=== PATIENT | female | born 1950 | race Caucasian/White ===

== ENCOUNTER → 2016-12-26 | Outpatient (CLI) | payer MEDICARE, OTHER ==
[~2016-12-26] MED LIST: CLD600T PO; CLIN-62 PO; CTLP20T PO; ESTR1TAB24 PO; GLUC-153 PO; HYDR-3583 PO; HYDR-707 PO; KETO-22 PO; LORA10CA PO; LOSA50TA6 PO; LOVA40TA2 PO; MECL-133 PO; MPR22TI TP; MTP50T PO; PRAV40TA PO; PRAV80TA2 PO; SULF-222 PO; SULF1TAB35 PO; TRAM50TA2 PO; TRIA15CR TP; vitamin b6 PO
== END ==
LOC: RAD 09:15
PROVIDERS: ATTEND Nurse Practitioner Community Health
DX: Z12.31 Encounter for screening mammogram for malignant neoplasm of breast (principal)
CPT/HCPCS: 77067

== ENCOUNTER → 2017-04-09 | Outpatient (CLI) | payer MEDICARE, OTHER ==
--- NOTE | 2017-04-09 11:37 | Diagnostic Imaging Report ---
INDICATION: History of smoking 1-2 packs a day for 40 years. Screening. COMPARISON: None. TECHNIQUE: Routine noncontrast low dose CT of the chest was performed. FINDINGS: Evaluation of the lung lee demonstrates a single subpleural 3-4 mm micronodule within the lateral left apex (image 40, series 4). There is some scarring within the posterior right apex as well. Otherwise, no additional pulmonary nodules or masses are seen. There is no focal consolidation, pleural effusion, nor pneumothorax. Cardiomediastinal structures are suboptimally evaluated given the noncontrast technique and lung window algorithm. Heart size is within normal limits. There is no large pericardial effusion. There is mild calcified aortic and coronary atherosclerosis. No pathologically enlarged or morphologically abnormal adenopathy is seen within the mediastinum, scout, nor axilla. Main pulmonary arterial trunk is prominent as it measures 3.5 cm in diameter. Ascending thoracic aorta is also prominent measuring 4.1 cm in diameter. Bony structures show no acute abnormalities. No lytic or blastic bony lesions are identified. Included portions of the upper abdomen show no additional acute abnormalities. IMPRESSION: 1. Single 4 mm micronodule within the left upper lobe as described above. 2. No acute cardiopulmonary process. 3. Mild calcified aortic and coronary atherosclerosis. 4. Prominence of main pulmonary arterial trunk. This can be seen with underlying pulmonary arterial hypertension. 5. Aneurysmal dilatation of the ascending thoracic aorta. LungRads category: 2. RECOMMENDATIONS: Continue annual screening with low-dose CT. Dictated by: Dictated on workstation # [id number]
== END ==
LOC: RAD 09:39
PROVIDERS: ATTEND Nurse Practitioner Community Health
DX: Z12.2 Encounter for screening for malignant neoplasm of respiratory organs (principal); I25.10 Atherosclerotic heart disease of native coronary artery without angina pectoris; I70.0 Atherosclerosis of aorta; I71.2 Thoracic aortic aneurysm, without rupture; R91.1 Solitary pulmonary nodule; Z87.891 Personal history of nicotine dependence

== ENCOUNTER 2017-12-09 18:18 | Emergency (ER) | payer MEDICARE, OTHER ==
[~2017-12-09] VITALS: Ht 175.3 cm; Wt 108.9 kg
--- OUTSIDE RECORDS SUMMARY | 2017-12-09 18:23 | XMS REPORT ---
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 Organization [facility] Address [address] [place] [address] Care Team Providers Care Behavioral Health Assistant Name Role Phone NOREEN FARMERIN Unavailable PROBLEMS Type Condition ICD9-CM Code BVZ03-AQ Code Onset Dates Condition Status SNOMED Code Problem Dysthymia F34.1 Active 82433799 Problem Essential hypertension I10 Active 43605108 Problem Chronic pain G89.29 Active 02962496 Problem Methicillin resistant Staphylococcus aureus 041.12 Active 877971278 Problem Cataracts, bilateral H26.9 Active 21617206 Problem Ganglion cyst M67.40 Active 081433613 Problem Heel spur M77.30 Active 69285752 Problem Irritable bowel syndrome with diarrhea K58.0 Active 295476429 Problem Neuropathy G62.9 Active 406340847 Problem Acquired hallux valgus of left foot M20.12 Active 55970620 Problem Hyperlipidemia, unspecified E78.5 Active 00298995 Problem Hallux valgus (acquired), right foot M20.11 Active 063085333 Problem Hammer toe of right foot M20.41 Active 539897223 ALLERGIES No Information ENCOUNTERS Encounter Location Date Diagnosis [place] [id number], [place] [address] Nov, [facility] [id number] [place] [address]191 Nov, [facility] [id number] [place] [address] 84625- 7493 Oct, Right medial knee pain M25.561 ; Abrasion of left knee, initial encounter S80.212A and Dysthymia F34.1 [facility] [id number], [place] [address] Aug, Other chronic pain G89.29 and Pain in right knee M25.561 [place] [address] [address] Aug, Chronic pain G89.29 [place] [address] 8[address]- [address]252 Aug, Right medial knee pain M25.561 [facility] [address] [address] Aug, Allergic conjunctivitis of both eyes H10.13 [place] [address] [address]- [address] 15 Aug, 2017 Onychomycosis B35.1 [place] [address] 00557- 2535 08 Aug, 2017 Allergic state, initial encounter T78.40XA [facility] [address] [address] 05 Aug, 2017 Acute bacterial conjunctivitis of left eye H10.32 [place] [address] [address] July, Essential hypertension I10 and Skin tag L91.8 [facility] [address] [address] Jun, [place] [address] [address] May, Dermatofibroma of left calf D23.72 [facility] [address] [address] May, Bilateral hearing loss due to cerumen impaction H61.23 [place] [address] [address]- [address] 23 May, 2017 Onychomycosis B35.1 ; Hammer toe of right foot M20.41 ; Acquired hallux valgus of left foot M20.12 and [place] or callus L84 [place] [address] [place] [address] Apr, Seborrheic keratosis L82.1 and Irritable bowel syndrome with diarrhea K58.0 [place] [address] 8[address] Mar, [place] [address] 0[address] Mar, Dental examination Z01.20 [place] [address] 75[address]- 6201 15 Mar, 2017 Medicare welcome exam Z00.00 ; Encounter for screening for lung cancer Z12.2 ; Colon cancer screening Z12.11 ; Encounter for immunization Z23 ; Weakness R53.1 and Irritable bowel syndrome with diarrhea K58.0 [place] [address] 67[address] 28[address] Feb, Onychomycosis B35.1 ; Hammer toe of right foot M20.41 ; Hallux valgus (acquired), right foot M20.11 and Acquired hallux valgus of left foot M20.12 [place] [address] 86767- 4864 Jan, Essential hypertension I10 and Encounter for immunization Z23 [place] [address] [address]- [address] Dec, Encounter for screening mammogram for breast cancer Z12.31 and Hyperlipidemia, unspecified E78.5 [place] [address] [address]16- 4[address] Nov, Hammer toe of right foot M20.41 ; Onychomycosis B35.1 and Neuropathy G62.9 [place] [address] 98498- 3347 Sep, Essential hypertension I10 and 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 [place] [address] 0[address]12- 20[address] Aug, [place] [address] [place] [id number] [place] [address]57- 2483 Aug, [place] [address] [address]70- 62[address] Aug, Onychomycosis B35.1 ; Hammer toe of right foot M20.41 and Neuropathy G62.9 [place] [address] 13022- 7632 May, Callus of foot L84 ; Hammer toe of right foot M20.41 and Onychomycosis B35.1 [place] [address] 45606- 3654 Apr, Chronic pain G89.29 [place] [address] 45690- 2777 Feb, Onychomycosis B35.1 ; Hammer toe of right foot M20.41 ; Acquired hallux valgus of left foot M20.12 and Hallux valgus (acquired), right foot M20.11 [place] [address] 94929- 8377 28 Jan, 2016 Cellulitis of left lower extremity L03.116 [place] [address] 39696- 9177 21 Jan, 2016 Seborrheic keratosis L82.1 and Encounter for immunization Z23 [place] [address] 82352- 7887 18 Jan, 2016 Seborrheic keratoses L82.1 and Visit for suture removal Z48.02 [place] [address] 15193- 6787 08 Jan, 2016 Dermatofibroma D23.9 [place] [address] 21046- 3071 18 Dec, 2015 Lesion of lower extremity L98.9 [place] [address] 38258- 7653 Dec, [place] [id number] [place] [address] 29990- 9668 Dec, Chronic pain G89.29 [place] [id number] [place] [address] 71062- 4084 Dec, Well woman exam Z01.419 ; Essential hypertension I10 ; Breast cancer screening Z12.39 ; Cervical cancer screening Z12.4 ; Vision changes H53.9 ; Heberden's node M15.1 ; Cutaneous horn L85.8 and Seborrheic keratosis L82.1 [place] [id number] [place] [address] 36282- 5372 Dec, Well woman exam Z01.419 ; Heberden's node M15.1 ; Breast cancer screening Z12.39 ; Cervical cancer screening Z12.4 ; Essential hypertension I10 ; Vision changes H53.9 ; Cutaneous horn L85.8 and Seborrheic keratosis L82.1 [place] [id number] [place] [address] 54097- 8007 Nov, Well woman exam Z01.419 ; Breast cancer screening Z12.39 ; Cervical cancer screening Z12.4 ; Essential hypertension I10 ; Vision changes H53.9 ; Heberden's node M15.1 ; Cutaneous horn L85.8 and Seborrheic keratosis L82.1 [place] [id number] [place] [address] 46198- 4640 Nov, Hammer toe of right foot M20.41 and Callus of foot L84 [place] [id number] [place] [address] 61069- 8005 Aug, Onychomycosis B35.1 and Callus of foot L84 [place] [id number] [place] [address] 07397- 7930 July, Dysthymia F34.1 and Chronic pain G89.29 [place] [id number] [place] [address] 45991- 0410 Jun, Dysthymia F34.1 ; Heel spur M77.30 and Ganglion cyst M67.40 [facility] [address] 46966- 4409 May, Onychomycosis B35.[address] [facility] [address] 91803- 2391 May, [facility] [address] 78042- 9849 Apr, [facility] [address] [address]- 6308 Apr, [facility] [address] [address]- 2463 Apr, [facility] [address] [address]- 1692 Mar, [facility] [address] 10126- 3915 Mar, [facility] [address] 075[address]- 0718 Feb, [facility] [id number] [place] [address] 98217- 5005 Feb, [facility] [address] [place] [id number] [place] [address] 28717- 4090 Feb, [facility] [address] 39013- 2585 Feb, Onychomycosis B35.1 and [place] or callus L84 [facility] [address] 76185- 6222 Feb, Cough R05 [facility] [id number] [place] [address] 15822 -8504 Jan, Sinusitis J32.9 [facility] [address] [id number] [place] [address] 80642- 6135 Jan, Hyperlipidemia 272.4 [place] [address] [place] [id number] [place] [address] 55190- 2006 09 Jan, 2015 Acute upper respiratory infection, unspecified J06.9 ; Encounter for immunization Z23 ; Other viral agents as the cause of diseases classified elsewhere B97.89 and Acute frontal sinusitis, recurrence not specified J01.10 [place] [address] 16510- 6420 Nov, Wart 078.10 ; Breast cancer screening V76.10 and Hyperlipidemia 272.[address] 8[address]- 3360 Nov, Onychomycosis 110.1 ; [place] or callus 700 and Skin fissures 709.[address] 94856- 1688 Aug, Hammertoe 735.4 ; Hyperkeratosis 701.1 ; Onychomycosis 110.1 ; Fissure in skin of foot 709.8 and Foot pain 729.5 [place] [address] [place] [id number] [place] [address] 74844- 8478 Aug, [place] [address] [place] [id number] [place] [address] 29110- 2877 Aug, [place] [address] [place] [id number] [place] [address] 93653- 6798 Aug, [place] [address] [place] [id number] [place] [address] 86954- 8690 July, [place] [address] 95687- 8942 July, [place] [address] [place] [id number] [place] [address] 45987- 1065 Jun, [place] [address] [place] [id number] [place] [address] 12311- 9837 Jun, [facility] [place] [facility] [address] [id number] [place] [address]- 0583 May, [facility] [place] [facility] [address] [id number] [place] [address]- 8501 May, [facility] [place] [facility] [address] [id number] [place] [address]- 4418 May, [facility] [place] [facility] [address] [id number] [place] [address]- 4926 May, [facility] [place] [facility] [address] [id number] [place] [address]- 8876 Apr, [facility] [place] [facility] [address] [id number] [place] [address]- 1509 Apr, [facility] [place] [facility] [address] [id number] [place] [address]- 3864 Feb, [facility] [place] [facility] [address] [id number] [place] [address]- 4996 Feb, [facility] [place] [facility] [address] [id number] [place] [address]- 4952 Feb, [facility] [place] [facility] [address] [id number] [place] [address]- 6422 Feb, [facility] [place] [facility] [address] [id number] [place] [address]- 8896 Feb, [facility] [place] [facility] [address] [id number] [place] [address]- 3346 Feb, [facility] [place] [facility] [address] [id number] [place] [address]- 3494 Jan, [facility] [place] [facility] [address] [id number] [place] [address]- 5596 Jan, [facility] [place] [facility] [address] [id number] [place] [address]- 3354 Jan, [facility] [place] [facility] [address] [id number] [place] [address]- 5194 06 Jan, 2014 [facility] [place] [facility] [address] [id number] [place] [address]- 6863 Jan, [facility] [place] [facility] [address] [id number] [place] [address]- 6206 Dec, [facility] [place] [facility] [address] [id number] [place] [address]- 8666 Dec, [facility] [place] [facility] [address] [id number] [place] [address]- 1444 29 Nov, 2013 [facility] [place] [facility] [address] [id number] [place] [address]- 0160 29 Nov, 2013 [facility] [place] [facility] [address] [id number] [place] [address]- 9858 Nov, 2013 [facility] [place] [facility] [address] [id number] [place] [address]- 3381 Nov, 2013 [facility] [place] [facility] [address] [id number] [place] [address]- 9871 Nov, 2013 [facility] [place] [facility] [address] [id number] [place] [address]- 1123 11 Nov, 2013 [facility] [place] [facility] [address] [id number] [place] [address]- 0539 Nov, [facility] [place] [facility] [address] [id number] [place] [address]- 6420 Nov, 2013 [facility] [place] [facility] [address] [id number] [place] [address]- 2549 Nov, 2013 [facility] [place] [facility] [address] [id number] [place] [address]- 7951 Nov, [facility] [place] [facility] [address] [id number] [place] [address]- 3574 Oct, [facility] [place] [facility] [address] [id number] [place] [address]- 9666 Oct, [facility] [place] [facility] [address] [id number] [place] [address]- 4411 Oct, [facility] [place] [facility] [address] [id number] [place] [address]- 5187 Oct, [facility] [place] [facility] [address] [id number] [place] [address]- 6374 Sep, [facility] [place] [facility] [address] [id number] [place] [address]- 1828 Sep, [facility] [place] [facility] [address] [id number] [place] [address]- 9376 Sep, [facility] [place] [facility] [address] [id number] [place] [address]- 0154 Sep, [facility] [place] [facility] [address] [id number] [place] [address]- 9824 Aug, [facility] [place] [facility] [address] [id number] [place] [address]- 0570 Aug, [facility] [place] [facility] [address] [id number] [place] [address]- 8871 Aug, [facility] [place] [facility] [address] [id number] [place] [address]- 1428 Aug, [facility] [place] [facility] [address] [id number] [place] [address]- 7144 Aug, [facility] [place] [facility] [address] [id number] [place] [address]- 4663 Aug, [facility] [place] [facility] [address] [id number] [place] [address]- 6963 Aug, [facility] [place] [facility] [address] [id number] [place] [address]- 0323 Aug, [facility] [place] [facility] [address] [id number] [place] [address]- 3540 Aug, [facility] [place] [facility] [address] [id number] [place] [address]- 0098 Aug, [facility] [place] [facility] [address] [id number] [place] [address]- 7535 Aug, [facility] [place] [facility] [address] [id number] [place] [address]- 6540 Aug, [facility] [place] [facility] [address] [id number] [place] [address]- 7083 July, [facility] [place] [facility] [address] [id number] [place] [address]- 3804 July, [facility] [place] [facility] [address] [id number] [place] [address]- 4400 July, [facility] [place] [facility] [address] [id number] [place] [address]- 5510 July, [facility] [place] [facility] [address] [id number] [place] [address]- 6589 July, [facility] [place] [facility] [address] [id number] [place] [address]- 9211 July, [facility] [place] [facility] [address] [id number] [place] [address]- 8060 Jun, [facility] [place] [facility] [address] [id number] [place] [address]- 0217 Jun, [facility] [place] [facility] [address] [id number] [place] [address]- 5804 Jun, [facility] [place] [facility] [address] [id number] [place] [address]- 9786 Jun, [facility] [place] [facility] [address] [id number] [place] [address]- 0427 May, [facility] [place] [facility] [address] [id number] [place] [address]- 8834 May, [facility] [place] [facility] [address] [id number] [place] [address]- 3001 May, [facility] [place] [facility] [address] [id number] [place] [address]- 7401 14 May, 2013 [facility] [address] [id number] [place] [address]- 3623 Feb, [facility] [address] [id number] [place] [address]- 3193 Feb, [facility] [address] [id number] [place] [address]- 8228 Feb, [facility] [address] [id number] [place] [address]- 7027 Feb, [facility] [address] [id number] [place] [address]- 9608 Jan, [facility] [address] [id number] [place] [address]- 4964 Jan, [facility] [address] [id number] [place] [address]- 4921 Dec, [facility] [address] [id number] [place] [address]- 3411 06 Nov, 2012 [facility] [address] [id number] [place] [address]- 6557 04 Nov, 2012 [facility] [address] [id number] [place] [address]- 5689 Nov, [facility] [address] [id number] [place] [address]- 9150 2012 [facility] [address] [id number] [place] [address]- 0086 Oct, [facility] [place] [facility] [address] [id number] [place] [address]- 6954 Oct, [facility] [place] [facility] [address] [id number] [place] [address]- 9544 Oct, [facility] [place] [facility] [address] [id number] [place] [address]- 0877 Oct, [facility] [address] [id number] [place] [address]- 3886 Oct, [facility] [place] [facility] [address] [id number] [place] [address]- 5716 Aug, [facility] [place] [facility] [address] [id number] [place] [address]- 7606 July, [facility] [place] [facility] [address] [id number] [place] [address]- 9666 July, [facility] [address] [id number] [place] [address]- 8429 May, [facility] [place] [facility] [address] [id number] [place] [address]- 9416 May, [facility] [place] [facility] [address] [id number] [place] [address]- 8526 May, [facility] [address] [id number] [place] [address]- 0370 Apr, [facility] [place] [facility] [address] [id number] [place] [address]- 6646 Apr, [facility] [place] [facility] [address] [id number] [place] [address]- 7166 Mar, [facility] [place] [facility] [address] [id number] [place] [address]- 8646 Mar, [facility] [place] [facility] [address] [id number] [place] [address]- 0476 Jan, [facility] [place] [facility] [address] [id number] [place] [address]- 3836 Jan, [facility] [place] [facility] [address] [id number] [place] [address]- 6236 Nov, [facility] [place] [facility] [address] [id number] [place] [address]- 2546 Nov, [facility] [place] [facility] [address] [id number] [place] [address]- 4071 Sep, [facility] [address] [id number] [place] [address]- 4684 Aug, [facility] [place] [facility] [address] [id number] [place] [address]- 6948 July, [facility] [address] [id number] [place] [address]- 0016 July, [facility] [place] [facility] [address] [id number] [place] [address]- 5851 July, [facility] [address] [id number] [place] [address]- 3072 Apr, [facility] [place] [facility] [address] [id number] [place] [address]- 7205 Apr, [facility] [address] [id number] [place] [address]- 2283 Mar, [facility] [place] [facility] [address] [id number] [place] [address]- 5557 Mar, [facility] [address] [id number] [place] [address]- 9114 Mar, [facility] [address] [id number] [place] [address]- 6973 Mar, [facility] [address] [id number] [place] [address]- 7285 Mar, [facility] [place] [facility] [address] [id number] [place] [address] Feb, [facility] [place] [facility] [address] [id number] [place] [address] Feb, [facility] [place] [facility] [address] [id number] [place] [address] Feb, [facility] [place] [facility] [address] [id number] [place] [address] Jan, [facility] [id number] [address] Jan, [facility] [id number] [address] Dec, [facility] [address] [address] Jan, [facility] [id number] [place] [address] Aug, [facility] [address] [address] July, [facility] [id number] [place] [address] Feb, [facility] [id number] [place] [address] Jan, [facility] [id number] [place] [address] Jan, [facility] [address], [place] [address] Dec, [facility] [address], [place] [address] July, IMMUNIZATIONS No Known Immunizations SOCIAL HISTORY Never Assessed REASON FOR VISIT 3 month f/u,pt. comes in with concern pain under left foot-KRYS mead PLAN OF CARE Activity Details Follow Up 3 Months Reason: VITAL SIGNS Height 70 in 2017-08-31 Blood pressure systolic 118 mmHg 2017-08-31 Blood pressure diastolic 72 mmHg 2017-08-31 MEDICATIONS Medication Instructions Dosage Frequency Start Date End Date Duration Status Tramadol HCl 50 MG Orally every 4 - 6 hrs 1 tablet as needed Apr, 28 days Active Metoprolol Tartrate 100 MG Orally Twice a day 1 tablet 12h 90 Active Loratadine 10 MG TAKE ONE TABLET BY MOUTH DAILY 90 Active Bentyl 20 MG TAKE ONE (1) TABLET BY MOUTH TWICE DAILY BEFORE LUNCH AND SUPPER 30 Active Losartan Potassium 50 mg Orally 2 times a day 1 tablet 12h 90 days Active Estradiol 0.5 MG Orally Once a day 1 tablet 24h 90 Active Prozac 40 MG Orally Once a day 1 capsule in the morning 24h 90 days Active Amlodipine Besylate 10 MG TAKE ONE TABLET BY MOUTH ONCE DAILY 90 Active Pravastatin Sodium 80 MG TAKE ONE TABLET BY MOUTH AT BEDTIME 24h 90 Active Maxitrol 3.5-90744-8.1 Ophthalmic Four times a day 1 drop into affected eye 6h Aug, 7 days Active RESULTS No Results PROCEDURES Procedure Date Ordered Result Body Site DEBRIDE NAIL, 6 OR MORE August 31, 2017 [facility] VISIT ESTABLISHED PATIENT August 31, 2017 INSTRUCTIONS MEDICATIONS ADMINISTERED No Known Medications MEDICAL (GENERAL) HISTORY Type Description Date Medical History HTN Medical History hyperlipidemia Medical History chronic back pain and shoulder pain Medical History MRSA Surgical History x 3 Surgical History hysterectomy Surgical History right foot surgery Hospitalization History surgeries Hospitalization History MRSA on arm Hospitalization History infected cyst 2011
--- OUTSIDE RECORDS SUMMARY | 2017-12-09 18:24 | XMS REPORT ---
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 Name Role Phone SHAYNA DASILVA Unavailable PROBLEMS Type Condition ICD9-CM Code YZG72-CO Code Onset Dates Condition Status SNOMED Code Problem Dysthymia F34.1 Active 25194446 Problem Essential hypertension I10 Active 83985005 Problem Chronic pain G89.29 Active 59459464 Problem Methicillin resistant Staphylococcus aureus 041.12 Active 441275463 Problem Cataracts, bilateral H26.9 Active 32282521 Problem Ganglion cyst M67.40 Active 456413967 Problem Heel spur M77.30 Active 53469796 Problem Irritable bowel syndrome with diarrhea K58.0 Active 453343059 Problem Neuropathy G62.9 Active 125110101 Problem Acquired hallux valgus of left foot M20.12 Active 51524622 Problem Hyperlipidemia, unspecified E78.5 Active 94563661 Problem Hallux valgus (acquired), right foot M20.11 Active 707810098 Problem Hammer toe of right foot M20.41 Active [id number] ALLERGIES No Known Allergies ENCOUNTERS Encounter Location Date Diagnosis [place] [id number] [address] Nov, [facility] [id number] [place] [address]27- 1119 Nov, [facility] [id number] [place] [address]12- 4502 Oct, Right medial knee pain M25.561 ; Abrasion of left knee, initial encounter S80.212A and Dysthymia F34.1 [facility] [address] [place] [id number] [address] Aug, Other chronic pain G89.29 and Pain in right knee M25.561 [place] [address] [address] Aug, Chronic pain G89.29 [place] [address] [address]86- [address]84 Aug, Right medial knee pain M25.561 [facility] [address] [address] Aug, Allergic conjunctivitis of both eyes H10.13 [place] [address] [address]77- [address]471 Aug, Onychomycosis B35.[address] [address]- [address] 08 Aug, 2017 Allergic state, initial encounter T78.40XA [facility] [address] [address] 05 Aug, 2017 Acute bacterial conjunctivitis of left eye H10.[address] [address]- [address] July, Essential hypertension I10 and Skin tag L91.8 [facility] [address] [address] Jun, [address] [address] May, Dermatofibroma of left calf D23.72 [facility] [address] [address] May, Bilateral hearing loss due to cerumen impaction H61.[address] [address]- [address] May, Onychomycosis B35.1 ; Hammer toe of right foot M20.41 ; Acquired hallux valgus of left foot M20.12 and [place] or callus L84 [place] [address] [address]- 50[address] Apr, Seborrheic keratosis L82.1 and Irritable bowel syndrome with diarrhea K58.0 [place] [address] [place] [id number] [place] [address] 97672- 2050 Mar, [place] [address] [place] [id number] [place] [address] 13333- 9608 Mar, Dental examination Z01.20 [place] [address] [address]- [address] 15 Mar, 2017 Medicare welcome exam Z00.00 ; Encounter for screening for lung cancer Z12.2 ; Colon cancer screening Z12.11 ; Encounter for immunization Z23 ; Weakness R53.1 and Irritable bowel syndrome with diarrhea K58.0 [place] [address] [address]- [address] Feb, Onychomycosis B35.1 ; Hammer toe of right foot M20.41 ; Hallux valgus (acquired), right foot M20.11 and Acquired hallux valgus of left foot M20.12 [place] [address] [address]- 2688 Jan, Essential hypertension I10 and Encounter for immunization Z23 [address] 365[address]- [address] Dec, Encounter for screening mammogram for breast cancer Z12.31 and Hyperlipidemia, unspecified E78.5 [place] [address] [address]- 7639 Nov, Hammer toe of right foot M20.41 ; Onychomycosis B35.1 and Neuropathy G62.[address] [address]- [address] Sep, Essential hypertension I10 and 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 [place] [address] [place] [id number] [place] [address] 83388- 2886 Aug, [place] [address] [place] [id number] [place] [address] 27929- 5033 Aug, [place] [address] [address]- [address] Aug, Onychomycosis B35.1 ; Hammer toe of right foot M20.41 and Neuropathy G62.9 [place] [address] 64951- 1094 May, Callus of foot L84 ; Hammer toe of right foot M20.41 and Onychomycosis B35.1 [place] [address] 55458- 7175 Apr, Chronic pain G89.29 [place] [address] 16633- 1269 Feb, Onychomycosis B35.1 ; Hammer toe of right foot M20.41 ; Acquired hallux valgus of left foot M20.12 and Hallux valgus (acquired), right foot M20.11 [place] [address] 62701- 4963 Jan, Cellulitis of left lower extremity L03.116 [place] [address] 49652- 6425 Jan, Seborrheic keratosis L82.1 and Encounter for immunization Z23 [place] [address] 90727- 4[address] 18 Jan, 2016 Seborrheic keratoses L82.1 and Visit for suture removal Z48.02 [place] [address] 48030- 5961 08 Jan, 2016 Dermatofibroma D23.9 [place] [address] 10013- 5288 18 Dec, 2015 Lesion of lower extremity L98.9 [place] [address] 58612- 7346 Dec, [place] [address] [place] [id number] [place] [address] 88036- 6461 Dec, Chronic pain G89.29 [place] [id number] [place] [address] Dec, Well woman exam Z01.419 ; Essential hypertension I10 ; Breast cancer screening Z12.39 ; Cervical cancer screening Z12.4 ; Vision changes H53.9 ; Heberden's node M15.1 ; Cutaneous horn L85.8 and Seborrheic keratosis L82.[address] 26111- 5816 Dec, Well woman exam Z01.419 ; Heberden's node M15.1 ; Breast cancer screening Z12.39 ; Cervical cancer screening Z12.4 ; Essential hypertension I10 ; Vision changes H53.9 ; Cutaneous horn L85.8 and Seborrheic keratosis L82.1 [place] [id number] [place] [address] 21681- 0938 Nov, Well woman exam Z01.419 ; Breast cancer screening Z12.39 ; Cervical cancer screening Z12.4 ; Essential hypertension I10 ; Vision changes H53.9 ; Heberden's node M15.1 ; Cutaneous horn L85.8 and Seborrheic keratosis L82.1 [place] [id number] [place] [address] 22225- 6735 Nov, Hammer toe of right foot M20.41 and Callus of foot L84 [place] [id number] [place] [address] 55499- 9353 Aug, Onychomycosis B35.1 and Callus of foot L84 [place] [id number] [place] [address] 02322- 1890 July, Dysthymia F34.1 and Chronic pain G89.[address] 6[address]94- 3106 Jun, Dysthymia F34.1 ; Heel spur M77.30 and Ganglion cyst M67.40 [facility] [address] 09651- 2881 May, Onychomycosis B35.1 and Neuropathy G62.9 [facility] [address] 17150- 3179 May, [facility] [address] 55136- 2376 Apr, [facility] [address] 13341- 5847 Apr, [facility] [address] 83897- 2335 Apr, [facility] [address] 04254- 5062 Mar, [facility] [address] 52980- 8340 Mar, [facility] [address] 23918- 3329 Feb, [facility] [address] 02199- 7927 Feb, [facility] [address] 99735- 3715 Feb, [facility] [address] 89031- 7604 Feb, Onychomycosis B35.1 and [place] or callus L84 [facility] [address] 11643- 2494 Feb, Cough R05 [facility] [address] [place] [id number] [place] [address]45 -7849 Jan, Sinusitis J32.9 [facility] [address] [place] [address] 6526 Jan, Hyperlipidemia 272.4 [place] [address] [place] [id number] [place] [address] 99624- 9819 09 Jan, 2015 Acute upper respiratory infection, unspecified J06.9 ; Encounter for immunization Z23 ; Other viral agents as the cause of diseases classified elsewhere B97.89 and Acute frontal sinusitis, recurrence not specified J01.10 [place] [address] 82681- 5348 Nov, Wart 078.10 ; Breast cancer screening V76.10 and Hyperlipidemia 272.4 [place] [address] 23931- 0621 Nov, Onychomycosis 110.1 ; [place] or callus 700 and Skin fissures 709.8 [place] [address] 02461- 2112 Aug, Hammertoe 735.4 ; Hyperkeratosis 701.1 ; Onychomycosis 110.1 ; Fissure in skin of foot 709.8 and Foot pain 729.5 [place] [address] [place] [id number] [place] [address] 86546- 3032 Aug, [place] [address] [place] [id number] [place] [address] 89019- 7661 Aug, [place] [address] [place] [id number] [place] [address] 37461- 3588 Aug, [place] [address] [place] [id number] [place] [address] 09659- 7697 July, [place] [address] 14712- 1679 July, [facility] [address] [place] [id number] [place] [address] 40303- 6612 Jun, [place] [address] [place] [id number] [place] [address] 48710- 8634 Jun, [facility] [place] [facility] [address] [id number] [place] [address]- 0857 May, [facility] [place] [facility] [address] [id number] [place] [address]- 0495 May, [facility] [place] [facility] [address] [id number] [place] [address]- 3603 May, [facility] [place] [facility] [address] [id number] [place] [address]- 7427 May, [facility] [place] [facility] [address] [id number] [place] [address]- 1442 Apr, [facility] [place] [facility] [address] [id number] [place] [address]- 0917 Apr, [facility] [place] [facility] [address] [id number] [place] [address]- 1793 Feb, [facility] [place] [facility] [address] [id number] [place] [address]- 3039 Feb, [facility] [place] [facility] [address] [id number] [place] [address]- 8242 Feb, [facility] [place] [facility] [address] [id number] [place] [address]- 6613 Feb, [facility] [place] [facility] [address] [id number] [place] [address]- 6912 Feb, [facility] [place] [facility] [address] [id number] [address]- 8916 Feb, [facility] [place] [facility] [address] [id number] [place] [address]- 7465 Jan, [facility] [place] [facility] [address] [id number] [place] [address]- 9489 Jan, [facility] [place] [facility] [address] [id number] [place] [address]- 6144 Jan, [facility] [place] [facility] [address] [id number] [address]- 2828 Jan, [facility] [place] [facility] [address] [id number] [place] [address]- 2547 Jan, [facility] [place] [facility] [address] [id number] [place] [address]- 1956 Dec, [facility] [place] [facility] [address] [id number] [place] [address]- 5306 Dec, [facility] [place] [facility] [address] [id number] [place] [address]- 4623 29 Nov, 2013 [facility] [place] [facility] [address] [id number] [place] [address]- 6651 29 Nov, 2013 [facility] [place] [facility] [address] [id number] [place] [address]- 0130 Nov, [facility] [place] [facility] [address] [id number] [place] [address]- 1011 Nov, [facility] [place] [facility] [address] [id number] [place] [address]- 6866 Nov, [facility] [place] [facility] [address] [id number] [place] [address]- 4229 Nov, [facility] [place] [facility] [address] [id number] [place] [address]- 4003 Nov, [facility] [place] [facility] [address] [id number] [place] [address]- 9480 Nov, 2013 [facility] [place] [facility] [address] [id number] [address]- 3575 Nov, [facility] [place] [facility] [address] [id number] [place] [address]- 5670 Nov, [facility] [place] [facility] [address] [id number] [place] [address]- 0436 Oct, [facility] [place] [facility] [address] [id number] [place] [address]- 6115 Oct, [facility] [place] [facility] [address] [id number] [place] [address]- 3280 Oct, [facility] [place] [facility] [address] [id number] [place] [address]- 1647 Oct, [facility] [place] [facility] [address] [id number] [place] [address]- 4476 Sep, [facility] [place] [facility] [address] [id number] [place] [address]- 6114 Sep, [facility] [place] [facility] [address] [id number] [place] [address]- 4330 Sep, [facility] [place] [facility] [address] [id number] [place] [address]- 9948 Sep, [facility] [place] [facility] [address] [id number] [place] [address]- 1372 Aug, [facility] [place] [facility] [address] [id number] [place] [address]- 3115 Aug, [facility] [place] [facility] [address] [id number] [place] [address]- 4523 Aug, [facility] [place] [facility] [address] [id number] [place] [address]- 4678 Aug, [facility] [place] [facility] [address] [id number] [place] [address]- 3223 Aug, [facility] [place] [facility] [address] [id number] [place] [address]- 2766 Aug, [facility] [place] [facility] [address] [id number] [place] [address]- 7309 Aug, [facility] [place] [facility] [address] [id number] [place] [address]- 9126 Aug, [facility] [place] [facility] [address] [id number] [place] [address]- 4990 Aug, [facility] [place] [facility] [address] [id number] [place] [address]- 3267 Aug, [facility] [place] [facility] [address] [id number] [place] [address]- 1351 Aug, [facility] [place] [facility] [address] [id number] [place] [address]- 0068 Aug, [facility] [place] [facility] [address] [id number] [place] [address]- 1296 July, [facility] [place] [facility] [address] [id number] [place] [address]- 4395 July, [facility] [place] [facility] [address] [id number] [place] [address]- 6722 July, [facility] [place] [facility] [address] [id number] [place] [address]- 9816 July, [facility] [place] [facility] [address] [id number] [place] [address]- 0721 July, [facility] [place] [facility] [address] [id number] [place] [address]- 2965 July, [facility] [place] [facility] [address] [id number] [place] [address]- 2473 Jun, [facility] [place] [facility] [address] [id number] [place] [address]- 2713 Jun, [facility] [place] [facility] [address] [id number] [place] [address]- 6989 Jun, [facility] [place] [facility] [address] [id number] [place] [address]- 9867 Jun, [facility] [place] [facility] [address] [id number] [place] [address]- 0664 May, [facility] [place] [facility] [address] [id number] [place] [address]- 9528 May, [facility] [place] [facility] [address] [id number] [place] [address]- 8539 May, [facility] [place] [facility] [address] [id number] [place] [address]- 1748 14 May, 2013 [facility] [address] [id number] [place] [address]- 9123 Feb, [facility] [place] [facility] [address] [id number] [place] 2912 Feb, [facility] [place] [facility] [address] [id number] [place] [address]- 0404 Feb, [facility] [place] [facility] [address] [id number] [place] [address]- 7955 17 Feb, 2013 [facility] [place] [facility] [address] [id number] [place] 4331 Jan, [facility] [place] [facility] [address] [id number] [place] [address]- 3350 Jan, [facility] [place] [facility] [address] [id number] [place] [address]- 0173 07 Dec, 2012 [facility] [place] [facility] [address] [id number] [place] [address]- 4220 06 Nov, 2012 [facility] [place] [facility] [address] [id number] [place] [address]- 4510 04 Nov, 2012 [facility] [place] [facility] [address] [id number] [place] [address]- 9452 03 Nov, 2012 [facility] [place] [facility] [address] [id number] [place] [address]- 9431 2012 [facility] [place] [facility] [address] [id number] [place] [address]- 2047 Oct, [facility] [place] [facility] [address] [id number] [place] [address]- 3307 Oct, [facility] [place] [facility] [address] [id number] [place] [address]- 0822 Oct, [facility] [place] [facility] [address] [id number] [place] 1512 Oct, [facility] [place] [facility] [address] [id number] [place] [address]- 5274 Oct, [facility] [address] [id number] [place] [address]- 8811 Aug, [facility] [address] [id number] [place] [address]- 2802 July, [facility] [address] [id number] [place] [address]- 8448 July, [facility] [address] [id number] [place] [address]- 8238 May, [facility] [address] [id number] [place] [address]- 6554 May, [facility] [address] [id number] [place] [address]- 5219 May, [facility] [address] [id number] [place] [address]- 7301 Apr, [facility] [address] [id number] [place] [address]- 4989 Apr, [facility] [address] [id number] [place] [address]- 9735 Mar, [facility] [address] [id number] [place] [address]- 1619 Mar, [facility] [address] [id number] [place] [address]- 0298 Jan, [facility] [place] [facility] [address] [id number] [place] [address]- 0345 Jan, [facility] [place] [facility] [address] [id number] [place] [address]- 2546 Nov, [facility] [place] [facility] [address] [id number] [place] [address]- 2546 Nov, [facility] [place] [facility] [address] [id number] [place] [address]- 9570 Sep, [facility] [address] [id number] [place] [address]- 2295 Aug, [facility] [place] [facility] [address] [id number] [place] [address]- 6276 July, [facility] [place] [facility] [address] [id number] [place] [address]- 0404 July, [facility] [place] [facility] [address] [id number] [place] [address]- 5092 July, [facility] [place] [facility] [address] [id number] [place] [address]- 8149 Apr, [facility] [place] [facility] [address] [id number] [place] [address]- 4028 Apr, [facility] [address] [facility] [id number] [place] [address]- 5866 Mar, [facility] [place] [facility] [address] [id number] [place] [address]- 0361 Mar, [facility] [place] [facility] [address] [facility] [id number] [place] [address]- 0429 Mar, [facility] [place] [facility] [address] [facility] [id number] [place] [address]- 5354 Mar, [facility] [address] [id number] [place] [address]- 1704 Mar, [facility] [place] [facility] [address] [id number] [place] [address]- 1267 Feb, [facility] [place] [facility] [address] [id number] [place] [address]- 4434 Feb, [facility] [place] [facility] [address] [facility] [id number] [place] [address]- 1456 Feb, [facility] [place] [facility] [address] [facility] [id number] [place] [address]- 6271 Jan, [facility] [place] [facility] [id number] [address]- 2996 Jan, [facility] [id number] 5251 Dec, [facility] [address] [address]- 9730 Jan, [facility] [address] 2780 Aug, [facility] [address] [address]- 6317 July, [facility] [address] [address]- 3102 Feb, [facility] [id number] [address] Jan, [facility] [id number] [address] Jan, [facility] [id number] [address] Dec, [facility] [id number] [address] July, IMMUNIZATIONS No Known Immunizations SOCIAL HISTORY Never Assessed REASON FOR VISIT knee injection, Right knee -Isauro MARCANO PLAN OF CARE Activity Details Future/Pending Procedure JOINT INJECTION-LARGE JOINT VITAL SIGNS Height 70 in 2017-09-11 Weight 243 lbs 2017-09-11 Temperature 98.3 degrees Fahrenheit 2017-09-11 Heart Rate 67 bpm 2017-09-11 Respiratory Rate 20 2017-09-11 Oximetry on room air:96 % 2017-09-11 BMI 34.86 kg/m2 2017-09-11 Blood pressure systolic 130 mmHg 2017-09-11 Blood pressure diastolic 72 mmHg 2017-09-11 MEDICATIONS Medication Instructions Dosage Frequency Start Date End Date Duration Status Maxitrol 3.5-24073-2.1 Ophthalmic Four times a day 1 drop into affected eye 6h Aug, 7 days Active Alaway 0.025 % Ophthalmic Twice a day 1 drop into each eye 12h 15 Aug, 2017 14 days Active Tramadol HCl 50 mg Orally 2 times a day 2 tablet 12h 23 Apr, 2016 Sep, 28 days Active Metoprolol Tartrate 100 MG Orally Twice a day 1 tablet 12h 90 Active Bentyl 20 MG TAKE ONE (1) TABLET BY MOUTH TWICE DAILY BEFORE LUNCH AND SUPPER 30 Active Losartan Potassium 50 mg Orally 2 times a day 1 tablet 12h 90 days Active Prozac 40 MG Orally Once a day 1 capsule in the morning 24h 90 days Active Estradiol 0.5 MG Orally Once a day 1 tablet 24h 90 Active Loratadine 10 MG TAKE ONE TABLET BY MOUTH DAILY 90 Active Amlodipine Besylate 10 MG TAKE ONE TABLET BY MOUTH ONCE DAILY 90 Active Pravastatin Sodium 80 MG TAKE ONE TABLET BY MOUTH AT BEDTIME 24h 90 Active RESULTS No Results PROCEDURES Procedure Date Ordered Result Body Site DRAIN/INJECT, JOINT/BURSA September 11, 2017 [facility] VISIT ESTABLISHED PATIENT September 11, 2017 INSTRUCTIONS MEDICATIONS ADMINISTERED No Known Medications MEDICAL (GENERAL) HISTORY Type Description Date Medical History HTN Medical History hyperlipidemia Medical History chronic back pain and shoulder pain Medical History MRSA Surgical History x 3 Surgical History hysterectomy Surgical History right foot surgery Hospitalization History surgeries Hospitalization History MRSA on arm Hospitalization History infected cyst 2010
--- OUTSIDE RECORDS SUMMARY | 2017-12-09 18:24 | XMS REPORT ---
Author Author UGO PRETTY Organization [facility] Address [address] [place] [address] Care Team Providers Care Boiler Room Helper Name Role Phone UGO PRETTY Unavailable PROBLEMS Type Condition ICD9-CM Code MFC58-GS Code Onset Dates Condition Status SNOMED Code Problem Dysthymia F34.1 Active 78405759 Problem Essential hypertension I10 Active 53264385 Problem Chronic pain G89.29 Active 30392308 Problem Methicillin resistant Staphylococcus aureus 041.12 Active 602940829 Problem Cataracts, bilateral H26.9 Active 08585035 Problem Ganglion cyst M67.40 Active 583561221 Problem Heel spur M77.30 Active 93096845 Problem Irritable bowel syndrome with diarrhea K58.0 Active 935461750 Problem Neuropathy G62.9 Active 262346125 Problem Acquired hallux valgus of left foot M20.12 Active 82775059 Problem Hyperlipidemia, unspecified E78.5 Active 14323030 Problem Hallux valgus (acquired), right foot M20.11 Active 195481015 Problem Hammer toe of right foot M20.41 Active [id number] ALLERGIES No Known Allergies ENCOUNTERS Encounter Location Date Diagnosis [place] [address] [address] Nov, [facility] [id number] [place] [address] 88266- 2279 Nov, [place] [address] [place] [id number] [place] [address] 78043- 3324 Oct, Right medial knee pain M25.561 ; Abrasion of left knee, initial encounter S80.212A and Dysthymia F34.1 [facility] [address] [id number] [address] Aug, Other chronic pain G89.29 and Pain in right knee M25.561 [place] [address] [place] [id number] [place] [address] 66035- 4691 Aug, Chronic pain G89.29 [place] [address] [address]36- 8775 Aug, Right medial knee pain M25.561 [facility] [address] [address] Aug, Allergic conjunctivitis of both eyes H10.13 [place] [address] 47247- 7868 15 Aug, 2017 Onychomycosis B35.1 [place] [address] 80019- 1370 08 Aug, 2017 Allergic state, initial encounter T78.40XA [facility] W[facility] IN [address] [address] 05 Aug, 2017 Acute bacterial conjunctivitis of left eye H10.32 [place] [address] [address]- 4786 July, Essential hypertension I10 and Skin tag L91.8 [facility] W[facility] IN [place] [id number] [place] [address] 05964 -6227 Jun, [place] [address] [place] [id number] [place] [address] 78351- 0652 May, Dermatofibroma of left calf D23.72 [facility] [place] [id number] [place] [address] 49528 -9512 May, Bilateral hearing loss due to cerumen impaction H61.23 [place] [address] [place] [id number] [place] [address] 88970- 0261 May, Onychomycosis B35.1 ; Hammer toe of right foot M20.41 ; Acquired hallux valgus of left foot M20.12 and [place] or callus L84 [place] [address] [place] [id number] [place] [address] 39130- 2346 Apr, Seborrheic keratosis L82.1 and Irritable bowel syndrome with diarrhea K58.0 [place] [id number] [place] [address] 22644- 1107 30 Mar, 2017 [place] [id number] [place] [address] 90133- 1642 Mar, Dental examination Z01.[address] [address]- 6068 15 Mar, 2017 Medicare welcome exam Z00.00 ; Encounter for screening for lung cancer Z12.2 ; Colon cancer screening Z12.11 ; Encounter for immunization Z23 ; Weakness R53.1 and Irritable bowel syndrome with diarrhea K58.[address] 01648- 9330 Feb, Onychomycosis B35.1 ; Hammer toe of right foot M20.41 ; Hallux valgus (acquired), right foot M20.11 and Acquired hallux valgus of left foot M20.[address] 74162- 0932 Jan, Essential hypertension I10 and Encounter for immunization Z23 [place] [id number] [place] [address] 84290- 0598 Dec, Encounter for screening mammogram for breast cancer Z12.31 and Hyperlipidemia, unspecified E78.5 [place] [id number] [place] [address] 64998- 1187 Nov, Hammer toe of right foot M20.41 ; Onychomycosis B35.1 and Neuropathy G62.9 [place] [id number] [place] [address] 12577- 4710 Sep, Essential hypertension I10 and 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 07345- 3180 Aug, [place] [address] 03881- 5733 Aug, [place] [address] 85060- 4217 Aug, Onychomycosis B35.1 ; Hammer toe of right foot M20.41 and Neuropathy G62.9 [place] [address] 01379- 5664 May, Callus of foot L84 ; Hammer toe of right foot M20.41 and Onychomycosis B35.1 [place] [address] 30230- 4652 Apr, Chronic pain G89.29 [place] [address] 95431- 8097 Feb, Onychomycosis B35.1 ; Hammer toe of right foot M20.41 ; Acquired hallux valgus of left foot M20.12 and Hallux valgus (acquired), right foot M20.11 [place] [address] 28533- 8133 28 Jan, 2016 Cellulitis of left lower extremity L03.116 [place] [address] 08039- 2729 21 Jan, 2016 Seborrheic keratosis L82.1 and Encounter for immunization Z23 [place] [address] 88382- 7626 18 Jan, 2016 Seborrheic keratoses L82.1 and Visit for suture removal Z48.02 [place] [address] 72090- 0211 08 Jan, 2016 Dermatofibroma D23.9 [place] [address] 65759- 0746 18 Dec, 2015 Lesion of lower extremity L98.9 [place] [address] [place] [address]- 3[address] Dec, [place] [address] 42935- 8875 Dec, Chronic pain G89.29 [place] [address] 68573- 3465 Dec, Well woman exam Z01.419 ; Essential hypertension I10 ; Breast cancer screening Z12.39 ; Cervical cancer screening Z12.4 ; Vision changes H53.9 ; [place]'s node M15.1 ; Cutaneous horn L85.8 and Seborrheic keratosis L82.1 [place] [address] 56025- 1442 Dec, Well woman exam Z01.419 ; Heber[place]'s node M15.1 ; Breast cancer screening Z12.39 ; Cervical cancer screening Z12.4 ; Essential hypertension I10 ; Vision changes H53.9 ; Cutaneous horn L85.8 and Seborrheic keratosis L82.1 [place] [address] 31921- 5135 Nov, Well woman exam Z01.419 ; Breast cancer screening Z12.39 ; Cervical cancer screening Z12.4 ; Essential hypertension I10 ; Vision changes H53.9 ; [place]'s node M15.1 ; Cutaneous horn L85.8 and Seborrheic keratosis L82.1 [place] [address] 68925- 7788 Nov, Hammer toe of right foot M20.41 and Callus of foot L84 [place] [address] [place] [id number] [place] [address] 05252- 1237 Aug, Onychomycosis B35.1 and Callus of foot L84 [place] [address] 95021- 4462 July, Dysthymia F34.1 and Chronic pain G89.29 [place] [address] [place] [address]- 7581 Jun, Dysthymia F34.1 ; Heel spur M77.30 and Ganglion cyst M67.40 [facility] [address] 07852- 2485 May, Onychomycosis B35.1 and Neuropathy G62.9 [facility] [address] 20552- 7235 May, [facility] [address] 11733- 1846 Apr, [facility] [address] 32572- 4525 Apr, [facility] [address] 02200- 2202 Apr, [facility] [address] 61535- 4588 Mar, [facility] [address] 73572- 4996 Mar, [facility] [address] 74076- 2999 Feb, [facility] [address] 70166- 9910 Feb, [facility] [address] 39244- 3317 Feb, [facility] [address] [place] [id number] [place] [address] 19929- 1672 Feb, Onychomycosis B35.1 and [place] or callus L84 [facility] [address] [place] [id number] [place] [address] 95137- 5333 Feb, Cough R05 [facility] [address] [place] [id number] [place] [address] 59890 -9119 Jan, Sinusitis J32.9 [place] [address] [place] [id number] [place] [address] 94808- 1012 Jan, Hyperlipidemia 272.4 [place] [address] [place] [id number] [place] [address] 55944- 6634 Jan, Acute upper respiratory infection, unspecified J06.9 ; Encounter for immunization Z23 ; Other viral agents as the cause of diseases classified elsewhere B97.89 and Acute frontal sinusitis, recurrence not specified J01.10 [place] [address] [place] [id number] [place] [address] 15485- 8298 Nov, Wart 078.10 ; Breast cancer screening V76.10 and Hyperlipidemia 272.4 [place] [address] 28218- 9581 Nov, Onychomycosis 110.1 ; [place] or callus 700 and Skin fissures 709.[address] 90752- 0321 Aug, Hammertoe 735.4 ; Hyperkeratosis 701.1 ; Onychomycosis 110.1 ; Fissure in skin of foot 709.8 and Foot pain 729.5 [place] [address] [place] [id number] [place] [address] 27101- 1050 Aug, [place] [address] [place] [id number] [place] [address] 71020- 0345 Aug, [place] [address] [place] [id number] [place] [address] 01242- 4447 Aug, [place] [address] [place] [id number] [place] [address] 43306- 0676 July, [place] [address] 03485- 0896 July, [place] [address] [place] [id number] [place] [address] 52392- 3945 Jun, [place] [address] 74001- 1237 Jun, [facility] [place] [facility] [address] [id number] [place] [address]- 9214 May, [facility] [place] [facility] [address] [id number] [place] [address]- 7995 May, [facility] [place] [facility] [address] [id number] [place] [address]- 8525 May, [facility] [place] [facility] [address] [id number] [place] [address]- 5578 May, [facility] [place] [facility] [address] [id number] [place] [address]- 9834 Apr, [facility] [place] [facility] [address] [id number] [place] [address]- 3862 Apr, [facility] [place] [facility] [address] [id number] [place] 4[address] Feb, [facility] [place] [facility] [address] [id number] [place] [address]- 1918 Feb, [facility] [place] [facility] [address] [id number] [place] 4[address] Feb, [facility] [place] [facility] [address] [id number] [place] [address]- 7795 Feb, [facility] [place] [facility] [address] [id number] [place] [address]- 7807 Feb, [facility] [place] [facility] [address] [id number] [place] [address]- 1271 Feb, [facility] [place] [facility] [address] [id number] [place] [address]- 8213 Jan, [facility] [place] [facility] [address] [id number] [place] [address]- 6533 Jan, [facility] [place] [facility] [address] [id number] [place] [address]- 6055 Jan, [facility] [place] [facility] [address] [id number] [place] [address]- 7453 Jan, [facility] [place] [facility] [address] [id number] [place] [address]- 6890 Jan, [facility] [place] [facility] [address] [id number] [place] [address]- 3416 Dec, [facility] [place] [facility] [address] [id number] [place] [address]- 8691 Dec, [facility] [place] [facility] [address] [id number] [place] [address]- 8394 29 Nov, 2013 [facility] [place] [facility] [address] [id number] [place] [address]- 5393 29 Nov, 2013 [facility] [place] [facility] [address] [id number] [place] [address]- 1973 Nov, [facility] [place] [facility] [address] [id number] [place] [address]- 0222 Nov, 2013 [facility] [place] [facility] [address] [id number] [place] [address]- 8640 11 Nov, 2013 [facility] [place] [facility] [address] [id number] [place] [address]- 5065 Nov, 2013 [facility] [place] [facility] [address] [id number] [place] [address]- 6093 Nov, [facility] [place] [facility] [address] [id number] [place] [address]- 2544 Nov, 2013 [facility] [place] [facility] [address] [id number] [place] [address]- 1669 Nov, 2013 [facility] [place] [facility] [address] [id number] [place] [address]- 2448 Nov, [facility] [place] [facility] [address] [id number] [place] [address]- 5258 Oct, [facility] [place] [facility] [address] [id number] [place] [address]- 4808 Oct, [facility] [place] [facility] [address] [id number] [place] [address]- 1145 Oct, [facility] [place] [facility] [address] [id number] [place] [address]- 5673 Oct, [facility] [place] [facility] [address] [id number] [place] [address]- 6610 Sep, [facility] [place] [facility] [address] [id number] [place] [address]- 7468 Sep, [facility] [place] [facility] [address] [id number] [place] [address]- 2896 Sep, [facility] [place] [facility] [address] [id number] [place] [address]- 1069 Sep, [facility] [place] [facility] [address] [id number] [place] [address]- 1083 Aug, [facility] [place] [facility] [address] [id number] [place] [address]- 4376 Aug, [facility] [place] [facility] [address] [id number] [place] [address]- 0798 Aug, [facility] [place] [facility] [address] [id number] [place] [address]- 0745 Aug, [facility] [place] [facility] [address] [id number] [place] [address]- 9427 Aug, [facility] [place] [facility] [address] [id number] [place] [address]- 6403 Aug, [facility] [place] [facility] [address] [id number] [place] [address]- 8311 Aug, [facility] [place] [facility] [address] [id number] [place] [address]- 1088 Aug, [facility] [place] [facility] [address] [id number] [place] [address]- 9926 Aug, [facility] [place] [facility] [address] [id number] [address]- 1528 Aug, [facility] [place] [facility] [address] [id number] [place] [address]- 8978 Aug, [facility] [place] [facility] [address] [id number] [place] [address]- 0547 Aug, [facility] [place] [facility] [address] [id number] [place] [address]- 6941 July, [facility] [place] [facility] [address] [id number] [place] [address]- 0858 July, [facility] [place] [facility] [address] [id number] [place] [address]- 0034 July, [facility] [place] [facility] [address] [id number] [place] [address]- 4077 July, [facility] [place] [facility] [address] [id number] [place] [address]- 8469 July, [facility] [place] [facility] [address] [id number] [place] [address]- 6081 July, [facility] [place] [facility] [address] [id number] [place] [address]- 1493 Jun, [facility] [place] [facility] [address] [id number] [place] [address]- 0690 Jun, [facility] [place] [facility] [address] [id number] [place] [address]- 9070 Jun, [facility] [place] [facility] [address] [id number] [place] [address]- 7948 Jun, [facility] [place] [facility] [address] [id number] [place] [address]- 8676 May, [facility] [place] [facility] [address] [id number] [place] [address]- 8167 May, [facility] [place] [facility] [address] [id number] [place] [address]- 2988 May, [facility] [place] [facility] [address] [id number] [place] [address]- 9989 14 May, 2013 [facility] [place] [facility] [address] [id number] [place] [address]- 7124 Feb, [facility] [place] [facility] [address] [id number] [place] [address]- 6008 Feb, [facility] [place] [facility] [address] [id number] [place] [address]- 3249 Feb, [facility] [place] [facility] [address] [id number] [place] [address]- 4299 Feb, [facility] [place] [facility] [address] [id number] [place] [address]- 9424 Jan, [facility] [place] [facility] [address] [id number] [place] [address]- 1383 Jan, [facility] [place] [facility] [address] [id number] [place] [address]- 9249 07 Dec, 2012 [facility] [place] [facility] [address] [id number] [place] [address]- 2071 06 Nov, 2012 [facility] [place] [facility] [address] [id number] [place] [address]- 1736 04 Nov, 2012 [facility] [place] [facility] [address] [id number] [place] [address]- 3935 Nov, [facility] [place] [facility] [address] [id number] [place] [address]- 3470 2012 [facility] [place] [facility] [address] [id number] [place] [address]- 3505 Oct, [facility] [place] [facility] [address] [id number] [place] [address]- 5479 Oct, [facility] [place] [facility] [address] [id number] [place] [address]- 8812 Oct, [facility] [place] [facility] [address] [id number] [place] [address]- 5114 Oct, [facility] [address] [id number] [place] [address]- 1848 Oct, [facility] [place] [facility] [address] [id number] [place] [address]- 1398 Aug, [facility] [place] [facility] [address] [id number] [place] [address]- 4602 July, [facility] [place] [facility] [address] [id number] [place] [address]- 8007 July, [facility] [place] [facility] [address] [id number] [place] [address]- 0764 May, [facility] [place] [facility] [address] [id number] [place] [address]- 8736 May, [facility] [place] [facility] [address] [id number] [place] [address]- 7836 May, [facility] [place] [facility] [address] [id number] [place] [address]- 9957 Apr, [facility] [place] [facility] [address] [id number] [place] [address]- 3768 Apr, [facility] [place] [facility] [address] [id number] [place] [address]- 2534 Mar, [facility] [place] [facility] [address] [id number] [place] [address]- 9947 Mar, [facility] [place] [facility] [address] [id number] [address] 2543 Jan, [facility] [place] [facility] [address] [id number] [place] [address]- 2546 Jan, [facility] [place] [facility] [address] [id number] [place] [address]- 2546 Nov, [facility] [place] [facility] [address] [id number] [place] [address]- 2546 Nov, [facility] [place] [facility] [address] [id number] [place] [address]- 5316 Sep, [facility] [address] [id number] [place] [address]- 1452 Aug, [facility] [address] [id number] [place] [address]- 8266 July, [facility] [address] [id number] [place] [address]- 7936 July, [facility] [address] [id number] [place] [address]- 8327 July, [facility] [address] [id number] [place] [address]- 6854 Apr, [facility] [address] [id number] [place] [address]- 5066 Apr, [facility] [address] [id number] [place] [address]- 5867 Mar, [facility] [address] [id number] [place] [address]- 1525 Mar, [facility] [address] [id number] [place] [address]- 9321 Mar, [facility] [address] [id number] [place] [address]- 8795 Mar, [facility] [address] [id number] [place] [address]- 1044 Mar, [facility] [address] [id number] [place] [address]- 1827 Feb, [facility] [address] [id number] [place] [address] Feb, [facility] [address] [id number] [place] [address] Feb, [facility] [address] [id number] [place] [address] Jan, [facility] [id number] [address] Jan, [facility] [id number] [address] Dec, [facility] [id number] [address] Jan, [facility] [id number] [address] Aug, [facility] [id number] [address] July, [facility] [id number] [address] Feb, [facility] [id number] [address] Jan, [facility] [id number] [address] Jan, [facility] [id number] [address] Dec, [facility] [id number] [address] July, IMMUNIZATIONS No Known Immunizations SOCIAL HISTORY Never Assessed REASON FOR VISIT right knee pain WB-MA, Pain has been elevated the past 4 days PLAN OF CARE Activity Details Follow Up 6 Weeks Reason:knee pain VITAL SIGNS Height 70 in 2017-09-10 Temperature 97.4 degrees Fahrenheit 2017-09-10 Heart Rate 58 bpm 2017-09-10 Respiratory Rate 20 2017-09-10 BMI 34.43 kg/m2 2017-09-10 Blood pressure systolic 122 mmHg 2017-09-10 Blood pressure diastolic 76 mmHg 2017-09-10 MEDICATIONS Medication Instructions Dosage Frequency Start Date End Date Duration Status Prozac 40 MG Orally Once a day 1 capsule in the morning 24h 90 days Active Pravastatin Sodium 80 MG TAKE ONE TABLET BY MOUTH AT BEDTIME 24h 90 Active Amlodipine Besylate 10 MG TAKE ONE TABLET BY MOUTH ONCE DAILY 90 Active Alaway 0.025 % Ophthalmic Twice a day 1 drop into each eye 12h 15 Aug, 2017 14 days Active Tramadol HCl 50 mg Orally 2 times a day 2 tablet 12h 23 Apr, 2016 Sep, 28 days Active Metoprolol Tartrate 100 MG Orally Twice a day 1 tablet 12h 90 Active Losartan Potassium 50 mg Orally 2 times a day 1 tablet 12h 90 days Active Estradiol 0.5 MG Orally Once a day 1 tablet 24h 90 Active Loratadine 10 MG TAKE ONE TABLET BY MOUTH DAILY 90 Active Bentyl 20 MG TAKE ONE (1) TABLET BY MOUTH TWICE DAILY BEFORE LUNCH AND SUPPER 30 Active Maxitrol 3.5-59291-8.1 Ophthalmic Four times a day 1 drop into affected eye 6h 05 Aug, 2017 7 days Active RESULTS Name Result Date Reference Range Xray : Knee, Right 3 views (IN HOUSE) 2017-09-10 PROCEDURES Procedure Date Ordered Result Body Site X-RAY EXAM OF KNEE, 3 September 10, 2017 [facility] VISIT ESTABLISHED PATIENT September 10, 2017 INSTRUCTIONS MEDICATIONS ADMINISTERED No Known Medications MEDICAL (GENERAL) HISTORY Type Description Date Medical History HTN Medical History hyperlipidemia Medical History chronic back pain and shoulder pain Medical History MRSA Surgical History x 3 Surgical History hysterectomy Surgical History right foot surgery Hospitalization History surgeries Hospitalization History MRSA on arm Hospitalization History infected cyst 2010
--- OUTSIDE RECORDS SUMMARY | 2017-12-09 18:25 | XMS REPORT ---
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 Name Role Phone IDRIS CHAPMAN Unavailable PROBLEMS Type Condition ICD9-CM Code MQY26-NP Code Onset Dates Condition Status SNOMED Code Problem Dysthymia F34.1 Active 29883654 Problem Essential hypertension I10 Active 24013775 Problem Chronic pain G89.29 Active 82515439 Problem Methicillin resistant Staphylococcus aureus 041.12 Active 047385620 Problem Cataracts, bilateral H26.9 Active 38200260 Problem Ganglion cyst M67.40 Active 406766260 Problem Heel spur M77.30 Active 81454250 Problem Irritable bowel syndrome with diarrhea K58.0 Active 109432757 Problem Neuropathy G62.9 Active 772620316 Problem Acquired hallux valgus of left foot M20.12 Active 70242654 Problem Hyperlipidemia, unspecified E78.5 Active 99789725 Problem Hallux valgus (acquired), right foot M20.11 Active 978738673 Problem Hammer toe of right foot M20.41 Active 410228129 ALLERGIES No Known Allergies ENCOUNTERS Encounter Location Date Diagnosis [place] [address] [address] Nov, [place] [address] [place] [id number] [place] [address] 30782- 6324 Oct, Right medial knee pain M25.561 ; Abrasion of left knee, initial encounter S80.212A and Dysthymia F34.1 [place] [address] [place] [address] 92360- 0183 Aug, Other chronic pain G89.29 and Pain in right knee M25.561 [place] [address] [place] [id number] [place] [address] 67379- 8767 Aug, Chronic pain G89.29 [place] [address] [place] [id number] [place] [address] 05626- 1827 Aug, Right medial knee pain M25.561 [facility] [place] [address] [place] [id number] [place] [address] 97916 -6939 15 Aug, 2017 Allergic conjunctivitis of both eyes H10.13 [place] [address] 39467- 2050 15 Aug, 2017 Onychomycosis B35.1 [place] [address] 50336- 5776 08 Aug, 2017 Allergic state, initial encounter T78.40XA [facility] [address] [address] 05 Aug, 2017 Acute bacterial conjunctivitis of left eye H10.[address] [address]- 4570 July, Essential hypertension I10 and Skin tag L91.8 [facility] [address] [address] -15[address] Jun, [place] [address] [place] [id number] [place] [address] 39757- 2297 May, Dermatofibroma of left calf D23.72 [facility] [place] [id number] [place] [address] 88568 -7990 May, Bilateral hearing loss due to cerumen impaction H61.23 [place] [address] [place] [id number] [place] [address] 35790- 2105 May, Onychomycosis B35.1 ; Hammer toe of right foot M20.41 ; Acquired hallux valgus of left foot M20.12 and Duxbury or callus L84 [place] [address] [place] [id number] [place] [address] 52817- 6592 Apr, Seborrheic keratosis L82.1 and Irritable bowel syndrome with diarrhea K58.0 [place] [address] [place] [id number] [place] [address] 67680- 2278 Mar, [place] [address] [place] [id number] [place] [address] 80949- 8736 Mar, Dental examination Z01.20 [place] [id number] [place] [address] 03467- 6033 Mar, Medicare welcome exam Z00.00 ; Encounter for screening for lung cancer Z12.2 ; Colon cancer screening Z12.11 ; Encounter for immunization Z23 ; Weakness R53.1 and Irritable bowel syndrome with diarrhea K58.[address] 00605- 2822 Feb, Onychomycosis B35.1 ; Hammer toe of right foot M20.41 ; Hallux valgus (acquired), right foot M20.11 and Acquired hallux valgus of left foot M20.12 [place] [address] [place] [id number] [place] [address] 75720- 8909 Jan, Essential hypertension I10 and Encounter for immunization Z23 [place] [id number] [place] [address] 37109- 6841 Dec, Encounter for screening mammogram for breast cancer Z12.31 and Hyperlipidemia, unspecified E78.5 [place] [id number] [place] [address] 24888- 4555 Nov, Hammer toe of right foot M20.41 ; Onychomycosis B35.1 and Neuropathy G62.9 [place] [address] [place] [id number] [place] [address] 39750- 5001 Sep, Essential hypertension I10 and 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 [place] [address] [place] [id number] [place] [address] 42593- 5754 Aug, [place] [address] 45306- 9735 Aug, [place] [address] [place] [id number] [place] [address] 85319- 0240 Aug, Onychomycosis B35.1 ; Hammer toe of right foot M20.41 and Neuropathy G62.9 [place] [address] 45019- 9007 May, Callus of foot L84 ; Hammer toe of right foot M20.41 and Onychomycosis B35.1 [place] [address] 22926- 7588 Apr, Chronic pain G89.[address] 20484- 2119 Feb, Onychomycosis B35.1 ; Hammer toe of right foot M20.41 ; Acquired hallux valgus of left foot M20.12 and Hallux valgus (acquired), right foot M20.11 [place] [address] 45697- 3597 Jan, Cellulitis of left lower extremity L03.116 [place] [address] 27265- 4378 Jan, Seborrheic keratosis L82.1 and Encounter for immunization Z23 [place] [address] 29431- 8215 18 Jan, 2016 Seborrheic keratoses L82.1 and Visit for suture removal Z48.02 [place] [address] [place] [id number] [place] [address] 76291- 9678 08 Jan, 2016 Dermatofibroma D23.9 [place] [address] 93807- 5726 18 Dec, 2015 Lesion of lower extremity L98.9 [place] [address] [place] [id number] [place] [address] 56651- 1508 Dec, [place] [address] [place] [address]- 0478 Dec, Chronic pain G89.29 [place] [address]- 2568 Dec, Well woman exam Z01.419 ; Essential hypertension I10 ; Breast cancer screening Z12.39 ; Cervical cancer screening Z12.4 ; Vision changes H53.9 ; Heberden's node M15.1 ; Cutaneous horn L85.8 and Seborrheic keratosis L82.1 [place] [address] 33629- 8544 Dec, Well woman exam Z01.419 ; Heberden's node M15.1 ; Breast cancer screening Z12.39 ; Cervical cancer screening Z12.4 ; Essential hypertension I10 ; Vision changes H53.9 ; Cutaneous horn L85.8 and Seborrheic keratosis L82.[address] 03379- 6563 Nov, Well woman exam Z01.419 ; Breast cancer screening Z12.39 ; Cervical cancer screening Z12.4 ; Essential hypertension I10 ; Vision changes H53.9 ; Heberden's node M15.1 ; Cutaneous horn L85.8 and Seborrheic keratosis L82.[address] 92006- 5617 Nov, Hammer toe of right foot M20.41 and Callus of foot L84 [address] 80558- 1241 Aug, Onychomycosis B35.1 and Callus of foot L84 [address] 78463- 5346 July, Dysthymia F34.1 and Chronic pain G89.[address] 73609- 1447 Jun, Dysthymia F34.1 ; Heel spur M77.30 and Ganglion cyst M67.40 [facility] [address] [place] [id number] [place] [address] 77456- 8907 May, Onychomycosis B35.1 and Neuropathy G62.9 [facility] [address] [place] [id number] [place] [address] 53766- 8187 May, [facility] [address] [place] [id number] [place] [address] 60892- 8607 Apr, [facility] [address] [place] [id number] [place] [address] 91486- 8577 Apr, [facility] [address] [place] [id number] [place] [address] 41545- 4972 Apr, [facility] [address] [place] [id number] [place] [address] 72907- 3668 Mar, [facility] [address] 37187- 3882 Mar, [facility] [address] [place] [id number] [place] [address] 83829- 4069 Feb, [facility] [address] [place] [id number] [place] [address] 57012- 6856 Feb, [facility] [address] [place] [id number] [place] [address] 39674- 5709 Feb, [facility] [address] [place] [id number] [place] [address] 80571- 0407 Feb, Onychomycosis B35.1 and Duxbury or callus L84 [facility] [address] [place] [address] 23484- 4153 Feb, Cough R05 [facility] [address] [place] [id number] [place] [address] 47527 -8346 Jan, Sinusitis J32.9 [facility] [address] [place] [id number] [place] [address] 01613- 4299 Jan, Hyperlipidemia 272.4 [place] [address] [address]- 0897 09 Jan, 2015 Acute upper respiratory infection, unspecified J06.9 ; Encounter for immunization Z23 ; Other viral agents as the cause of diseases classified elsewhere B97.89 and Acute frontal sinusitis, recurrence not specified J01.10 [place] [address] [address]- 3829 Nov, Wart 078.10 ; Breast cancer screening V76.10 and Hyperlipidemia 272.4 [place] [address] [place] [id number] [place] [address] 70889- 6555 11 Nov, 2014 Onychomycosis 110.1 ; Duxbury or callus 700 and Skin fissures 709.8 [place] [address] [address]- 5925 Aug, Hammertoe 735.4 ; Hyperkeratosis 701.1 ; Onychomycosis 110.1 ; Fissure in skin of foot 709.8 and Foot pain 729.5 [place] [address] [place] [address] 78813- 9066 Aug, [place] [address] [place] [id number] [place] [address] 92643- 2908 Aug, [place] [address] [address]- 7964 Aug, [place] [address] [address]- 6812 July, [place] [address] [place] [address] 61022- 1812 July, [place] [address] [place] [id number] [place] [address] 38718- 5124 Jun, [place] [address] [address]- 4543 Jun, [place] [address] [place] [id number] [place] [address] 21280- 1434 May, [facility] [place] [facility] [address] [id number] [place] [address]- 5539 May, [facility] [place] [facility] [address] [id number] [place] [address]- 5889 May, [facility] [place] [facility] [address] [id number] [place] [address]- 4661 May, [facility] [place] [facility] [address] [id number] [place] [address]- 4952 Apr, 2014 [facility] [place] [facility] [address] [id number] [place] [address]- 7363 Apr, [facility] [place] [facility] [address] [id number] [place] [address]- 7023 Feb, [facility] [place] [facility] [address] [id number] [place] [address]- 4126 Feb, [facility] [place] [facility] [address] [id number] [place] [address]- 4379 Feb, [facility] [place] [facility] [address] [id number] [place] [address]- 1816 Feb, [facility] [place] [facility] [address] [id number] [place] [address]- 4638 Feb, [facility] [place] [facility] [address] [id number] [place] [address]- 8010 Feb, [facility] [place] [facility] [address] [id number] [place] [address]- 9512 Jan, [facility] [place] [facility] [address] [id number] [place] [address]- 1758 Jan, [facility] [place] [facility] [address] [id number] [place] [address]- 4347 Jan, [facility] [place] [facility] [address] [id number] [place] [address]- 9250 Jan, [facility] [place] [facility] [address] [id number] [place] [address]- 1060 Jan, [facility] [place] [facility] [address] [id number] [place] [address]- 9125 Dec, [facility] [place] [facility] [address] [id number] [place] [address]- 6226 Dec, [facility] [place] [facility] [address] [id number] [place] [address]- 6112 29 Nov, 2013 [facility] [place] [facility] [address] [id number] [place] [address]- 4530 29 Nov, 2013 [facility] [place] [facility] [address] [id number] [place] [address]- 9292 Nov, [facility] [place] [facility] [address] [id number] [place] [address]- 0497 Nov, 2013 [facility] [place] [facility] [address] [id number] [place] [address]- 1054 Nov, 2013 [facility] [place] [facility] [address] [id number] [place] [address]- 2583 11 Nov, 2013 [facility] [place] [facility] [address] [id number] [place] [address]- 2456 04 Nov, 2013 [facility] [place] [facility] [address] [id number] [place] [address]- 2083 04 Nov, 2013 [facility] [place] [facility] [address] [id number] [place] [address]- 2542 Nov, 2013 [facility] [place] [facility] [address] [id number] [place] [address]- 0172 Nov, [facility] [place] [facility] [address] [id number] [place] [address]- 4454 Oct, [facility] [place] [facility] [address] [id number] [place] [address]- 5500 Oct, [facility] [place] [facility] [address] [id number] [place] [address]- 1127 Oct, [facility] [place] [facility] [address] [id number] [place] [address]- 1938 Oct, [facility] [place] [facility] [address] [id number] [place] [address]- 1212 Sep, [facility] [place] [facility] [address] [id number] [place] [address]- 2740 Sep, [facility] [place] [facility] [address] [id number] [place] [address]- 9852 Sep, [facility] [place] [facility] [address] [id number] [place] [address]- 8522 Sep, [facility] [place] [facility] [address] [id number] [place] [address]- 0903 Aug, [facility] [place] [facility] [address] [id number] [place] [address]- 2902 Aug, [facility] [place] [facility] [address] [id number] [place] [address]- 6731 Aug, [facility] [place] [facility] [address] [id number] [place] [address]- 9414 Aug, [facility] [place] [facility] [address] [id number] [place] [address]- 8387 Aug, [facility] [place] [facility] [address] [id number] [place] [address]- 8060 Aug, [facility] [place] [facility] [address] [id number] [place] [address]- 3758 Aug, [facility] [place] [facility] [address] [id number] [place] [address]- 7854 Aug, [facility] [place] [facility] [address] [id number] [place] [address]- 1199 Aug, [facility] [place] [facility] [address] [id number] [place] [address]- 3610 Aug, [facility] [place] [facility] [address] [id number] [place] [address]- 1060 Aug, [facility] [place] [facility] [address] [id number] [place] [address]- 1350 Aug, [facility] [place] [facility] [address] [id number] [place] [address]- 8619 July, [facility] [place] [facility] [address] [id number] [place] [address]- 5304 July, [facility] [place] [facility] [address] [id number] [place] [address]- 1367 July, [facility] [place] [facility] [address] [id number] [place] [address]- 6070 July, [facility] [place] [facility] [address] [id number] [place] [address]- 1938 July, [facility] [place] [facility] [address] [id number] [place] [address]- 1725 July, [facility] [place] [facility] [address] [id number] [place] [address]- 1151 Jun, [facility] [place] [facility] [address] [id number] [place] [address]- 6010 Jun, [facility] [place] [facility] [address] [id number] [place] [address]- 2005 Jun, [facility] [place] [facility] [address] [id number] [place] [address]- 0158 Jun, [facility] [place] [facility] [address] [id number] [place] [address]- 4016 May, [facility] [place] [facility] [address] [id number] [place] [address]- 1716 May, [facility] [place] [facility] [address] [id number] [place] [address]- 2532 May, [facility] [place] [facility] [address] [id number] [place] [address]- 3504 May, [facility] [place] [facility] [address] [id number] [place] [address]- 9440 Feb, [facility] [address] [id number] [place] [address]- 3802 Feb, [facility] [place] [facility] [address] [id number] [place] [address] 2546 Feb, [facility] [place] [facility] [address] [id number] [place] [address]- 7618 Feb, [facility] [place] [facility] [address] [id number] [place] [address]- 9736 Jan, [facility] [place] [facility] [address] [id number] [place] [address]- 8022 Jan, [facility] [place] [facility] [address] [id number] [place] [address]- 5336 Dec, [facility] [place] [facility] [address] [id number] [place] [address]- 7498 Nov, [facility] [place] [facility] [address] [id number] [place] [address]- 9978 Nov, [facility] [place] [facility] [address] [id number] [place] [address]- 7392 Nov, [facility] [place] [facility] [address] [id number] [place] [address]- 6268 Oct, [facility] [place] [facility] [address] [id number] [place] [address]- 2354 Oct, [facility] [place] [facility] [address] [id number] [place] [address]- 0892 Oct, [facility] [place] [facility] [address] [id number] [place] [address]- 9728 Oct, [facility] [place] [facility] [address] [id number] [place] [address]- 2546 Oct, [facility] [place] [facility] [address] [id number] [place] [address]- 5303 Oct, [facility] [address] [id number] [place] [address]- 7885 Aug, [facility] [place] [facility] [address] [id number] [place] [address]- 6281 July, [facility] [place] [facility] [address] [id number] [place] [address]- 3572 July, [facility] [place] [facility] [address] [id number] [place] [address]- 1569 May, [facility] [place] [facility] [address] [id number] [place] [address]- 7395 May, [facility] [place] [facility] [address] [id number] [place] [address]- 6526 May, [facility] [place] [facility] [address] [id number] [place] [address]- 9181 Apr, [facility] [place] [facility] [address] [id number] [place] [address]- 2389 Apr, [facility] [place] [facility] [address] [id number] [place] [address]- 2163 Mar, [facility] [place] [facility] [address] [id number] [place] [address]- 4278 Mar, [facility] [place] [facility] [address] [id number] [place] [address]- 3018 Jan, [facility] [place] [facility] [address] [id number] [address]- 8583 Jan, [facility] [place] [facility] [address] [id number] [place] [address]- 5568 Nov, [facility] [place] [facility] [address] [id number] [place] [address]- 8066 Nov, [facility] [place] [facility] [address] [id number] [place] [address]- 2424 Sep, [facility] [place] [facility] [address] [id number] [place] [address]- 8069 Aug, [facility] [address] [id number] [place] [address]- 7210 July, [facility] [address] [id number] [place] [address]- 9186 July, [facility] [address] [id number] [place] [address]- 4251 July, [facility] [address] [id number] [place] [address]- 8540 Apr, [facility] [address] [id number] [place] [address]- 2276 Apr, [facility] [address] [id number] [place] [address] Mar, [facility] [address] [id number] [place] [address] Mar, [facility] [address] [id number] [place] [address] Mar, [facility] [address] [id number] [place] [address] Mar, [facility] [address] [id number] [place] [address] Mar, [facility] [address] [id number] [place] [address] Feb, [facility] [address] [id number] [place] [address] Feb, [facility] [place] [facility] [address] [id number] [place] [address] Feb, [facility] [place] [facility] [address] [id number] [place] [address] Jan, [facility] [address] [id number] [place] [address] Jan, [facility] [id number] [address] Dec, [facility] [id number] [address] Jan, [facility] [id number] [address] Aug, [facility] [id number] [address] July, [facility] [id number] [address] Feb, [facility] [id number] [address] Jan, [facility] [id number] [address] Jan, [facility] [id number] [address] Dec, [facility] [id number] [address] July, IMMUNIZATIONS No Known Immunizations SOCIAL HISTORY Never Assessed REASON FOR VISIT eye irritation, Bilat eye drainage. Very itchy. Has been treated for this with drops as well as an oral medication -ELISEO Goldman PLAN OF CARE Activity Details Follow Up 1 Week, prn Reason:if symptoms do not improve VITAL SIGNS Height 70 in 2017-08-31 Weight 243 lbs 2017-08-31 Temperature 97.8 degrees Fahrenheit 2017-08-31 Heart Rate 60 bpm 2017-08-31 Respiratory Rate 20 2017-08-31 BMI 34.86 kg/m2 2017-08-31 Blood pressure systolic 140 mmHg 2017-08-31 Blood pressure diastolic 84 mmHg 2017-08-31 MEDICATIONS Medication Instructions Dosage Frequency Start Date End Date Duration Status Losartan Potassium 50 mg Orally 2 times a day 1 tablet 12h 90 days Active Amlodipine Besylate 10 MG TAKE ONE TABLET BY MOUTH ONCE DAILY 90 Active Loratadine 10 MG TAKE ONE TABLET BY MOUTH DAILY 90 Active Pravastatin Sodium 80 MG TAKE ONE TABLET BY MOUTH AT BEDTIME 24h 90 Active Alaway 0.025 % Ophthalmic Twice a day 1 drop into each eye 12h 15 Aug, 2017 14 days Active Metoprolol Tartrate 100 MG Orally Twice a day 1 tablet 12h 90 Active Prozac 40 MG Orally Once a day 1 capsule in the morning 24h 90 days Active Estradiol 0.5 MG Orally Once a day 1 tablet 24h 90 Active Tramadol HCl 50 MG Orally every 4 - 6 hrs 1 tablet as needed Apr, 28 days Active Bentyl 20 MG TAKE ONE (1) TABLET BY MOUTH TWICE DAILY BEFORE LUNCH AND SUPPER 30 Active Maxitrol 3.5-91864-5.1 Ophthalmic Four times a day 1 drop into affected eye 6h 05 Aug, 2017 7 days Active RESULTS No Results PROCEDURES Procedure Date Ordered Result Body Site [facility] VISIT ESTABLISHED PATIENT August 31, [...]
--- OUTSIDE RECORDS SUMMARY | 2017-12-09 18:25 | XMS REPORT ---
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 Name Role Phone UGO PRETTY Unavailable PROBLEMS Type Condition ICD9-CM Code PKM25-MZ Code Onset Dates Condition Status SNOMED Code Problem Dysthymia F34.1 Active 34823399 Problem Essential hypertension I10 Active 79562023 Problem Chronic pain G89.29 Active 07907692 Problem Methicillin resistant Staphylococcus aureus 041.12 Active 163528953 Problem Cataracts, bilateral H26.9 Active 43067105 Problem Ganglion cyst M67.40 Active 476536151 Problem Heel spur M77.30 Active 30409118 Problem Irritable bowel syndrome with diarrhea K58.0 Active 629487312 Problem Neuropathy G62.9 Active 827856257 Problem Acquired hallux valgus of left foot M20.12 Active 33923893 Problem Hyperlipidemia, unspecified E78.5 Active 26018702 Problem Hallux valgus (acquired), right foot M20.11 Active 340489565 Problem Hammer toe of right foot M20.41 Active 908719344 ALLERGIES No Information ENCOUNTERS Encounter Location Date Diagnosis [place] [id number] [address] Nov, [facility] [id number] [place] [address] 72885- 5046 Nov, [place] [address] [address] [id number] [place] [address] 26119- 3350 Oct, Right medial knee pain M25.561 ; Abrasion of left knee, initial encounter S80.212A and Dysthymia F34.1 [facility] [address] [place] [address] [id number] [address] Aug, Other chronic pain G89.29 and Pain in right knee M25.561 [place] [address] [id number] [place] [address] 13237- 7645 Aug, Chronic pain G89.29 [place] [address] 29438- 0922 Aug, Right medial knee pain M25.561 [facility] [address] [address] 15 Aug, 2017 Allergic conjunctivitis of both eyes H10.13 [place] [address] [address]58- 4287 15 Aug, 2017 Onychomycosis B35.1 [place] [address] 96897- 6187 08 Aug, 2017 Allergic state, initial encounter T78.40XA [facility] [address] [address] 05 Aug, 2017 Acute bacterial conjunctivitis of left eye H10.32 [place] [address] 36406- 8233 July, Essential hypertension I10 and Skin tag L91.8 [facility] [place] [id number] [place] [address]65 -9857 Jun, [place] [address] [id number] [place] [address] 18560- 6126 May, Dermatofibroma of left calf D23.72 [facility] [address] [address] -[address] May, Bilateral hearing loss due to cerumen impaction H61.23 [place] [address] 8[address]36- 5427 May, Onychomycosis B35.1 ; Hammer toe of right foot M20.41 ; Acquired hallux valgus of left foot M20.12 and [place] or callus L84 [place] [address] [place] [id number] [place] [address] 87806- 6351 Apr, Seborrheic keratosis L82.1 and Irritable bowel syndrome with diarrhea K58.0 [place] [id number] [place] [address] 25106- 6921 30 Mar, 2017 [place] [address] [address] [id number] [place] [address] 91041- 9171 15 Mar, 2017 Dental examination Z01.20 [place] [address] 84896- 6418 15 Mar, 2017 Medicare welcome exam Z00.00 ; Encounter for screening for lung cancer Z12.2 ; Colon cancer screening Z12.11 ; Encounter for immunization Z23 ; Weakness R53.1 and Irritable bowel syndrome with diarrhea K58.0 [place] [id number] [place] [address] 50711- 8699 Feb, Onychomycosis B35.1 ; Hammer toe of right foot M20.41 ; Hallux valgus (acquired), right foot M20.11 and Acquired hallux valgus of left foot M20.12 [place] [id number] [place] [address] 94383- 4162 Jan, Essential hypertension I10 and Encounter for immunization Z23 [place] [id number] [place] [address] 42416- 3131 Dec, Encounter for screening mammogram for breast cancer Z12.31 and Hyperlipidemia, unspecified E78.5 [place] [id number] [place] [address] 05112- 3941 Nov, Hammer toe of right foot M20.41 ; Onychomycosis B35.1 and Neuropathy G62.9 [place] [id number] [place] [address] 22887- 8687 Sep, Essential hypertension I10 and 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 19615- 2834 Aug, [place] [address] [place] [id number] [place] [address] 82818- 6879 Aug, [place] [address] 56249- 0497 Aug, Onychomycosis B35.1 ; Hammer toe of right foot M20.41 and Neuropathy G62.9 [place] [address] 43035- 8635 May, Callus of foot L84 ; Hammer toe of right foot M20.41 and Onychomycosis B35.1 [place] [address] 49894- 2835 Apr, Chronic pain G89.29 [place] [address] 56760- 5404 Feb, Onychomycosis B35.1 ; Hammer toe of right foot M20.41 ; Acquired hallux valgus of left foot M20.12 and Hallux valgus (acquired), right foot M20.11 [place] [address] 50560- 1605 28 Jan, 2016 Cellulitis of left lower extremity L03.116 [place] [address] 19273- 6643 21 Jan, 2016 Seborrheic keratosis L82.1 and Encounter for immunization Z23 [place] [address] 48551- 5376 18 Jan, 2016 Seborrheic keratoses L82.1 and Visit for suture removal Z48.02 [place] [address] 08085- 8169 08 Jan, 2016 Dermatofibroma D23.9 [place] [address] 81682- 3991 18 Dec, 2015 Lesion of lower extremity L98.9 [place] [address] 50279- 2232 Dec, [place] [address] 76966- 0986 Dec, Chronic pain G89.29 [place] [address] 26753- 8841 Dec, Well woman exam Z01.419 ; Essential hypertension I10 ; Breast cancer screening Z12.39 ; Cervical cancer screening Z12.4 ; Vision changes H53.9 ; Heberden's node M15.1 ; Cutaneous horn L85.8 and Seborrheic keratosis L82.[address] 03389- 8480 Dec, Well woman exam Z01.419 ; Heberden's node M15.1 ; Breast cancer screening Z12.39 ; Cervical cancer screening Z12.4 ; Essential hypertension I10 ; Vision changes H53.9 ; Cutaneous horn L85.8 and Seborrheic keratosis L82.1 [place] [address] 39502- 7443 Nov, Well woman exam Z01.419 ; Breast cancer screening Z12.39 ; Cervical cancer screening Z12.4 ; Essential hypertension I10 ; Vision changes H53.9 ; Heberden's node M15.1 ; Cutaneous horn L85.8 and Seborrheic keratosis L82.1 [place] [address] 78852- 7465 Nov, Hammer toe of right foot M20.41 and Callus of foot L84 [address] 22715- 1635 Aug, Onychomycosis B35.1 and Callus of foot L84 [place] [address] 86208- 6323 July, Dysthymia F34.1 and Chronic pain G89.29 [place] [address] 79448- 5679 Jun, Dysthymia F34.1 ; Heel spur M77.30 and Ganglion cyst M67.40 [facility] [id number] [place] [address] 00499- 2723 May, Onychomycosis B35.1 and Neuropathy G62.9 [facility] [address] 05704- 0619 May, [facility] [address] 14655- 9467 Apr, [facility] [address] 01888- 7196 Apr, [facility] [address] 27650- 4394 Apr, [facility] [address] 84962- 9427 Mar, [facility] [address] 84801- 8861 Mar, [facility] [address] 47161- 8642 Feb, [facility] [id number] [place] [address] 56709- 0924 Feb, [facility] [address] 96016- 8105 Feb, [facility] [id number] [place] [address] 82023- 1086 Feb, Onychomycosis B35.1 and [place] or callus L84 [facility] [id number] [place] [address] 88550- 6499 Feb, Cough R05 [facility] [id number] [place] [address] 15212 -8630 Jan, Sinusitis J32.9 [facility] [id number] [place] [address] 71593- 5261 11 Jan, 2015 Hyperlipidemia 272.4 [place] [address] [place] [id number] [place] [address] 52109- 4124 09 Jan, 2015 Acute upper respiratory infection, unspecified J06.9 ; Encounter for immunization Z23 ; Other viral agents as the cause of diseases classified elsewhere B97.89 and Acute frontal sinusitis, recurrence not specified J01.10 [place] [address] [place] [id number] [place] [address] 63772- 0258 Nov, Wart 078.10 ; Breast cancer screening V76.10 and Hyperlipidemia 272.[address] 00138- 4615 Nov, Onychomycosis 110.1 ; [place] or callus 700 and Skin fissures 709.[address] 83541- 6374 Aug, Hammertoe 735.4 ; Hyperkeratosis 701.1 ; Onychomycosis 110.1 ; Fissure in skin of foot 709.8 and Foot pain 729.5 [place] [address] [place] [id number] [place] [address] 98447- 1846 Aug, [place] [address] [place] [id number] [place] [address] 27352- 5961 Aug, [place] [address] [place] [address] [id number] [place] [address] 10703- 1233 Aug, [place] [address] [place] [id number] [place] [address] 21449- 5557 July, [place] [address] [place] [address] [id number] [place] [address] 53537- 0276 July, [place] [address] [place] [id number] [place] [address] 26545- 4265 14 Jun, 2014 [place] [address] [place] [id number] [place] [address] 88224- 8808 Jun, [facility] [place] [facility] [address] [id number] [place] [address]- 5187 May, [facility] [place] [facility] [address] [id number] [place] [address]- 2193 May, [facility] [place] [facility] [address] [facility] [id number] [place] [address]- 8545 May, [facility] [place] [facility] [address] [id number] [place] [address]- 3964 May, [facility] [place] [facility] [address] [id number] [place] [address]- 0771 Apr, [facility] [place] [facility] [address] [id number] [place] [address]- 6310 Apr, [facility] [place] [facility] [address] [id number] [place] [address]- 4858 Feb, [facility] [place] [facility] [address] [id number] [place] [address]- 8093 Feb, [facility] [place] [facility] [address] [id number] [place] [address]- 5877 Feb, [facility] [place] [facility] [address] [id number] [place] [address]- 5179 Feb, [facility] [place] [facility] [address] [facility] [id number] [place] [address]- 3831 Feb, [facility] [place] [facility] [address] [id number] [place] [address]- 3761 Feb, [facility] [place] [facility] [address] [id number] [place] [address]- 1235 Jan, [facility] [place] [facility] [address] [id number] [place] [address]- 2193 Jan, [facility] [place] [facility] [address] [facility] [id number] [place] [address]- 9511 Jan, [facility] [place] [facility] [address] [id number] [place] [address]- 4349 Jan, [facility] [place] [facility] [address] [id number] [place] [address]- 3819 Jan, [facility] [place] [facility] [address] [id number] [place] [address]- 3736 Dec, [facility] [place] [facility] [address] [id number] [place] [address]- 7380 Dec, [facility] [place] [facility] [address] [id number] [place] [address]- 9514 29 Nov, 2013 [facility] [place] [facility] [address] [id number] [place] [address]- 9335 29 Nov, 2013 [facility] [place] [facility] [address] [id number] [place] [address]- 7647 Nov, [facility] [place] [facility] [address] [id number] [place] [address]- 2517 Nov, 2013 [facility] [place] [facility] [address] [id number] [place] [address]- 7496 Nov, [facility] [place] [facility] [address] [id number] [place] [address]- 0985 Nov, [facility] [place] [facility] [address] [id number] [place] [address]- 1673 Nov, [facility] [place] [facility] [address] [id number] [place] [address]- 2549 Nov, 2013 [facility] [place] [facility] [address] [id number] [place] [address]- 3246 Nov, [facility] [place] [facility] [address] [id number] [place] [address]- 6284 Nov, [facility] [place] [facility] [address] [id number] [place] [address]- 6921 Oct, [facility] [place] [facility] [address] [id number] [place] [address]- 1226 Oct, [facility] [place] [facility] [address] [id number] [place] [address]- 6877 Oct, [facility] [place] [facility] [address] [id number] [place] [address]- 0669 Oct, [facility] [place] [facility] [address] [id number] [place] [address]- 7362 Sep, [facility] [place] [facility] [address] [id number] [place] [address]- 7602 Sep, [facility] [place] [facility] [address] [id number] [place] [address]- 2393 Sep, [facility] [place] [facility] [address] [id number] [place] [address]- 1040 Sep, [facility] [place] [facility] [address] [id number] [place] [address]- 8279 Aug, [facility] [place] [facility] [address] [id number] [place] [address]- 4945 Aug, [facility] [place] [facility] [address] [id number] [place] [address]- 0791 Aug, [facility] [place] [facility] [address] [id number] [place] [address]- 7843 Aug, [facility] [place] [facility] [address] [id number] [place] [address]- 4385 Aug, [facility] [place] [facility] [address] [id number] [place] [address]- 5305 Aug, [facility] [place] [facility] [address] [id number] [place] [address]- 4310 Aug, [facility] [place] [facility] [address] [id number] [place] [address]- 1252 Aug, [facility] [place] [facility] [address] [id number] [place] [address]- 4663 Aug, [facility] [place] [facility] [address] [id number] [place] [address]- 3574 Aug, [facility] [place] [facility] [address] [id number] [place] [address]- 7647 Aug, [facility] [place] [facility] [address] [id number] [place] [address]- 6870 Aug, [facility] [place] [facility] [address] [id number] [place] [address]- 0766 July, [facility] [place] [facility] [address] [id number] [place] [address]- 8253 July, [facility] [place] [facility] [address] [id number] [place] [address]- 0842 July, [facility] [place] [facility] [address] [id number] [place] [address]- 3950 July, [facility] [place] [facility] [address] [id number] [place] [address]- 6022 July, [facility] [place] [facility] [address] [id number] [place] [address]- 7700 July, [facility] [place] [facility] [address] [id number] [place] [address]- 5020 Jun, [facility] [place] [facility] [address] [id number] [place] [address]- 9146 Jun, [facility] [place] [facility] [address] [id number] [place] [address]- 8940 Jun, [facility] [place] [facility] [address] [id number] [place] [address]- 5408 Jun, [facility] [place] [facility] [address] [id number] [place] [address]- 6830 May, [facility] [place] [facility] [address] [id number] [place] [address]- 9086 May, [facility] [place] [facility] [address] [id number] [place] [address]- 6036 May, [facility] [place] [facility] [address] [id number] [place] [address]- 7179 14 May, 2013 [facility] [place] [facility] [address] [id number] [place] [address]- 3148 Feb, [facility] [place] [facility] [address] [id number] [place] [address]- 7836 Feb, [facility] [place] [facility] [address] [id number] [place] [address]- 3881 Feb, [facility] [place] [facility] [address] [id number] [place] [address]- 8763 Feb, [facility] [place] [facility] [address] [id number] [place] [address]- 7190 Jan, [facility] [place] [facility] [address] [id number] [place] [address]- 7139 Jan, [facility] [place] [facility] [address] [id number] [place] [address]- 6540 Dec, [facility] [place] [facility] [address] [id number] [place] [address]- 0985 06 Nov, 2012 [facility] [place] [facility] [address] [id number] [place] [address]- 8781 04 Nov, 2012 [facility] [place] [facility] [address] [id number] [place] [address]- 9565 Nov, [facility] [place] [facility] [address] [id number] [place] [address]- 1865 2012 [facility] [place] [facility] [address] [id number] [place] [address]- 8606 Oct, [facility] [place] [facility] [address] [id number] [place] [address]- 5772 Oct, [facility] [place] [facility] [address] [id number] [place] [address]- 4946 Oct, [facility] [place] [facility] [address] [id number] [place] [address]- 9677 Oct, [facility] [place] [address] [id number] [place] [address]- 3405 Oct, [facility] [place] [facility] [address] [id number] [place] [address]- 1685 Aug, [facility] [place] [facility] [address] [id number] [place] [address]- 5712 July, [facility] [place] [facility] [address] [id number] [place] [address]- 9289 July, [facility] [place] [facility] [address] [id number] [place] [address]- 7420 May, [facility] [place] [facility] [address] [id number] [place] [address]- 0717 May, [facility] [place] [facility] [address] [id number] [place] [address]- 1260 May, [facility] [place] [facility] [address] [id number] [place] [address]- 6368 Apr, [facility] [place] [facility] [address] [id number] [place] [address]- 0951 Apr, [facility] [place] [facility] [address] [id number] [place] [address]- 5102 Mar, [facility] [place] [facility] [address] [id number] [place] [address]- 9735 Mar, [facility] [place] [facility] [address] [id number], [place] [address] 2542 Jan, [facility] [place] [facility] [address] [id number] [place] [address] 2546 Jan, [facility] [place] [facility] [address] [id number] [place] [address]- 2546 Nov, [facility] [place] [facility] [address] [id number] [place] [address]- 2546 Nov, [facility] [place] [facility] [address] [id number] [place] [address]- 5750 Sep, [facility] [address] [id number] [place] [address]- 7391 Aug, [facility] [place] [facility] [address] [id number] [place] [address]- 5396 July, [facility] [address] [id number] [place] [address]- 1754 July, [facility] [address] [id number] [place] [address]- 5867 July, [facility] [address] [id number] [place] [address]- 4927 Apr, [facility] [address] [id number] [place] [address]- 8207 Apr, [facility] [address] [id number] [place] [address]- 7020 Mar, [facility] [address] [id number] [place] [address]- 7376 Mar, [facility] [place] [address] [id number] [place] [address]- 7622 Mar, [facility] [address] [id number] [place] [address]- 8585 Mar, [facility] [address] [id number] [place] [address]- 4757 Mar, [facility] [address] [id number] [place] [address]- 4674 Feb, [facility] [place] [facility] [address] [id number] [place] [address]- 5966 Feb, [facility] [place] [facility] [address] [id number] [place] [address]- 2546 Feb, [facility] [address] [id number] [place] [address] Jan, [facility] [address] [id number], [place] [address] Jan, [facility] [address] [facility] [id number], [place] [address] Dec, [facility] [address] [facility] [id number], [place] [address] Jan, [facility] [address] [facility] [id number], [place] [address] Aug, [facility] [address] [facility] [id number], [place] [address] July, [facility] [address] [facility] [id number], [place] [address] Feb, [facility] [address] [facility] [id number], [place] [address] Jan, [facility] [address] [facility] [id number], [place] [address] Jan, [facility] [address] [facility] [id number], [place] [address] Dec, [facility] [address] [facility] [id number], [place] [address] July, IMMUNIZATIONS No Known Immunizations SOCIAL HISTORY Never Assessed REASON FOR VISIT Controlled Med Refill / PRN PLAN OF CARE VITAL SIGNS MEDICATIONS Unknown Medications RESULTS No Results PROCEDURES No Known procedures INSTRUCTIONS MEDICATIONS ADMINISTERED No Known Medications MEDICAL (GENERAL) HISTORY Type Description Date Medical History HTN Medical History hyperlipidemia Medical History chronic back pain and shoulder pain Medical History MRSA Surgical History x 3 Surgical History hysterectomy Surgical History right foot surgery Hospitalization History surgeries Hospitalization History MRSA on arm Hospitalization History infected cyst 2010
--- OUTSIDE RECORDS SUMMARY | 2017-12-09 18:26 | XMS REPORT ---
Author Author JOSEPH BRITTON [facility] Address [address] [place] [address] Care Team Providers Care Correspondence Analyst Name Role Phone JOSEPH BRITTON Unavailable PROBLEMS Type Condition ICD9-CM Code DOI62-YB Code Onset Dates Condition Status SNOMED Code Problem Dysthymia F34.1 Active 82597813 Problem Essential hypertension I10 Active 61869144 Problem Chronic pain G89.29 Active 81499572 Problem Methicillin resistant Staphylococcus aureus 041.12 Active 978787814 Problem Cataracts, bilateral H26.9 Active 28255710 Problem Ganglion cyst M67.40 Active 328904720 Problem Heel spur M77.30 Active 69878367 Problem Irritable bowel syndrome with diarrhea K58.0 Active 936884018 Problem Neuropathy G62.9 Active 943128468 Problem Acquired hallux valgus of left foot M20.12 Active 13298070 Problem Hyperlipidemia, unspecified E78.5 Active 85657151 Problem Hallux valgus (acquired), right foot M20.11 Active 640757259 Problem Hammer toe of right foot M20.41 Active 736770498 ALLERGIES No Known Allergies ENCOUNTERS Encounter Location Date Diagnosis [place] [address], [place] [address] Nov, [place] [address] [place] [id number] [place] [address]177[address] 3368 Oct, Right medial knee pain M25.561 ; Abrasion of left knee, initial encounter S80.212A and Dysthymia F34.1 [place] [address], [place] [address] Aug, Other chronic pain G89.29 and Pain in right knee M25.561 [place] [address] [place] [address] 00289- 0997 Aug, Chronic pain G89.29 [place] [address] [place] [id number] [place] [address] 34525- 7508 Aug, Right medial knee pain M25.561 [facility] [place] [address] [place] [id number] [place] [address] 86467 -6356 15 Aug, 2017 Allergic conjunctivitis of both eyes H10.13 [place] [address] [address] 6[address] 15 Aug, 2017 Onychomycosis B35.1 [place] [address] 8[address]- 74[address] 08 Aug, 2017 Allergic state, initial encounter T78.40XA [facility] [address] [address] 05 Aug, 2017 Acute bacterial conjunctivitis of left eye H10.[address] [address]- [address] July, Essential hypertension I10 and Skin tag L91.8 [facility] [address] [address] Jun, [place] [address] [place] [id number] [place] [address] 60944- 2759 May, Dermatofibroma of left calf D23.72 [facility] [place] [id number] [place] [address] 96734 -7216 May, Bilateral hearing loss due to cerumen impaction H61.23 [place] [address] [place] [id number] [place] [address] 50874- 1338 May, Onychomycosis B35.1 ; Hammer toe of right foot M20.41 ; Acquired hallux valgus of left foot M20.12 and [place] or callus L84 [place] [address] [place] [id number] [place] [address] 38123- 1738 Apr, Seborrheic keratosis L82.1 and Irritable bowel syndrome with diarrhea K58.0 [place] [address] [place] [id number] [place] [address] 40188- 6055 Mar, [place] [address] [place] [id number] [place] [address] 46272- 2229 Mar, Dental examination Z01.20 [place] [id number] [place] [address] 02833- 9544 Mar, Medicare welcome exam Z00.00 ; Encounter for screening for lung cancer Z12.2 ; Colon cancer screening Z12.11 ; Encounter for immunization Z23 ; Weakness R53.1 and Irritable bowel syndrome with diarrhea K58.[address] [address]- 4647 Feb, Onychomycosis B35.1 ; Hammer toe of right foot M20.41 ; Hallux valgus (acquired), right foot M20.11 and Acquired hallux valgus of left foot M20.12 [place] [address] [place] [id number] [place] [address] 87245- 8507 Jan, Essential hypertension I10 and Encounter for immunization Z23 [place] [id number] [place] [address] 44637- 8654 Dec, Encounter for screening mammogram for breast cancer Z12.31 and Hyperlipidemia, unspecified E78.5 [place] [id number] [place] [address] 97985- 0852 Nov, Hammer toe of right foot M20.41 ; Onychomycosis B35.1 and Neuropathy G62.9 [place] [address] [place] [id number] [place] [address] 91093- 0001 Sep, Essential hypertension I10 and 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 [place] [address] [place] [id number] [place] [address] 12973- 3106 Aug, [place] [address] 88009- 9876 Aug, [place] [address] [place] [id number] [place] [address] 77252- 5912 Aug, Onychomycosis B35.1 ; Hammer toe of right foot M20.41 and Neuropathy G62.9 [place] [address] 17124- 9042 May, Callus of foot L84 ; Hammer toe of right foot M20.41 and Onychomycosis B35.1 [place] [address] 51543- 9430 Apr, Chronic pain G89.[address] 21063- 8410 Feb, Onychomycosis B35.1 ; Hammer toe of right foot M20.41 ; Acquired hallux valgus of left foot M20.12 and Hallux valgus (acquired), right foot M20.11 [place] [address] 36819- 3974 Jan, Cellulitis of left lower extremity L03.116 [place] [address] 09319- 4309 Jan, Seborrheic keratosis L82.1 and Encounter for immunization Z23 [place] [address] 09696- 2030 18 Jan, 2016 Seborrheic keratoses L82.1 and Visit for suture removal Z48.02 [place] [address] [place] [id number] [place] [address] 82014- 7796 08 Jan, 2016 Dermatofibroma D23.9 [place] [address] 58148- 2122 18 Dec, 2015 Lesion of lower extremity L98.9 [place] [address] [place] [id number] [place] [address] 56784- 0718 Dec, [place] [address] [place] [address]- 74[address] Dec, Chronic pain G89.29 [place] [address] [address] Dec, Well woman exam Z01.419 ; Essential hypertension I10 ; Breast cancer screening Z12.39 ; Cervical cancer screening Z12.4 ; Vision changes H53.9 ; Heberden's node M15.1 ; Cutaneous horn L85.8 and Seborrheic keratosis L82.1 [place] [address] 57891- 7227 Dec, Well woman exam Z01.419 ; Heberden's node M15.1 ; Breast cancer screening Z12.39 ; Cervical cancer screening Z12.4 ; Essential hypertension I10 ; Vision changes H53.9 ; Cutaneous horn L85.8 and Seborrheic keratosis L82.[address] 29582- 1227 Nov, Well woman exam Z01.419 ; Breast cancer screening Z12.39 ; Cervical cancer screening Z12.4 ; Essential hypertension I10 ; Vision changes H53.9 ; Heberden's node M15.1 ; Cutaneous horn L85.8 and Seborrheic keratosis L82.[address] 68221- 0713 Nov, Hammer toe of right foot M20.41 and Callus of foot L84 [address] 65373- 7365 Aug, Onychomycosis B35.1 and Callus of foot L84 [address] 67832- 0400 July, Dysthymia F34.1 and Chronic pain G89.[address] 05553- 7622 Jun, Dysthymia F34.1 ; Heel spur M77.30 and Ganglion cyst M67.40 [facility] [address] [place] [id number] [place] [address] 84793- 4793 May, Onychomycosis B35.1 and Neuropathy G62.9 [facility] [address] [place] [id number] [place] [address] 75854- 0175 May, [facility] [address] [place] [id number] [place] [address] 18985- 2528 Apr, [facility] [address] [place] [id number] [place] [address] 85598- 5174 Apr, [facility] [address] [place] [id number] [place] [address] 16018- 6951 Apr, [facility] [address] [place] [id number] [place] [address] 38832- 0611 Mar, [facility] [address] 48341- 8835 Mar, [facility] [address] [place] [id number] [place] [address] 50832- 4619 Feb, [facility] [address] [place] [id number] [place] [address] 44956- 9735 Feb, [facility] [address] [place] [id number] [place] [address] 47695- 3331 Feb, [facility] [address] [place] [id number] [place] [address] 88159- 3447 Feb, Onychomycosis B35.1 and [place] or callus L84 [facility] [address] [place] [address] 04548- 5285 Feb, Cough R05 [facility] [address] [place] [id number] [place] [address] 92244 -6002 Jan, Sinusitis J32.9 [facility] [address] [place] [id number] [place] [address] 52609- 3291 Jan, Hyperlipidemia 272.4 [place] [address], [place] [address]- 9436 09 Jan, 2015 Acute upper respiratory infection, unspecified J06.9 ; Encounter for immunization Z23 ; Other viral agents as the cause of diseases classified elsewhere B97.89 and Acute frontal sinusitis, recurrence not specified J01.10 [place] [address], [place] [address]- 5583 Nov, Wart 078.10 ; Breast cancer screening V76.10 and Hyperlipidemia 272.4 [place] [address] [place] [id number] [place] [address] 96657- 5513 11 Nov, 2014 Onychomycosis 110.1 ; [place] or callus 700 and Skin fissures 709.8 [place] [address], [place] [address]- 7551 Aug, Hammertoe 735.4 ; Hyperkeratosis 701.1 ; Onychomycosis 110.1 ; Fissure in skin of foot 709.8 and Foot pain 729.5 [place] [address] [place] [address] 80736- 3627 Aug, [place] [address] [place] [id number] [place] [address] 91668- 5752 Aug, [place] [address], [place] [address]- 2937 Aug, [place] [address], [place] [address]- 0042 July, [place] [address] [place] [address] 01656- 0060 July, [place] [address] [place] [id number] [place] [address] 81974- 9706 Jun, [place] [address], [place] [address]- 7687 Jun, [place] [address] [place] [id number] [place] [address] 27855- 7218 May, [facility] [place] [facility] [address] [id number] [place] [address]- 8586 May, [facility] [place] [facility] [address] [id number] [place] [address]- 9503 May, [facility] [place] [facility] [address] [id number] [place] [address]- 6155 May, [facility] [place] [facility] [address] [id number] [place] [address]- 0627 Apr, 2014 [facility] [place] [facility] [address] [id number] [place] [address]- 0229 Apr, [facility] [place] [facility] [address] [id number] [place] [address]- 1701 Feb, [facility] [place] [facility] [address] [id number] [place] [address]- 7766 Feb, [facility] [place] [facility] [address] [id number] [place] [address]- 6106 Feb, [facility] [place] [facility] [address] [id number] [place] [address]- 7799 Feb, [facility] [place] [facility] [address] [id number] [place] [address]- 8228 Feb, [facility] [place] [facility] [address] [id number] [place] [address]- 2889 Feb, [facility] [place] [facility] [address] [id number] [place] [address]- 5891 Jan, [facility] [place] [facility] [address] [id number] [place] [address]- 1889 Jan, [facility] [place] [facility] [address] [id number] [place] [address]- 0219 Jan, [facility] [place] [facility] [address] [id number] [place] [address]- 6618 Jan, [facility] [place] [facility] [address] [id number] [place] [address]- 5492 Jan, [facility] [place] [facility] [address] [id number] [place] [address]- 0522 Dec, [facility] [place] [facility] [address] [id number] [place] [address]- 1426 Dec, [facility] [place] [facility] [address] [id number] [place] [address]- 1261 29 Nov, 2013 [facility] [place] [facility] [address] [id number] [place] [address]- 7261 29 Nov, 2013 [facility] [place] [facility] [address] [id number] [place] [address]- 8934 Nov, [facility] [place] [facility] [address] [id number] [place] [address]- 1530 Nov, 2013 [facility] [place] [facility] [address] [id number] [place] [address]- 7153 Nov, 2013 [facility] [place] [facility] [address] [id number] [place] [address]- 2650 11 Nov, 2013 [facility] [place] [facility] [address] [id number] [place] [address]- 8005 04 Nov, 2013 [facility] [place] [facility] [address] [id number] [place] [address]- 8986 04 Nov, 2013 [facility] [place] [facility] [address] [id number] [place] [address]- 2544 Nov, 2013 [facility] [place] [facility] [address] [id number] [place] [address]- 2433 Nov, [facility] [place] [facility] [address] [id number] [place] [address]- 4376 Oct, [facility] [place] [facility] [address] [id number] [place] [address]- 6826 Oct, [facility] [place] [facility] [address] [id number] [place] [address]- 4785 Oct, [facility] [place] [facility] [address] [id number] [place] [address]- 0602 Oct, [facility] [place] [facility] [address] [id number] [place] [address]- 1251 Sep, [facility] [place] [facility] [address] [id number] [place] [address]- 1085 Sep, [facility] [place] [facility] [address] [id number] [place] [address]- 7463 Sep, [facility] [place] [facility] [address] [id number] [place] [address]- 3601 Sep, [facility] [place] [facility] [address] [id number] [place] [address]- 3811 Aug, [facility] [place] [facility] [address] [id number] [place] [address]- 7868 Aug, [facility] [place] [facility] [address] [id number] [place] [address]- 6628 Aug, [facility] [place] [facility] [address] [id number] [place] [address]- 4820 Aug, [facility] [place] [facility] [address] [id number] [place] [address]- 0620 Aug, [facility] [place] [facility] [address] [id number] [place] [address]- 5840 Aug, [facility] [place] [facility] [address] [id number] [place] [address]- 4870 Aug, [facility] [place] [facility] [address] [id number] [place] [address]- 2564 Aug, [facility] [place] [facility] [address] [id number] [place] [address]- 0004 Aug, [facility] [place] [facility] [address] [id number] [place] [address]- 2628 Aug, [facility] [place] [facility] [address] [id number] [place] [address]- 1988 Aug, [facility] [place] [facility] [address] [id number] [place] [address]- 9055 Aug, [facility] [place] [facility] [address] [id number] [place] [address]- 7266 July, [facility] [place] [facility] [address] [id number] [place] [address]- 0160 July, [facility] [place] [facility] [address] [id number] [place] [address]- 6909 July, [facility] [place] [facility] [address] [id number] [place] [address]- 5491 July, [facility] [place] [facility] [address] [id number] [place] [address]- 3119 July, [facility] [place] [facility] [address] [id number] [place] [address]- 8787 July, [facility] [place] [facility] [address] [id number] [place] [address]- 4563 Jun, [facility] [place] [facility] [address] [id number] [place] [address]- 4172 Jun, [facility] [place] [facility] [address] [id number] [place] [address]- 7298 Jun, [facility] [place] [facility] [address] [id number] [place] [address]- 3701 Jun, [facility] [place] [facility] [address] [id number] [place] [address]- 3379 May, [facility] [place] [facility] [address] [id number] [place] [address]- 1065 May, [facility] [place] [facility] [address] [id number] [place] [address]- 6763 May, [facility] [place] [facility] [address] [id number] [place] [address]- 8780 May, [facility] [place] [facility] [address] [id number] [place] [address]- 5172 Feb, [facility] [address] [id number] [place] [address]- 0494 Feb, [facility] [place] [facility] [address] [id number] [place] [address] 2546 Feb, [facility] [place] [facility] [address] [id number] [place] [address]- 9063 Feb, [facility] [place] [facility] [address] [id number] [place] [address]- 6335 Jan, [facility] [place] [facility] [address] [id number] [place] [address]- 5440 Jan, [facility] [place] [facility] [address] [id number] [place] [address]- 3319 Dec, [facility] [place] [facility] [address] [id number] [place] [address]- 1973 Nov, [facility] [place] [facility] [address] [id number] [place] [address]- 3830 Nov, [facility] [place] [facility] [address] [id number] [place] [address]- 9084 Nov, [facility] [place] [facility] [address] [id number] [place] [address]- 8082 Oct, [facility] [place] [facility] [address] [id number] [place] [address]- 9641 Oct, [facility] [place] [facility] [address] [id number] [place] [address]- 7972 Oct, [facility] [place] [facility] [address] [id number] [place] [address]- 1715 Oct, [facility] [place] [facility] [address] [id number] [place] [address]- 2546 Oct, [facility] [place] [facility] [address] [id number] [place] [address]- 7811 Oct, [facility] [address] [id number] [place] [address]- 6016 Aug, [facility] [place] [facility] [address] [id number] [place] [address]- 5885 July, [facility] [place] [facility] [address] [id number] [place] [address]- 3875 July, [facility] [place] [facility] [address] [id number] [place] [address]- 4692 May, [facility] [place] [facility] [address] [id number] [place] [address]- 1661 May, [facility] [place] [facility] [address] [id number] [place] [address]- 2539 May, [facility] [place] [facility] [address] [id number] [place] [address]- 0576 Apr, [facility] [place] [facility] [address] [id number] [place] [address]- 7575 Apr, [facility] [place] [facility] [address] [id number] [place] [address]- 1363 Mar, [facility] [place] [facility] [address] [id number] [place] [address]- 0925 Mar, [facility] [place] [facility] [address] [id number] [place] [address]- 9624 Jan, [facility] [place] [facility] [address] [id number] [address]- 5308 Jan, [facility] [place] [facility] [address] [id number] [place] [address]- 0736 Nov, [facility] [place] [facility] [address] [id number] [place] [address]- 5506 Nov, [facility] [place] [facility] [address] [id number] [place] [address]- 3429 Sep, [facility] [place] [facility] [address] [id number] [place] [address]- 1157 Aug, [facility] [address] [id number] [place] [address]- 2087 July, [facility] [address] [id number] [place] [address]- 4066 July, [facility] [address] [id number] [place] [address]- 4686 July, [facility] [address] [id number] [place] [address]- 5848 Apr, [facility] [address] [id number] [place] [address]- 2497 Apr, [facility] [address] [id number] [place] [address]- 5288 Mar, [facility] [address] [id number] [place] [address]- 0947 Mar, [facility] [address] [id number] [place] [address]- 3373 Mar, [facility] [address] [id number] [place] [address]- 3384 Mar, [facility] [address] [id number] [place] [address]- 7886 Mar, [facility] [address] [id number] [place] [address]- 0245 Feb, [facility] [address] [id number] [place] [address] Feb, [facility] [place] [facility] [address] [id number] [place] [id number] Feb, [facility] [place] [facility] [address] [id number] [place] [id number] Jan, [facility] [address] [id number] [place] [address] Jan, [facility] [id number] [address] Dec, [facility] [id number] [place] [address] Jan, [facility] [id number] [place] [address] Aug, [facility] [id number] [place] [address] July, [facility] [id number] [place] [address] Feb, [facility] [id number] [place] [address] Jan, [facility] [id number] [place] [address] Jan, [facility] [id number], [place] [address] Dec, [facility] [address] [id number] [address] July, IMMUNIZATIONS No Known Immunizations SOCIAL HISTORY Never Assessed REASON FOR VISIT eye pain Pt c/o L eye itchiness, States she has scrathed it so much that it is now sore KRYS Aceves PLAN OF CARE Activity Details Follow Up prn Reason: VITAL SIGNS Height 70 in 2017-08-21 Weight 241.6 lbs 2017-08-21 Temperature 96.9 degrees Fahrenheit 2017-08-21 Heart Rate 64 bpm 2017-08-21 Respiratory Rate 20 2017-08-21 BMI 34.66 kg/m2 2017-08-21 Blood pressure systolic 108 mmHg 2017-08-21 Blood pressure diastolic 68 mmHg 2017-08-21 MEDICATIONS Medication Instructions Dosage Frequency Start Date End Date Duration Status Loratadine 10 MG TAKE ONE TABLET BY MOUTH DAILY 90 Active Tramadol HCl 50 MG Orally every 4 - 6 hrs 1 tablet as needed Apr, 28 days Active Metoprolol Tartrate 100 MG Orally Twice a day 1 tablet 12h 90 Active Maxitrol 3.5-39658-1.1 Ophthalmic Four times a day 1 drop into affected eye 6h Aug, 7 days Active Amlodipine Besylate 10 MG TAKE ONE TABLET BY MOUTH ONCE DAILY 90 Active Bentyl 20 MG TAKE ONE (1) TABLET BY MOUTH TWICE DAILY BEFORE LUNCH AND SUPPER 30 Active Estradiol 0.5 MG Orally Once a day 1 tablet 24h 90 Active Losartan Potassium 50 mg Orally 2 times a day 1 tablet 12h 90 days Active Prozac 40 MG Orally Once a day 1 capsule in the morning 24h 90 days Active Pravastatin Sodium 80 MG TAKE ONE TABLET BY MOUTH AT BEDTIME 24h 90 Active RESULTS No Results PROCEDURES Procedure Date Ordered Result Body Site [facility] VISIT ESTABLISHED PATIENT August 21, 2017 INSTRUCTIONS MEDICATIONS ADMINISTERED No Known Medications MEDICAL (GENERAL) HISTORY Type Description Date Medical History HTN Medical History hyperlipidemia Medical History chronic back pain and shoulder pain Medical History MRSA Surgical History x 3 Surgical History hysterectomy Surgical History right foot surgery Hospitalization History surgeries Hospitalization History MRSA on arm Hospitalization History infected cyst 2010
--- OUTSIDE RECORDS SUMMARY | 2017-12-09 18:26 | XMS REPORT ---
Author Author JUDIE BAILEY Organization [facility] Address [address] [place] [address] Care Team Providers Care Hemodialysis Charge Nurse Name Role Phone JUDIE BAILEY Unavailable PROBLEMS Type Condition ICD9-CM Code PLU58-NL Code Onset Dates Condition Status SNOMED Code Problem Dysthymia F34.1 Active 92995951 Problem Essential hypertension I10 Active 41205040 Problem Chronic pain G89.29 Active 97519531 Problem Methicillin resistant Staphylococcus aureus 041.12 Active 526384156 Problem Cataracts, bilateral H26.9 Active 02337375 Problem Ganglion cyst M67.40 Active 221277514 Problem Heel spur M77.30 Active 33972894 Problem Irritable bowel syndrome with diarrhea K58.0 Active 502451178 Problem Neuropathy G62.9 Active 924042948 Problem Acquired hallux valgus of left foot M20.12 Active 95367248 Problem Hyperlipidemia, unspecified E78.5 Active 97630333 Problem Hallux valgus (acquired), right foot M20.11 Active 150519978 Problem Hammer toe of right foot M20.41 Active 596960149 ALLERGIES No Known Allergies ENCOUNTERS Encounter Location Date Diagnosis [place] [address], [place] [address] Nov, [place] [address] [place] [id number] [place] [address]7547- 3208 Oct, Right medial knee pain M25.561 ; Abrasion of left knee, initial encounter S80.212A and Dysthymia F34.1 [place] [id number] [place] [address] 31249- 8215 Aug, Other chronic pain G89.29 and Pain in right knee M25.561 [place] [id number] [place] [address] 98478- 7089 Aug, Chronic pain G89.29 [place] [address] [place] [id number] [place] [address] 49722- 1423 Aug, Right medial knee pain M25.561 [facility] [address] [address] 15 Aug, 2017 Allergic conjunctivitis of both eyes H10.13 [place] [address] 08207- 7055 15 Aug, 2017 Onychomycosis B35.1 [place] [address] 14354- 9608 08 Aug, 2017 Allergic state, initial encounter T78.40XA [facility] [address] [address] 05 Aug, 2017 Acute bacterial conjunctivitis of left eye H10.[address] [address]- [address] July, Essential hypertension I10 and Skin tag L91.8 [facility] [address] [address] Jun, [place] [address] [address] May, Dermatofibroma of left calf D23.72 [facility] [address] [address] May, Bilateral hearing loss due to cerumen impaction H61.23 [place] [address] [address]32- 4620 May, Onychomycosis B35.1 ; Hammer toe of right foot M20.41 ; Acquired hallux valgus of left foot M20.12 and Magnolia or callus L84 [address] [address]- [address]14 Apr, Seborrheic keratosis L82.1 and Irritable bowel syndrome with diarrhea K58.0 [place] [address] [place] [id number] [place] [address] 49556- 0142 Mar, [place] [address] [place] [id number] [place] [address] 33423- 0600 Mar, Dental examination Z01.20 [place] [address] [place] [id number] [place] [address] 21537- 3787 15 Mar, 2017 Medicare welcome exam Z00.00 ; Encounter for screening for lung cancer Z12.2 ; Colon cancer screening Z12.11 ; Encounter for immunization Z23 ; Weakness R53.1 and Irritable bowel syndrome with diarrhea K58.[address] [address]- [address] Feb, Onychomycosis B35.1 ; Hammer toe of right foot M20.41 ; Hallux valgus (acquired), right foot M20.11 and Acquired hallux valgus of left foot M20.12 [place] [address] [place] [id number] [place] [address] 07922- 2026 Jan, Essential hypertension I10 and Encounter for immunization Z23 [place] [id number] [place] [address] 81203- 5956 Dec, Encounter for screening mammogram for breast cancer Z12.31 and Hyperlipidemia, unspecified E78.5 [place] [id number] [place] [address] 08599- 5830 Nov, Hammer toe of right foot M20.41 ; Onychomycosis B35.1 and Neuropathy G62.9 [place] [address] [place] [id number] [place] [address] 09025- 2843 Sep, Essential hypertension I10 and 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 [place] [address] [place] [id number] [place] [address] 78358- 6057 Aug, [place] [address] [place] [id number] [place] [address] 43731- 8277 Aug, [place] [address] [place] [id number] [place] [address] 24559- 7927 Aug, Onychomycosis B35.1 ; Hammer toe of right foot M20.41 and Neuropathy G62.9 [place] [address] 40552- 0427 May, Callus of foot L84 ; Hammer toe of right foot M20.41 and Onychomycosis B35.1 [place] [address] 90965- 8458 Apr, Chronic pain G89.29 [place] [address] 99752- 2780 Feb, Onychomycosis B35.1 ; Hammer toe of right foot M20.41 ; Acquired hallux valgus of left foot M20.12 and Hallux valgus (acquired), right foot M20.11 [place] [address] 34545- 3404 Jan, Cellulitis of left lower extremity L03.116 [place] [address] 81073- 0941 21 Jan, 2016 Seborrheic keratosis L82.1 and Encounter for immunization Z23 [place] [address] 42305- 1189 18 Jan, 2016 Seborrheic keratoses L82.1 and Visit for suture removal Z48.02 [place] [address] 61841- 0230 08 Jan, 2016 Dermatofibroma D23.9 [place] [address] 41846- 2572 18 Dec, 2015 Lesion of lower extremity L98.9 [place] [address] [place] [id number] [place] [address] 38361- 2464 Dec, [place] [address] 70120- 8125 Dec, Chronic pain G89.29 [place] [id number] [place] [address] [address] Dec, Well woman exam Z01.419 ; Essential hypertension I10 ; Breast cancer screening Z12.39 ; Cervical cancer screening Z12.4 ; Vision changes H53.9 ; Heberden's node M15.1 ; Cutaneous horn L85.8 and Seborrheic keratosis L82.1 [place] [address] [place] [id number] [place] [address] 15717- 4401 Dec, Well woman exam Z01.419 ; Heberden's node M15.1 ; Breast cancer screening Z12.39 ; Cervical cancer screening Z12.4 ; Essential hypertension I10 ; Vision changes H53.9 ; Cutaneous horn L85.8 and Seborrheic keratosis L82.1 [place] [id number] [place] [address] 87242- 2972 Nov, Well woman exam Z01.419 ; Breast cancer screening Z12.39 ; Cervical cancer screening Z12.4 ; Essential hypertension I10 ; Vision changes H53.9 ; Heberden's node M15.1 ; Cutaneous horn L85.8 and Seborrheic keratosis L82.1 [place] [id number] [place] [address] 27659- 6051 Nov, Hammer toe of right foot M20.41 and Callus of foot L84 [place] [address] [place] [id number] [place] [address] 76844- 7694 Aug, Onychomycosis B35.1 and Callus of foot L84 [address] 77472- 4168 July, Dysthymia F34.1 and Chronic pain G89.29 [place] [address] [place] [id number] [place] [address] 23877- 7809 Jun, Dysthymia F34.1 ; Heel spur M77.30 and Ganglion cyst M67.40 [facility] [address] [place] [id number] [place] [address] 15560- 8805 May, Onychomycosis B35.1 and Neuropathy G62.9 [facility] [address] [place] [id number] [place] [address] 82988- 2833 May, [facility] [address] [place] [id number] [place] [address] 13945- 2427 Apr, [facility] [address] [place] [address] [id number] [place] [address] 88594- 2535 Apr, [facility] [address] [place] [address] [id number] [place] [address] 44649- 0015 Apr, [facility] [address] [place] [address] [id number] [place] [address] 65548- 1104 Mar, [facility] [address] [place] [address] [id number] [place] [address] 50206- 3561 Mar, [facility] [address] [place] [address] [id number] [place] [address] 10755- 4756 Feb, [facility] [address] [place] [address] [id number] [place] [address] 91299- 0468 Feb, [facility] [address] [place] [id number] [place] [address] 72603- 1134 Feb, [facility] [address] [place] [id number] [place] [address] 19034- 1418 Feb, Onychomycosis B35.1 and Magnolia or callus L84 [facility] [address] [place] [address] 09878- 6842 Feb, Cough R05 [facility] [address] [place] [id number] [place] [address] 52059 -6387 Jan, Sinusitis J32.9 [facility] [address] [place] [id number] [place] [address] 96715- 3510 Jan, Hyperlipidemia 272.4 [place] [address], [place] [address]- 8327 09 Jan, 2015 Acute upper respiratory infection, unspecified J06.9 ; Encounter for immunization Z23 ; Other viral agents as the cause of diseases classified elsewhere B97.89 and Acute frontal sinusitis, recurrence not specified J01.10 [place] [address] [place] [id number] [place] [address] 13459- 8216 Nov, Wart 078.10 ; Breast cancer screening V76.10 and Hyperlipidemia 272.4 [place] [address] [place] [id number] [place] [address] 00876- 7936 Nov, Onychomycosis 110.1 ; Magnolia or callus 700 and Skin fissures 709.8 [place] [address] [place] [id number] [address]- 6823 Aug, Hammertoe 735.4 ; Hyperkeratosis 701.1 ; Onychomycosis 110.1 ; Fissure in skin of foot 709.8 and Foot pain 729.5 [place] [address] [place] [address] 64298- 8221 Aug, [place] [address] [place] [id number] [place] [address] 07793- 3908 Aug, [place] [address], [place] [address]- 5915 Aug, [place] [address], [place] [address]- 6442 July, [place] [address] [place] [address] 27913- 3487 July, [place] [address] [place] [id number] [place] [address] 059137- 6174 Jun, [place] [address], [place] [address]- 3831 Jun, [place] [address] [place] [id number] [place] [address] 600574- 2722 May, [facility] [place] [facility] [address] [id number] [place] [address]- 7868 May, [facility] [place] [facility] [address] [id number] [place] [address]- 9847 May, [facility] [place] [facility] [address] [id number] [place] [address]- 4103 May, [facility] [place] [facility] [address] [id number] [place] [address]- 8739 Apr, [facility] [place] [facility] [address] [id number] [place] [address]- 7591 Apr, [facility] [place] [facility] [address] [id number] [place] [address]- 6140 Feb, [facility] [place] [facility] [address] [id number] [place] [address]- 0589 Feb, [facility] [place] [facility] [address] [id number] [place] [address]- 0151 Feb, [facility] [place] [facility] [address] [id number] [place] [address]- 1637 Feb, [facility] [place] [facility] [address] [id number] [place] [address]- 2586 Feb, [facility] [place] [facility] [address] [id number] [place] [address]- 4116 Feb, [facility] [place] [facility] [address] [id number] [place] [address]- 4646 Jan, [facility] [place] [facility] [address] [id number] [place] [address]- 4353 Jan, [facility] [place] [facility] [address] [id number] [place] [address]- 9351 Jan, [facility] [place] [facility] [address] [id number] [place] [address]- 8464 Jan, [facility] [place] [facility] [address] [id number] [place] [address]- 6076 06 Jan, 2014 [facility] [place] [facility] [address] [id number] [place] [address]- 2734 Dec, [facility] [place] [facility] [address] [id number] [place] [address]- 1876 Dec, [facility] [place] [facility] [address] [id number] [place] [address]- 6426 29 Nov, 2013 [facility] [place] [facility] [address] [id number] [place] [address] 2546 29 Nov, 2013 [facility] [place] [facility] [address] [id number] [place] [address]- 5846 Nov, 2013 [facility] [place] [facility] [address] [id number] [place] [address]- 9808 Nov, 2013 [facility] [place] [facility] [address] [id number] [place] [address]- 1821 11 Nov, 2013 [facility] [place] [facility] [address] [id number] [place] [address]- 9273 11 Nov, 2013 [facility] [place] [facility] [address] [id number] [place] [address]- 5864 04 Nov, 2013 [facility] [place] [facility] [address] [id number] [place] [address]- 7739 04 Nov, 2013 [facility] [place] [facility] [address] [id number] [place] [address]- 1688 Nov, 2013 [facility] [place] [facility] [address] [id number] [place] [address]- 2540 Nov, 2013 [facility] [place] [facility] [address] [id number] [place] [address]- 4587 Oct, [facility] [place] [facility] [address] [id number] [place] [address]- 1884 Oct, [facility] [place] [facility] [address] [id number] [place] [address]- 2596 Oct, [facility] [place] [facility] [address] [id number] [place] [address]- 5807 Oct, [facility] [place] [facility] [address] [id number] [place] [address]- 4874 Sep, [facility] [place] [facility] [address] [id number] [place] [address]- 3078 Sep, [facility] [place] [facility] [address] [id number] [place] [address]- 4694 Sep, [facility] [place] [facility] [address] [id number] [place] [address]- 8068 Sep, [facility] [place] [facility] [address] [id number] [place] [address]- 6509 Aug, [facility] [place] [facility] [address] [id number] [place] [address]- 0724 Aug, [facility] [place] [facility] [address] [id number] [place] [address]- 2881 Aug, [facility] [place] [facility] [address] [id number] [place] [address]- 4935 Aug, [facility] [place] [facility] [address] [id number] [place] [address]- 5465 Aug, [facility] [place] [facility] [address] [id number] [place] [address]- 2367 Aug, [facility] [place] [facility] [address] [id number] [place] [address]- 0275 Aug, [facility] [place] [facility] [address] [id number] [place] [address]- 9992 Aug, [facility] [place] [facility] [address] [id number] [place] [address]- 9509 Aug, [facility] [place] [facility] [address] [id number] [place] [address]- 0139 Aug, [facility] [place] [facility] [address] [id number] [place] [address]- 2546 Aug, [facility] [place] [facility] [address] [id number] [place] [address]- 2325 Aug, [facility] [place] [facility] [address] [id number] [place] [address]- 1125 July, [facility] [place] [facility] [address] [id number] [place] [address]- 6857 July, [facility] [place] [facility] [address] [id number] [place] [address]- 4608 July, [facility] [place] [facility] [address] [id number] [place] [address]- 7161 July, [facility] [place] [facility] [address] [id number] [place] [address]- 1657 July, [facility] [place] [facility] [address] [id number] [place] [address]- 1252 July, [facility] [place] [facility] [address] [id number] [place] [address]- 7246 Jun, [facility] [place] [facility] [address] [id number] [place] [address]- 2526 Jun, [facility] [place] [facility] [address] [id number] [place] [address]- 1013 Jun, [facility] [place] [facility] [address] [id number] [place] [address]- 7364 Jun, [facility] [place] [facility] [address] [id number] [place] [address]- 7777 May, [facility] [place] [facility] [address] [id number] [place] [address]- 9912 May, [facility] [place] [facility] [address] [id number] [place] [address]- 8996 May, [facility] [place] [facility] [address] [id number] [place] [address]- 7588 May, [facility] [place] [facility] [address] [id number] [place] [address]- 3709 Feb, [facility] [address] [id number] [place] [address]- 4939 Feb, [facility] [address] [id number] [place] [address]- 2584 Feb, [facility] [address] [id number] [place] [address]- 1634 Feb, [facility] [address] [id number] [place] [address]- 6040 Jan, [facility] [address] [id number] [place] [address]- 1522 Jan, [facility] [address] [id number] [place] [address]- 2206 Dec, [facility] [address] [id number] [place] [address]- 3441 06 Nov, 2012 [facility] [address] [id number] [place] [address]- 7415 Nov, [facility] [address] [id number] [place] [address]- 9984 Nov, [facility] [address] [id number] [place] [address]- 4073 Oct, [facility] [place] [facility] [address] [id number] [place] [address]- 7907 Oct, [facility] [address] [id number] [place] [address]- 9136 Oct, [facility] [place] [facility] [address] [id number] [place] [address]- 0587 Oct, [facility] [place] [facility] [address] [id number] [place] [address]- 9376 Oct, [facility] [place] [facility] [address] [id number] [place] [address]- 8066 Oct, [facility] [address] [id number] [place] [address]- 6473 Aug, [facility] [place] [facility] [address] [id number] [place] [address]- 8814 July, [facility] [address] [id number] [place] [address]- 4872 July, [facility] [place] [facility] [address] [id number] [place] [address]- 8346 May, [facility] [address] [id number] [place] [address]- 8851 May, [facility] [place] [facility] [address] [id number] [place] [address]- 7316 May, [facility] [address] [id number] [place] [address]- 2939 Apr, [facility] [address] [id number] [place] [address]- 8339 Apr, [facility] [address] [id number] [place] [address]- 2058 Mar, [facility] [address] [id number] [place] [address]- 7950 Mar, [facility] [place] [facility] [address] [id number] [place] [address]- 8397 Jan, [facility] [place] [facility] [address] [id number], [place] [address]- 4475 Jan, [facility] [place] [facility] [address] [id number] [place] [address]- 7425 Nov, [facility] [place] [facility] [address] [id number] [place] [address]- 5956 Nov, [facility] [place] [facility] [address] [id number] [place] [address]- 9953 Sep, [facility] [place] [facility] [address] [id number] [place] [address]- 8649 Aug, [facility] [place] [facility] [address] [id number] [place] [address]- 4186 July, [facility] [place] [facility] [address] [id number] [place] [address]- 5064 July, [facility] [place] [facility] [address] [id number] [place] [address]- 2468 July, [facility] [place] [facility] [address] [id number] [place] [address]- 0310 Apr, [facility] [place] [facility] [address] [id number] [place] [address] Apr, [facility] [place] [facility] [address] [id number] [place] [address] Mar, [facility] [place] [facility] [address] [id number] [place] [address] Mar, [facility] [place] [facility] [address] [id number] [place] [address] Mar, [facility] [place] [facility] [address] [id number] [place] [address] Mar, [facility] [place] [facility] [address] [id number] [place] [address] Mar, [facility] [place] [facility] [address] [id number] [place] [address] Feb, [facility] [place] [facility] [address] [id number] [place] [address] Feb, [facility] [place] [facility] [address] [id number] [place] [address] Feb, [facility] [place] [facility] [address] [id number] [place] [address] Jan, [facility] [place] [facility] [address] [id number] [place] [address] Jan, [facility] [address] [facility] [id number] [address] Dec, [facility] [address] [id number], [place] [address] Jan, [facility] [address] [id number], [place] [address] Aug, [facility] [id number], [place] [address] July, [facility] [id number], [place] [address] Feb, [facility] [id number], [place] [address] Jan, [facility] [id number], [place] [address] Jan, [facility] [id number], [place] [address] Dec, [facility] [address] [id number], [place] [address] July, IMMUNIZATIONS No Known Immunizations SOCIAL HISTORY Never Assessed REASON FOR VISIT Eye c/o, PT reports she went to walk in on 08/21/17 for her left eye. PT notes they gave her Maxitrol one eye drops but symptoms are still the same. PT states the eyelash line on her upper eye lid itches anna -Isauro MARCANO , PT reports she was prescribed medication for her loose stools in the past and is out. PT is unsure of the sean Dick MA PLAN OF CARE Activity Details Follow Up Routine appt Reason: VITAL SIGNS Height 70 in 2017-08-24 Weight 243.3 lbs 2017-08-24 Temperature 97.9 degrees Fahrenheit 2017-08-24 Heart Rate 65 bpm 2017-08-24 Respiratory Rate 20 2017-08-24 BMI 34.91 kg/m2 2017-08-24 Blood pressure systolic 132 mmHg 2017-08-24 Blood pressure diastolic 72 mmHg 2017-08-24 MEDICATIONS Medication Instructions Dosage Frequency Start Date End Date Duration Status PredniSONE 20 mg Orally Once a day 2 tablets 24h Aug, Aug, 05 days Active Metoprolol Tartrate 100 MG Orally Twice a day 1 tablet 12h 90 Active Amlodipine Besylate 10 MG TAKE ONE TABLET BY MOUTH ONCE DAILY 90 Active Estradiol 0.5 MG Orally Once a day 1 tablet 24h 90 Active Loratadine 10 MG TAKE ONE TABLET BY MOUTH DAILY 90 Active Tramadol HCl 50 MG Orally every 4 - 6 hrs 1 tablet as needed Apr, 28 days Active Prozac 40 MG Orally Once a day 1 capsule in the morning 24h 90 days Active Pravastatin Sodium 80 MG TAKE ONE TABLET BY MOUTH AT BEDTIME 24h 90 Active Losartan Potassium 50 mg Orally 2 times a day 1 tablet 12h 90 days Active Maxitrol 3.5-83477-2.1 Ophthalmic Four times a day 1 drop into affected eye 6h Aug, 7 days Active Bentyl 20 MG TAKE ONE (1) TABLET BY MOUTH TWICE DAILY BEFORE LUNCH AND SUPPER 30 Active RESULTS No Results PROCEDURES Procedure Date Ordered Result Body Site [facility] VISIT ESTABLISHED PATIENT August 24, 2017 INSTRUCTIONS MEDICATIONS ADMINISTERED No Known Medications MEDICAL (GENERAL) HISTORY Type Description Date Medical History HTN Medical History hyperlipidemia Medical History chronic back pain and shoulder pain Medical History MRSA Surgical History x 3 Surgical History hysterectomy Surgical History right foot surgery Hospitalization History surgeries Hospitalization History MRSA on arm Hospitalization History infected cyst 2010
--- OUTSIDE RECORDS SUMMARY | 2017-12-09 18:27 | XMS REPORT ---
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 Organization [facility] Address [address] [place] [address] Care Team Providers Care Television Operator Name Role Phone NOREEN FARMERIN Unavailable PROBLEMS Type Condition ICD9-CM Code ZQZ28-TO Code Onset Dates Condition Status SNOMED Code Problem Dysthymia F34.1 Active 15153037 Problem Essential hypertension I10 Active 93819622 Problem Chronic pain G89.29 Active 78897721 Problem Methicillin resistant Staphylococcus aureus 041.12 Active 486551669 Problem Cataracts, bilateral H26.9 Active 02718710 Problem Ganglion cyst M67.40 Active 657144034 Problem Heel spur M77.30 Active 83417309 Problem Irritable bowel syndrome with diarrhea K58.0 Active 488439209 Problem Neuropathy G62.9 Active 474475928 Problem Acquired hallux valgus of left foot M20.12 Active 97137953 Problem Hyperlipidemia, unspecified E78.5 Active 09257346 Problem Hallux valgus (acquired), right foot M20.11 Active 328132317 Problem Hammer toe of right foot M20.41 Active 409177915 ALLERGIES No Information ENCOUNTERS Encounter Location Date Diagnosis [place] [id number] [place] [address] 97497- 8677 Nov, [place] [address] [place] [id number] [place] [address] 49428- 4270 Oct, Right medial knee pain M25.561 ; Abrasion of left knee, initial encounter S80.212A and Dysthymia F34.1 [place] [address] [place] [id number] [place] [address] 13132- 8242 Aug, Other chronic pain G89.29 and Pain in right knee M25.561 [place] [address] [place] [id number] [place] [address] 14390- 7401 Aug, Chronic pain G89.29 [place] [address] 54899- 1522 Aug, Right medial knee pain M25.561 [facility] [address] [address] 15 Aug, 2017 Allergic conjunctivitis of both eyes H10.13 [place] [address] 68755- 0594 15 Aug, 2017 Onychomycosis B35.1 [place] [address] 95542- 4241 08 Aug, 2017 Allergic state, initial encounter T78.40XA [facility] [address] [address] 05 Aug, 2017 Acute bacterial conjunctivitis of left eye H10.[address] [address]- [address]26 July, Essential hypertension I10 and Skin tag L91.8 [facility] [address] [address] Jun, [place] [address] 17709- 8337 May, Dermatofibroma of left calf D23.72 [facility] [address] [address] May, Bilateral hearing loss due to cerumen impaction H61.23 [place] [address] 38687- 5715 May, Onychomycosis B35.1 ; Hammer toe of right foot M20.41 ; Acquired hallux valgus of left foot M20.12 and Flynn or callus L84 [place] [address] 54134- 0772 Apr, Seborrheic keratosis L82.1 and Irritable bowel syndrome with diarrhea K58.0 [place] [id number] [place] [address] 78854- 5194 30 Mar, 2017 [place] [address] [place] [id number] [place] [address] 98136- 7297 Mar, Dental examination Z01.20 [place] [address] [place] [id number] [place] [address] 52938- 1378 15 Mar, 2017 Medicare welcome exam Z00.00 ; Encounter for screening for lung cancer Z12.2 ; Colon cancer screening Z12.11 ; Encounter for immunization Z23 ; Weakness R53.1 and Irritable bowel syndrome with diarrhea K58.0 [place] [address] [address]23- 1211 Feb, Onychomycosis B35.1 ; Hammer toe of right foot M20.41 ; Hallux valgus (acquired), right foot M20.11 and Acquired hallux valgus of left foot M20.12 [place] [address] [place] [id number] [place] [address] 24604- 4267 Jan, Essential hypertension I10 and Encounter for immunization Z23 [place] [id number] [place] [address] 46825- 7962 02 Dec, 2016 Encounter for screening mammogram for breast cancer Z12.31 and Hyperlipidemia, unspecified E78.5 [place] [id number] [place] [address] 29453- 0166 Nov, Hammer toe of right foot M20.41 ; Onychomycosis B35.1 and Neuropathy G62.9 [place] [address] [place] [id number] [place] [address] 15265- 2169 Sep, Essential hypertension I10 and 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 [place] [address] [place] [id number] [place] [address] 80255- 1942 Aug, [place] [address] [place] [id number] [place] [address] 76416- 5045 Aug, [place] [address] [place] [id number] [place] [address] 39665- 4052 Aug, Onychomycosis B35.1 ; Hammer toe of right foot M20.41 and Neuropathy G62.9 [place] [address] 11473- 3880 May, Callus of foot L84 ; Hammer toe of right foot M20.41 and Onychomycosis B35.1 [place] [address] 18109- 2945 Apr, Chronic pain G89.29 [place] [address] 08811- 2739 Feb, Onychomycosis B35.1 ; Hammer toe of right foot M20.41 ; Acquired hallux valgus of left foot M20.12 and Hallux valgus (acquired), right foot M20.11 [place] [address] 66568- 5594 Jan, Cellulitis of left lower extremity L03.116 [place] [address] 70982- 7948 21 Jan, 2016 Seborrheic keratosis L82.1 and Encounter for immunization Z23 [place] [address] 31219- 3909 18 Jan, 2016 Seborrheic keratoses L82.1 and Visit for suture removal Z48.02 [place] [address] 02596- 5705 08 Jan, 2016 Dermatofibroma D23.9 [place] [address] 00397- 1464 18 Dec, 2015 Lesion of lower extremity L98.9 [place] [address] 86668- 9515 Dec, [place] [address] 86582- 5548 Dec, Chronic pain G89.29 [place] [id number] [place] [address] 49[address] Dec, Well woman exam Z01.419 ; Essential hypertension I10 ; Breast cancer screening Z12.39 ; Cervical cancer screening Z12.4 ; Vision changes H53.9 ; Heberden's node M15.1 ; Cutaneous horn L85.8 and Seborrheic keratosis L82.1 [place] [address] [place] [id number] [place] [address] 20297- 6791 Dec, Well woman exam Z01.419 ; Heberden's node M15.1 ; Breast cancer screening Z12.39 ; Cervical cancer screening Z12.4 ; Essential hypertension I10 ; Vision changes H53.9 ; Cutaneous horn L85.8 and Seborrheic keratosis L82.1 [place] [id number] [place] [address] 12866- 2681 Nov, Well woman exam Z01.419 ; Breast cancer screening Z12.39 ; Cervical cancer screening Z12.4 ; Essential hypertension I10 ; Vision changes H53.9 ; Heberden's node M15.1 ; Cutaneous horn L85.8 and Seborrheic keratosis L82.1 [place] [id number] [place] [address] 28398- 3820 Nov, Hammer toe of right foot M20.41 and Callus of foot L84 [place] [address] [place] [id number] [place] [address] 15457- 3270 Aug, Onychomycosis B35.1 and Callus of foot L84 [address] 83497- 0699 July, Dysthymia F34.1 and Chronic pain G89.29 [place] [address] [place] [id number] [place] [address] 25816- 3453 Jun, Dysthymia F34.1 ; Heel spur M77.30 and Ganglion cyst M67.40 [facility] [address] [place] [address] 77759- 2551 May, Onychomycosis B35.1 and Neuropathy G62.9 [facility] [address] [place] [id number] [place] [address] 39189- 8945 May, [facility] [address] [place] [id number] [place] [address] 33911- 4306 Apr, [facility] [address] [place] [id number] [place] [address] 17020- 7977 Apr, [facility] [address] [place] [id number] [place] [address] 36286- 2303 Apr, [facility] [address] [place] [id number] [place] [address] 20331- 3609 Mar, [facility] [address] [place] [id number] [place] [address] 10742- 5181 Mar, [facility] [address] [place] [id number] [place] [address] 79554- 9484 Feb, [facility] [address] [place] [id number] [place] [address] 20810- 3580 Feb, [facility] [address] [place] [id number] [place] [address] 99022- 3977 Feb, [facility] [address] [place] [id number] [place] [address] 83106- 1963 Feb, Onychomycosis B35.1 and Flynn or callus L84 [facility] [address] [place] [address] 01767- 4239 Feb, Cough R[address] [facility] [address] [place] [id number] [place] [address] 66627 -0023 Jan, Sinusitis J32.9 [facility] [address] [place] [id number] [place] [address] 56707- 9180 Jan, Hyperlipidemia 272.4 [facility] [address] [address] 2674 09 Jan, 2015 Acute upper respiratory infection, unspecified J06.9 ; Encounter for immunization Z23 ; Other viral agents as the cause of diseases classified elsewhere B97.89 and Acute frontal sinusitis, recurrence not specified J01.10 [place] [address] [place] [id number] [place] [address] 66666- 0296 22 Nov, 2014 Wart 078.10 ; Breast cancer screening V76.10 and Hyperlipidemia 272.4 [place] [address] [place] [id number] [place] [address] 70730- 3294 Nov, Onychomycosis 110.1 ; Flynn or callus 700 and Skin fissures 709.8 [place] [address] [place] [id number] [place] [address] 96785- 1628 Aug, Hammertoe 735.4 ; Hyperkeratosis 701.1 ; Onychomycosis 110.1 ; Fissure in skin of foot 709.8 and Foot pain 729.5 [place] [address] [place] [id number] [place] [address] 01142- 2413 Aug, [place] [address] [place] [id number] [place] [address] 03163- 8389 Aug, [place] [address] [place] [id number] [place] [address] 91122- 4637 Aug, [place] [address] [place] [id number] [place] [address] 47600- 9491 July, [place] [address] [place] [id number] [place] [address] 36905- 5090 July, [place] [address] [place] [id number] [place] [address] 390140- 1538 14 Jun, 2014 [place] [address] [place] [id number] [place] [address] 99587- 9705 Jun, [place] [address] [place] [id number] [place] [address] 26195- 0776 May, [facility] [place] [facility] [address] [id number] [place] [address]- 2183 May, [facility] [place] [facility] [address] [id number] [place] [address]- 2655 May, [facility] [place] [facility] [address] [id number] [place] [address]- 8092 May, [facility] [place] [facility] [address] [id number] [place] [address]- 6397 Apr, 2014 [facility] [place] [facility] [address] [id number] [place] [address]- 1804 Apr, [facility] [place] [facility] [address] [id number] [place] [address]- 1676 Feb, [facility] [place] [facility] [address] [id number] [place] [address]- 9801 Feb, [facility] [place] [facility] [address] [id number] [place] [address]- 2360 Feb, [facility] [place] [facility] [address] [id number] [place] [address]- 1601 Feb, [facility] [place] [facility] [address] [id number] [place] [address]- 3465 Feb, [facility] [place] [facility] [address] [id number] [place] [address]- 3444 Feb, [facility] [place] [facility] [address] [id number] [place] [address]- 0610 Jan, [facility] [place] [facility] [address] [id number] [place] [address]- 9531 Jan, [facility] [place] [facility] [address] [id number] [place] [address]- 7388 Jan, [facility] [place] [facility] [address] [id number] [place] [address]- 3219 Jan, [facility] [place] [facility] [address] [id number] [place] [address]- 3947 Jan, [facility] [place] [facility] [address] [id number] [place] [address]- 9030 Dec, [facility] [place] [facility] [address] [id number] [place] [address]- 3566 Dec, [facility] [place] [facility] [address] [id number] [place] [address]- 0976 29 Nov, 2013 [facility] [place] [facility] [address] [id number] [place] [address]- 3405 29 Nov, 2013 [facility] [place] [facility] [address] [id number] [place] [address]- 6164 Nov, 2013 [facility] [place] [facility] [address] [id number] [place] [address]- 2324 Nov, 2013 [facility] [place] [facility] [address] [id number] [place] [address]- 2629 11 Nov, 2013 [facility] [place] [facility] [address] [id number] [place] [address]- 4776 11 Nov, 2013 [facility] [place] [facility] [address] [id number] [place] [address]- 6405 04 Nov, 2013 [facility] [place] [facility] [address] [id number] [place] [address]- 3108 04 Nov, 2013 [facility] [place] [facility] [address] [id number] [place] [address]- 8353 Nov, 2013 [facility] [place] [facility] [address] [id number] [place] [address]- 2544 Nov, 2013 [facility] [place] [facility] [address] [id number] [place] [address]- 5627 Oct, [facility] [place] [facility] [address] [id number] [place] [address]- 6023 Oct, [facility] [place] [facility] [address] [id number] [place] [address]- 3609 Oct, [facility] [place] [facility] [address] [id number] [place] [address]- 6880 Oct, [facility] [place] [facility] [address] [id number] [place] [address]- 3631 Sep, [facility] [place] [facility] [address] [id number] [place] [address]- 8561 Sep, [facility] [place] [facility] [address] [id number] [place] [address]- 4157 Sep, [facility] [place] [facility] [address] [id number] [place] [address]- 7986 Sep, [facility] [place] [facility] [address] [id number] [place] [address]- 8033 Aug, [facility] [place] [facility] [address] [id number] [place] [address]- 2408 Aug, [facility] [place] [facility] [address] [id number] [place] [address]- 9978 Aug, [facility] [place] [facility] [address] [id number] [place] [address]- 1023 Aug, [facility] [place] [facility] [address] [id number] [place] [address]- 8343 Aug, [facility] [place] [facility] [address] [id number] [place] [address]- 4285 Aug, [facility] [place] [facility] [address] [id number] [place] [address]- 8213 Aug, [facility] [place] [facility] [address] [id number] [place] [address]- 1801 Aug, [facility] [place] [facility] [address] [id number] [place] [address]- 8098 Aug, [facility] [place] [facility] [address] [id number] [place] [address]- 1807 Aug, [facility] [place] [facility] [address] [id number] [place] [address]- 8546 Aug, [facility] [place] [facility] [address] [id number] [place] [address]- 6172 Aug, [facility] [place] [facility] [address] [id number] [place] [address]- 6812 July, [facility] [place] [facility] [address] [id number] [place] [address]- 8886 July, [facility] [place] [facility] [address] [id number] [place] [address]- 1535 July, [facility] [place] [facility] [address] [id number] [place] [address]- 4380 July, [facility] [place] [facility] [address] [id number] [place] [address]- 7329 July, [facility] [place] [facility] [address] [id number] [place] [address]- 5720 July, [facility] [place] [facility] [address] [id number] [place] [address]- 8092 Jun, [facility] [place] [facility] [address] [id number] [place] [address]- 4796 Jun, [facility] [place] [facility] [address] [id number] [place] [address]- 3608 Jun, [facility] [place] [facility] [address] [id number] [place] [address]- 7989 Jun, [facility] [place] [facility] [address] [id number] [place] [address]- 9176 May, [facility] [place] [facility] [address] [id number] [place] [address]- 9560 May, [facility] [place] [facility] [address] [id number] [place] [address]- 0569 May, [facility] [place] [facility] [address] [id number] [place] [address]- 9000 May, [facility] [place] [facility] [address] [id number] [place] [address]- 8184 Feb, [facility] [address] [id number] [place] [address]- 5409 Feb, [facility] [address] [id number] [place] [address]- 7229 Feb, [facility] [address] [id number] [place] [address]- 5459 Feb, [facility] [address] [id number] [place] [address]- 4307 Jan, [facility] [address] [id number] [place] [address]- 8641 Jan, [facility] [address] [id number] [place] [address]- 0607 Dec, [facility] [address] [id number] [place] [address]- 7141 Nov, [facility] [address] [id number] [place] [address]- 3584 Nov, [facility] [address] [id number] [place] [address]- 7888 Nov, [facility] [address] [id number] [place] [address]- 9079 Oct, [facility] [place] [facility] [address] [id number] [place] [address]- 1610 Oct, [facility] [address] [id number] [place] [address]- 4793 Oct, [facility] [place] [facility] [address] [id number] [place] [address]- 8872 Oct, [facility] [place] [facility] [address] [id number] [place] [address]- 4045 Oct, [facility] [place] [facility] [address] [id number] [place] [address]- 6159 Oct, [facility] [address] [id number] [place] [address]- 5907 Aug, [facility] [place] [facility] [address] [id number] [place] [address]- 9126 July, [facility] [place] [facility] [address] [id number] [place] [address]- 9026 July, [facility] [place] [facility] [address] [id number] [place] [address]- 7006 May, [facility] [address] [id number] [place] [address]- 7142 May, [facility] [place] [facility] [address] [id number] [place] [address]- 1536 May, [facility] [address] [id number] [place] [address]- 7666 Apr, [facility] [place] [facility] [address] [id number] [place] [address]- 5616 Apr, [facility] [address] [id number] [place] [address]- 0573 Mar, [facility] [address] [id number] [place] [address]- 9806 Mar, [facility] [place] [facility] [address] [id number] [place] [address]- 9226 Jan, [facility] [place] [facility] [address] [id number] [place] [address]- 8266 Jan, [facility] [place] [facility] [address] [id number] [place] [address]- 4016 Nov, [facility] [place] [facility] [address] [id number] [place] [address]- 4766 Nov, [facility] [place] [facility] [address] [id number] [place] [address]- 4126 Sep, [facility] [place] [facility] [address] [id number] [place] [address]- 0547 Aug, [facility] [address] [id number] [place] [address]- 8748 July, [facility] [place] [facility] [address] [id number] [place] [address]- 4324 July, [facility] [place] [facility] [address] [id number] [place] [address]- 8324 July, [facility] [place] [facility] [address] [id number] [place] [address]- 7501 Apr, [facility] [place] [facility] [address] [id number] [place] [address]- 9196 Apr, [facility] [place] [facility] [address] [id number] [place] [address]- 6568 Mar, [facility] [address] [id number] [place] [address]- 9398 Mar, [facility] [place] [facility] [address] [id number] [place] [address]- 0750 Mar, [facility] [address] [id number] [place] [address]- 5128 Mar, [facility] [address] [id number] [place] [address]- 1452 Mar, [facility] [address] [id number] [place] [address]- 0984 Feb, [facility] [place] [facility] [address] [id number] [place] [address] Feb, [facility] [place] [facility] [address] [id number] [place] [address] Feb, [facility] [place] [facility] [address] [id number] [place] [address] Jan, [facility] [place] [facility] [address] [id number] [place] [address] Jan, [facility] [address] [facility] [id number], [place] [address] Dec, [facility] [address] [facility] [id number], [place] [address] Jan, [facility] [address] [facility] [id number], [place] [address] Aug, [facility] [address] [facility] [id number], [place] [address] July, [facility] [address] [facility] [id number], [place] [address] Feb, [facility] [address] [facility] [id number], [place] [address] Jan, [facility] [address] [facility] [id number], [place] [address] Jan, [facility] [address] [facility] [id number], [place] [address] Dec, [facility] [address] [facility] [id number], [place] [address] July, IMMUNIZATIONS No Known Immunizations SOCIAL HISTORY Never Assessed REASON FOR VISIT 3 month f/u. Consult Dr. Farmer;Rhys RT(R) PLAN OF CARE Activity Details Follow Up 3 Months Reason: VITAL SIGNS MEDICATIONS Unknown Medications RESULTS No Results PROCEDURES Procedure Date Ordered Result Body Site DEBRIDE NAIL, 1-5 June 08, 2017 [facility] ESTABLISHED PATIENT June 08, 2017 INSTRUCTIONS MEDICATIONS ADMINISTERED No Known Medications MEDICAL (GENERAL) HISTORY Type Description Date Medical History HTN Medical History hyperlipidemia Medical History chronic back pain and shoulder pain Medical History MRSA Surgical History x 3 Surgical History hysterectomy Surgical History right foot surgery Hospitalization History surgeries Hospitalization History MRSA on arm Hospitalization History infected cyst 2010
--- OUTSIDE RECORDS SUMMARY | 2017-12-09 18:27 | XMS REPORT ---
Author Author UGO PRETTY Organization [facility] Address [address] [place] [address] Care Team Providers Care Finisher Plate Name Role Phone UGO PRETTY Unavailable PROBLEMS Type Condition ICD9-CM Code GNI80-TZ Code Onset Dates Condition Status SNOMED Code Problem Dysthymia F34.1 Active 73873034 Problem Essential hypertension I10 Active 18496983 Problem Chronic pain G89.29 Active 69178986 Problem Methicillin resistant Staphylococcus aureus 041.12 Active 361370727 Problem Cataracts, bilateral H26.9 Active 73037520 Problem Ganglion cyst M67.40 Active 270392493 Problem Heel spur M77.30 Active 83475474 Problem Irritable bowel syndrome with diarrhea K58.0 Active 252828139 Problem Neuropathy G62.9 Active 996246438 Problem Acquired hallux valgus of left foot M20.12 Active 18036689 Problem Hyperlipidemia, unspecified E78.5 Active 05684667 Problem Hallux valgus (acquired), right foot M20.11 Active 814159430 Problem Hammer toe of right foot M20.41 Active [id number] ALLERGIES No Known Allergies ENCOUNTERS Encounter Location Date Diagnosis [place] [address], [place] [address] Nov, [place] [id number] [place] [address] 36149- 9784 Oct, Right medial knee pain M25.561 ; Abrasion of left knee, initial encounter S80.212A and Dysthymia F34.1 [facility] [address], [place] [address] Aug, Other chronic pain G89.29 and Pain in right knee M25.561 [place] [id number] [place] [address] 96935- 3861 Aug, Chronic pain G89.29 [place] [address] [place] [id number] [place] [address] 97422- 3332 Aug, Right medial knee pain M25.561 [facility] [place] [address] [place] [id number] [place] [address] -4462 15 Aug, 2017 Allergic conjunctivitis of both eyes H10.13 [place] [address] [address]- [address] 15 Aug, 2017 Onychomycosis B35.1 [place] [address] [place] [id number] [place] [address] 33034- 7328 08 Aug, 2017 Allergic state, initial encounter T78.40XA [facility] [address] [address] 05 Aug, 2017 Acute bacterial conjunctivitis of left eye H10.32 [place] [address] [address]- 3810 July, Essential hypertension I10 and Skin tag L91.8 [facility] [address] [address] Jun, [place] [address] [place] [id number] [place] [address] 89437- 4682 May, Dermatofibroma of left calf D23.72 [facility] [place] [id number] [place] [address] 60406 -2812 May, Bilateral hearing loss due to cerumen impaction H61.23 [place] [address] [place] [id number] [place] [address] 60440- 2996 May, Onychomycosis B35.1 ; Hammer toe of right foot M20.41 ; Acquired hallux valgus of left foot M20.12 and [place] or callus L84 [place] [address] [place] [id number] [place] [address] 78909- 7849 Apr, Seborrheic keratosis L82.1 and Irritable bowel syndrome with diarrhea K58.0 [place] [address] [place] [id number] [place] [address] 90144- 3244 Mar, [place] [address] [address]- [address] Mar, Dental examination Z01.20 [place] [address] 7[address]41- 2472 15 Mar, 2017 Medicare welcome exam Z00.00 ; Encounter for screening for lung cancer Z12.2 ; Colon cancer screening Z12.11 ; Encounter for immunization Z23 ; Weakness R53.1 and Irritable bowel syndrome with diarrhea K58.[address] [address]- 6[address] Feb, Onychomycosis B35.1 ; Hammer toe of right foot M20.41 ; Hallux valgus (acquired), right foot M20.11 and Acquired hallux valgus of left foot M20.12 [place] [address] 34953- 6846 Jan, Essential hypertension I10 and Encounter for immunization Z23 [address] [address]- [address] 02 Dec, 2016 Encounter for screening mammogram for breast cancer Z12.31 and Hyperlipidemia, unspecified E78.[address] 05384- 8889 Nov, Hammer toe of right foot M20.41 ; Onychomycosis B35.1 and Neuropathy G62.9 [place] [address] [place] [id number] [place] [address] 01607- 4356 Sep, Essential hypertension I10 and 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 [place] [address] [place] [id number] [place] [address] 93740- 1497 Aug, [place] [address] 47924- 4041 Aug, [place] [address] [place] [id number] [place] [address] 76102- 5123 Aug, Onychomycosis B35.1 ; Hammer toe of right foot M20.41 and Neuropathy G62.9 [place] [address] [place] [id number] [place] [address] 36818- 3857 May, Callus of foot L84 ; Hammer toe of right foot M20.41 and Onychomycosis B35.1 [place] [address] 52561- 3388 Apr, Chronic pain G89.[address] 72573- 4927 Feb, Onychomycosis B35.1 ; Hammer toe of right foot M20.41 ; Acquired hallux valgus of left foot M20.12 and Hallux valgus (acquired), right foot M20.11 [place] [address] 67698- 4794 Jan, Cellulitis of left lower extremity L03.116 [place] [address] 86044- 5657 Jan, Seborrheic keratosis L82.1 and Encounter for immunization Z23 [place] [address] 64160- 6478 18 Jan, 2016 Seborrheic keratoses L82.1 and Visit for suture removal Z48.02 [place] [address] 03524- 1343 08 Jan, 2016 Dermatofibroma D23.9 [place] [address] 10898- 6602 18 Dec, 2015 Lesion of lower extremity L98.9 [place] [address] 72084- 4798 Dec, [place] [address] [place] [address] 72[address] Dec, Chronic pain G89.[address] 34631- 5829 Dec, Well woman exam Z01.419 ; Essential hypertension I10 ; Breast cancer screening Z12.39 ; Cervical cancer screening Z12.4 ; Vision changes H53.9 ; Heberden's node M15.1 ; Cutaneous horn L85.8 and Seborrheic keratosis L82.1 [place] [address] 71680- 0263 Dec, Well woman exam Z01.419 ; Heberden's node M15.1 ; Breast cancer screening Z12.39 ; Cervical cancer screening Z12.4 ; Essential hypertension I10 ; Vision changes H53.9 ; Cutaneous horn L85.8 and Seborrheic keratosis L82.1 [place] [address] 84047- 0958 Nov, Well woman exam Z01.419 ; Breast cancer screening Z12.39 ; Cervical cancer screening Z12.4 ; Essential hypertension I10 ; Vision changes H53.9 ; Heberden's node M15.1 ; Cutaneous horn L85.8 and Seborrheic keratosis L82.1 [place] [address] 42950- 3091 Nov, Hammer toe of right foot M20.41 and Callus of foot L84 [place] [address] 86137- 5002 Aug, Onychomycosis B35.1 and Callus of foot L84 [address] 37550- 3984 July, Dysthymia F34.1 and Chronic pain G89.[address] 97289- 8964 Jun, Dysthymia F34.1 ; Heel spur M77.30 and Ganglion cyst M67.40 [facility] [address] [place] [id number] [place] [address] 51052- 0775 May, Onychomycosis B35.1 and Neuropathy G62.9 [facility] [address] [place] [id number] [place] [address] 46329- 2203 May, [facility] [address] [place] [id number] [place] [address] 10670- 6777 Apr, [facility] [address] [place] [id number] [place] [address] 59652- 2959 Apr, [facility] [address] 36186- 4803 Apr, [facility] [address] [place] [id number] [place] [address] 30221- 7424 Mar, [facility] [address] 85823- 0126 Mar, [facility] [address] [place] [id number] [place] [address] 06976- 1638 Feb, [facility] [address] 11729- 9198 Feb, [facility] [address] [place] [id number] [place] [address] 16640- 5071 Feb, [facility] [address] [place] [id number] [place] [address] 22599- 5025 Feb, Onychomycosis B35.1 and [place] or callus L84 [facility] [address] [place] [id number] [place] [address] 20154- 7575 Feb, Cough R05 [facility] [address] [place] [id number] [place] [address] 85923 -1215 Jan, Sinusitis J32.9 [facility] [address] [place] [id number] [place] [address] 58319- 3178 Jan, Hyperlipidemia 272.4 [facility] [address], [place] [address]- 5015 09 Jan, 2015 Acute upper respiratory infection, unspecified J06.9 ; Encounter for immunization Z23 ; Other viral agents as the cause of diseases classified elsewhere B97.89 and Acute frontal sinusitis, recurrence not specified J01.10 [facility] [address] [place] [id number] [place] [address] 64498- 1633 Nov, Wart 078.10 ; Breast cancer screening V76.10 and Hyperlipidemia 272.4 [place] [address] [place] [id number] [place] [address] 00815- 7308 11 Nov, 2014 Onychomycosis 110.1 ; [place] or callus 700 and Skin fissures 709.8 [place] [id number] [place] [address] 71018- 6392 Aug, Hammertoe 735.4 ; Hyperkeratosis 701.1 ; Onychomycosis 110.1 ; Fissure in skin of foot 709.8 and Foot pain 729.5 [place] [address] [place] [id number] [place] [address] 72394- 0314 Aug, [place] [address] [place] [id number] [place] [address] 26806- 0020 Aug, [place] [id number] [place] [address] 68737- 1747 Aug, [place] [id number] [place] [address] 48027- 9373 July, [place] [address] [place] [id number] [place] [address] 95661- 1907 July, [facility] [address] [place] [id number] [place] [address] 38562- 0876 Jun, [facility] [id number] [place] [address] 35234- 7481 13 Jun, 2014 [place] [address] [place] [id number] [place] [address] 51004- 2051 May, [facility] [place] [facility] [address] [id number] [place] [address]- 4324 May, [facility] [place] [facility] [address] [id number] [place] [address]- 4067 May, [facility] [place] [facility] [address] [id number] [place] [address]- 0662 May, [facility] [place] [facility] [address] [id number] [place] [address]- 4470 Apr, [facility] [place] [facility] [address] [id number] [place] [address]- 6064 Apr, [facility] [place] [facility] [address] [id number] [place] [address]- 1721 Feb, [facility] [place] [facility] [address] [id number] [place] [address]- 6983 Feb, [facility] [place] [facility] [address] [id number] [place] [address]- 1110 Feb, [facility] [place] [facility] [address] [id number] [place] [address]- 9874 Feb, [facility] [place] [facility] [address] [id number] [place] [address]- 9101 Feb, [facility] [place] [facility] [address] [id number] [place] [address]- 2213 Feb, [facility] [place] [facility] [address] [id number] [place] [address]- 8850 Jan, [facility] [place] [facility] [address] [id number] [place] [address]- 3848 Jan, [facility] [place] [facility] [address] [id number] [place] [address]- 7954 Jan, [facility] [place] [facility] [address] [id number] [place] [address]- 0054 Jan, [facility] [place] [facility] [address] [id number] [place] [address]- 8277 Jan, [facility] [place] [facility] [address] [id number] [place] [address]- 2613 Dec, [facility] [place] [facility] [address] [id number] [place] [address]- 3906 Dec, [facility] [place] [facility] [address] [id number] [place] [address]- 1058 29 Nov, 2013 [facility] [place] [facility] [address] [id number] [place] [address]- 2704 29 Nov, 2013 [facility] [place] [facility] [address] [id number] [place] [address]- 7006 Nov, 2013 [facility] [place] [facility] [address] [id number] [place] [address]- 0606 Nov, 2013 [facility] [place] [facility] [address] [id number] [place] [address]- 8511 Nov, 2013 [facility] [place] [facility] [address] [id number] [place] [address]- 3774 Nov, [facility] [place] [facility] [address] [id number] [place] [address]- 6410 Nov, 2013 [facility] [place] [facility] [address] [id number] [place] [address]- 5851 Nov, [facility] [place] [facility] [address] [id number] [place] [address]- 2542 Nov, 2013 [facility] [place] [facility] [address] [id number] [place] [address]- 5501 Nov, [facility] [place] [facility] [address] [id number] [place] [address]- 2928 Oct, [facility] [place] [facility] [address] [id number] [place] [address]- 7250 Oct, [facility] [place] [facility] [address] [id number] [place] [address]- 2595 Oct, [facility] [place] [facility] [address] [id number] [place] [address]- 1356 Oct, [facility] [place] [facility] [address] [id number] [place] [address]- 2568 Sep, [facility] [place] [facility] [address] [id number] [place] [address]- 7228 Sep, [facility] [place] [facility] [address] [id number] [place] [address]- 2190 Sep, [facility] [place] [facility] [address] [id number] [place] [address]- 0482 Sep, [facility] [place] [facility] [address] [id number] [place] [address]- 7032 Aug, [facility] [place] [facility] [address] [id number] [place] [address]- 5660 Aug, [facility] [place] [facility] [address] [id number] [place] [address]- 3800 Aug, [facility] [place] [facility] [address] [id number] [place] [address]- 7585 Aug, [facility] [place] [facility] [address] [id number] [place] [address]- 0198 Aug, [facility] [place] [facility] [address] [id number] [place] [address]- 8432 Aug, [facility] [place] [facility] [address] [id number], [place] [address]- 2348 Aug, [facility] [place] [facility] [address] [id number] [place] [address]- 0376 Aug, [facility] [place] [facility] [address] [id number] [place] [address]- 4953 Aug, [facility] [place] [facility] [address] [id number] [place] [address]- 9767 Aug, [facility] [place] [facility] [address] [id number], [place] [address]- 8572 Aug, [facility] [place] [facility] [address] [id number] [place] [address]- 2157 Aug, [facility] [place] [facility] [address] [id number] [place] [address]- 2630 July, [facility] [place] [facility] [address] [id number] [place] [address]- 8962 July, [facility] [place] [facility] [address] [id number] [place] [address]- 7260 July, [facility] [place] [facility] [address] [id number] [place] [address]- 3277 July, [facility] [place] [facility] [address] [id number] [place] [address]- 3252 July, [facility] [place] [facility] [address] [id number] [place] [address]- 0751 July, [facility] [place] [facility] [address] [id number] [place] [address]- 0019 Jun, [facility] [place] [facility] [address] [id number] [place] [address]- 0465 Jun, [facility] [place] [facility] [address] [id number] [place] [address]- 3901 Jun, [facility] [place] [facility] [address] [id number] [place] [address]- 1417 Jun, [facility] [place] [facility] [address] [id number] [place] [address]- 6123 May, [facility] [place] [facility] [address] [id number] [place] [address]- 8365 May, [facility] [place] [facility] [address] [id number] [place] [address]- 4863 May, [facility] [place] [facility] [address] [id number] [place] [address]- 7234 May, [facility] [place] [facility] [address] [id number] [place] [address]- 2004 Feb, [facility] [place] [facility] [address] [id number] [place] [address]- 1114 Feb, [facility] [place] [facility] [address] [id number] [place] [address]- 0554 Feb, [facility] [place] [facility] [address] [id number] [place] [address]- 2346 Feb, [facility] [place] [facility] [address] [id number] [place] [address]- 5595 Jan, [facility] [place] [facility] [address] [id number] [place] [address]- 6211 Jan, [facility] [place] [facility] [address] [id number] [place] [address]- 1026 Dec, [facility] [place] [facility] [address] [id number] [place] [address]- 2139 06 Nov, 2012 [facility] [place] [facility] [address] [id number] [place] [address]- 7339 Nov, [facility] [place] [facility] [address] [id number] [place] [address]- 2556 Nov, [facility] [place] [facility] [address] [id number] [place] [address]- 6698 Oct, [facility] [place] [facility] [address] [id number] [place] [address]- 2639 Oct, [facility] [place] [facility] [address] [id number] [place] [address]- 6657 Oct, [facility] [place] [facility] [address] [id number] [place] [address]- 6102 Oct, [facility] [place] [facility] [address] [id number] [place] [address]- 0013 Oct, [facility] [place] [facility] [address] [id number] [place] [address]- 8266 Oct, [facility] [address] [id number] [place] [address]- 2943 Aug, [facility] [place] [facility] [address] [id number] [place] [address]- 4556 July, [facility] [place] [facility] [address] [id number] [place] [address]- 2536 July, [facility] [place] [facility] [address] [id number] [place] [address]- 8339 May, [facility] [place] [facility] [address] [id number] [place] [address]- 5834 May, [facility] [place] [facility] [address] [id number] [place] [address]- 4016 May, [facility] [place] [facility] [address] [id number] [place] [address]- 1744 Apr, [facility] [place] [facility] [address] [id number] [place] [address]- 7800 Apr, [facility] [place] [facility] [address] [id number] [place] [address]- 0879 Mar, [facility] [place] [facility] [address] [id number] [place] [address]- 9151 Mar, [facility] [place] [facility] [address] [id number] [place] [address]- 2094 Jan, [facility] [place] [facility] [address] [id number], [place] [address]- 2549 Jan, [facility] [place] [facility] [address] [id number] [place] [address]- 2546 Nov, [facility] [place] [facility] [address] [id number] [place] [address]- 2546 Nov, [facility] [place] [facility] [address] [id number] [place] [address]- 2546 Sep, [facility] [place] [facility] [address] [id number] [place] [address]- 0061 Aug, [facility] [address] [id number] [place] [address]- 7464 July, [facility] [address] [id number] [place] [address]- 2836 July, [facility] [address] [id number] [place] [address] July, [facility] [address] [id number] [place] [address] Apr, [facility] [address] [id number] [place] [address] Apr, [facility] [address] [id number] [place] [address] Mar, [facility] [address] [id number] [place] [address] Mar, [facility] [address] [id number] [place] [address] Mar, [facility] [address] [id number] [place] [address] Mar, [facility] [address] [id number] [place] [address] Mar, [facility] [address] [id number] [place] [address] Feb, [facility] [address] [id number] [place] [address] Feb, [facility] [place] [facility] [address] [id number] [place] [address] Feb, [facility] [address] [id number] [place] [address] Jan, [facility] [address] [id number] [place] [address] Jan, [facility] [id number] [address] Dec, [facility] [id number] [address] Jan, [facility] [id number], [place] [address] Aug, [facility] [id number], [place] [address] July, [facility] [id number], [place] [address] Feb, [facility] [id number] [place] [address] Jan, [facility] [id number], [place] [address] Jan, [facility] [id number], [place] [address] Dec, [facility] [address] [id number], [place] [address] July, IMMUNIZATIONS No Known Immunizations SOCIAL HISTORY Never Assessed REASON FOR VISIT Blood Pressure WB-MA, Patient wants skin tags removed from her inner left leg PLAN OF CARE Activity Details Follow Up prn Reason: Future/Pending Procedure SKIN TAG REM 1-15 VITAL SIGNS Height 70 in 2017-07-30 Weight 238 lbs 2017-07-30 Temperature 97.2 degrees Fahrenheit 2017-07-30 Heart Rate 58 bpm 2017-07-30 Respiratory Rate 20 2017-07-30 BMI 34.15 kg/m2 2017-07-30 Blood pressure systolic 138 mmHg 2017-07-30 Blood pressure diastolic 84 mmHg 2017-07-30 MEDICATIONS Medication Instructions Dosage Frequency Start Date End Date Duration Status Bentyl 20 MG TAKE ONE (1) TABLET BY MOUTH TWICE DAILY BEFORE LUNCH AND SUPPER 30 Active Tramadol HCl 50 MG Orally every 4 - 6 hrs 1 tablet as needed Apr, 28 days Active Metoprolol Tartrate 100 MG Orally Twice a day 1 tablet 12h 90 Active Prozac 40 MG Orally Once a day 1 capsule in the morning 24h 90 days Active Loratadine 10 MG TAKE ONE TABLET BY MOUTH DAILY 90 Active Estradiol 0.5 MG Orally Once a day 1 tablet 24h 90 Active Amlodipine Besylate 10 MG TAKE ONE TABLET BY MOUTH ONCE DAILY 90 Active Losartan Potassium 50 mg Orally 2 times a day 1 tablet 12h 90 days Active Pravastatin Sodium 80 MG TAKE ONE TABLET BY MOUTH AT BEDTIME 24h 90 Active RESULTS No Results PROCEDURES Procedure Date Ordered Result Body Site REMOVAL OF SKIN TAGS July 30, 2017 [facility] VISIT ESTABLISHED PATIENT July 30, 2017 INSTRUCTIONS MEDICATIONS ADMINISTERED No Known Medications MEDICAL (GENERAL) HISTORY Type Description Date Medical History HTN Medical History hyperlipidemia Medical History chronic back pain and shoulder pain Medical History MRSA Surgical History x 3 Surgical History hysterectomy Surgical History right foot surgery Hospitalization History surgeries Hospitalization History MRSA on arm Hospitalization History infected cyst 2011
--- OUTSIDE RECORDS SUMMARY | 2017-12-09 18:28 | XMS REPORT ---
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 Name Role Phone VIDYA SHAYNA Unavailable PROBLEMS Type Condition ICD9-CM Code KOT45-DP Code Onset Dates Condition Status SNOMED Code Problem Dysthymia F34.1 Active 41638160 Problem Essential hypertension I10 Active 59729476 Problem Chronic pain G89.29 Active 21588988 Problem Methicillin resistant Staphylococcus aureus 041.12 Active 327678106 Problem Cataracts, bilateral H26.9 Active 51383004 Problem Ganglion cyst M67.40 Active 749207751 Problem Heel spur M77.30 Active 67944875 Problem Irritable bowel syndrome with diarrhea K58.0 Active 107892686 Problem Neuropathy G62.9 Active 659677464 Problem Acquired hallux valgus of left foot M20.12 Active 07709802 Problem Hyperlipidemia, unspecified E78.5 Active 26631619 Problem Hallux valgus (acquired), right foot M20.11 Active 988777128 Problem Hammer toe of right foot M20.41 Active 093568249 ALLERGIES No Information ENCOUNTERS Encounter Location Date Diagnosis [place] [address], [place] [address] Nov, [place] [id number] [place] [address] 22846- 0442 Oct, [place] [id number] [place] [address] 52648- 2644 Aug, Other chronic pain G89.29 and Pain in right knee M25.561 [place] [id number] [place] [address] 74968- 2854 Aug, Chronic pain G89.29 [place] [id number] [place] [address] 56122- 5438 Aug, Right medial knee pain M25.561 [facility] [address] [address] 15 Aug, 2017 Allergic conjunctivitis of both eyes H10.13 [place] [address] [address]- 120[address] 15 Aug, 2017 Onychomycosis B35.[address] [address]- [address] 08 Aug, 2017 Allergic state, initial encounter T78.40XA [facility] [address] [address] 05 Aug, 2017 Acute bacterial conjunctivitis of left eye H10.[address] 19705- 7317 14 Jul, 2017 Essential hypertension I10 and Skin tag L91.8 [facility] [address] [address] Jun, [address] [address]- [address] May, Dermatofibroma of left calf D23.72 [facility] [address] [address] May, Bilateral hearing loss due to cerumen impaction H61.[address] [address]83- 6333 May, Onychomycosis B35.1 ; Hammer toe of right foot M20.41 ; Acquired hallux valgus of left foot M20.12 and [place] or callus L84 [address] [address]- 5[address] Apr, Seborrheic keratosis L82.1 and Irritable bowel syndrome with diarrhea K58.[address] [address]06- 9635 Mar, [place] [address] [place] [id number] [place] [address] 46814- 0166 Mar, Dental examination Z01.20 [place] [address] [place] [id number] [place] [address] 70872- 4277 Mar, Medicare welcome exam Z00.00 ; Encounter for screening for lung cancer Z12.2 ; Colon cancer screening Z12.11 ; Encounter for immunization Z23 ; Weakness R53.1 and Irritable bowel syndrome with diarrhea K58.0 [place] [id number] [place] [address] 83342- 2948 Feb, Onychomycosis B35.1 ; Hammer toe of right foot M20.41 ; Hallux valgus (acquired), right foot M20.11 and Acquired hallux valgus of left foot M20.12 [place] [id number] [place] [address] 04850- 5175 Jan, Essential hypertension I10 and Encounter for immunization Z23 [place] [id number] [place] [address] 60672- 4743 Dec, Encounter for screening mammogram for breast cancer Z12.31 and Hyperlipidemia, unspecified E78.5 [place] [id number] [place] [address] 66090- 6036 Nov, Hammer toe of right foot M20.41 ; Onychomycosis B35.1 and Neuropathy G62.9 [place] [address] [place] [id number] [place] [address] 83217- 2465 Sep, Essential hypertension I10 and 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 [place] [address] [place] [id number] [place] [address] 49818- 4949 Aug, [place] [address] [place] [id number] [place] [address] 74084- 1983 Aug, [place] [id number] [place] [address] 46505- 3418 Aug, Onychomycosis B35.1 ; Hammer toe of right foot M20.41 and Neuropathy G62.9 [place] [address] 69387- 0348 May, Callus of foot L84 ; Hammer toe of right foot M20.41 and Onychomycosis B35.1 [place] [address] 04418- 2158 Apr, Chronic pain G89.29 [place] [address] 90819- 4528 Feb, Onychomycosis B35.1 ; Hammer toe of right foot M20.41 ; Acquired hallux valgus of left foot M20.12 and Hallux valgus (acquired), right foot M20.11 [place] [address] 47490- 7910 Jan, Cellulitis of left lower extremity L03.116 [place] [address] 87206- 3136 Jan, Seborrheic keratosis L82.1 and Encounter for immunization Z23 [place] [address] 12700- 9239 Jan, Seborrheic keratoses L82.1 and Visit for suture removal Z48.02 [place] [address] 18676- 9437 Jan, Dermatofibroma D23.9 [place] [address] 68736- 5962 Dec, Lesion of lower extremity L98.9 [place] [address] 22556- 0331 Dec, [place] [address] 16548- 7577 Dec, Chronic pain G89.29 [place] [address] 46207- 9918 Dec, Well woman exam Z01.419 ; Essential hypertension I10 ; Breast cancer screening Z12.39 ; Cervical cancer screening Z12.4 ; Vision changes H53.9 ; Heberden's node M15.1 ; Cutaneous horn L85.8 and Seborrheic keratosis L82.[address] 76873- 1084 Dec, Well woman exam Z01.419 ; Heberden's node M15.1 ; Breast cancer screening Z12.39 ; Cervical cancer screening Z12.4 ; Essential hypertension I10 ; Vision changes H53.9 ; Cutaneous horn L85.8 and Seborrheic keratosis L82.1 [place] [address] 85560- 0116 Nov, Well woman exam Z01.419 ; Breast cancer screening Z12.39 ; Cervical cancer screening Z12.4 ; Essential hypertension I10 ; Vision changes H53.9 ; Heberden's node M15.1 ; Cutaneous horn L85.8 and Seborrheic keratosis L82.1 [place] [address] 59294- 8392 Nov, Hammer toe of right foot M20.41 and Callus of foot L84 [address] 78736- 7670 Aug, Onychomycosis B35.1 and Callus of foot L84 [place] [address] 56416- 6134 July, Dysthymia F34.1 and Chronic pain G89.[address] 56034- 9761 Jun, Dysthymia F34.1 ; Heel spur M77.30 and Ganglion cyst M67.[address] 09359- 4211 May, Onychomycosis B35.1 and Neuropathy G62.9 [facility] [address], [place] [address]- [address] May, [facility] [id number] [place] [address] 17466- 9922 Apr, [facility] [address] [place] [id number] [place] [address] 80235- 7708 Apr, [facility] [address] [place] [id number] [place] [address] 36878- 5426 Apr, [facility] [address] [place] [id number] [place] [address] 83007- 3466 Mar, [facility] [address] [place] [id number] [place] [address] 70708- 1164 Mar, [facility] [address] [place] [id number] [place] [address] 52277- 3415 Feb, [facility] [address] [place] [id number] [place] [address] 49530- 4812 Feb, [facility] [address] [place] [id number] [place] [address] 41497- 0633 Feb, [facility] [address] [place] [id number] [place] [address] 06037- 9539 Feb, Onychomycosis B35.1 and [place] or callus L84 [facility] [id number] [place] [address] 15054- 5842 Feb, Cough R05 [facility] [id number] [place] [address] 86085 -6114 Jan, Sinusitis J32.9 [facility] [address] [place] [id number] [place] [address] 61943- 7427 Jan, Hyperlipidemia 272.4 [facility] [id number] [place] [address] 03812- 6207 09 Jan, 2015 Acute upper respiratory infection, unspecified J06.9 ; Encounter for immunization Z23 ; Other viral agents as the cause of diseases classified elsewhere B97.89 and Acute frontal sinusitis, recurrence not specified J01.10 [place] [address] [place] [id number] [place] [address] 58083- 6046 Nov, Wart 078.10 ; Breast cancer screening V76.10 and Hyperlipidemia 272.4 [place] [address] 75897- 9296 Nov, Onychomycosis 110.1 ; [place] or callus 700 and Skin fissures 709.8 [place] [address] [place] [id number] [place] [address] 29661- 1533 Aug, Hammertoe 735.4 ; Hyperkeratosis 701.1 ; Onychomycosis 110.1 ; Fissure in skin of foot 709.8 and Foot pain 729.5 [place] [address] [place] [id number] [place] [address] 25795- 1875 Aug, [place] [address] [place] [id number] [place] [address] 04159- 3929 Aug, [place] [address] [place] [id number] [place] [address] 89818- 0907 Aug, [place] [address] [place] [id number] [place] [address] 91590- 3436 July, [place] [address] [place] [id number] [place] [address] 09661- 6790 July, [place] [address] [place] [id number] [place] [address] 50292- 8760 Jun, [place] [address] [place] [id number] [place] [address] 79867- 8497 Jun, [place] [address] [place] [id number] [place] [address] 20730- 2556 May, [place] [address] [place] [id number] [place] [address] 10293- 7328 May, [facility] [place] [facility] [address] [id number] [place] [address]- 0921 May, [facility] [place] [facility] [address] [id number] [place] [address]- 7188 May, [facility] [place] [facility] [address] [id number] [place] [address]- 6502 Apr, [facility] [place] [facility] [address] [id number] [place] [address]- 1569 Apr, [facility] [place] [facility] [address] [id number] [place] 7171 Feb, [facility] [place] [facility] [address] [id number] [place] [address]- 7705 Feb, [facility] [place] [facility] [address] [id number] [place] [address]- 4846 Feb, [facility] [place] [facility] [address] [id number] [place] [address]- 5601 Feb, [facility] [place] [facility] [address] [id number] [place] [address]- 0620 Feb, [facility] [place] [facility] [address] [id number] [place] [address]- 4283 Feb, [facility] [place] [facility] [address] [id number] [place] [address]- 6798 Jan, [facility] [place] [facility] [address] [id number] [place] [address]- 5173 Jan, [facility] [place] [facility] [address] [id number] [place] [address]- 9576 Jan, [facility] [place] [facility] [address] [id number] [place] [address]- 4086 Jan, [facility] [place] [facility] [address] [id number] [place] [address]- 0361 Jan, [facility] [place] [facility] [address] [id number] [place] [address]- 4887 13 Dec, 2013 [facility] [place] [facility] [address] [id number] [place] [address]- 7710 13 Dec, 2013 [facility] [place] [facility] [address] [id number] [place] [address]- 9823 29 Nov, 2013 [facility] [place] [facility] [address] [id number] [place] [address]- 5662 29 Nov, 2013 [facility] [place] [facility] [address] [id number] [place] [address]- 5544 Nov, 2013 [facility] [place] [facility] [address] [id number] [place] [address]- 5038 Nov, 2013 [facility] [place] [facility] [address] [id number] [place] [address]- 2145 Nov, 2013 [facility] [place] [facility] [address] [id number] [place] [address]- 9587 Nov, 2013 [facility] [place] [facility] [address] [id number] [place] [address]- 9771 Nov, 2013 [facility] [place] [facility] [address] [id number] [place] [address]- 5237 Nov, 2013 [facility] [place] [facility] [address] [id number] [place] [address]- 0790 Nov, [facility] [place] [facility] [address] [id number] [place] [address]- 2752 Nov, 2013 [facility] [place] [facility] [address] [id number], [place] [address]- 1664 Oct, [facility] [place] [facility] [address] [id number] [place] [address]- 8424 Oct, [facility] [place] [facility] [address] [id number] [place] [address]- 4416 Oct, [facility] [place] [facility] [address] [id number] [place] [address]- 8976 Oct, [facility] [place] [facility] [address] [id number] [place] [address]- 0170 Sep, [facility] [place] [facility] [address] [id number] [place] [address]- 3271 Sep, [facility] [place] [facility] [address] [id number] [place] [address]- 2546 Sep, [facility] [place] [facility] [address] [id number] [place] [address]- 6182 Sep, [facility] [place] [facility] [address] [id number] [place] [address]- 7433 Aug, [facility] [place] [facility] [address] [id number] [place] [address]- 9566 Aug, [facility] [place] [facility] [address] [id number] [place] [address]- 7506 Aug, [facility] [place] [facility] [address] [id number] [place] [address]- 2610 Aug, [facility] [place] [facility] [address] [id number] [place] [address]- 7615 Aug, [facility] [place] [facility] [address] [id number] [place] [address]- 9902 Aug, [facility] [place] [facility] [address] [id number] [place] [address]- 7047 Aug, [facility] [place] [facility] [address] [id number] [place] [address]- 0712 Aug, [facility] [place] [facility] [address] [id number] [place] [address]- 7933 Aug, [facility] [place] [facility] [address] [id number] [place] [address]- 2264 Aug, [facility] [place] [facility] [address] [id number] [place] [address]- 9284 Aug, [facility] [place] [facility] [address] [id number] [place] [address]- 9793 Aug, [facility] [address] [id number] [place] [address]- 3503 July, [facility] [place] [facility] [address] [id number] [place] [address]- 9553 July, [facility] [place] [facility] [address] [id number] [place] [address]- 9620 July, [facility] [place] [facility] [address] [id number] [place] [address]- 7246 July, [facility] [place] [facility] [address] [id number] [place] [address]- 6019 July, [facility] [place] [facility] [address] [id number] [place] [address]- 1424 July, [facility] [place] [facility] [address] [id number] [place] [address]- 8871 Jun, [facility] [place] [facility] [address] [id number] [place] [address]- 5312 Jun, [facility] [place] [facility] [address] [id number] [place] [address]- 9195 Jun, [facility] [place] [facility] [address] [id number] [place] [address]- 7376 Jun, [facility] [place] [facility] [address] [id number] [place] [address]- 0485 May, [facility] [place] [facility] [address] [id number], [place] [address]- 3853 May, [facility] [place] [facility] [address] [id number] [place] [address]- 2649 May, [facility] [place] [facility] [address] [id number] [place] [address]- 9100 May, [facility] [place] [facility] [address] [id number] [place] [address]- 9538 Feb, [facility] [place] [facility] [address] [id number] [place] [address]- 5651 Feb, [facility] [place] [facility] [address] [id number] [place] 2741 Feb, [facility] [place] [facility] [address] [id number] [place] 2837 Feb, [facility] [place] [facility] [address] [id number] [place] [address]- 0786 14 Jan, 2013 [facility] [place] [facility] [address] [id number] [place] [address]- 1256 14 Jan, 2013 [facility] [place] [facility] [address] [id number] [place] [address]- 2791 07 Dec, 2012 [facility] [place] [facility] [address] [id number] [place] [address]- 8526 06 Nov, 2012 [facility] [place] [facility] [address] [id number] [place] [address]- 2871 04 Nov, 2012 [facility] [place] [facility] [address] [id number] [place] [address]- 4211 Nov, [facility] [place] [facility] [address] [id number] [place] [address]- 9362 2012 [facility] [place] [facility] [address] [id number] [place] [address]- 4300 Oct, [facility] [place] [facility] [address] [id number] [place] [address]- 8890 Oct, [facility] [place] [facility] [address] [id number] [place] [address]- 0725 Oct, [facility] [place] [facility] [address] [id number] [place] [address]- 0644 Oct, [facility] [place] [facility] [address] [id number] [place] [address]- 9113 Oct, [facility] [place] [facility] [address] [id number] [place] [address]- 9641 Aug, [facility] [place] [facility] [address] [id number] [place] [address]- 7572 July, [facility] [address] [id number] [place] [address]- 8409 July, [facility] [address] [id number] [place] [address]- 6830 May, [facility] [place] [facility] [address] [id number] [place] [address]- 8825 May, [facility] [address] [id number] [place] [address]- 7148 May, [facility] [place] [facility] [address] [id number] [place] [address]- 8752 Apr, [facility] [address] [id number] [place] [address]- 8820 Apr, [facility] [address] [id number] [place] [address]- 6706 Mar, [facility] [address] [id number] [place] [address]- 6671 Mar, [facility] [address] [id number] [place] [address]- 5255 Jan, [facility] [address] [id number] [place] [address]- 0926 Jan, [facility] [place] [facility] [address] [id number], [place] [address]- 2482 Nov, [facility] [place] [facility] [address] [id number] [place] [address]- 7724 Nov, [facility] [place] [facility] [address] [id number] [place] [address]- 8567 Sep, [facility] [place] [facility] [address] [id number] [place] [address]- 6330 Aug, [facility] [place] [facility] [address] [id number] [place] [address]- 3613 July, [facility] [address] [id number] [place] [address]- 2659 July, [facility] [place] [facility] [address] [id number] [place] [address]- 7399 July, [facility] [address] [id number] [place] [address]- 9066 Apr, [facility] [place] [facility] [address] [id number] [place] [address]- 7439 Apr, [facility] [address] [id number] [place] [address]- 2547 Mar, [facility] [place] [facility] [address] [id number] [place] [address]- 1219 Mar, [facility] [address] [id number] [place] [address]- 3807 Mar, [facility] [address] [id number] [place] [address]- 1387 Mar, [facility] [address] [id number] [place] [address]- 9805 Mar, [facility] [address] [facility] [id number] [place] [address]- 9924 Feb, [facility] [address] [id number] [place] [address]- 6527 Feb, [facility] [place] [facility] [address] [id number] [place] [address]- 1378 Feb, [facility] [place] [facility] [address] [id number] [place] [address]- 3440 Jan, [facility] [place] [facility] [address] [id number] [place] [address] Jan, [facility] [place] [facility] [address] [facility] [id number] [place] [address] Dec, [facility] [place] [facility] [address] [facility] [id number], [place] [address] Jan, [facility] [address] [facility] [id number], [place] [address] Aug, [facility] [address] [facility] [id number], [place] [address] July, [facility] [address] [facility] [id number], [place] [address] Feb, [facility] [address] [facility] [id number], [place] [address] Jan, [facility] [address] [facility] [id number][place] [address] Jan, [facility] [address] [id number], [place] [address] Dec, [facility] [address] [id number], [place] [address] July, IMMUNIZATIONS No Known Immunizations SOCIAL HISTORY Never Assessed REASON FOR VISIT stitch removal JStrasserRN PLAN OF CARE VITAL SIGNS MEDICATIONS Unknown [...]
--- OUTSIDE RECORDS SUMMARY | 2017-12-09 18:28 | XMS REPORT ---
Author Author SHAYNA DASILVA Organization [facility] Address [address] [place] [address] Care Team Providers Care Newsroom Intern Name Role Phone VIDYA SHAYNA Unavailable PROBLEMS Type Condition ICD9-CM Code [id number] Code Onset Dates Condition Status SNOMED Code Problem Dysthymia F34.1 Active 60268520 Problem Essential hypertension I10 Active 62654992 Problem Chronic pain G89.29 Active 42210361 Problem Methicillin resistant Staphylococcus aureus 041.12 Active 383982727 Problem Cataracts, bilateral H26.9 Active 59969062 Problem Ganglion cyst M67.40 Active 143869606 Problem Heel spur M77.30 Active 19262500 Problem Irritable bowel syndrome with diarrhea K58.0 Active 640957512 Problem Neuropathy G62.9 Active 314836690 Problem Acquired hallux valgus of left foot M20.12 Active 46408291 Problem Hyperlipidemia, unspecified E78.5 Active 34069335 Problem Hallux valgus (acquired), right foot M20.11 Active 618265992 Problem Hammer toe of right foot M20.41 Active [id number] ALLERGIES No Known Allergies ENCOUNTERS Encounter Location Date Diagnosis [place] [address] [address] Nov, [place] [id number] [place] [address] 14513- 6654 Oct, [place] [address], [place] [address] Aug, Other chronic pain G89.29 and Pain in right knee M25.561 [place] [id number] [place] [address] 09403- 8094 Aug, Chronic pain G89.29 [place] [id number] [place] [address] 03459- 3287 Aug, Right medial knee pain M25.561 [facility] [address] [address] 15 Aug, 2017 Allergic conjunctivitis of both eyes H10.13 [place] [address] [address] 15 Aug, 2017 Onychomycosis B35.[address] [address] 08 Aug, 2017 Allergic state, initial encounter T78.40XA [facility] [address] [address] 05 Aug, 2017 Acute bacterial conjunctivitis of left eye H10.[address] [address]- 65[address] 14 Jul, 2017 Essential hypertension I10 and Skin tag L91.8 [facility] [address] [address] Jun, [address] [address] May, Dermatofibroma of left calf D23.72 [facility] [address] [address] May, Bilateral hearing loss due to cerumen impaction H61.[address] [address]- 97[address] May, Onychomycosis B35.1 ; Hammer toe of right foot M20.41 ; Acquired hallux valgus of left foot M20.12 and Alexis or callus L[address] [address]- 67[address] Apr, Seborrheic keratosis L82.1 and Irritable bowel syndrome with diarrhea K58.[address] [address]- [address] Mar, [place] [id number] [place] [address] 28858- 3782 Mar, Dental examination Z01.20 [place] [address] [place] [id number] [place] [address] 54819- 0864 Mar, Medicare welcome exam Z00.00 ; Encounter for screening for lung cancer Z12.2 ; Colon cancer screening Z12.11 ; Encounter for immunization Z23 ; Weakness R53.1 and Irritable bowel syndrome with diarrhea K58.0 [place] [id number] [place] [address] 10958- 8356 Feb, Onychomycosis B35.1 ; Hammer toe of right foot M20.41 ; Hallux valgus (acquired), right foot M20.11 and Acquired hallux valgus of left foot M20.12 [place] [id number] [place] [address] 05185- 7677 Jan, Essential hypertension I10 and Encounter for immunization Z23 [place] [id number] [place] [address] 88049- 0682 Dec, Encounter for screening mammogram for breast cancer Z12.31 and Hyperlipidemia, unspecified E78.5 [place] [id number] [place] [address] 27854- 7007 Nov, Hammer toe of right foot M20.41 ; Onychomycosis B35.1 and Neuropathy G62.9 [place] [id number] [place] [address] 05693- 2477 Sep, Essential hypertension I10 and 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 [place] [id number] [place] [address] 85701- 8398 Aug, [place] [address] [place] [id number] [place] [address] 68924- 1714 Aug, [place] [id number] [place] [address] 51383- 1289 23 Kalpesh, 2017 Onychomycosis B35.1 ; Hammer toe of right foot M20.41 and Neuropathy G62.9 [place] [address] [place] [id number] [place] [address] 36867- 1144 May, Callus of foot L84 ; Hammer toe of right foot M20.41 and Onychomycosis B35.1 [place] [address] 06[address]- 6726 Apr, Chronic pain G89.29 [place] [address] 53590- 3426 Feb, Onychomycosis B35.1 ; Hammer toe of right foot M20.41 ; Acquired hallux valgus of left foot M20.12 and Hallux valgus (acquired), right foot M20.11 [place] [address] 10231- 8468 Jan, Cellulitis of left lower extremity L03.116 [place] [address] 72760- 5307 Jan, Seborrheic keratosis L82.1 and Encounter for immunization Z23 [place] [address] 59168- 0077 Jan, Seborrheic keratoses L82.1 and Visit for suture removal Z48.02 [place] [address] 30617- 1605 Jan, Dermatofibroma D23.9 [place] [address] 23798- 2688 Dec, Lesion of lower extremity L98.9 [place] [address] 98653- 3131 Dec, [place] [address] 09493- 0961 Dec, Chronic pain G89.29 [place] [address] [place] [address] Dec, Well woman exam Z01.419 ; Essential hypertension I10 ; Breast cancer screening Z12.39 ; Cervical cancer screening Z12.4 ; Vision changes H53.9 ; Heberden's node M15.1 ; Cutaneous horn L85.8 and Seborrheic keratosis L82.1 [place] [address] 89073- 3383 Dec, Well woman exam Z01.419 ; Heberden's node M15.1 ; Breast cancer screening Z12.39 ; Cervical cancer screening Z12.4 ; Essential hypertension I10 ; Vision changes H53.9 ; Cutaneous horn L85.8 and Seborrheic keratosis L82.1 [place] [address] 90639- 9199 Nov, Well woman exam Z01.419 ; Breast cancer screening Z12.39 ; Cervical cancer screening Z12.4 ; Essential hypertension I10 ; Vision changes H53.9 ; Heberden's node M15.1 ; Cutaneous horn L85.8 and Seborrheic keratosis L82.1 [place] [address] 30445- 6290 Nov, Hammer toe of right foot M20.41 and Callus of foot L84 [place] [address] 18495- 5204 Aug, Onychomycosis B35.1 and Callus of foot L84 [place] [address] 84547- 5504 July, Dysthymia F34.1 and Chronic pain G89.29 [place] [address] 46286- 6284 Jun, Dysthymia F34.1 ; Heel spur M77.30 and Ganglion cyst M67.40 [place] [address] 48541- 0234 May, Onychomycosis B35.1 and Neuropathy G62.9 [facility] [address], [place] [address]- 8[address] May, [facility] [id number] [place] [address] 41552- 6073 Apr, [facility] [address] [place] [id number] [place] [address] 60799- 9671 Apr, [facility] [address] [place] [id number] [place] [address] 13597- 1179 Apr, [facility] [address] [place] [id number] [place] [address] 85528- 9636 Mar, [facility] [address] [place] [id number] [place] [address] 34160- 5260 Mar, [facility] [address] [place] [id number] [place] [address] 91718- 6244 Feb, [facility] [id number] [place] [address] 13083- 3936 Feb, [facility] [address] [place] [id number] [place] [address] 94805- 4165 Feb, [facility] [id number] [place] [address] 11464- 5935 Feb, Onychomycosis B35.1 and Alexis or callus L84 [facility] [id number] [place] [address] 38861- 2427 Feb, Cough R05 [facility] [id number] [place] [address] 51362 -5519 Jan, Sinusitis J32.9 [facility] [address] [place] [id number] [place] [address] 50933- 3892 Jan, Hyperlipidemia 272.4 [facility] [id number] [place] [address] 90193- 4920 Jan, Acute upper respiratory infection, unspecified J06.9 ; Encounter for immunization Z23 ; Other viral agents as the cause of diseases classified elsewhere B97.89 and Acute frontal sinusitis, recurrence not specified J01.10 [place] [address] [place] [id number] [place] [address] 60761- 4997 Nov, Wart 078.10 ; Breast cancer screening V76.10 and Hyperlipidemia 272.4 [place] [address] [place] [id number] [place] [address] 79291- 8278 Nov, Onychomycosis 110.1 ; Alexis or callus 700 and Skin fissures 709.8 [place] [address] [place] [id number] [place] [address] 92642- 9091 Aug, Hammertoe 735.4 ; Hyperkeratosis 701.1 ; Onychomycosis 110.1 ; Fissure in skin of foot 709.8 and Foot pain 729.5 [place] [address] [place] [id number] [place] [address] 23091- 3617 Aug, [place] [address] [place] [id number] [place] [address] 84849- 7772 Aug, [place] [address] [place] [id number] [place] [address] 78490- 7626 Aug, [place] [address] [place] [id number] [place] [address] 52370- 3162 July, [place] [address] [place] [id number] [place] [address] 36193- 1326 July, [facility] [address] [place] [id number] [place] [address] 31744- 3848 Jun, [place] [address] [place] [id number] [place] [address] 33354- 8722 Jun, [facility] [address] [place] [id number] [place] [address] 64092- 3842 May, [facility] [address] [place] [id number] [place] [address] 41833- 3607 May, [facility] [place] [facility] [address] [id number] [place] [address]- 2292 May, [facility] [place] [facility] [address] [id number] [place] [address]- 4496 May, [facility] [place] [facility] [address] [id number] [place] [address]- 6942 Apr, [facility] [place] [facility] [address] [id number] [place] [address]- 2819 Apr, [facility] [place] [facility] [address] [id number] [place] [address]- 5099 Feb, [facility] [place] [facility] [address] [id number] [place] [address]- 7429 Feb, [facility] [place] [facility] [address] [id number] [place] [address]- 7234 Feb, [facility] [place] [facility] [address] [id number] [place] [address]- 8432 Feb, [facility] [place] [facility] [address] [id number] [place] [address]- 5686 Feb, [facility] [place] [facility] [address] [id number] [place] [address]- 3233 Feb, [facility] [place] [facility] [address] [id number] [place] [address]- 7973 Jan, [facility] [place] [facility] [address] [id number], [place] [address]- 0849 Jan, [facility] [place] [facility] [address] [id number] [place] [address]- 9107 Jan, [facility] [place] [facility] [address] [id number] [place] [address]- 5893 Jan, [facility] [place] [facility] [address] [id number] [place] [address]- 7971 Jan, [facility] [place] [facility] [address] [id number] [place] [address]- 9151 13 Dec, 2013 [facility] [place] [facility] [address] [id number] [place] [address]- 6166 13 Dec, 2013 [facility] [place] [facility] [address] [id number] [place] [address]- 7282 29 Nov, 2013 [facility] [place] [facility] [address] [id number] [place] [address]- 7526 29 Nov, 2013 [facility] [place] [facility] [address] [id number] [place] [address]- 9494 19 Nov, 2013 [facility] [place] [facility] [address] [id number] [place] [address]- 9517 19 Nov, 2013 [facility] [place] [facility] [address] [id number] [place] [address]- 7534 Nov, 2013 [facility] [place] [facility] [address] [id number] [place] [address]- 8129 Nov, 2013 [facility] [place] [facility] [address] [id number] [place] [address]- 6688 Nov, 2013 [facility] [place] [facility] [address] [id number] [place] [address]- 9962 Nov, 2013 [facility] [place] [facility] [address] [id number] [place] [address]- 0364 Nov, [facility] [place] [facility] [address] [id number] [place] [address]- 1201 Nov, 2013 [facility] [place] [facility] [address] [id number] [place] [address]- 6542 Oct, [facility] [place] [facility] [address] [id number] [place] [address]- 1130 Oct, [facility] [place] [facility] [address] [id number] [place] [address]- 9477 Oct, [facility] [place] [facility] [address] [id number] [place] [address]- 9328 Oct, [facility] [place] [facility] [address] [id number] [place] [address]- 3559 Sep, [facility] [place] [facility] [address] [id number] [place] [address]- 4217 Sep, [facility] [place] [facility] [address] [id number] [place] [address]- 7792 Sep, [facility] [place] [facility] [address] [id number] [place] [address]- 7633 Sep, [facility] [place] [facility] [address] [id number] [place] [address]- 1061 Aug, [facility] [place] [facility] [address] [id number] [place] [address]- 2648 Aug, [facility] [place] [facility] [address] [id number] [place] [address]- 5008 Aug, [facility] [place] [facility] [address] [id number] [place] [address]- 4236 Aug, [facility] [place] [facility] [address] [id number] [place] [address]- 3372 Aug, [facility] [place] [facility] [address] [id number] [place] [address]- 2862 Aug, [facility] [place] [facility] [address] [id number] [place] [address]- 8428 Aug, [facility] [place] [facility] [address] [id number] [place] [address]- 4129 Aug, [facility] [place] [facility] [address] [id number] [place] [address]- 7936 Aug, [facility] [place] [facility] [address] [id number] [place] [address]- 2373 Aug, [facility] [place] [facility] [address] [id number] [place] [address]- 9912 Aug, [facility] [place] [facility] [address] [id number] [place] [address]- 2771 Aug, [facility] [place] [facility] [address] [id number] [place] [address]- 5899 July, [facility] [place] [facility] [address] [id number] [place] [address]- 6125 July, [facility] [place] [facility] [address] [id number] [place] [address]- 8508 July, [facility] [place] [facility] [address] [id number] [place] [address]- 3125 July, [facility] [place] [facility] [address] [id number] [place] [address]- 2915 July, [facility] [place] [facility] [address] [id number] [place] [address]- 7477 July, [facility] [place] [facility] [address] [id number] [place] [address]- 4510 Jun, [facility] [place] [facility] [address] [id number] [place] [address]- 9992 Jun, [facility] [place] [facility] [address] [id number] [place] [address]- 0431 Jun, [facility] [place] [facility] [address] [id number] [place] [address]- 2168 Jun, [facility] [place] [facility] [address] [id number] [place] [address]- 5272 May, [facility] [place] [facility] [address] [id number] [place] [address]- 2051 May, [facility] [place] [facility] [address] [id number] [place] [address]- 0957 May, [facility] [place] [facility] [address] [id number] [place] [address]- 5286 May, [facility] [place] [facility] [address] [id number] [place] [address]- 1554 Feb, [facility] [place] [facility] [address] [id number] [place] [address]- 2355 Feb, [facility] [address] [id number] [place] [address]- 4200 Feb, [facility] [address] [id number] [place] [address]- 7494 Feb, [facility] [address] [id number] [place] [address]- 4650 14 Jan, 2013 [facility] [address] [id number] [place] [address]- 2668 14 Jan, 2013 [facility] [address] [id number] [place] [address]- 6488 Dec, [facility] [address] [id number] [place] [address]- 1188 06 Nov, 2012 [facility] [address] [id number] [place] [address]- 4945 04 Nov, 2012 [facility] [address] [id number] [place] [address]- 5226 Nov, [facility] [address] [id number] [place] [address]- 5782 2012 [facility] [address] [id number] [place] [address]- 3021 Oct, [facility] [place] [facility] [address] [id number] [place] [address]- 5385 Oct, [facility] [place] [facility] [address] [id number] [place] [address]- 7405 Oct, [facility] [place] [facility] [address] [id number] [place] [address]- 3153 Oct, [facility] [place] [facility] [address] [id number] [place] [address]- 3336 Oct, [facility] [place] [facility] [address] [id number] [place] [address]- 5282 Aug, [facility] [place] [facility] [address] [id number] [place] [address]- 4847 July, [facility] [place] [facility] [address] [id number] [place] [address]- 3178 July, [facility] [place] [facility] [address] [id number] [place] [address]- 2039 May, [facility] [place] [facility] [address] [id number] [place] [address]- 0082 May, [facility] [place] [facility] [address] [id number] [place] [address]- 9108 May, [facility] [place] [facility] [address] [id number] [place] [address]- 1300 Apr, [facility] [place] [facility] [address] [id number] [place] [address]- 3098 Apr, [facility] [place] [facility] [address] [id number] [place] [address]- 1267 Mar, [facility] [place] [facility] [address] [id number] [place] [address]- 8844 Mar, [facility] [place] [facility] [address] [id number], [place] [address]- 2435 Jan, [facility] [place] [facility] [address] [id number], [place] [address]- 7728 Jan, [facility] [place] [facility] [address] [id number], [place] [address] 2549 Nov, [facility] [place] [facility] [address] [id number] [place] [address]- 5096 Nov, [facility] [place] [facility] [address] [id number] [place] [address]- 1196 Sep, [facility] [place] [facility] [address] [id number], [place] [address]- 3196 Aug, [facility] [place] [facility] [address] [id number], [place] [address]- 3193 July, [facility] [address] [id number] [place] [address]- 5219 July, [facility] [place] [facility] [address] [id number] [place] [address]- 2635 July, [facility] [address] [id number] [place] [address]- 9558 Apr, [facility] [place] [facility] [address] [id number] [place] [address]- 9339 Apr, [facility] [place] [facility] [address] [id number] [place] [address]- 9776 Mar, [facility] [place] [facility] [address] [id number] [place] [address]- 3447 Mar, [facility] [address] [id number] [place] [address]- 9859 Mar, [facility] [place] [facility] [address] [id number] [place] [address]- 6060 Mar, [facility] [address] [id number] [place] [address]- 0908 Mar, [facility] [address] [id number] [place] [address]- 2603 Feb, [facility] [place] [facility] [address] [id number] [place] [address] Feb, [facility] [place] [facility] [address] [id number] [place] [address] Feb, [facility] [place] [facility] [address] [id number] [place] [address] Jan, [facility] [place] [facility] [address] [facility] [id number] [place] [address] Jan, [facility] [place] [facility] [address] [facility] [id number] [place] [address] Dec, [facility] [place] [facility] [address] [id number] [address] Jan, [facility] [id number], [place] [address] Aug, [facility] [id number], [place] [address] July, [facility] [id number], [place] [address] Feb, [facility] [id number], [place] [address] Jan, [facility] [id number] [place] [address] Jan, [facility] [id number], [place] [address] Dec, [facility] [id number], [place] [address] July, IMMUNIZATIONS No Known Immunizations SOCIAL HISTORY Never Assessed REASON FOR VISIT cyst removal from lower left calfGeni MARCANO PLAN OF CARE VITAL SIGNS Height 70 in 2017-06-12 Weight 238.8 lbs 2017-06-12 Temperature 98.4 degrees Fahrenheit 2017-06-12 Heart Rate 72 bpm 2017-06-12 Respiratory Rate 20 2017-06-12 BMI 34.26 kg/m2 2017-06-12 Blood pressure systolic 130 mmHg 2017-06-12 Blood pressure diastolic 86 mmHg 2017-06-12 MEDICATIONS Medication Instructions Dosage Frequency Start Date End Date Duration Status Pravastatin Sodium 80 MG TAKE ONE TABLET BY MOUTH AT BEDTIME 24h 90 Active Tramadol HCl 50 MG Orally every 4 - 6 hrs 1 tablet as needed Apr, 28 days Active Loratadine 10 MG TAKE ONE TABLET BY MOUTH DAILY 90 Active Bentyl 20 MG TAKE ONE (1) TABLET BY MOUTH TWICE DAILY BEFORE LUNCH AND SUPPER 30 Active Prozac 40 MG Orally Once a day 1 capsule in the morning 24h 90 days Active Estradiol 0.5 MG Orally Once a day 1 tablet 24h 90 Active Metoprolol Tartrate 100 MG Orally Twice a day 1 tablet 12h 90 Active Losartan Potassium 50 mg Orally 2 times a day 1 tablet 12h 90 days Active Amlodipine Besylate 10 MG TAKE ONE TABLET BY MOUTH ONCE DAILY 90 Active RESULTS No Results PROCEDURES Procedure Date Ordered Result Body Site EXC BENIGN LEISON 1.1-2 cm (specify location) 2017-06-12 completed EXC TR-EXT B9 FAITH 1.1-2 CM June 12, 2017 [facility] VISIT ESTABLISHED PATIENT June 12, 2017 INSTRUCTIONS MEDICATIONS ADMINISTERED No Known Medications MEDICAL (GENERAL) HISTORY Type Description Date Medical History HTN Medical History hyperlipidemia Medical History chronic back pain and shoulder pain Medical History MRSA Surgical History x 3 Surgical History hysterectomy Surgical History right foot surgery Hospitalization History surgeries Hospitalization History MRSA on arm Hospitalization History infected cyst 2010
--- OUTSIDE RECORDS SUMMARY | 2017-12-09 18:29 | XMS REPORT ---
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 Organization [employer] Address Unknown Phone Unavailable Care Team Providers Care Supervisor Floor Assembly Name Role Phone AUBREY FARMER CP Unavailable Allergies No Known Allergies Problems Problem Type Condition Code Onset Dates Condition Status Assessment Kathleen or callus L84 Active Problem Methicillin resistant Staphylococcus aureus 041.12 Active Assessment Onychomycosis B35.1 Active Problem Depressive disorder, not elsewhere classified 311 Active Problem Unspecified hereditary and idiopathic peripheral neuropathy 356.9 Active Problem Hyperlipidemia 272.4 Active Problem Hallux valgus (acquired) 735.0 Active Problem Plantar fascial fibromatosis 728.71 Active Problem Dermatophytosis of nail 110.1 Active Problem Other hammer toe (acquired) 735.4 Active Medications No Known Medications Procedures Procedure Coding System Code Date Office Visit, Est Pt., Level 3 CPT-4 32527 Mar 05, 2015 DEBRIDE NAIL, 1-5 CPT-4 67033 Mar 05, 2015 Vital Signs Date/Time: Mar 05, 2015 Blood Pressure Diastolic 80 mmHg Blood Pressure Systolic 128 mmHg Height 70 in Results Name Result Date Reference Range Unit Abnormality Flag DEBRIDE NAIL 1-5 Summary Purpose [employer] Submission
--- OUTSIDE RECORDS SUMMARY | 2017-12-09 18:29 | XMS REPORT ---
Author Author UGO PRETTY Organization [facility] Address [address] [place] [address] Care Team Providers Care Account Services Representative Name Role Phone UGO PRETTY Unavailable PROBLEMS Type Condition ICD9-CM Code [id number] Code Onset Dates Condition Status SNOMED Code Problem Dysthymia F34.1 Active 32269430 Problem Essential hypertension I10 Active 57306800 Problem Chronic pain G89.29 Active 43207376 Problem Methicillin resistant Staphylococcus aureus 041.12 Active 741452969 Problem Cataracts, bilateral H26.9 Active 08641021 Problem Ganglion cyst M67.40 Active 808033358 Problem Heel spur M77.30 Active 53540223 Problem Irritable bowel syndrome with diarrhea K58.0 Active 693933847 Problem Neuropathy G62.9 Active 941861628 Problem Acquired hallux valgus of left foot M20.12 Active 22229285 Problem Hyperlipidemia, unspecified E78.5 Active 63358564 Problem Hallux valgus (acquired), right foot M20.11 Active 434363642 Problem Hammer toe of right foot M20.41 Active 534581555 ALLERGIES No Known Allergies ENCOUNTERS Encounter Location Date Diagnosis [place] [address] [address] [address] Nov, [place] [id number] [place] [id number] [place] [address] 00132- 1841 Oct, [place] [address] [place] [id number] [place] [address] 88105- 1307 Aug, Other chronic pain G89.29 and Pain in right knee M25.561 [place] [address], [place] [address] Aug, Chronic pain G89.29 [place] [address] [place] [address] [address] Aug, Right medial knee pain M25.561 [facility] [address] [address] Aug, Allergic conjunctivitis of both eyes H10.13 [place] [address] 27194- 2283 15 Aug, 2017 Onychomycosis B35.1 [place] [address] 20980- 3170 08 Aug, 2017 Allergic state, initial encounter T78.40XA [facility] [place] [address] [address] 05 Aug, 2017 Acute bacterial conjunctivitis of left eye H10.32 [place] [address] 07498- 6982 July, Essential hypertension I10 and Skin tag L91.8 [facility] [place] [address] [address] Jun, [place] [address] 18079- 97[address] May, Dermatofibroma of left calf D23.72 [facility] [place] [address] [address] May, Bilateral hearing loss due to cerumen impaction H61.23 [place] [address] 86101- 8[address] May, Onychomycosis B35.1 ; Hammer toe of right foot M20.41 ; Acquired hallux valgus of left foot M20.12 and [place] or callus L84 [place] [address] 29[address]- 3707 Apr, Seborrheic keratosis L82.1 and Irritable bowel syndrome with diarrhea K58.0 [place] [address] 23692- 7064 30 Mar, 2017 [place] [address] [place] [id number] [place] [address] 90525- 7922 15 Mar, 2017 Dental examination Z01.20 [place] [address] [place] [id number] [place] [address] 51236- 2543 15 Mar, 2017 Medicare welcome exam Z00.00 ; Encounter for screening for lung cancer Z12.2 ; Colon cancer screening Z12.11 ; Encounter for immunization Z23 ; Weakness R53.1 and Irritable bowel syndrome with diarrhea K58.0 [place] [id number] [place] [address] 49976- 7055 Feb, Onychomycosis B35.1 ; Hammer toe of right foot M20.41 ; Hallux valgus (acquired), right foot M20.11 and Acquired hallux valgus of left foot M20.12 [place] [id number] [place] [address] 14154- 6652 Jan, Essential hypertension I10 and Encounter for immunization Z23 [place] [id number] [place] [address] 73409- 7313 02 Dec, 2016 Encounter for screening mammogram for breast cancer Z12.31 and Hyperlipidemia, unspecified E78.5 [place] [id number] [place] [address] 05799- 0594 Nov, Hammer toe of right foot M20.41 ; Onychomycosis B35.1 and Neuropathy G62.9 [place] [id number] [place] [address] 95501- 8036 Sep, Essential hypertension I10 and 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 [place] [id number] [place] [address] 50339- 2874 Aug, [place] [id number] [place] [address] 92135- 9169 Aug, [place] [id number] [place] [address] 30107- 9110 Aug, Onychomycosis B35.1 ; Hammer toe of right foot M20.41 and Neuropathy G62.9 [place] [address] 86189- 7047 May, Callus of foot L84 ; Hammer toe of right foot M20.41 and Onychomycosis B35.1 [place] [address] 50154- 9589 Apr, Chronic pain G89.29 [place] [address] 48268- 7684 Feb, Onychomycosis B35.1 ; Hammer toe of right foot M20.41 ; Acquired hallux valgus of left foot M20.12 and Hallux valgus (acquired), right foot M20.11 [place] [address] 59507- 7529 Jan, Cellulitis of left lower extremity L03.116 [place] [address] 34324- 1046 Jan, Seborrheic keratosis L82.1 and Encounter for immunization Z23 [place] [address] 33358- 3669 Jan, Seborrheic keratoses L82.1 and Visit for suture removal Z48.02 [place] [address] 08748- 9205 Jan, Dermatofibroma D23.9 [place] [address] 73229- 3344 Dec, Lesion of lower extremity L98.9 [place] [address] 19197- 5990 Dec, [place] [address] 11834- 2552 Dec, Chronic pain G89.29 [place] [address] [place] [id number] [place] [address] 85445- 8824 Dec, Well woman exam Z01.419 ; Essential hypertension I10 ; Breast cancer screening Z12.39 ; Cervical cancer screening Z12.4 ; Vision changes H53.9 ; Heberden's node M15.1 ; Cutaneous horn L85.8 and Seborrheic keratosis L82.[address] [address]- 7561 Dec, Well woman exam Z01.419 ; Heberden's node M15.1 ; Breast cancer screening Z12.39 ; Cervical cancer screening Z12.4 ; Essential hypertension I10 ; Vision changes H53.9 ; Cutaneous horn L85.8 and Seborrheic keratosis L82.[address] 35865- 2317 Nov, Well woman exam Z01.419 ; Breast cancer screening Z12.39 ; Cervical cancer screening Z12.4 ; Essential hypertension I10 ; Vision changes H53.9 ; Heberden's node M15.1 ; Cutaneous horn L85.8 and Seborrheic keratosis L82.[address] 12099- 1127 Nov, Hammer toe of right foot M20.41 and Callus of foot L84 [address] 42994- 0636 Aug, Onychomycosis B35.1 and Callus of foot L84 [address] 55246- 9777 July, Dysthymia F34.1 and Chronic pain G89.[address] 91708- 0672 Jun, Dysthymia F34.1 ; Heel spur M77.30 and Ganglion cyst M67.[address] 21776- 9298 May, Onychomycosis B35.1 and Neuropathy G62.9 [facility] [address] [place] [id number] [place] [address] 95053- 3518 May, [facility] [address] [place] [id number] [place] [address] 03407- 5502 Apr, [facility] [address] [place] [id number] [place] [address] 65747- 6308 Apr, [facility] [address] [place] [id number] [place] [address] 88317- 6842 Apr, [facility] [address] [place] [id number] [place] [address] 58818- 2944 Mar, [facility] [address] [place] [id number] [place] [address] 63021- 2739 Mar, [facility] [address] [place] [id number] [place] [address] 90722- 4240 Feb, [facility] [address] [place] [id number] [place] [address] 26949- 8326 Feb, [facility] [address] [place] [id number] [place] [address] 12281- 9373 Feb, [facility] [address] [place] [id number] [place] [address] 64266- 5103 Feb, Onychomycosis B35.1 and [place] or callus L84 [facility] [address] [place] [address] 89970- 8245 Feb, Cough R05 [facility] [address] [place] [address] 59579 -7919 Jan, Sinusitis J32.9 [facility] [address] [place] [id number] [place] [address] 89205- 5653 Jan, Hyperlipidemia 272.4 [facility] [address] [place] [id number] [place] [address] 87278- 9749 09 Nov, 2015 Acute upper respiratory infection, unspecified J06.9 ; Encounter for immunization Z23 ; Other viral agents as the cause of diseases classified elsewhere B97.89 and Acute frontal sinusitis, recurrence not specified J01.10 [place] [address] [place] [id number] [place] [address] 93921- 5415 Nov, Wart 078.10 ; Breast cancer screening V76.10 and Hyperlipidemia 272.4 [place] [address] 10751- 9238 Nov, Onychomycosis 110.1 ; [place] or callus 700 and Skin fissures 709.8 [place] [address] 03196- 4869 Aug, Hammertoe 735.4 ; Hyperkeratosis 701.1 ; Onychomycosis 110.1 ; Fissure in skin of foot 709.8 and Foot pain 729.5 [place] [address] [place] [id number] [place] [address] 08651- 8943 Aug, [place] [address] [place] [id number] [place] [address] 11328- 4746 Aug, [place] [address] [place] [id number] [place] [address] 92118- 2603 Aug, [place] [address] [place] [id number] [place] [address] 47424- 6311 July, [facility] [address] [place] [id number] [place] [address] 35060- 4445 July, [facility] [address] [place] [id number] [place] [address] 78927- 4014 Jun, [facility] [address] [place] [id number] [place] [address] 31527- 8542 Jun, [facility] [address] [place] [id number] [place] [address] 63360- 1408 May, [facility] [address] 96785- 2897 May, [facility] [place] [facility] [address] [id number] [place] [address]- 7995 May, [facility] [place] [facility] [address] [id number] [place] 4938 May, [facility] [place] [facility] [address] [id number] [place] [address]- 0985 Apr, [facility] [place] [facility] [address] [id number] [place] [address]- 0715 Apr, [facility] [place] [facility] [address] [id number] [place] [address]- 7543 Feb, [facility] [place] [facility] [address] [id number] [place] [address]- 9808 Feb, [facility] [place] [facility] [address] [id number] [place] [address]- 7824 Feb, [facility] [place] [facility] [address] [id number] [place] [address]- 4595 Feb, [facility] [place] [facility] [address] [id number] [place] [address]- 7238 Feb, [facility] [place] [facility] [address] [id number] [place] [address]- 8632 Feb, [facility] [place] [facility] [address] [id number] [place] [address]- 0274 Jan, [facility] [place] [facility] [address] [id number] [place] [address]- 4712 Jan, [facility] [place] [facility] [address] [id number] [place] [address]- 7952 Jan, [facility] [place] [facility] [address] [id number] [place] [address]- 5089 Jan, [facility] [place] [facility] [address] [id number] [place] [address]- 2708 Jan, [facility] [place] [facility] [address] [id number] [place] [address]- 9679 13 Dec, 2013 [facility] [place] [facility] [address] [id number] [place] [address]- 5881 13 Dec, 2013 [facility] [place] [facility] [address] [id number] [place] [address]- 8496 29 Nov, 2013 [facility] [place] [facility] [address] [id number] [place] [address]- 8926 29 Nov, 2013 [facility] [place] [facility] [address] [id number] [place] [address]- 3482 Nov, 2013 [facility] [place] [facility] [address] [id number] [place] [address]- 4202 Nov, 2013 [facility] [place] [facility] [address] [id number] [place] [address]- 3729 Nov, [facility] [place] [facility] [address] [id number] [place] [address]- 7213 Nov, 2013 [facility] [place] [facility] [address] [id number] [place] [address]- 7722 Nov, [facility] [place] [facility] [address] [id number] [place] [address]- 2544 Nov, 2013 [facility] [place] [facility] [address] [id number] [place] [address]- 2975 Nov, [facility] [place] [facility] [address] [id number] [place] [address]- 8692 Nov, [facility] [place] [facility] [address] [id number] [place] [address]- 8400 Oct, [facility] [place] [facility] [address] [id number] [place] [address]- 2842 Oct, [facility] [place] [facility] [address] [id number] [place] [address]- 5872 Oct, [facility] [place] [facility] [address] [id number] [place] [address]- 4009 Oct, [facility] [place] [facility] [address] [id number] [place] [address]- 2629 Sep, [facility] [place] [facility] [address] [id number] [place] [address]- 3018 Sep, [facility] [place] [facility] [address] [id number] [place] [address]- 6202 Sep, [facility] [place] [facility] [address] [id number] [place] [address]- 3203 Sep, [facility] [place] [facility] [address] [id number] [place] [address]- 6156 Aug, [facility] [place] [facility] [address] [id number] [place] [address]- 9309 Aug, [facility] [place] [facility] [address] [id number] [place] [address]- 4570 Aug, [facility] [place] [facility] [address] [id number] [place] [address]- 1673 Aug, [facility] [place] [facility] [address] [id number] [place] [address]- 6336 Aug, [facility] [place] [facility] [address] [id number] [place] [address]- 4688 Aug, [facility] [place] [facility] [address] [id number] [place] [address]- 5802 Aug, [facility] [place] [facility] [address] [id number] [place] [address]- 4159 Aug, [facility] [place] [facility] [address] [id number] [place] [address]- 6013 Aug, [facility] [place] [facility] [address] [id number] [place] [address]- 2888 Aug, [facility] [place] [facility] [address] [id number] [place] [address]- 0967 Aug, [facility] [place] [facility] [address] [id number] [place] [address]- 7650 Aug, [facility] [place] [facility] [address] [id number] [place] [address]- 7390 July, [facility] [place] [facility] [address] [id number] [place] [address]- 4773 July, [facility] [place] [facility] [address] [id number] [place] [address]- 9944 July, [facility] [place] [facility] [address] [id number] [place] [address]- 9818 July, [facility] [place] [facility] [address] [id number] [place] [address]- 2790 July, [facility] [place] [facility] [address] [id number] [place] [address]- 6579 July, [facility] [place] [facility] [address] [id number] [place] [address]- 7118 Jun, [facility] [place] [facility] [address] [id number] [place] [address]- 2772 Jun, [facility] [place] [facility] [address] [id number] [place] [address]- 5606 Jun, [facility] [place] [facility] [address] [id number] [place] [address]- 3885 Jun, [facility] [place] [facility] [address] [id number] [place] [address]- 4886 May, [facility] [place] [facility] [address] [id number] [place] [address]- 8166 May, [facility] [place] [facility] [address] [id number] [place] [address]- 9522 May, [facility] [place] [facility] [address] [id number] [place] [address]- 7449 May, [facility] [place] [facility] [address] [id number] [place] [address]- 1616 Feb, [facility] [place] [facility] [address] [id number] [place] [address]- 5152 Feb, [facility] [place] [facility] [address] [id number] [place] [address]- 5727 Feb, [facility] [place] [facility] [address] [id number] [place] [address]- 0491 Feb, [facility] [place] [facility] [address] [id number] [place] [address]- 1951 Jan, [facility] [place] [facility] [address] [id number] [place] [address]- 4634 Jan, [facility] [place] [facility] [address] [id number] [place] [address]- 1715 Dec, [facility] [place] [facility] [address] [id number] [place] 1632 Nov, [facility] [place] [facility] [address] [id number] [place] [address]- 7131 Nov, [facility] [place] [facility] [address] [id number] [place] [address]- 1287 Nov, [facility] [place] [facility] [address] [id number] [place] [address]- 8807 Oct, [facility] [place] [facility] [address] [id number] [place] [address]- 9335 Oct, [facility] [place] [facility] [address] [id number] [place] [address]- 1042 Oct, [facility] [place] [facility] [address] [id number] [place] [address]- 2408 Oct, [facility] [place] [facility] [address] [id number] [place] [address]- 2778 Oct, [facility] [place] [facility] [address] [id number] [place] [address]- 9647 Oct, [facility] [place] [facility] [address] [id number] [place] [address]- 9303 Aug, [facility] [address] [id number] [place] [address]- 8414 July, [facility] [place] [facility] [address] [id number] [place] [address]- 8103 July, [facility] [place] [facility] [address] [id number] [place] [address]- 5621 May, [facility] [place] [facility] [address] [id number] [place] [address]- 5404 May, [facility] [place] [facility] [address] [id number] [place] [address]- 1578 May, [facility] [place] [facility] [address] [id number] [place] 6896 Apr, [facility] [place] [facility] [address] [id number] [place] [address]- 5724 Apr, [facility] [place] [facility] [address] [id number] [place] [address]- 6139 Mar, [facility] [place] [facility] [address] [id number] [place] 0249 Mar, [facility] [place] [facility] [address] [id number] [place] [address]- 0722 Jan, [facility] [address] [id number] [place] [address]- 9769 Jan, [facility] [place] [facility] [address] [id number] [place] [address] 2544 Nov, [facility] [place] [facility] [address] [id number] [place] [address]- 1070 Nov, [facility] [place] [facility] [address] [id number] [place] [address]- 0026 Sep, [facility] [place] [facility] [address] [id number] [place] [address]- 3455 Aug, [facility] [place] [facility] [address] [id number] [place] [address]- 0786 July, [facility] [address] [id number] [place] [address]- 1876 July, [facility] [place] [facility] [address] [id number] [place] [address]- 9926 July, [facility] [address] [id number] [place] [address]- 9554 Apr, [facility] [place] [facility] [address] [id number] [place] [address]- 6309 Apr, [facility] [address] [id number] [place] [address]- 7477 Mar, [facility] [address] [id number] [place] [address]- 5769 Mar, [facility] [address] [id number] [place] [address]- 4601 Mar, [facility] [address] [id number] [place] [address]- 8506 Mar, [facility] [address] [id number] [place] [address]- 4585 Mar, [facility] [address] [id number] [place] [address]- 7980 Feb, [facility] [address] [id number] [place] [address] Feb, [facility] [address] [id number] [place] [address] Feb, [facility] [place] [facility] [address] [id number] [place] [address] Jan, [facility] [place] [facility] [address] [id number] [place] [address] Jan, [facility] [place] [facility] [address] [id number] [place] [address] Dec, [facility] [address] [id number] [address] Jan, [facility] [id number] [id number] Aug, [facility] [id number] [address] July, [facility] [id number] [address] Feb, [facility] [id number] [place] [address] Jan, [facility] [id number] [place] [address] Jan, [facility] [id number] [address] Dec, [facility] [id number] [address] July, IMMUNIZATIONS No Known Immunizations SOCIAL HISTORY Never Assessed REASON FOR VISIT IBS/growth on left chin for a few weeks that has grown in size, texture and very painful-[place] [facility] PLAN OF CARE Activity Details Follow Up prn Reason: VITAL SIGNS Height 70 in 2017-05-09 Weight 240.2 lbs 2017-05-09 Temperature 98.1 degrees Fahrenheit 2017-05-09 Heart Rate 62 bpm 2017-05-09 Respiratory Rate 18 2017-05-09 BMI 34.46 kg/m2 2017-05-09 Blood pressure systolic 128 mmHg 2017-05-09 Blood pressure diastolic 72 mmHg 2017-05-09 MEDICATIONS Medication Instructions Dosage Frequency Start Date End Date Duration Status Loratadine 10 MG TAKE ONE TABLET BY MOUTH DAILY 90 Active Tramadol HCl 50 MG Orally every 4 - 6 hrs 1 tablet as needed Apr, 28 days Active Losartan Potassium 50 mg Orally 2 times a day 1 tablet 12h 90 days Active Metoprolol Tartrate 100 MG Orally Twice a day 1 tablet 12h 90 Active Amlodipine Besylate 10 mg Orally Once a day 1 tablet 24h 90 days Active Pravastatin Sodium 80 MG TAKE ONE TABLET BY MOUTH AT BEDTIME 24h 90 Active Bentyl 20 mg Orally 2 times a day before lunch and before supper 1 tablet Mar, May, 30 day(s) Active Prozac 40 MG Orally Once a day 1 capsule in the morning 24h 90 days Active Estradiol 0.5 MG Orally Once a day 1 tablet 24h 90 Active RESULTS No Results PROCEDURES Procedure Date Ordered Result Body Site [facility] VISIT ESTABLISHED PATIENT May 09, 2017 INSTRUCTIONS MEDICATIONS ADMINISTERED No Known Medications MEDICAL (GENERAL) HISTORY Type Description Date Medical History HTN Medical History hyperlipidemia Medical History chronic back pain and shoulder pain Medical History MRSA Surgical History x 3 Surgical History hysterectomy Surgical History right foot surgery Hospitalization History surgeries Hospitalization History MRSA on arm Hospitalization History infected cyst 2010
--- OUTSIDE RECORDS SUMMARY | 2017-12-09 18:29 | XMS REPORT ---
Author Author EMILY BERMUDEZ Organization [facility] Address [address] [place] [address] Care Team Providers Care Assistant County Engineer Name Role Phone EMILY BERMUDEZ Unavailable PROBLEMS Type Condition ICD9-CM Code FWH00-CE Code Onset Dates Condition Status SNOMED Code Problem Dysthymia F34.1 Active 37120836 Problem Essential hypertension I10 Active 71655518 Problem Chronic pain G89.29 Active 40383652 Problem Methicillin resistant Staphylococcus aureus 041.12 Active 772836852 Problem Cataracts, bilateral H26.9 Active 11117837 Problem Ganglion cyst M67.40 Active 045978372 Problem Heel spur M77.30 Active 72465366 Problem Irritable bowel syndrome with diarrhea K58.0 Active 057933354 Problem Neuropathy G62.9 Active 641038516 Problem Acquired hallux valgus of left foot M20.12 Active 55906518 Problem Hyperlipidemia, unspecified E78.5 Active 32601372 Problem Hallux valgus (acquired), right foot M20.11 Active 928493472 Problem Hammer toe of right foot M20.41 Active 971239685 ALLERGIES No Known Allergies ENCOUNTERS Encounter Location Date Diagnosis [place] [address] [address] Nov, [facility] [address] [place] [id number] [place] [address] 21877- 9709 Oct, [place] [address] [place] [id number] [place] [address] 01653- 5980 Aug, Other chronic pain G89.29 and Pain in right knee M25.561 [place] [address] [address] Aug, Chronic pain G89.29 [place] [address] [address]- [address] Aug, Right medial knee pain M25.561 [facility] [address] [address] Aug, Allergic conjunctivitis of both eyes H10.13 [place] [address] 20084- 5928 15 Aug, 2017 Onychomycosis B35.1 [place] [address] 56671- 3946 08 Aug, 2017 Allergic state, initial encounter T78.40XA [facility] [place] [address] [address] 05 Aug, 2017 Acute bacterial conjunctivitis of left eye H10.32 [place] [address] 49745- 4421 July, Essential hypertension I10 and Skin tag L91.8 [facility] [place] [address] [address] Jun, [place] [address] 9[address]60- 0673 May, Dermatofibroma of left calf D23.72 [facility] [place] [address] [address] May, Bilateral hearing loss due to cerumen impaction H61.23 [place] [address] 19534- 8709 May, Onychomycosis B35.1 ; Hammer toe of right foot M20.41 ; Acquired hallux valgus of left foot M20.12 and [place] or callus L84 [place] [address] 49270- 4947 Apr, Seborrheic keratosis L82.1 and Irritable bowel syndrome with diarrhea K58.0 [place] [address] 23553- 8014 30 Mar, 2017 [place] [address] [place] [id number] [place] [address] 23782- 9838 15 Mar, 2017 Dental examination Z01.20 [place] [address] [place] [id number] [place] [address] 33878- 7786 15 Mar, 2017 Medicare welcome exam Z00.00 ; Encounter for screening for lung cancer Z12.2 ; Colon cancer screening Z12.11 ; Encounter for immunization Z23 ; Weakness R53.1 and Irritable bowel syndrome with diarrhea K58.0 [place] [id number] [place] [address] 84494- 4216 Feb, Onychomycosis B35.1 ; Hammer toe of right foot M20.41 ; Hallux valgus (acquired), right foot M20.11 and Acquired hallux valgus of left foot M20.12 [place] [id number] [place] [address] 61767- 4505 Jan, Essential hypertension I10 and Encounter for immunization Z23 [place] [id number] [place] [address] 55194- 9964 02 Dec, 2016 Encounter for screening mammogram for breast cancer Z12.31 and Hyperlipidemia, unspecified E78.5 [place] [id number] [place] [address] 00406- 3096 Nov, Hammer toe of right foot M20.41 ; Onychomycosis B35.1 and Neuropathy G62.9 [place] [id number] [place] [address] 18047- 2926 Sep, Essential hypertension I10 and 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 [place] [id number] [place] [address] 46417- 6698 Aug, [place] [id number] [place] [address] 25679- 8578 Aug, [place] [id number] [place] [address] 48993- 5688 Aug, Onychomycosis B35.1 ; Hammer toe of right foot M20.41 and Neuropathy G62.9 [place] [address] 06459- 4967 May, Callus of foot L84 ; Hammer toe of right foot M20.41 and Onychomycosis B35.1 [place] [address] 15908- 9180 Apr, Chronic pain G89.29 [place] [address] 35617- 5661 Feb, Onychomycosis B35.1 ; Hammer toe of right foot M20.41 ; Acquired hallux valgus of left foot M20.12 and Hallux valgus (acquired), right foot M20.11 [place] [address] 31124- 0908 Jan, Cellulitis of left lower extremity L03.116 [place] [address] 78726- 2261 Jan, Seborrheic keratosis L82.1 and Encounter for immunization Z23 [place] [address] 83654- 6306 Jan, Seborrheic keratoses L82.1 and Visit for suture removal Z48.02 [place] [address] 50335- 7409 Jan, Dermatofibroma D23.9 [place] [address] 13764- 2349 Dec, Lesion of lower extremity L98.9 [place] [address] 53890- 0886 Dec, [place] [address] 02616- 9143 Dec, Chronic pain G89.29 [place] [address] [place] [id number] [place] [address] 13134- 0623 Dec, Well woman exam Z01.419 ; Essential hypertension I10 ; Breast cancer screening Z12.39 ; Cervical cancer screening Z12.4 ; Vision changes H53.9 ; Heberden's node M15.1 ; Cutaneous horn L85.8 and Seborrheic keratosis L82.[address] [address]- 6509 Dec, Well woman exam Z01.419 ; Heberden's node M15.1 ; Breast cancer screening Z12.39 ; Cervical cancer screening Z12.4 ; Essential hypertension I10 ; Vision changes H53.9 ; Cutaneous horn L85.8 and Seborrheic keratosis L82.[address] 32656- 5400 Nov, Well woman exam Z01.419 ; Breast cancer screening Z12.39 ; Cervical cancer screening Z12.4 ; Essential hypertension I10 ; Vision changes H53.9 ; Heberden's node M15.1 ; Cutaneous horn L85.8 and Seborrheic keratosis L82.[address] 14934- 9790 Nov, Hammer toe of right foot M20.41 and Callus of foot L84 [address] 98750- 4089 Aug, Onychomycosis B35.1 and Callus of foot L84 [address] 54513- 5065 July, Dysthymia F34.1 and Chronic pain G89.[address] 62257- 5902 Jun, Dysthymia F34.1 ; Heel spur M77.30 and Ganglion cyst M67.[address] 79413- 1358 May, Onychomycosis B35.1 and Neuropathy G62.9 [facility] [address] [id number] [place] [address] 70776- 0846 May, [facility] [id number] [place] [address] 96739- 3878 Apr, [facility] [id number] [place] [address] 17572- 7430 Apr, [facility] [address] [id number] [place] [address] 43216- 5489 Apr, [facility] [id number] [place] [address] 87821- 3862 Mar, [facility] [address] [place] [id number] [place] [address] 11033- 1005 Mar, [facility] [address] [id number] [place] [address] 36737- 0673 Feb, [facility] [id number] [place] [address] 52649- 1986 Feb, [facility] [address] [place] [id number] [place] [address] 71033- 1121 Feb, [facility] [address] [place] [id number] [place] [address] 05077- 3344 Feb, Onychomycosis B35.1 and [place] or callus L84 [facility] [address] [place] [address] 97052- 3216 Feb, Cough R05 [facility] [address] [place] [address] 27606 -4633 Jan, Sinusitis J32.9 [facility] [address] [place] [id number] [place] [address] 67553- 2543 Jan, Hyperlipidemia 272.4 [facility] [address] [id number] [place] [address] 79329- 1887 09 Nov, 2015 Acute upper respiratory infection, unspecified J06.9 ; Encounter for immunization Z23 ; Other viral agents as the cause of diseases classified elsewhere B97.89 and Acute frontal sinusitis, recurrence not specified J01.10 [place] [address] [place] [id number] [place] [address] 40454- 1412 Nov, Wart 078.10 ; Breast cancer screening V76.10 and Hyperlipidemia 272.4 [place] [address] 70996- 3338 Nov, Onychomycosis 110.1 ; [place] or callus 700 and Skin fissures 709.8 [place] [address] 83395- 0841 Aug, Hammertoe 735.4 ; Hyperkeratosis 701.1 ; Onychomycosis 110.1 ; Fissure in skin of foot 709.8 and Foot pain 729.5 [place] [address] [place] [id number] [place] [address] 58822- 4389 Aug, [place] [address] [place] [id number] [place] [address] 91415- 2420 Aug, [place] [address] [place] [id number] [place] [address] 33998- 1183 Aug, [place] [address] [place] [id number] [place] [address] 82234- 4972 July, [facility] [address] [place] [id number] [place] [address] 25410- 0552 July, [facility] [address] [place] [id number] [place] [address] 24965- 2722 Jun, [facility] [address] [place] [id number] [place] [address] 41709- 6680 Jun, [facility] [address] [place] [id number] [place] [address] 27020- 4646 May, [facility] [address] 28439- 9786 May, [facility] [place] [facility] [address] [id number] [place] [address]- 2233 May, [facility] [place] [facility] [address] [id number] [place]68 May, [facility] [place] [facility] [address] [id number] [place] [address]- 5269 Apr, [facility] [place] [facility] [address] [id number] [place] [address]- 8614 Apr, [facility] [place] [facility] [address] [id number] [place] [address]- 9324 Feb, [facility] [place] [facility] [address] [id number] [place] [address]- 4563 Feb, [facility] [place] [facility] [address] [id number] [place] [address]- 5630 Feb, [facility] [place] [facility] [address] [id number] [place] [address]- 1071 Feb, [facility] [place] [facility] [address] [id number] [place] [address]- 1816 Feb, [facility] [place] [facility] [address] [id number] [place] [address]- 8178 Feb, [facility] [place] [facility] [address] [id number] [place] [address]- 6601 Jan, [facility] [place] [facility] [address] [id number] [place] [address]- 9091 Jan, [facility] [place] [facility] [address] [id number] [place] [address]- 2970 Jan, [facility] [place] [facility] [address] [id number] [place] [address]- 0531 Jan, [facility] [place] [facility] [address] [id number] [place] [address]- 7898 Jan, [facility] [place] [facility] [address] [id number] [place] [address]- 9783 13 Dec, 2013 [facility] [place] [facility] [address] [id number] [place] [address]- 2221 13 Dec, 2013 [facility] [place] [facility] [address] [id number] [place] [address]- 0526 29 Nov, 2013 [facility] [place] [facility] [address] [id number] [place] [address]- 8356 29 Nov, 2013 [facility] [place] [facility] [address] [id number] [place] [address]- 3633 Nov, 2013 [facility] [place] [facility] [address] [id number] [place] [address]- 9919 Nov, 2013 [facility] [place] [facility] [address] [id number] [place] [address]- 0962 Nov, [facility] [place] [facility] [address] [id number] [place] [address]- 3796 Nov, 2013 [facility] [place] [facility] [address] [id number] [place] [address]- 9778 Nov, [facility] [place] [facility] [address] [id number] [place] [address]- 8744 Nov, 2013 [facility] [place] [facility] [address] [id number] [place] [address]- 5299 Nov, [facility] [place] [facility] [address] [id number] [place] [address]- 9273 Nov, [facility] [place] [facility] [address] [id number] [place] [address]- 2016 Oct, [facility] [place] [facility] [address] [id number] [place] [address]- 1108 Oct, [facility] [place] [facility] [address] [id number] [place] [address]- 5205 Oct, [facility] [place] [facility] [address] [id number] [place] [address]- 6919 Oct, [facility] [place] [facility] [address] [id number] [place] [address]- 6523 Sep, [facility] [place] [facility] [address] [id number] [place] [address]- 2101 Sep, [facility] [place] [facility] [address] [id number] [place] [address]- 5159 Sep, [facility] [place] [facility] [address] [id number] [place] [address]- 3741 Sep, [facility] [place] [facility] [address] [id number] [place] [address]- 8448 Aug, [facility] [place] [facility] [address] [id number] [place] [address]- 7820 Aug, [facility] [place] [facility] [address] [id number] [place] [address]- 6025 Aug, [facility] [place] [facility] [address] [id number] [place] [address]- 2472 Aug, [facility] [place] [facility] [address] [id number] [place] [address]- 6132 Aug, [facility] [place] [facility] [address] [id number] [place] [address]- 3790 Aug, [facility] [place] [facility] [address] [id number] [place] [address]- 5009 Aug, [facility] [place] [facility] [address] [id number] [place] [address]- 4925 Aug, [facility] [place] [facility] [address] [id number] [place] [address]- 6137 Aug, [facility] [place] [facility] [address] [id number] [place] [address]- 3634 Aug, [facility] [place] [facility] [address] [id number] [place] [address]- 2426 Aug, [facility] [place] [facility] [address] [id number] [place] [address]- 7488 Aug, [facility] [place] [facility] [address] [id number] [place] [address]- 0697 July, [facility] [place] [facility] [address] [id number] [place] [address]- 5337 July, [facility] [place] [facility] [address] [id number] [place] [address]- 3888 July, [facility] [place] [facility] [address] [id number] [place] [address]- 5990 July, [facility] [place] [facility] [address] [id number] [place] [address]- 0767 July, [facility] [place] [facility] [address] [id number] [place] [address]- 0961 July, [facility] [place] [facility] [address] [id number] [place] [address]- 3656 Jun, [facility] [place] [facility] [address] [id number] [place] [address]- 2714 Jun, [facility] [place] [facility] [address] [id number] [place] [address]- 4567 Jun, [facility] [place] [facility] [address] [id number] [place] [address]- 7559 Jun, [facility] [place] [facility] [address] [id number] [place] [address]- 6331 May, [facility] [place] [facility] [address] [id number] [place] [address]- 1765 May, [facility] [place] [facility] [address] [id number] [place] [address]- 5089 May, [facility] [place] [facility] [address] [id number] [place] [address]- 7004 May, [facility] [place] [facility] [address] [id number] [place] [address]- 1429 Feb, [facility] [place] [facility] [address] [id number] [place] [address]- 8001 Feb, [facility] [place] [facility] [address] [id number] [place] [address]- 5762 Feb, [facility] [place] [facility] [address] [id number] [place] [address]- 3988 Feb, [facility] [place] [facility] [address] [id number] [place] [address]- 4725 Jan, [facility] [place] [facility] [address] [id number] [place] [address]- 6048 Jan, [facility] [place] [facility] [address] [id number] [place] [address]- 5853 Dec, [facility] [place] [facility] [address] [id number] [place] 0190 Nov, [facility] [place] [facility] [address] [id number] [place] [address]- 0272 Nov, [facility] [place] [facility] [address] [id number] [place] [address]- 2629 Nov, [facility] [place] [facility] [address] [id number] [place] [address]- 5095 Oct, [facility] [place] [facility] [address] [id number] [place] [address]- 7367 Oct, [facility] [place] [facility] [address] [id number] [place] [address]- 9061 Oct, [facility] [place] [facility] [address] [id number] [place] [address]- 8360 Oct, [facility] [place] [facility] [address] [id number] [place] [address]- 5293 Oct, [facility] [place] [facility] [address] [id number] [place] [address]- 9943 Oct, [facility] [place] [facility] [address] [id number] [place] [address]- 5942 Aug, [facility] [address] [id number] [place] [address]- 7440 July, [facility] [place] [facility] [address] [id number] [place] [address]- 1104 July, [facility] [place] [facility] [address] [id number] [place] [address]- 1986 May, [facility] [place] [facility] [address] [id number] [place] [address]- 2910 May, [facility] [place] [facility] [address] [id number] [place] [address]- 1748 May, [facility] [place] [facility] [address] [id number] [place] 1073 Apr, [facility] [place] [facility] [address] [id number] [place] [address]- 4375 Apr, [facility] [place] [facility] [address] [id number] [place] [address]- 0609 Mar, [facility] [place] [facility] [address] [id number] [place] 2228 Mar, [facility] [place] [facility] [address] [id number] [place] [address]- 1766 Jan, [facility] [address] [id number] [place] [address]- 8525 Jan, [facility] [place] [facility] [address] [id number] [place] [address] 2542 Nov, [facility] [place] [facility] [address] [id number] [place] [address]- 9072 Nov, [facility] [place] [facility] [address] [id number] [place] [address]- 8834 Sep, [facility] [place] [facility] [address] [id number] [place] [address]- 0199 Aug, [facility] [place] [facility] [address] [id number] [place] [address]- 4855 July, [facility] [address] [id number] [place] [address]- 6865 July, [facility] [place] [facility] [address] [id number] [place] [address]- 0226 July, [facility] [address] [id number] [place] [address]- 3539 Apr, [facility] [place] [facility] [address] [id number] [place] [address]- 6456 Apr, [facility] [address] [id number] [place] [address]- 0201 Mar, [facility] [address] [id number] [place] [address]- 3038 Mar, [facility] [address] [id number] [place] [address]- 7146 Mar, [facility] [address] [id number] [place] [address]- 5054 Mar, [facility] [address] [id number] [place] [address]- 0074 Mar, [facility] [address] [id number] [place] [address]- 4355 Feb, [facility] [address] [id number] [place] [address]- 0726 Feb, [facility] [address] [id number] [place] [address]- 0877 Feb, [facility] [place] [facility] [address] [id number] [place] [address]- 0336 Jan, [facility] [place] [facility] [address] [id number] [place] [address] Jan, [facility] [place] [facility] [address] [id number] [place] [address] Dec, [facility] [id number] [address] Jan, [facility] [id number] [address] Aug, [facility] [id number] [address] July, [facility] [id number] [address] Feb, [facility] [id number] [address] Jan, [facility] [id number] [place] [address] Jan, [facility] [id number] [address] Dec, [facility] [id number] [address] July, IMMUNIZATIONS No Known Immunizations SOCIAL HISTORY Never Assessed REASON FOR VISIT Difficulty hearing, [facility] PL[facility] OF CARE Activity Details Follow Up prn or regular follow up Reason: VITAL SIGNS Height 70 in 2017-06-09 Weight 240 lbs 2017-06-09 Temperature 97.0 degrees Fahrenheit 2017-06-09 Heart Rate 60 bpm 2017-06-09 Respiratory Rate 20 2017-06-09 BMI 34.43 kg/m2 2017-06-09 Blood pressure systolic 140 mmHg 2017-06-09 Blood pressure diastolic 90 mmHg 2017-06-09 MEDICATIONS Medication Instructions Dosage Frequency Start Date End Date Duration Status Prozac 40 MG Orally Once a day 1 capsule in the morning 24h 90 days Active Tramadol HCl 50 MG Orally every 4 - 6 hrs 1 tablet as needed Apr, 28 days Active Pravastatin Sodium 80 MG TAKE ONE TABLET BY MOUTH AT BEDTIME 24h 90 Active Estradiol 0.5 MG Orally Once a day 1 tablet 24h 90 Active Loratadine 10 MG TAKE ONE TABLET BY MOUTH DAILY 90 Active Losartan Potassium 50 mg Orally 2 times a day 1 tablet 12h 90 days Active Amlodipine Besylate 10 MG TAKE ONE TABLET BY MOUTH ONCE DAILY 90 Active Metoprolol Tartrate 100 MG Orally Twice a day 1 tablet 12h 90 Active Bentyl 20 MG TAKE ONE (1) TABLET BY MOUTH TWICE DAILY BEFORE LUNCH AND SUPPER 30 Active RESULTS No Results PROCEDURES Procedure Date Ordered Result Body Site [facility] VISIT ESTABLISHED PATIENT June 09, 2017 INSTRUCTIONS MEDICATIONS ADMINISTERED No Known Medications MEDICAL (GENERAL) HISTORY Type Description Date Medical History HTN Medical History hyperlipidemia Medical History chronic back pain and shoulder pain Medical History MRSA Surgical History x 3 Surgical History hysterectomy Surgical History right foot surgery Hospitalization History surgeries Hospitalization History MRSA on arm Hospitalization History infected cyst 2010
--- OUTSIDE RECORDS SUMMARY | 2017-12-09 18:29 | XMS REPORT ---
Author Author [facility] [employer] Address Unknown Phone Unavailable Care Team Providers Care Reimbursement Manager Name Role Phone [facility] CP Unavailable Allergies No Known Allergies Problems Problem Type Condition Code Onset Dates Condition Status Assessment Heberden's node M15.1 Active Problem Cataracts, bilateral H26.9 Active Assessment Well woman exam Z01.419 Active Problem Essential hypertension I10 Active Problem Chronic pain G89.29 Active Problem Hyperlipidemia, unspecified E78.5 Active Problem Ganglion cyst M67.40 Active Problem Methicillin resistant Staphylococcus aureus 041.12 Active Problem Dysthymia F34.1 Active Problem Heel spur M77.30 Active Assessment Vision changes H53.9 Active Assessment Essential hypertension I10 Active Assessment Seborrheic keratosis L82.1 Active Assessment Cervical cancer screening Z12.4 Active Assessment Cutaneous horn L85.8 Active Assessment Breast cancer screening Z12.39 Active Medications No Known Medications Procedures Procedure Coding System Code Date X-RAY EXAM OF FINGER(S) CPT-4 94062 Dec 20, 2015 Results Name Result Date Reference Range Unit Abnormality Flag Xray : Finger(s), Right 2 views (IN HOUSE) Summary Purpose eClinicalWorks Submission
--- OUTSIDE RECORDS SUMMARY | 2017-12-09 18:30 | XMS REPORT ---
Author Author UGO PRETTY Organization [facility] Address [address] [place] [address] Care Team Providers Care Behavioral Health Tech Name Role Phone UGO PRETTY Unavailable PROBLEMS Type Condition ICD9-CM Code RUZ43-IK Code Onset Dates Condition Status SNOMED Code Problem Dysthymia F34.1 Active 18613286 Problem Essential hypertension I10 Active 67649322 Problem Chronic pain G89.29 Active 49174439 Problem Methicillin resistant Staphylococcus aureus 041.12 Active 969884574 Problem Cataracts, bilateral H26.9 Active 67805984 Problem Ganglion cyst M67.40 Active 351613795 Problem Heel spur M77.30 Active 56783983 Problem Irritable bowel syndrome with diarrhea K58.0 Active 251408897 Problem Neuropathy G62.9 Active 194125540 Problem Acquired hallux valgus of left foot M20.12 Active 50305207 Problem Hyperlipidemia, unspecified E78.5 Active 13909741 Problem Hallux valgus (acquired), right foot M20.11 Active 346549211 Problem Hammer toe of right foot M20.41 Active 630789602 ALLERGIES No Known Allergies ENCOUNTERS Encounter Location Date Diagnosis [facility] [address] [address] Aug, [facility] [id number] [address] July, [facility] [id number] [place] [address] 25145- 3276 May, Dermatofibroma of left calf D23.72 [facility] [address], [place] [address] May, Bilateral hearing loss due to cerumen impaction H61.23 [facility] [id number] [place] [address] 18314- 4697 May, Onychomycosis B35.1 ; Hammer toe of right foot M20.41 ; Acquired hallux valgus of left foot M20.12 and Tamms or callus L84 [place] [id number] [place] [address] 02346- 8968 Apr, Seborrheic keratosis L82.1 and Irritable bowel syndrome with diarrhea K58.0 [place] [address] [address] Mar, [address] [address] Mar, Dental examination Z01.[address] [address]- [address] 15 Mar, 2017 Medicare welcome exam Z00.00 ; Encounter for screening for lung cancer Z12.2 ; Colon cancer screening Z12.11 ; Encounter for immunization Z23 ; Weakness R53.1 and Irritable bowel syndrome with diarrhea K58.0 [address] [id number] [place] [address]34- 5702 Feb, Onychomycosis B35.1 ; Hammer toe of right foot M20.41 ; Hallux valgus (acquired), right foot M20.11 and Acquired hallux valgus of left foot M20.12 [place] [address] 24521- 5408 Jan, Essential hypertension I10 and Encounter for immunization Z23 [address] [id number] [place] [address] 57113- 1088 Dec, Encounter for screening mammogram for breast cancer Z12.31 and Hyperlipidemia, unspecified E78.5 [id number] [place] [address] 58715- 5232 Nov, Hammer toe of right foot M20.41 ; Onychomycosis B35.1 and Neuropathy G62.9 [place] [address] [place] [address] 90064- 1923 Sep, Essential hypertension I10 and 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 [place] [id number] [place] [address] 19126- 1778 Aug, [place] [address] 99708- 1428 Aug, [place] [address] 20714- 3970 Aug, Onychomycosis B35.1 ; Hammer toe of right foot M20.41 and Neuropathy G62.[address] [address]- [address]248 May, Callus of foot L84 ; Hammer toe of right foot M20.41 and Onychomycosis B35.[address] [address]- 1803 Apr, Chronic pain G89.29 [place] [address] 10558- 6012 Feb, Onychomycosis B35.1 ; Hammer toe of right foot M20.41 ; Acquired hallux valgus of left foot M20.12 and Hallux valgus (acquired), right foot M20.11 [place] [id number] [place] [address] 39365- 3946 Jan, Cellulitis of left lower extremity L03.116 [place] [address] [place] [address] 37955- 3706 Jan, Seborrheic keratosis L82.1 and Encounter for immunization Z23 [place] [address] 7[address]55- 4360 18 Jan, 2016 Seborrheic keratoses L82.1 and Visit for suture removal Z48.[address] [address]- 6393 Jan, Dermatofibroma D23.9 [place] [address], [place] [address] Dec, Lesion of lower extremity L98.9 [place] [address] [place] [address] 13748- 6369 Dec, [place] [address] [place] [address] 82870- 6295 Dec, Chronic pain G89.29 [place] [address] [place] [address] 69220- 9651 Dec, Well woman exam Z01.419 ; Essential hypertension I10 ; Breast cancer screening Z12.39 ; Cervical cancer screening Z12.4 ; Vision changes H53.9 ; Heberden's node M15.1 ; Cutaneous horn L85.8 and Seborrheic keratosis L82.1 [place] [address] [place] [address] 50562- 3611 Dec, Well woman exam Z01.419 ; Heberden's node M15.1 ; Breast cancer screening Z12.39 ; Cervical cancer screening Z12.4 ; Essential hypertension I10 ; Vision changes H53.9 ; Cutaneous horn L85.8 and Seborrheic keratosis L82.1 [place] [address] [place] [address] 64544- 6746 Nov, Well woman exam Z01.419 ; Breast cancer screening Z12.39 ; Cervical cancer screening Z12.4 ; Essential hypertension I10 ; Vision changes H53.9 ; Heberden's node M15.1 ; Cutaneous horn L85.8 and Seborrheic keratosis L82.1 [place] [id number] [place] [address] 52642- 2087 Nov, Hammer toe of right foot M20.41 and Callus of foot L84 [address] [place] [address] 19992- 2122 Aug, Onychomycosis B35.1 and Callus of foot L84 [facility] [address] [place] [address] 82981- 5045 July, Dysthymia F34.1 and Chronic pain G89.29 [facility] [address] [place] [address] 64697 2546 Jun, Dysthymia F34.1 ; Heel spur M77.30 and Ganglion cyst M67.40 [facility] [address] [address]- 1931 May, Onychomycosis B35.1 and Neuropathy G62.9 [facility] [address] 02455- 4465 May, [facility] [id number] [place] [address] 41890- 2893 Apr, [facility] [address] 74676- 3910 Apr, [facility] [address] [place] [address] 58769- 7317 Apr, [facility] [address] [place] [address] 14479- 7144 Mar, [facility] [address] [place] [address] 52624- 7760 Mar, [facility] [id number] [place] [address] 31811- 7543 Feb, [facility] [id number] [place] [address] 57846 2545 Feb, [facility] [address] 77886- 5726 Feb, [facility] [id number] [place] [address] 27750- 2546 Feb, Onychomycosis B35.1 and Tamms or callus L84 [facility] [address] [place] [address]- 2465 Feb, Cough R05 [facility] [id number] [place] [address] 72884 -8251 Jan, Sinusitis J32.9 [facility] [address] [place] [address] 81886- 7471 Jan, Hyperlipidemia 272.4 [facility] [address] 17563- 1641 Jan, Acute upper respiratory infection, unspecified J06.9 ; Encounter for immunization Z23 ; Other viral agents as the cause of diseases classified elsewhere B97.89 and Acute frontal sinusitis, recurrence not specified J01.10 [facility] [id number] [place] [address] 64207- 6448 Nov, Wart 078.10 ; Breast cancer screening V76.10 and Hyperlipidemia 272.4 [facility] [address] [place] [address] 51010- 4686 Nov, Onychomycosis 110.1 ; Tamms or callus 700 and Skin fissures 709.8 [place] [address] 25309- 8737 Aug, Hammertoe 735.4 ; Hyperkeratosis 701.1 ; Onychomycosis 110.1 ; Fissure in skin of foot 709.8 and Foot pain 729.5 [place] [address] [place] [address] 01736- 1808 Aug, [place] [address] [place] [address] 10811- 1439 Aug, [place] [address] 07262- 8419 Aug, [facility] [id number] [place] [address] 77542- 8240 July, [place] [address] 16348- 3074 July, [facility] [place] [facility] [address] [id number] [place] [address]- 1056 14 Jun, 2014 [facility] [place] [facility] [address] [id number] [place] [address]- 2237 Jun, [facility] [place] [facility] [address] [facility] [id number] [place] [address]- 5417 May, [facility] [place] [facility] [address] [id number] [place] [address]- 8114 May, [facility] [place] [facility] [address] [id number] [place] [address]- 7634 May, [facility] [place] [facility] [address] [facility] [id number] [place] [address]- 2316 May, [facility] [place] [facility] [address] [facility] [id number] [place] [address]- 0146 Apr, [facility] [place] [facility] [address] [facility] [id number] [place] [address]- 7629 Apr, [facility] [place] [facility] [address] [facility] [id number] [place] [address]- 2065 Feb, [facility] [place] [facility] [address] [facility] [id number] [place] [address]- 5160 Feb, [facility] [place] [facility] [address] [facility] [id number] [place] [address]- 3570 Feb, [facility] [place] [facility] [address] [facility] [id number] [place] [address]- 3101 Feb, [facility] [place] [facility] [address] [id number] [place] 6207 Feb, [facility] [place] [facility] [address] [facility] [id number] [place] [address]- 5354 Feb, [facility] [place] [facility] [address] [facility] [id number] [place] [address]- 2223 Jan, [facility] [place] [facility] [address] [id number] [place] [address]- 9412 14 Jan, 2014 [facility] [place] [facility] [address] [id number] [place] [address]- 8141 14 Jan, 2014 [facility] [place] [facility] [address] [id number] [place] [address]- 8616 06 Jan, 2014 [facility] [place] [facility] [address] [id number] [place] [address]- 3970 Jan, [facility] [place] [facility] [address] [id number] [place] [address]- 6833 Dec, [facility] [place] [facility] [address] [id number] [place] [address]- 6992 Dec, [facility] [place] [facility] [address] [id number] [place] [address]- 1925 29 Nov, 2013 [facility] [place] [facility] [address] [id number] [place] [address]- 6936 29 Nov, 2013 [facility] [place] [facility] [address] [id number] [place] [address]- 2544 19 Nov, 2013 [facility] [place] [facility] [address] [id number] [place] [address]- 2548 19 Nov, 2013 [facility] [place] [facility] [address] [id number] [place] [address]- 7469 11 Nov, 2013 [facility] [place] [facility] [address] [id number] [place] [address]- 2541 11 Nov, 2013 [facility] [place] [facility] [address] [id number] [place] [address] 2543 04 Nov, 2013 [facility] [place] [facility] [address] [id number] [place] [address]- 2546 04 Nov, 2013 [facility] [place] [facility] [address] [id number] [place] [address]- 2547 02 Nov, 2013 [facility] [place] [facility] [address] [id number] [place] [address]- 0760 Nov, [facility] [place] [facility] [address] [id number] [place] [address]- 1536 Oct, [facility] [place] [facility] [address] [id number] [place] [address]- 2820 Oct, [facility] [place] [facility] [address] [id number] [place] [address]- 6919 Oct, [facility] [place] [facility] [address] [id number] [place] [address]- 7972 Oct, [facility] [place] [facility] [address] [id number] [place] [address]- 5794 Sep, [facility] [place] [facility] [address] [id number] [place] [address]- 4736 Sep, [facility] [place] [facility] [address] [id number] [place] [address]- 5455 Sep, [facility] [place] [facility] [address] [id number] [place] [address]- 6829 Sep, [facility] [place] [facility] [address] [id number] [place] [address]- 7406 Aug, [facility] [place] [facility] [address] [id number] [place] [address]- 4931 Aug, [facility] [place] [facility] [address] [id number] [place] [address]- 2126 Aug, [facility] [place] [facility] [address] [id number] [place] [address]- 7385 Aug, [facility] [place] [facility] [address] [id number] [place] [address]- 9708 Aug, [facility] [place] [facility] [address] [id number] [place] [address]- 9435 Aug, [facility] [place] [facility] [address] [id number] [place] [address]- 0167 Aug, [facility] [place] [facility] [address] [id number] [place] [address]- 4770 Aug, [facility] [place] [facility] [address] [id number] [place] [address]- 4709 Aug, [facility] [place] [facility] [address] [id number] [place] [address]- 7025 Aug, [facility] [place] [facility] [address] [id number] [place] [address]- 6833 Aug, [facility] [place] [facility] [address] [id number] [place] [address]- 2375 Aug, [facility] [place] [facility] [address] [id number] [place] [address]- 4522 July, [facility] [place] [facility] [address] [id number] [place] [address]- 4228 July, [facility] [place] [facility] [address] [id number] [place] [address]- 3434 July, [facility] [place] [facility] [address] [id number] [place] [address]- 3978 July, [facility] [place] [facility] [address] [id number] [place] [address]- 2959 July, [facility] [place] [facility] [address] [id number] [place] [address]- 7794 July, [facility] [place] [facility] [address] [id number] [place] [address]- 6897 Jun, [facility] [place] [facility] [address] [id number] [place] [address]- 9557 Jun, [facility] [place] [facility] [address] [id number] [place] [address]- 3471 Jun, [facility] [place] [facility] [address] [id number] [place] [address]- 9692 Jun, [facility] [place] [facility] [address] [id number] [place] [address]- 3014 May, [facility] [place] [facility] [address] [id number] [place] [address]- 7251 27 May, 2013 [facility] [place] [facility] [address] [id number] [place] [address]- 1238 14 May, 2013 [facility] [place] [facility] [address] [id number] [place] [address]- 2672 14 May, 2013 [facility] [place] [facility] [address] [id number] [place] [address]- 5628 Feb, [facility] [place] [facility] [address] [id number] [place] [address]- 7994 Feb, [facility] [place] [facility] [address] [id number] [place] [address]- 1681 Feb, [facility] [place] [facility] [address] [id number] [place] 6406 Feb, [facility] [place] [facility] [address] [id number] [place] [address]- 7422 Jan, [facility] [place] [facility] [address] [id number] [place] [address]- 7179 Jan, [facility] [place] [facility] [address] [id number] [place] [address]- 0712 07 Dec, 2012 [facility] [place] [facility] [address] [id number] [place] [address]- 8959 06 Nov, 2012 [facility] [place] [facility] [address] [id number] [place] [address]- 3002 04 Nov, 2012 [facility] [place] [facility] [address] [id number] [place] [address]- 3853 03 Nov, 2012 [facility] [place] [facility] [address] [id number] [place] [address]- 2763 2012 [facility] [place] [facility] [address] [id number] [place] [address]- 5109 Oct, [facility] [place] [facility] [address] [id number] [place] [address]- 1976 Oct, [facility] [address] [id number] [place] [address]- 5418 Oct, [facility] [address] [id number] [place] [address]- 9667 Oct, [facility] [place] [facility] [address] [id number] [place] [address]- 6164 Oct, [facility] [place] [facility] [address] [id number] [place] [address]- 0389 Aug, [facility] [address] [id number] [place] [address]- 9286 July, [facility] [address] [id number] [place] [address]- 4315 July, [facility] [address] [id number] [place] [address]- 1734 May, [facility] [place] [facility] [address] [id number] [place] [address]- 4708 May, [facility] [address] [id number] [place] [address]- 5339 May, [facility] [place] [facility] [address] [id number] [place] [address]- 9707 Apr, [facility] [address] [id number] [place] [address]- 2406 Apr, [facility] [place] [facility] [address] [id number] [place] [address]- 9804 Mar, [facility] [place] [facility] [address] [id number] [place] [address]- 8450 Mar, [facility] [place] [facility] [address] [id number] [place] [address]- 3507 Jan, [facility] [place] [facility] [address] [id number] [place] [address]- 1277 Jan, [facility] [place] [facility] [address] [id number] [place] [address]- 2546 Nov, [facility] [address] [id number] [place] [address]- 8856 Nov, [facility] [place] [facility] [address] [id number] [place] [address]- 2546 Sep, [facility] [address] [id number] [place] [address]- 2326 Aug, [facility] [place] [facility] [address] [id number] [place] [address]- 3216 July, [facility] [address] [id number] [place] [address]- 3796 July, [facility] [address] [id number] [place] [address]- 8236 July, [facility] [address] [id number] [place] [address]- 0695 Apr, [facility] [address] [id number] [place] [address]- 1886 Apr, [facility] [address] [id number] [place] [address]- 9106 Mar, [facility] [address] [id number] [place] [address]- 7586 Mar, [facility] [address] [id number] [place] [address]- 3846 Mar, [facility] [address] [id number] [place] [address]- 1976 Mar, [facility] [place] [facility] [address] [id number] [place] [address]- 1576 Mar, [facility] [place] [facility] [address] [id number] [place] [address]- 2546 Feb, [facility] [place] [facility] [address] [id number] [place] [address]- 1946 Feb, [facility] [address] [address]- 2546 Feb, [facility] [address] [address]- 2546 Jan, [facility] [address] [place] [address]- 2546 Jan, [facility] [id number] [place] [address] Dec, [facility] [id number] [place] [address] Jan, [facility] [id number] [place] [address] Aug, [facility] [id number] [address] July, [facility] [id number] [place] [address] Feb, [facility] [id number] [place] [address] Jan, [facility] [id number] [address] Jan, [facility] [id number] [address] Dec, [facility] [id number], [place] [address] July, IMMUNIZATIONS No Known Immunizations SOCIAL HISTORY Never Assessed REASON FOR VISIT Blood pressure f/u, check up for medication review. Torres GOMES, spot on left underside of arm below elbow. Reports has been there 3-4 days and is getting bigger. PLAN OF CARE Activity Details Follow Up 3 Months Reason:BP VITAL SIGNS Height 70 in 2016-10-09 Weight 184.5 lbs 2016-10-09 Temperature 97.8 degrees Fahrenheit 2016-10-09 Heart Rate 60 bpm 2016-10-09 Respiratory Rate 18 2016-10-09 BMI 26.47 kg/m2 2016-10-09 Blood pressure systolic 110 mmHg 2016-10-09 Blood pressure diastolic 72 mmHg 2016-10-09 MEDICATIONS Medication Instructions Dosage Frequency Start Date [...] BEDTIME 24h 90 Active Amlodipine Besylate 10 mg Orally Once a day 1 tablet 24h 90 days Active Metoprolol Tartrate 100 MG Orally Twice a day 1 tablet 12h 90 days Active Losartan Potassium 50 mg Orally 2 times a day 1 tablet 12h 90 days Active RESULTS No Results PROCEDURES Procedure Date Ordered Result Body Site [facility] VISIT ESTABLISHED PATIENT October 09, 2016 INSTRUCTIONS MEDICATIONS ADMINISTERED No Known Medications MEDICAL (GENERAL) HISTORY Type Description Date Medical History HTN Medical History hyperlipidemia Medical History chronic back pain and shoulder pain Medical History MRSA Surgical History x 3 Surgical History hysterectomy Surgical History right foot surgery Hospitalization History surgeries Hospitalization History MRSA on arm Hospitalization History infected cyst 2010
--- OUTSIDE RECORDS SUMMARY | 2017-12-09 18:30 | XMS REPORT ---
Author Author UGO PRETTY [facility] eClinicalWorks Address Unknown Phone Unavailable Care Team Providers Care Med Care Manager Name Role Phone UGO PRETTY Unavailable Allergies No Known Allergies Problems Problem Type Condition Code Onset Dates Condition Status Problem Methicillin resistant Staphylococcus aureus 041.12 Active Problem Depressive disorder, not elsewhere classified 311 Active Problem Unspecified hereditary and idiopathic peripheral neuropathy 356.9 Active Problem Hyperlipidemia 272.4 Active Problem Hallux valgus (acquired) 735.0 Active Problem Plantar fascial fibromatosis 728.71 Active Problem Dermatophytosis of nail 110.1 Active Problem Other hammer toe (acquired) 735.4 Active Medications Medication Code System Code Instructions Start Date End Date Status Dosage Tiotropium [place]-Olodaterol [facility] [address]-89 2.5-2.5 MCG/ACT Inhalation Once a day Mar 08, 2015 2 puffs Results No Known Results Summary Purpose eClinicalWorks Submission
--- OUTSIDE RECORDS SUMMARY | 2017-12-09 18:30 | XMS REPORT ---
Author Author UGO PRETTY Organization [facility] Address [address] [place] [address] Care Team Providers Care Sales Data Analyst Name Role Phone UGO PRETTY Unavailable PROBLEMS Type Condition ICD9-CM Code YRA53-OE Code Onset Dates Condition Status SNOMED Code Problem Heel spur M77.30 Active 24026625 Problem Chronic pain G89.29 Active 66229209 Problem Dysthymia F34.1 Active 39937995 Problem Cataracts, bilateral H26.9 Active 01657558 Problem Methicillin resistant Staphylococcus aureus 041.12 Active 361123858 Problem Ganglion cyst M67.40 Active 433722334 Problem Neuropathy G62.9 Active 347531661 Problem Hammer toe of right foot M20.41 Active 824180329 Problem Essential hypertension I10 Active 46394172 Problem Hyperlipidemia, unspecified E78.5 Active 81681640 Problem Acquired hallux valgus of left foot M20.12 Active 71879286 Problem Hallux valgus (acquired), right foot M20.11 Active [id number] ALLERGIES No Information SOCIAL HISTORY Never Assessed PLAN OF CARE VITAL SIGNS MEDICATIONS Medication Instructions Dosage Frequency Start Date End Date Duration Status Tramadol HCl 50 MG Orally every 4 - 6 hrs 1 tablet as needed Apr, 28 days Active RESULTS No Results PROCEDURES No Known procedures IMMUNIZATIONS No Known Immunizations MEDICAL (GENERAL) HISTORY Type Description Date Medical History HTN Medical History hyperlipidemia Medical History chronic back pain and shoulder pain Medical History MRSA Surgical History x 3 Surgical History hysterectomy Surgical History right foot surgery Hospitalization History surgeries Hospitalization History MRSA on arm Hospitalization History infected cyst 2011
--- OUTSIDE RECORDS SUMMARY | 2017-12-09 18:30 | XMS REPORT ---
Author Author UGO PRETTY Organization [facility] Address [address] [place] [address] Care Team Providers Care Per Diem Clerk Name Role Phone UGO PRETTY Unavailable PROBLEMS Type Condition ICD9-CM Code XIH95-GF Code Onset Dates Condition Status SNOMED Code Problem Dysthymia F34.1 Active 87656408 Problem Essential hypertension I10 Active 08484596 Problem Chronic pain G89.29 Active 35655392 Problem Methicillin resistant Staphylococcus aureus 041.12 Active 047260157 Problem Cataracts, bilateral H26.9 Active 06797802 Problem Ganglion cyst M67.40 Active 555133065 Problem Heel spur M77.30 Active 01053817 Problem Irritable bowel syndrome with diarrhea K58.0 Active 085266870 Problem Neuropathy G62.9 Active 156525610 Problem Acquired hallux valgus of left foot M20.12 Active 88683459 Problem Hyperlipidemia, unspecified E78.5 Active 99963796 Problem Hallux valgus (acquired), right foot M20.11 Active 952144879 Problem Hammer toe of right foot M20.41 Active 492775148 ALLERGIES No Known Allergies ENCOUNTERS Encounter Location Date Diagnosis [facility] [address], [place] [address] Aug, [facility] [id number] [place] [address] 53769- 7098 July, [facility] [id number] [place] [address] 79257 -7268 Jun, [facility] [id number] [place] [address] 91568- 9983 May, Dermatofibroma of left calf D23.72 [facility] [id number] [place] [address] 65414 -8643 May, Bilateral hearing loss due to cerumen impaction H61.23 [facility] [id number] [place] [address] 11916- 5814 May, Onychomycosis B35.1 ; Hammer toe of right foot M20.41 ; Acquired hallux valgus of left foot M20.12 and [place] or callus L[address] [address]- [address] Apr, Seborrheic keratosis L82.1 and Irritable bowel syndrome with diarrhea K58.[address] [address]- [address]67 Mar, [address] [address]- 9610 Mar, Dental examination Z01.[address] [address]- 3515 15 Mar, 2017 Medicare welcome exam Z00.00 ; Encounter for screening for lung cancer Z12.2 ; Colon cancer screening Z12.11 ; Encounter for immunization Z23 ; Weakness R53.1 and Irritable bowel syndrome with diarrhea K58.0 [facility] [id number] [place] [address] 55536- 0300 Feb, Onychomycosis B35.1 ; Hammer toe of right foot M20.41 ; Hallux valgus (acquired), right foot M20.11 and Acquired hallux valgus of left foot M20.12 [facility] [id number] [place] [address] 00310- 4772 Jan, Essential hypertension I10 and Encounter for immunization Z23 [address] [address]01- 7497 Dec, Encounter for screening mammogram for breast cancer Z12.31 and Hyperlipidemia, unspecified E78.[address] [address]82- 9724 Nov, Hammer toe of right foot M20.41 ; Onychomycosis B35.1 and Neuropathy G62.9 [facility] [id number] [place] [address] 55615- 4232 Sep, Essential hypertension I10 and 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 [facility] [id number] [place] [address] 84941- 8833 Aug, [facility] [address] [address]- 3860 Aug, [facility] [address] 17169- 0187 Aug, Onychomycosis B35.1 ; Hammer toe of right foot M20.41 and Neuropathy G62.9 [facility] [id number] [place] [address] 39504- 4284 May, Callus of foot L84 ; Hammer toe of right foot M20.41 and Onychomycosis B35.1 [facility] [id number] [place] [address] 99461- 0223 Apr, Chronic pain G89.29 [facility] [address] 77312- 7783 Feb, Onychomycosis B35.1 ; Hammer toe of right foot M20.41 ; Acquired hallux valgus of left foot M20.12 and Hallux valgus (acquired), right foot M20.11 [facility] [id number] [place] [address] 89893- 8953 Jan, Cellulitis of left lower extremity L03.[address] 62954- 2162 Jan, Seborrheic keratosis L82.1 and Encounter for immunization Z23 [facility] [id number] [place] [address] 46754- 3259 18 Jan, 2016 Seborrheic keratoses L82.1 and Visit for suture removal Z48.02 [place] [place] [id number] [place] [address] 03696- 1448 Jan, Dermatofibroma D23.9 [facility] [id number] [place] [address] 17097- 2764 Dec, Lesion of lower extremity L98.9 [facility] [id number] [place] [address] 15964- 7073 Dec, [facility] [id number] [place] [address] 13420- 2156 Dec, Chronic pain G89.29 [facility] [id number] [place] [address] 28115- 4050 Dec, Well woman exam Z01.419 ; Essential hypertension I10 ; Breast cancer screening Z12.39 ; Cervical cancer screening Z12.4 ; Vision changes H53.9 ; Heberden's node M15.1 ; Cutaneous horn L85.8 and Seborrheic keratosis L82.1 [place] [place] [address] [place] [address] 93567- 5507 Dec, Well woman exam Z01.419 ; Heberden's node M15.1 ; Breast cancer screening Z12.39 ; Cervical cancer screening Z12.4 ; Essential hypertension I10 ; Vision changes H53.9 ; Cutaneous horn L85.8 and Seborrheic keratosis L82.1 [place] [place] [id number] [place] [address] 24022- 3092 Nov, Well woman exam Z01.419 ; Breast cancer screening Z12.39 ; Cervical cancer screening Z12.4 ; Essential hypertension I10 ; Vision changes H53.9 ; Heberden's node M15.1 ; Cutaneous horn L85.8 and Seborrheic keratosis L82.1 [place] [id number] [place] [address] 95553- 9723 Nov, Hammer toe of right foot M20.41 and Callus of foot L84 [place] [id number] [place] [address] 96762- 4245 Aug, Onychomycosis B35.1 and Callus of foot L84 [facility] [id number] [place] [address] 15985- 1886 July, Dysthymia F34.1 and Chronic pain G89.29 [facility] [id number] [place] [address] 48852- 5566 Jun, Dysthymia F34.1 ; Heel spur M77.30 and Ganglion cyst M67.40 [facility] [id number] [place] [address] 97908- 2560 May, Onychomycosis B35.1 and Neuropathy G62.9 [facility] [id number] [place] [address] 00465- 6146 May, [facility] [id number] [place] [address] 83608- 2866 Apr, [facility] [id number] [place] [address] 42793- 1161 Apr, [facility] [id number] [place] [address] 23240- 5858 Apr, [facility] [id number] [place] [address] 53909- 3984 Mar, [facility] [id number] [place] [address] 33346- 4277 Mar, [facility] [id number] [place] [address] 60025 254 Feb, [facility] [id number] [place] [address] 60376- 6066 Feb, [facility] [address], [place] [address] 2546 Feb, [facility] [id number] [place] [address] 88972- 2147 Feb, Onychomycosis B35.1 and [place] or callus L84 [facility] [id number] [place] [address] 05819- 3998 Feb, Cough R05 [facility] [id number] [place] [address] 74289 -4904 Jan, Sinusitis J32.9 [place] [address] 10333- 7296 Jan, Hyperlipidemia 272.4 [place] [place] [id number] [place] [address] 66191- 0830 Jan, Acute upper respiratory infection, unspecified J06.9 ; Encounter for immunization Z23 ; Other viral agents as the cause of diseases classified elsewhere B97.89 and Acute frontal sinusitis, recurrence not specified J01.10 [place] [id number] [place] [address] 77130- 3579 Nov, Wart 078.10 ; Breast cancer screening V76.10 and Hyperlipidemia 272.4 [place] [place] [id number] [place] [address] 81675- 8353 Nov, Onychomycosis 110.1 ; [place] or callus 700 and Skin fissures 709.8 [place] [id number] [place] [address] 53771- 2899 Aug, Hammertoe 735.4 ; Hyperkeratosis 701.1 ; Onychomycosis 110.1 ; Fissure in skin of foot 709.8 and Foot pain 729.5 [place] [id number] [place] [address] 42051- 4042 Aug, [place] [id number] [place] [address] 75024- 2644 Aug, [place] [id number] [place] [address] 44140- 7532 Aug, [place] [place] [id number] [place] [address] 44617- 2244 July, [facility] [address] [id number] [place] [address]- 3792 July, [facility] [place] [facility] [address] [id number] [place] [address]- 7623 Jun, [facility] [place] [facility] [address] [facility] [id number] [place] [address]- 7791 Jun, [facility] [place] [facility] [address] [id number] [place] [address]- 9592 May, [facility] [place] [facility] [address] [id number] [place] [address]- 2474 May, [facility] [place] [facility] [address] [facility] [id number] [place] [address]- 3515 May, [facility] [place] [facility] [address] [facility] [id number] [place] [address]- 5732 May, [facility] [place] [facility] [address] [facility] [id number] [place] [address]- 7105 Apr, [facility] [place] [facility] [address] [facility] [id number] [place] [address]- 6960 Apr, [facility] [place] [facility] [address] [facility] [id number] [place] [address]- 3507 Feb, [facility] [place] [facility] [address] [facility] [id number] [place] [address]- 5310 Feb, [facility] [place] [facility] [address] [facility] [id number] [place] [address]- 5569 Feb, [facility] [place] [facility] [address] [id number] [place] [address]- 6303 Feb, [facility] [place] [facility] [address] [facility] [id number] [place] 6895 Feb, [facility] [place] [facility] [address] [facility] [id number] [place] [address]- 7167 Feb, [facility] [place] [facility] [address] [id number] [place] [address]- 5596 Jan, [facility] [place] [facility] [address] [id number] [place] [address]- 3772 Jan, [facility] [place] [facility] [address] [id number] [place] [address]- 6516 Jan, [facility] [place] [facility] [address] [id number] [place] [address]- 9327 Jan, [facility] [place] [facility] [address] [id number] [place] [address]- 8290 Jan, [facility] [place] [facility] [address] [id number] [place] [address]- 9967 Dec, [facility] [place] [facility] [address] [id number] [place] [address]- 7557 Dec, [facility] [place] [facility] [address] [id number] [place] [address]- 4144 29 Nov, 2013 [facility] [place] [facility] [address] [id number] [place] [address]- 1784 29 Nov, 2013 [facility] [place] [facility] [address] [id number] [place] [address]- 5089 19 Nov, 2013 [facility] [place] [facility] [address] [id number] [place] [address]- 4364 19 Nov, 2013 [facility] [place] [facility] [address] [id number] [place] [address]- 0392 11 Nov, 2013 [facility] [place] [facility] [address] [id number] [place] [address]- 2544 11 Nov, 2013 [facility] [place] [facility] [address] [id number] [place] [address]- 2546 04 Nov, 2013 [facility] [place] [facility] [address] [id number] [place] [address]- 2544 04 Sep, 2013 [facility] [place] [facility] [address] [id number] [place] [address]- 8176 Nov, [facility] [place] [facility] [address] [id number] [place] [address]- 8326 Nov, [facility] [place] [facility] [address] [id number] [place] [address]- 2361 Oct, [facility] [place] [facility] [address] [id number] [place] [address]- 8159 Oct, [facility] [place] [facility] [address] [id number] [place] [address]- 2944 Oct, [facility] [place] [facility] [address] [id number] [place] [address]- 8086 Oct, [facility] [place] [facility] [address] [id number] [place] [address]- 6091 Sep, [facility] [place] [facility] [address] [id number] [place] [address]- 0708 Sep, [facility] [place] [facility] [address] [id number] [place] [address]- 7714 Sep, [facility] [place] [facility] [address] [id number] [place] [address]- 9482 Sep, [facility] [place] [facility] [address] [id number] [place] [address]- 0244 Aug, [facility] [place] [facility] [address] [id number] [place] [address]- 6099 Aug, [facility] [place] [facility] [address] [id number], [place] [address]- 6622 Aug, [facility] [place] [facility] [address] [id number] [place] [address]- 5647 Aug, [facility] [place] [facility] [address] [id number] [place] [address]- 2462 Aug, [facility] [place] [facility] [address] [id number] [place] [address]- 7537 Aug, [facility] [place] [facility] [address] [id number] [place] [address]- 6815 Aug, [facility] [place] [facility] [address] [id number] [place] [address]- 0833 Aug, [facility] [place] [facility] [address] [id number] [place] [address]- 3653 Aug, [facility] [place] [facility] [address] [id number] [place] [address]- 8926 Aug, [facility] [place] [facility] [address] [id number] [place] [address]- 7964 Aug, [facility] [place] [facility] [address] [id number] [place] [address]- 2423 Aug, [facility] [place] [facility] [address] [id number] [place] [address]- 8205 July, [facility] [place] [facility] [address] [id number] [place] [address]- 9722 July, [facility] [place] [facility] [address] [id number] [place] [address]- 4669 July, [facility] [place] [facility] [address] [id number] [place] [address]- 3731 July, [facility] [place] [facility] [address] [id number] [place] [address]- 3671 July, [facility] [place] [facility] [address] [id number] [place] [address]- 4114 July, [facility] [place] [facility] [address] [id number] [place] [address]- 8102 Jun, [facility] [place] [facility] [address] [id number] [place] [address]- 3433 Jun, [facility] [place] [facility] [address] [id number] [place] [address]- 2018 Jun, [facility] [place] [facility] [address] [id number] [place] [address]- 6640 Jun, [facility] [place] [facility] [address] [id number] [place] [address]- 1523 27 May, 2013 [facility] [place] [facility] [address] [id number] [place] [address]- 6742 27 May, 2013 [facility] [place] [facility] [address] [id number] [place] [address]- 3505 14 May, 2013 [facility] [address] [id number] [place] [address]- 8439 14 May, 2013 [facility] [address] [id number] [place] [address]- 4729 26 Feb, 2013 [facility] [place] [facility] [address] [id number] [place] [address]- 6761 Feb, [facility] [address] [id number] [place] [address]- 6780 Feb, [facility] [address] [id number] [place] [address]- 6557 Feb, [facility] [place] [facility] [address] [id number] [place] [address]- 8597 Jan, [facility] [place] [facility] [address] [id number] [place] [address]- 1837 Jan, [facility] [place] [facility] [address] [id number] [place] [address]- 2423 07 Dec, 2012 [facility] [place] [facility] [address] [id number] [place] [address]- 9065 06 Nov, 2012 [facility] [place] [facility] [address] [id number] [place] [address]- 0792 04 Nov, 2012 [facility] [place] [facility] [address] [id number] [place] [address]- 9492 03 Nov, 2012 [facility] [place] [facility] [address] [id number] [place] [address]- 8348 2012 [facility] [place] [facility] [address] [id number] [place] [address]- 2013 Oct, [facility] [address] [id number] [place] [address]- 5957 Oct, [facility] [place] [facility] [address] [id number] [place] [address]- 8185 Oct, [facility] [place] [facility] [address] [id number] [place] [address]- 6946 Oct, [facility] [place] [facility] [address] [id number] [place] [address]- 7315 Oct, [facility] [place] [facility] [address] [id number] [place] [address]- 6570 Aug, [facility] [place] [facility] [address] [id number] [place] [address]- 1958 July, [facility] [address] [id number] [place] [address]- 4530 July, [facility] [place] [facility] [address] [id number] [place] [address]- 0959 May, [facility] [place] [facility] [address] [id number] [place] [address]- 0773 May, [facility] [place] [facility] [address] [id number] [place] [address]- 9851 May, [facility] [place] [facility] [address] [id number] [place] [address]- 5580 Apr, [facility] [place] [facility] [address] [id number] [place] [address]- 2237 Apr, [facility] [place] [facility] [address] [id number] [place] [address]- 5177 Mar, [facility] [place] [facility] [address] [id number] [place] [address]- 4808 Mar, [facility] [place] [facility] [address] [id number] [place] [address]- 5844 Jan, [facility] [place] [facility] [address] [id number] [place] [address]- 5918 Jan, [facility] [place] [facility] [address] [id number] [place] [address]- 9065 Nov, [facility] [place] [facility] [address] [id number] [place] [address]- 0376 Nov, [facility] [place] [facility] [address] [id number] [place] [address]- 6930 Sep, [facility] [place] [facility] [address] [id number] [place] [address]- 5161 Aug, [facility] [place] [facility] [address] [id number] [place] [address]- 9984 July, [facility] [place] [facility] [address] [id number] [place] [address] July, [facility] [place] [facility] [address] [id number] [place] [address] July, [facility] [place] [facility] [address] [id number] [place] [address] Apr, [facility] [place] [facility] [address] [id number] [place] [address] Apr, [facility] [place] [facility] [address] [id number] [place] [address] Mar, [facility] [place] [facility] [address] [id number] [place] [address] Mar, [facility] [place] [facility] [address] [id number] [place] [address] Mar, [facility] [place] [facility] [address] [id number] [place] [address] Mar, [facility] [place] [facility] [address] [id number] [place] [address] Mar, [facility] [place] [facility] [address] [id number] [place] [address] Feb, [facility] [id number] [address] Feb, [facility] [id number] [place] [address] Feb, [facility] [id number], [place] [address] Jan, [facility] [id number] [place] [address] Jan, [facility] [id number], [place] [address] Dec, [facility] [id number] [place] [address] Jan, [facility] [id number], [place] [address] Aug, [facility] [id number], [place] [address] July, [facility] [id number] [place] [address] Feb, [facility] [id number] [place] [address] Jan, [facility] [id number], [place] [address] Jan, [facility] [id number], [place] [address] Dec, [facility] [id number], [place] [address] July, IMMUNIZATIONS No Known Immunizations SOCIAL HISTORY Never Assessed REASON FOR VISIT Breast exam--Chelly Matthews MA PLAN OF CARE Activity Details Follow Up 6 Months Reason:lipids VITAL SIGNS Height 70 in 2016-12-18 Weight 239.8 lbs 2016-12-18 Temperature 98.2 degrees Fahrenheit 2016-12-18 Heart Rate 60 bpm 2016-12-18 Respiratory Rate 20 2016-12-18 BMI 34.40 kg/m2 2016-12-18 Blood pressure systolic 138 mmHg 2016-12-18 Blood pressure diastolic 84 mmHg 2016-12-18 MEDICATIONS Medication Instructions Dosage Frequency Start Date End Date Duration Status Metoprolol Tartrate 100 MG Orally Twice a day 1 tablet 12h 90 days Active Tramadol HCl 50 MG [...] 24h 90 days Active Amlodipine Besylate 10 mg Orally Once a day 1 tablet 24h 90 days Active RESULTS Name Result Date Reference Range Mammogram, Bilateral Screening 2016-12-26 PROCEDURES Procedure Date Ordered Result Body Site [facility] VISIT ESTABLISHED PATIENT Dec 18, 2016 INSTRUCTIONS MEDICATIONS ADMINISTERED No Known Medications MEDICAL (GENERAL) HISTORY Type Description Date Medical History HTN Medical History hyperlipidemia Medical History chronic back pain and shoulder pain Medical History MRSA Surgical History x 3 Surgical History hysterectomy Surgical History right foot surgery Hospitalization History surgeries Hospitalization History MRSA on arm Hospitalization History infected cyst 2010
--- OUTSIDE RECORDS SUMMARY | 2017-12-09 18:31 | XMS REPORT ---
Author Author UGO PRETTY Organization [facility] Address [address] [place] [address] Care Team Providers Care Mining Support Worker Name Role Phone UGO PRETTY Unavailable PROBLEMS Type Condition ICD9-CM Code LQQ56-IQ Code Onset Dates Condition Status SNOMED Code Problem Dysthymia F34.1 Active 12586968 Problem Essential hypertension I10 Active 26117358 Problem Chronic pain G89.29 Active 52101755 Problem Methicillin resistant Staphylococcus aureus 041.12 Active 218556826 Problem Cataracts, bilateral H26.9 Active 15409336 Problem Ganglion cyst M67.40 Active 266453437 Problem Heel spur M77.30 Active 13166390 Problem Irritable bowel syndrome with diarrhea K58.0 Active 727422187 Problem Neuropathy G62.9 Active 079286949 Problem Acquired hallux valgus of left foot M20.12 Active 58494269 Problem Hyperlipidemia, unspecified E78.5 Active 59062693 Problem Hallux valgus (acquired), right foot M20.11 Active 380330093 Problem Hammer toe of right foot M20.41 Active [id number] ALLERGIES No Information ENCOUNTERS Encounter Location Date Diagnosis [place] [id number] [address] Aug, [place] [id number] [place] [address] 90943- 9325 July, [place] [id number] [place] [address] 56201- 1837 May, [place] [id number] [place] [address] 05541- 0266 May, Onychomycosis B35.1 ; Hammer toe of right foot M20.41 ; Acquired hallux valgus of left foot M20.12 and [place] or callus L84 [place] [address] [place] [id number] [place] [address] 80968- 2793 Apr, Seborrheic keratosis L82.1 and Irritable bowel syndrome with diarrhea K58.0 [place] [address] [place] [id number] [place] [address] 34127- 5319 30 Mar, 2017 [place] [address] [address]- [address]6 Mar, Dental examination Z01.[address] [address]- [address] 15 Mar, 2017 Medicare welcome exam Z00.00 ; Encounter for screening for lung cancer Z12.2 ; Colon cancer screening Z12.11 ; Encounter for immunization Z23 ; Weakness R53.1 and Irritable bowel syndrome with diarrhea K58.[address] [address]- [address] Feb, Onychomycosis B35.1 ; Hammer toe of right foot M20.41 ; Hallux valgus (acquired), right foot M20.11 and Acquired hallux valgus of left foot M20.12 [place] [id number] [place] [address] 37445- 3033 Jan, Essential hypertension I10 and Encounter for immunization Z23 [address] [address]- [address]48 Dec, Encounter for screening mammogram for breast cancer Z12.31 and Hyperlipidemia, unspecified E78.5 [place] [address] 18040- 2633 Nov, Hammer toe of right foot M20.41 ; Onychomycosis B35.1 and Neuropathy G62.9 [place] [id number] [place] [address] 37033- 0056 Sep, Essential hypertension I10 and 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 [place] [address] 27644- 6094 Aug, [place] [address] [place] [id number] [place] [address] 54043- 7975 Aug, [place] [address] 92154- 4786 Aug, Onychomycosis B35.1 ; Hammer toe of right foot M20.41 and Neuropathy G62.9 [place] [address] 58491- 3707 May, Callus of foot L84 ; Hammer toe of right foot M20.41 and Onychomycosis B35.1 [place] [address] 38034- 3856 Apr, Chronic pain G89.29 [place] [address] 76354- 6716 Feb, Onychomycosis B35.1 ; Hammer toe of right foot M20.41 ; Acquired hallux valgus of left foot M20.12 and Hallux valgus (acquired), right foot M20.11 [place] [address] 16287- 4154 Jan, Cellulitis of left lower extremity L03.116 [place] [address] 77211- 2062 Jan, Seborrheic keratosis L82.1 and Encounter for immunization Z23 [place] [address] 89515- 7486 18 Jan, 2016 Seborrheic keratoses L82.1 and Visit for suture removal Z48.02 [place] [address] 53990- 3649 08 Jan, 2016 Dermatofibroma D23.9 [place] [address] 07246- 3145 18 Dec, 2015 Lesion of lower extremity L98.9 [place] [address] [place] [id number] [place] [address] 47923- 7481 Dec, [place] [address] 12226- 5247 Dec, Chronic pain G89.29 [place] [id number] [place] [address] 83498- 7118 Dec, Well woman exam Z01.419 ; Essential hypertension I10 ; Breast cancer screening Z12.39 ; Cervical cancer screening Z12.4 ; Vision changes H53.9 ; Heberden's node M15.1 ; Cutaneous horn L85.8 and Seborrheic keratosis L82.1 [place] [id number] [place] [address] 76248- 4382 Dec, Well woman exam Z01.419 ; Heberden's node M15.1 ; Breast cancer screening Z12.39 ; Cervical cancer screening Z12.4 ; Essential hypertension I10 ; Vision changes H53.9 ; Cutaneous horn L85.8 and Seborrheic keratosis L82.1 [place] [address] [place] [id number] [place] [address] 86170- 0197 Nov, Well woman exam Z01.419 ; Breast cancer screening Z12.39 ; Cervical cancer screening Z12.4 ; Essential hypertension I10 ; Vision changes H53.9 ; Heberden's node M15.1 ; Cutaneous horn L85.8 and Seborrheic keratosis L82.1 [place] [address] [place] [id number] [place] [address] 13075- 6066 Nov, Hammer toe of right foot M20.41 and Callus of foot L84 [place] [id number] [place] [address] 68848- 1220 Aug, Onychomycosis B35.1 and Callus of foot L84 [place] [id number] [place] [address] 79382- 3853 July, Dysthymia F34.1 and Chronic pain G89.[id number] [place] [address] 04947- 0228 Jun, Dysthymia F34.1 ; Heel spur M77.30 and Ganglion cyst M67.40 [facility] [address] 37600- 2735 May, Onychomycosis B35.1 and Neuropathy G62.9 [facility] [address] 99569- 5311 May, [facility] [address] 47762- 1327 Apr, [facility] [address] 09560- 4116 Apr, [facility] [address] 78185- 7749 Apr, [facility] [address] 37763- 2778 Mar, [facility] [address] 25860- 8264 Mar, [facility] [address] 75821- 5719 Feb, [facility] [address] [place] [id number] [place] [address] 85823- 7536 Feb, [facility] [address] 77971- 0230 Feb, [facility] [address] [place] [id number] [place] [address] 73824- 3390 Feb, Onychomycosis B35.1 and [place] or callus L84 [facility] [address] [place] [id number] [place] [address] 37260- 1088 Feb, Cough R05 [facility] [address] [place] [id number] [place] [address] 48701 -8191 Jan, Sinusitis J32.9 [place] [id number] [place] [address] 38318- 4376 Jan, Hyperlipidemia 272.4 [place] [address] [place] [id number] [place] [address] 00840- 9411 09 Jan, 2015 Acute upper respiratory infection, unspecified J06.9 ; Encounter for immunization Z23 ; Other viral agents as the cause of diseases classified elsewhere B97.89 and Acute frontal sinusitis, recurrence not specified J01.10 [place] [address] [place] [id number] [place] [address] 42657- 7973 Nov, Wart 078.10 ; Breast cancer screening V76.10 and Hyperlipidemia 272.4 [place] [address] [place] [id number] [place] [address] 83344- 5425 Nov, Onychomycosis 110.1 ; [place] or callus 700 and Skin fissures 709.8 [place] [address] [place] [id number] [place] [address] 80048- 6066 Aug, Hammertoe 735.4 ; Hyperkeratosis 701.1 ; Onychomycosis 110.1 ; Fissure in skin of foot 709.8 and Foot pain 729.5 [place] [address] [place] [id number] [place] [address] 55315- 5921 Aug, [place] [address] [place] [id number] [place] [address] 74830- 5964 Aug, [place] [address] [place] [id number] [place] [address] 40295- 1467 Aug, [place] [address] [place] [id number] [place] [address] 55711- 3795 July, [place] [address] [place] [id number] [place] [address] 57380- 7583 July, [place] [address] [place] [id number] [place] [address] 19538- 0281 Jun, [place] [address] [place] [address]- 0320 13 Jun, 2014 [facility] [place] [facility] [address] [id number] [place] [address]- 5227 May, [facility] [place] [facility] [address] [id number] [place] [address]- 3146 May, [facility] [place] [facility] [address] [id number] [place] [address] 2546 May, [facility] [place] [facility] [address] [id number] [place] [address]- 7707 May, [facility] [place] [facility] [address] [id number] [place] [address]- 8415 Apr, [facility] [place] [facility] [address] [id number] [place] [address]- 2546 Apr, [facility] [place] [facility] [address] [id number] [place] [address]- 6738 Feb, [facility] [place] [facility] [address] [id number] [place] [address]- 5158 Feb, [facility] [place] [facility] [address] [id number] [place] [address]- 6240 Feb, [facility] [place] [facility] [address] [id number] [place] [address]- 9386 Feb, [facility] [place] [facility] [address] [id number] [place] [address]- 9636 Feb, [facility] [place] [facility] [address] [id number] [place] [address]- 2543 Feb, [facility] [place] [facility] [address] [id number] [place] [address]- 5608 Jan, [facility] [place] [facility] [address] [id number] [place] [address]- 2540 Jan, [facility] [place] [facility] [address] [id number] [place] [address]- 1702 Jan, [facility] [place] [facility] [address] [id number] [place] [address]- 8606 Jan, [facility] [place] [facility] [address] [id number] [place] [address]- 2818 Jan, [facility] [place] [facility] [address] [id number] [place] [address]- 4267 Dec, [facility] [place] [facility] [address] [id number] [place] [address]- 0021 Dec, [facility] [place] [facility] [address] [id number] [place] [address]- 0140 29 Nov, 2013 [facility] [place] [facility] [address] [id number] [place] [address]- 9514 29 Nov, 2013 [facility] [place] [facility] [address] [id number] [place] [address]- 6114 Nov, [facility] [place] [facility] [address] [id number] [place] [address]- 7256 Nov, [facility] [place] [facility] [address] [id number] [place] [address]- 9634 Nov, [facility] [place] [facility] [address] [id number] [place] [address]- 4388 Nov, [facility] [place] [facility] [address] [id number] [place] [address]- 1479 Nov, [facility] [place] [facility] [address] [id number] [place] [address]- 8639 Nov, 2013 [facility] [place] [facility] [address] [id number] [place] [address]- 3552 Nov, [facility] [place] [facility] [address] [id number] [place] [address]- 3978 Nov, [facility] [place] [facility] [address] [id number] [place] [address]- 4872 Oct, [facility] [place] [facility] [address] [id number] [place] [address]- 9565 Oct, [facility] [place] [facility] [address] [id number] [place] [address]- 0855 Oct, [facility] [place] [facility] [address] [id number] [place] [address]- 5856 Oct, [facility] [place] [facility] [address] [id number] [place] [address]- 6280 Sep, [facility] [place] [facility] [address] [id number] [place] [address]- 2741 Sep, [facility] [place] [facility] [address] [id number] [place] [address]- 7347 Sep, [facility] [place] [facility] [address] [id number] [place] [address]- 2438 Sep, [facility] [place] [facility] [address] [id number] [place] [address]- 9690 Aug, [facility] [place] [facility] [address] [id number] [place] [address]- 0255 Aug, [facility] [place] [facility] [address] [id number] [place] [address]- 6443 Aug, [facility] [place] [facility] [address] [id number] [place] [address]- 9993 Aug, [facility] [place] [facility] [address] [id number] [place] [address]- 1922 Aug, [facility] [place] [facility] [address] [id number] [place] [address]- 8237 Aug, [facility] [place] [facility] [address] [id number] [place] [address]- 1111 Aug, [facility] [place] [facility] [address] [id number] [place] [address]- 7747 Aug, [facility] [place] [facility] [address] [id number] [place] [address]- 6527 Aug, [facility] [place] [facility] [address] [id number] [place] [address]- 4990 Aug, [facility] [address] [id number] [place] [address]- 8442 Aug, [facility] [place] [facility] [address] [id number] [place] [address]- 4563 Aug, [facility] [address] [id number] [place] [address]- 8996 July, [facility] [place] [facility] [address] [id number] [place] [address]- 6229 July, [facility] [address] [id number] [place] [address]- 0006 July, [facility] [address] [id number] [place] [address]- 7593 July, [facility] [address] [id number] [place] [address]- 3198 July, [facility] [address] [id number] [place] [address]- 4693 July, [facility] [place] [facility] [address] [id number] [place] [address]- 9116 Jun, [facility] [address] [id number] [place] [address]- 8787 Jun, [facility] [place] [facility] [address] [id number] [place] [address]- 3343 Jun, [facility] [place] [facility] [address] [id number] [place] [address]- 2778 Jun, [facility] [place] [facility] [address] [id number] [place] 7203 May, [facility] [place] [facility] [address] [id number] [place] [address]- 6162 May, [facility] [place] [facility] [address] [id number] [place] [address]- 9984 May, [facility] [place] [facility] [address] [id number] [place] [address]- 2699 14 May, 2013 [facility] [place] [facility] [address] [id number] [place] [address]- 5687 Feb, [facility] [place] [facility] [address] [id number] [place] [address]- 4682 Feb, [facility] [place] [facility] [address] [id number] [place] [address]- 1420 Feb, [facility] [place] [facility] [address] [id number] [place] 6011 Feb, [facility] [place] [facility] [address] [id number] [place] [address]- 3289 Jan, [facility] [place] [facility] [address] [id number] [place] [address]- 0750 Jan, [facility] [place] [facility] [address] [id number] [place] [address]- 2540 Dec, [facility] [place] [facility] [address] [id number] [place] [address]- 6510 06 Nov, 2012 [facility] [place] [facility] [address] [id number] [place] [address]- 5778 04 Nov, 2012 [facility] [place] [facility] [address] [id number] [place] [address]- 2147 Nov, [facility] [place] [facility] [address] [id number] [place] [address]- 9786 Oct, [facility] [place] [facility] [address] [id number] [place] [address]- 6708 Oct, [facility] [place] [facility] [address] [id number] [place] [address]- 7867 Oct, [facility] [place] [facility] [address] [id number] [place] [address]- 9781 Oct, [facility] [place] [facility] [address] [id number] [place] [address]- 5982 Oct, [facility] [address] [id number] [place] [address]- 7348 Oct, [facility] [address] [id number] [place] [address]- 3417 Aug, [facility] [address] [id number] [place] [address]- 6275 July, [facility] [address] [id number] [place] [address]- 7835 July, [facility] [address] [id number] [place] [address]- 4048 May, [facility] [address] [id number] [place] [address]- 6771 May, [facility] [address] [id number] [place] [address]- 7418 May, [facility] [address] [id number] [place] [address]- 0523 Apr, [facility] [address] [id number] [place] [address]- 1017 Apr, [facility] [address] [id number] [place] [address]- 9022 Mar, [facility] [address] [id number] [place] [address]- 9434 Mar, [facility] [address] [id number] [place] [address]- 9295 Jan, [facility] [address] [id number] [place] [address]- 5977 Jan, [facility] [place] [facility] [address] [id number] [place] [address]- 2546 Nov, [facility] [address] [id number], [place] [address]- 7576 Nov, [facility] [address] [id number] [place] [address]- 2639 Sep, [facility] [address] [id number] [place] [address]- 7415 Aug, [facility] [place] [facility] [address] [id number] [place] [address]- 5032 July, [facility] [place] [facility] [address] [id number] [place] [address]- 5814 July, [facility] [address] [id number] [place] [address]- 8037 July, [facility] [place] [facility] [address] [id number] [place] [address]- 2478 Apr, [facility] [address] [id number] [place] [address]- 3830 Apr, [facility] [address] [id number] [place] [address]- 7215 Mar, [facility] [address] [id number] [place] [address]- 2341 Mar, [facility] [address] [id number] [place] [address]- 0494 Mar, [facility] [place] [facility] [address] [id number] [place] [address]- 4571 Mar, [facility] [place] [facility] [address] [id number] [place] [address]- 1395 Mar, [facility] [place] [facility] [address] [id number] [place] [address]- 7529 Feb, [facility] [place] [facility] [address] [id number] [place] [address]- 5356 Feb, [facility] [place] [facility] [address] [id number] [place] [address]- 4296 Feb, [facility] [place] [facility] [address] [id number], [place] [address]- 0780 Jan, [facility] [address] [id number], [place] [address] Jan, [facility] [address] [id number], [place] [address] Dec, [facility] [address] [facility] [id number], [place] [address] Jan, [facility] [address] [id number], [place] [address] Aug, [facility] [address] [id number], [place] [address] July, [facility] [address] [facility] [id number][place] [address] Feb, [facility] [address] [facility] [id number], [place] [address] Jan, [facility] [address] [facility] [id number], [place] [address] Jan, [facility] [address] [facility] [id number], [place] [address] Dec, [facility] [address] [facility] [id number], [place] [address] July, IMMUNIZATIONS No Known Immunizations SOCIAL HISTORY Never Assessed REASON FOR VISIT Refill request PLAN OF CARE VITAL SIGNS MEDICATIONS Unknown [...]
--- OUTSIDE RECORDS SUMMARY | 2017-12-09 18:31 | XMS REPORT ---
Author Author [facility] eClinicalWorks Address Unknown Phone Unavailable Care Team Providers Care Garbage Worker Name Role Phone [facility] CP Unavailable Allergies, Adverse Reactions, Alerts Substance Reaction Event Type N.K.D.A. Info Not Available Non Drug Allergy Problems Problem Type Condition Code Onset Dates Condition Status Problem Plantar fascial fibromatosis 728.71 Active Problem Other hammer toe (acquired) 735.4 Active Problem Hallux valgus (acquired) 735.0 Active Problem Heel spur M77.30 Active Problem Ganglion cyst M67.40 Active Problem Dysthymia F34.1 Active Problem Unspecified hereditary and idiopathic peripheral neuropathy 356.9 Active Problem Dermatophytosis of nail 110.1 Active Problem Hyperlipidemia 272.4 Active Problem Depressive disorder, not elsewhere classified 311 Active Assessment Ganglion cyst M67.40 Active Assessment Heel spur M77.30 Active Assessment Dysthymia F34.1 Active Problem Methicillin resistant Staphylococcus aureus 041.12 Active Medications Medication Code System Code Instructions Start Date End Date Status Dosage Metoprolol Tartrate [facility] 47733141202 100 MG TAKE ONE TABLET BY MOUTH TWICE DAILY Flonase [facility] [address]-10 50 MCG/ACT Nasally Once a day Jan 25, 2015 1 spray in each nostril Citalopram Hydrobromide [facility] 81220864237 20 MG Orally Once a day 1 tablet Loratadine [facility] 30604717965 10 MG TAKE ONE TABLET BY MOUTH DAILY Prozac [facility] [address]-46 20 mg Orally Once a day June 21, 2015 1 capsule in the morning Pravastatin Sodium [facility] [address]-51 80 MG Once a day TAKE ONE TABLET BY MOUTH AT BEDTIME Losartan Potassium [facility] 93568912523 50 MG TAKE ONE TABLET BY MOUTH TWICE DAILY Estradiol [facility] 26636779027 0.5 MG Orally Once a day 1 tablet tramadol ND 0 50 mg Feb 24, 2014 1 tablet by Oral route every 4- 6 hours PRN Amlodipine Besylate [facility] 03217279900 10 MG TAKE ONE TABLET BY MOUTH DAILY Procedures Procedure Coding System Code Date Office Visit, Est Pt., Level 3 CPT-4 44903 June 21, 2015 Vital Signs Date/Time: June 21, 2015 Temperature 97.8 F Weight 240 lbs Height 70 in BMI 34.43 Index Blood Pressure Diastolic 86 mmHg Blood Pressure Systolic 136 mmHg Cardiac Monitoring Heart Rate 54 bpm Results No Known Results Summary Purpose eClinicalWorks Submission
--- OUTSIDE RECORDS SUMMARY | 2017-12-09 18:31 | XMS REPORT ---
Author Author UGO PRETTY [facility] eClinicalWorks Address Unknown Phone Unavailable Care Team Providers Care Cable Inspector Name Role Phone UGO PRETTY CP Unavailable [...] (acquired) 735.4 Active Medications No Known Medications Results No Known Results Summary Purpose eClinicalWorks Submission
--- OUTSIDE RECORDS SUMMARY | 2017-12-09 18:31 | XMS REPORT ---
Author Author UGO PRETTY [facility] eClinicalWorks Address Unknown Phone Unavailable Care Team Providers Care Importer Or Exporter Name Role Phone UGO PRETTY CP Unavailable Allergies No Known Allergies Problems Problem Type Condition Code Onset Dates Condition Status Problem Methicillin resistant Staphylococcus aureus 041.12 Active Problem Essential hypertension I10 Active Problem Chronic pain G89.29 Active Problem Hyperlipidemia, unspecified E78.5 Active Problem Ganglion cyst M67.40 Active Problem Hyperlipidemia 272.4 Active Problem Dysthymia F34.1 Active Problem Heel spur M77.30 Active Medications No Known Medications Results No Known Results Summary Purpose eClinicalWorks Submission
--- OUTSIDE RECORDS SUMMARY | 2017-12-09 18:31 | XMS REPORT ---
Author Author UGO PRETTY [facility] eClinicalWorks Address Unknown Phone Unavailable Care Team Providers Care Stock Receiver Name Role Phone UGO PRETTY CP Unavailable Allergies No Known Allergies Problems Problem Type Condition Code Onset Dates Condition Status Assessment Essential hypertension I10 Active Problem Cataracts, bilateral H26.9 Active Assessment Well woman exam Z01.419 Active Problem Essential hypertension I10 Active Problem Chronic pain G89.29 Active Problem Hyperlipidemia, unspecified E78.5 Active Problem Ganglion cyst M67.40 Active Problem Methicillin resistant Staphylococcus aureus 041.12 Active Problem Dysthymia F34.1 Active Problem Heel spur M77.30 Active Assessment Heberden's node M15.1 Active Assessment Vision changes H53.9 Active Assessment Seborrheic keratosis L82.1 Active Assessment Cervical cancer screening Z12.4 Active Assessment Cutaneous horn L85.8 Active Assessment Breast cancer screening Z12.39 Active Medications No Known Medications Procedures Procedure Coding System Code Date VENIPUNCT, ROUTINE* CPT-4 07896 Dec 20, 2015 LAB NOT BILLED BY [facility] CPT-4 NOBLL Dec 20, 2015 Results Name Result Date Reference Range Unit Abnormality Flag CMP ----Calcium, Serum 9.5 80831463 8.7-10.3 mg/dL ----Carbon Dioxide, Total 25 90728035 18-29 mmol/L ----ALT (SGPT) 21 [id number] 0-32 IU/L ----Creatinine, Serum 0.71 78425105 0.57-1.00 mg/dL ----AST (SGOT) 22 [id number] 0-40 IU/L ----eGFR If NonAfricn Am 90 [id number] >59 mL/min/1.73 ----Alkaline Phosphatase, S 77 67989117 39-117 IU/L ----eGFR If Africn Am 103 [id number] >59 mL/min/1.73 ----Bilirubin, Total 0.4 62058931 0.0-1.2 mg/dL ----BUN/Creatinine Ratio 18 [id number] 11-26 ----A/G Ratio 2.0 10055712 1.1-2.5 ----Sodium, Serum 139 62258094 134-144 mmol/L ----Globulin, Total 2.2 20085634 1.5-4.5 g/dL ----Potassium, Serum 4.2 60178319 3.5-5.2 mmol/L ----Glucose, Serum 97 95471738 65-99 mg/dL ----Chloride, Serum 95 64856303 97-108 mmol/L L ----Albumin, Serum 4.4 96489561 3.6-4.8 g/dL ----BUN 13 [id number] 8-27 mg/dL ----Protein, Total, Serum 6.6 59174840 6.0-8.5 g/dL ROUTINE VENIPUNCTURE LIPID PANEL ----VLDL Cholesterol Boom 36 08997540 5-40 mg/dL ----LDL Cholesterol Calc 99 07482072 0-99 mg/dL ----Triglycerides 178 07345586 0-149 mg/dL H ----HDL Cholesterol 56 62284312 >39 mg/dL ----Cholesterol, Total 191 46931314 100-199 mg/dL Summary Purpose eClinicalWorks Submission
--- OUTSIDE RECORDS SUMMARY | 2017-12-09 18:31 | XMS REPORT ---
Author Author UGO PRETTY [facility] eClinicalWorks Address Unknown Phone Unavailable Care Team Providers Care Elder Counselor Name Role Phone UGO PRETTY CP Unavailable Allergies, Adverse Reactions, Alerts Substance Reaction Event Type N.K.D.A. 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 Assessment Vision changes H53.9 Active Assessment Seborrheic keratosis L82.1 Active Assessment Essential hypertension I10 Active Assessment Cutaneous horn L85.8 Active Assessment Cervical cancer screening Z12.4 Active Medications Medication Code System Code Instructions Start Date End Date Status Dosage Losartan Potassium [facility] [address]-57 50 mg Orally 2 times a day 1 tablet tramadol ND 0 50 mg Feb 24, 2014 1 tablet by Oral route every 4- 6 hours PRN Pravastatin Sodium [facility] 62894470320 80 MG Once a day TAKE ONE TABLET BY MOUTH AT BEDTIME Estradiol [facility] 67650909681 0.5 MG Orally Once a day 1 tablet Metoprolol Tartrate [facility] 02588938147 100 MG TAKE ONE TABLET BY MOUTH TWICE DAILY Amlodipine Besylate [facility] [address]-97 10 mg Orally Once a day 1 tablet Loratadine [facility] 43300928505 10 MG TAKE ONE TABLET BY MOUTH DAILY Prozac [facility] [address]-41 40 MG Orally Once a day June 21, 2015 1 capsule in the morning Procedures Procedure Coding System Code Date Office Visit, Est Pt., Level 4 CPT-4 67922 Dec 14, 2015 SPECIMEN HANDLING CPT-4 64205 Dec 14, 2015 Vital Signs Date/Time: Dec 14, 2015 Cardiac Monitoring Heart Rate 62 bpm Weight 235.2 lbs Height 70 in BMI 33.74 Index Blood Pressure Diastolic 78 mmHg Blood Pressure Systolic 152 mmHg Results Name Result Date Reference Range Unit Abnormality Flag Mammogram, Bilateral Screening PDF Report ----PDF Report1 [facility] [id number] PAP TEST W/ HPV REGARDLESS ----HPV, high-risk Negative [id number] Negative ----. . [id number] Summary Purpose eClinicalWorks Submission
--- OUTSIDE RECORDS SUMMARY | 2017-12-09 18:31 | XMS REPORT ---
Author SHAYNA Melo [facility] eClinicalWorks Address Unknown Phone Unavailable Care Team Providers Care Reservoir Engineer Name Role Phone SHAYNA DASILVA CP Unavailable Allergies, Adverse Reactions, Alerts Substance Reaction Event Type N.K.D.A. Info Not Available Non Drug Allergy Problems Problem Type Condition Code Onset Dates Condition Status Problem Cataracts, bilateral H26.9 Active Assessment Lesion of lower extremity L98.9 Active Problem Essential hypertension I10 Active Problem Chronic pain G89.29 Active Problem Hyperlipidemia, unspecified E78.5 Active Problem Ganglion cyst M67.40 Active Problem Methicillin resistant Staphylococcus aureus 041.12 Active Problem Dysthymia F34.1 Active Problem Heel spur M77.30 Active Medications Medication Code System Code Instructions Start Date End Date Status Dosage Metoprolol Tartrate [facility] 97577765197 100 MG TAKE ONE TABLET BY MOUTH TWICE DAILY Losartan Potassium [facility] [address]-69 50 mg Orally 2 times a day 1 tablet Estradiol [facility] 03462776178 0.5 MG Orally Once a day 1 tablet Amlodipine Besylate [facility] [address]-50 10 mg Orally Once a day 1 tablet Pravastatin Sodium [facility] 29106237543 80 MG Once a day TAKE ONE TABLET BY MOUTH AT BEDTIME tramadol ND 0 50 mg subcutaneously every 4-6 hours as needed Feb 24, 2014 1 tablet Loratadine [facility] 30720350247 10 MG TAKE ONE TABLET BY MOUTH DAILY Prozac [facility] [address]-44 40 MG Orally Once a day June 21, 2015 1 capsule in the morning Procedures Procedure Coding System Code Date [facility] VISIT ESTABLISHED PATIENT CPT-4 G0467 Jan 04, 2016 Office Visit, Est Pt., Level 2 CPT-4 54708 Jan 04, 2016 CRYOTHERAPY OF SKIN CPT-4 54459 Jan 04, 2016 Vital Signs Date/Time: Jan 04, 2016 Cardiac Monitoring Heart Rate 54 bpm Weight 236.6 lbs Height 70 in BMI 33.94 Index Blood Pressure Diastolic 80 mmHg Blood Pressure Systolic 140 mmHg Results No Known Results Summary Purpose eClinicalWorks Submission
--- OUTSIDE RECORDS SUMMARY | 2017-12-09 18:32 | XMS REPORT ---
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 Organization eClinicalWorks Address Unknown Phone Unavailable Care Team Providers Care Linoleum Printer Name Role Phone AUBREY FARMER CP Unavailable Allergies No Known Allergies Problems Problem Type Condition ICD-9 Code Onset Dates Condition Status Problem Hallux valgus (acquired) 735.0 Active Problem Dermatophytosis of nail 110.1 Active Problem Other hammer toe (acquired) 735.4 Active Problem Routine gynecological examination V72.31 Active Problem Dizziness and giddiness 780.4 Active Problem Unspecified breast screening V76.10 Active Problem Rash and other nonspecific skin eruption 782.1 Active Problem Sebaceous cyst 706.2 Active Problem Depressive disorder, not elsewhere classified 311 Active Problem Unspecified hereditary and idiopathic peripheral neuropathy 356.9 Active Assessment Skin fissures 709.8 Active Assessment Closplint or callus 700 Active Problem Methicillin resistant Staphylococcus aureus 041.12 Active Problem Cellulitis and abscess of face 682.0 Active Assessment Onychomycosis 110.1 Active Problem Plantar fascial fibromatosis 728.71 Active Problem Headache 784.0 Active Problem Other specified disorder of skin 709.8 Active Medications No Known Medications Procedures Procedure Coding System Code Date Office Visit, Est Pt., Level 3 CPT-4 30162 Nov 27, 2014 DEBRIDE NAIL, 1-5 CPT-4 38268 Nov 27, 2014 Vital Signs Date/Time: Nov 27, 2014 Blood Pressure Diastolic 86 mmHg Blood Pressure Systolic 120 mmHg Height 70 in Results Name Result Date Reference Range Unit Abnormality Flag DEBRIDE NAIL 1-5 Summary Purpose eClinicalWorks Submission
--- OUTSIDE RECORDS SUMMARY | 2017-12-09 18:32 | XMS REPORT ---
Author Author UGO PRETTY [facility] eClinicalWorks Address Unknown Phone Unavailable Care Team Providers Care Attendant Campground Name Role Phone UGO PRETTY CP Unavailable Allergies No Known Allergies Problems Problem Type Condition Code Onset Dates Condition Status Problem Methicillin resistant Staphylococcus aureus 041.12 Active Assessment Chronic pain G89.29 Active Problem Essential hypertension I10 Active Problem Chronic pain G89.29 Active Problem Hyperlipidemia, unspecified E78.5 Active Problem Ganglion cyst M67.40 Active Problem Hyperlipidemia 272.4 Active Problem Dysthymia F34.1 Active Problem Heel spur M77.30 Active Medications Medication Code System Code Instructions Start Date End Date Status Dosage tramadol NDC 0 50 mg subcutaneously every 4-6 hours as needed Feb 24, 2014 1 tablet Results No Known Results Summary Purpose eClinicalWorks Submission
--- OUTSIDE RECORDS SUMMARY | 2017-12-09 18:32 | XMS REPORT ---
Author Author UGO PRETTY [facility] eClinicalWorks Address Unknown Phone Unavailable Care Team Providers Care Fiction And Nonfiction Prose Writer Name Role Phone UGO PRETTY Unavailable Allergies [...] Start Date End Date Status Dosage Tiotropium [place]-Olodaterol [facility] [address]-06 2.5-2.5 MCG/ACT Inhalation Once a day Mar 08, 2015 2 puffs Results No Known Results Summary Purpose eClinicalWorks Submission
--- OUTSIDE RECORDS SUMMARY | 2017-12-09 18:32 | XMS REPORT ---
Author Author UGO PRETTY [facility] eClinicalWorks Address Unknown Phone Unavailable Care Team Providers Care Historical Site Guide Name Role Phone UGO PRETTY CP Unavailable Allergies No Known Allergies Problems Problem Type Condition Code Onset Dates Condition Status Problem Methicillin resistant Staphylococcus aureus 041.12 Active Assessment Hyperlipidemia 272.4 Active Problem Depressive disorder, not elsewhere classified 311 Active Problem Unspecified hereditary and idiopathic peripheral neuropathy 356.9 Active Problem Hyperlipidemia 272.4 Active Problem Hallux valgus (acquired) 735.0 Active Problem Plantar fascial fibromatosis 728.71 Active Problem Dermatophytosis of nail 110.1 Active Problem Other hammer toe (acquired) 735.4 Active Medications No Known Medications Procedures Procedure Coding System Code Date COMPREHEN METABOLIC PANEL CPT-4 08511 Jan 27, 2015 VENIPUNCT, ROUTINE* CPT-4 48818 Jan 27, 2015 LIPID PANEL CPT-4 89064 Jan 27, 2015 Results Name Result Date Reference Range Unit Abnormality Flag ROUTINE VENIPUNCTURE Summary Purpose eClinicalWorks Submission
--- OUTSIDE RECORDS SUMMARY | 2017-12-09 18:32 | XMS REPORT ---
Author Author UGO PRETTY [facility] eClinicalWorks Address Unknown Phone Unavailable Care Team Providers Care Admissions Advisor Name Role Phone UGO PRETTY CP Unavailable [...] Status Dosage tramadol NDC 0 50 mg Feb 24, 2014 1 tablet by Oral route every 4- 6 hours PRN Results No Known Results Summary Purpose eClinicalWorks Submission
--- OUTSIDE RECORDS SUMMARY | 2017-12-09 18:32 | XMS REPORT ---
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 Organization [facility] Address [address] [place] [address] Care Team Providers Care Wet Roaster Name Role Phone NOREEN FARMERIN Unavailable PROBLEMS Type Condition ICD9-CM Code AXZ96-DU Code Onset Dates Condition Status SNOMED Code Problem Dysthymia F34.1 Active 61469769 Problem Essential hypertension I10 Active 11320383 Problem Chronic pain G89.29 Active 43304685 Problem Methicillin resistant Staphylococcus aureus 041.12 Active 367935714 Problem Cataracts, bilateral H26.9 Active 16954494 Problem Ganglion cyst M67.40 Active 271045076 Problem Heel spur M77.30 Active 07266453 Problem Irritable bowel syndrome with diarrhea K58.0 Active 766723953 Problem Neuropathy G62.9 Active 658880324 Problem Acquired hallux valgus of left foot M20.12 Active 40752476 Problem Hyperlipidemia, unspecified E78.5 Active 96344914 Problem Hallux valgus (acquired), right foot M20.11 Active 242741639 Problem Hammer toe of right foot M20.41 Active [id number] ALLERGIES No Information ENCOUNTERS Encounter Location Date Diagnosis [facility] [address], [place] [address] Aug, [facility] [id number] [place] [address]54- 6007 July, [facility] [id number] [place] [address]176 -7357 Jun, [facility] [id number] [place] [address] 04901- 4754 May, Dermatofibroma of left calf D23.72 [facility] [id number] [place] [address] 41173 -5929 May, Bilateral hearing loss due to cerumen impaction H61.23 [place] [id number] [place] [address] 04932- 4855 May, Onychomycosis B35.1 ; Hammer toe of right foot M20.41 ; Acquired hallux valgus of left foot M20.12 and [place] or callus L[address] [address]- [address] Apr, Seborrheic keratosis L82.1 and Irritable bowel syndrome with diarrhea K58.[address] [address]- [address]64 Mar, [address] [address]- 1832 Mar, Dental examination Z01.[address] [address]- 9131 Mar, Medicare welcome exam Z00.00 ; Encounter for screening for lung cancer Z12.2 ; Colon cancer screening Z12.11 ; Encounter for immunization Z23 ; Weakness R53.1 and Irritable bowel syndrome with diarrhea K58.0 [place] [address] [address]- [address]254 Feb, Onychomycosis B35.1 ; Hammer toe of right foot M20.41 ; Hallux valgus (acquired), right foot M20.11 and Acquired hallux valgus of left foot M20.12 [facility] [place] [id number] [place] [address] 05987- 5685 Jan, Essential hypertension I10 and Encounter for immunization Z23 [address] [address]- 7331 02 Dec, 2016 Encounter for screening mammogram for breast cancer Z12.31 and Hyperlipidemia, unspecified E78.[address] [address]66- 8380 Nov, Hammer toe of right foot M20.41 ; Onychomycosis B35.1 and Neuropathy G62.9 [facility] [place] [id number] [place] [address] 59096- 1909 Sep, Essential hypertension I10 and 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 [facility] [place] [id number] [place] [address] 91580- 6000 Aug, [place] [address] 47162- 0020 Aug, [facility] [id number] [place] [address] 74873- 5158 Aug, Onychomycosis B35.1 ; Hammer toe of right foot M20.41 and Neuropathy G62.9 [facility] [place] [id number] [place] [address] 32513- 1735 May, Callus of foot L84 ; Hammer toe of right foot M20.41 and Onychomycosis B35.1 [facility] [id number] [place] [address] 01816- 8326 Apr, Chronic pain G89.29 [place] [address] 64255- 5391 Feb, Onychomycosis B35.1 ; Hammer toe of right foot M20.41 ; Acquired hallux valgus of left foot M20.12 and Hallux valgus (acquired), right foot M20.11 [facility] [id number] [place] [address] 15184- 0119 Jan, Cellulitis of left lower extremity L03.116 [place] [address] 11932- 9518 Jan, Seborrheic keratosis L82.1 and Encounter for immunization Z23 [facility] [id number] [place] [address] 05369- 4136 18 Jan, 2016 Seborrheic keratoses L82.1 and Visit for suture removal Z48.02 [place] [address], [place] [address]- 2809 08 Jan, 2016 Dermatofibroma D23.9 [facility] [place] [id number] [place] [address] 36807- 8495 Dec, Lesion of lower extremity L98.9 [facility] [place] [id number] [place] [address] 41817- 3172 Dec, [facility] [place] [id number] [place] [address] 32111- 6385 Dec, Chronic pain G89.29 [place] [id number] [place] [address] 19828- 9543 Dec, Well woman exam Z01.419 ; Essential hypertension I10 ; Breast cancer screening Z12.39 ; Cervical cancer screening Z12.4 ; Vision changes H53.9 ; Heberden's node M15.1 ; Cutaneous horn L85.8 and Seborrheic keratosis L82.1 [place] [id number] [place] [address] 05252- 6106 Dec, Well woman exam Z01.419 ; Heberden's node M15.1 ; Breast cancer screening Z12.39 ; Cervical cancer screening Z12.4 ; Essential hypertension I10 ; Vision changes H53.9 ; Cutaneous horn L85.8 and Seborrheic keratosis L82.1 [place] [id number] [place] [address] 97979- 5564 Nov, Well woman exam Z01.419 ; Breast cancer screening Z12.39 ; Cervical cancer screening Z12.4 ; Essential hypertension I10 ; Vision changes H53.9 ; Heberden's node M15.1 ; Cutaneous horn L85.8 and Seborrheic keratosis L82.1 [place] [address], [place] [address]- 4843 Nov, Hammer toe of right foot M20.41 and Callus of foot L84 [place] [id number] [place] [address] 66331- 7181 Aug, Onychomycosis B35.1 and Callus of foot L84 [facility] [address] 54299- 1786 July, Dysthymia F34.1 and Chronic pain G89.29 [facility] [id number] [place] [address] 81289 2546 Jun, Dysthymia F34.1 ; Heel spur M77.30 and Ganglion cyst M67.40 [facility] [id number] [place] [address] 83242- 2376 May, Onychomycosis B35.1 and Neuropathy G62.9 [facility] [id number] [place] [address] 06176 2546 May, [facility] [id number] [place] [address] 26248- 0186 Apr, [facility] [id number] [place] [address] 50737 2548 Apr, [facility] [id number] [place] [address] 82414- 3226 Apr, [facility] [id number] [place] [address] 74533- 6031 Mar, [facility] [id number] [place] [address] 18358 2546 Mar, [facility] [id number] [place] [address] 72766 2546 Feb, [facility] [id number] [place] [address] 96599- 1506 Feb, [facility] [id number] [place] [address] 93549 2546 Feb, [facility] [id number] [place] [address] 01137- 6419 Feb, Onychomycosis B35.1 and [place] or callus L84 [facility] [id number] [place] [address] 82432- 1887 Feb, Cough R05 [facility] [id number] [place] [address] 58604 -4372 Jan, Sinusitis J32.9 [facility] [id number] [place] [address] 89706- 1529 Jan, Hyperlipidemia 272.4 [place] [id number] [place] [address] 81530- 7954 Jan, Acute upper respiratory infection, unspecified J06.9 ; Encounter for immunization Z23 ; Other viral agents as the cause of diseases classified elsewhere B97.89 and Acute frontal sinusitis, recurrence not specified J01.10 [place] [id number] [place] [address] 99399- 9406 Nov, Wart 078.10 ; Breast cancer screening V76.10 and Hyperlipidemia 272.4 [facility] [id number] [place] [address] 59152- 0014 Nov, Onychomycosis 110.1 ; [place] or callus 700 and Skin fissures 709.8 [place] [id number] [place] [address] 32763- 0943 Aug, Hammertoe 735.4 ; Hyperkeratosis 701.1 ; Onychomycosis 110.1 ; Fissure in skin of foot 709.8 and Foot pain 729.5 [place] [id number] [place] [address] 57551- 2482 Aug, [place] [id number] [place] [address] 87542- 1026 Aug, [place] [id number] [place] [address] 45952- 3588 Aug, [place] [id number] [place] [address] 56602- 6907 July, [facility] [place] [facility] [address] [id number] [place] [address]- 2713 July, [facility] [place] [facility] [address] [id number] [place] [address]- 2026 Jun, [facility] [place] [facility] [address] [facility] [id number] [place] [address]- 9675 Jun, [facility] [place] [facility] [address] [id number] [place] [address]- 2444 May, [facility] [place] [facility] [address] [id number] [place] [address]- 6998 May, [facility] [place] [facility] [address] [id number] [place] [address]- 4258 May, [facility] [place] [facility] [address] [facility] [id number] [place] [address]- 1938 May, [facility] [place] [facility] [address] [id number] [place] [address]- 4879 Apr, [facility] [place] [facility] [address] [id number] [place] [address]- 7195 Apr, [facility] [place] [facility] [address] [id number] [place] [address]- 3470 Feb, [facility] [place] [facility] [address] [id number] [place] [address]- 2117 Feb, [facility] [place] [facility] [address] [id number] [place] [address]- 5672 Feb, [facility] [place] [facility] [address] [id number] [place] [address]- 4785 Feb, [facility] [place] [facility] [address] [facility] [id number] [place] [address]- 3107 Feb, [facility] [place] [facility] [address] [facility] [id number] [place] [address]- 5386 Feb, [facility] [place] [facility] [address] [id number] [place] [address]- 8260 Jan, [facility] [place] [facility] [address] [id number] [place] [address]- 7883 Jan, [facility] [place] [facility] [address] [id number] [place] [address]- 4457 Jan, [facility] [place] [facility] [address] [id number] [place] [address]- 0570 Jan, [facility] [place] [facility] [address] [id number] [place] [address]- 2416 Jan, [facility] [place] [facility] [address] [id number] [place] [address]- 8228 Dec, [facility] [place] [facility] [address] [id number] [place] [address]- 7871 Dec, [facility] [place] [facility] [address] [id number] [place] [address]- 0278 29 Nov, 2013 [facility] [place] [facility] [address] [id number] [place] [address]- 2627 29 Nov, 2013 [facility] [place] [facility] [address] [id number] [place] [address]- 3179 Nov, [facility] [place] [facility] [address] [id number] [place] [address]- 2842 19 Nov, 2013 [facility] [place] [facility] [address] [id number] [place] [address]- 2540 11 Nov, 2013 [facility] [place] [facility] [address] [id number] [place] [address]- 2544 11 Nov, 2013 [facility] [place] [facility] [address] [id number] [place] [address]- 5184 04 Nov, 2013 [facility] [place] [facility] [address] [id number] [place] [address]- 3980 04 Nov, 2013 [facility] [place] [facility] [address] [id number] [place] [address]- 2861 Nov, [facility] [place] [facility] [address] [id number] [place] [address]- 1460 Nov, [facility] [place] [facility] [address] [id number] [place] [address]- 4167 Oct, [facility] [place] [facility] [address] [id number] [place] [address]- 0175 Oct, [facility] [place] [facility] [address] [id number] [place] [address]- 6212 Oct, [facility] [place] [facility] [address] [id number] [place] [address]- 7453 Oct, [facility] [place] [facility] [address] [id number] [place] [address]- 5460 Sep, [facility] [place] [facility] [address] [id number] [place] [address]- 2893 Sep, [facility] [place] [facility] [address] [id number] [place] [address]- 3879 Sep, [facility] [place] [facility] [address] [id number] [place] [address]- 7180 Sep, [facility] [place] [facility] [address] [id number] [place] [address]- 7487 Aug, [facility] [place] [facility] [address] [id number] [place] [address]- 1089 Aug, [facility] [place] [facility] [address] [id number] [place] [address]- 1298 Aug, [facility] [place] [facility] [address] [id number] [place] [address]- 8124 Aug, [facility] [place] [facility] [address] [id number] [place] [address]- 0474 Aug, [facility] [place] [facility] [address] [id number] [place] [address]- 3481 Aug, [facility] [place] [facility] [address] [id number] [place] [address]- 4924 Aug, [facility] [place] [facility] [address] [id number] [place] [address]- 0672 Aug, [facility] [place] [facility] [address] [id number] [place] [address]- 1881 Aug, [facility] [place] [facility] [address] [id number] [place] [address]- 7498 Aug, [facility] [place] [facility] [address] [id number] [place] [address]- 5808 Aug, [facility] [place] [facility] [address] [id number] [place] [address]- 2527 Aug, [facility] [place] [facility] [address] [id number] [place] [address]- 0947 July, [facility] [place] [facility] [address] [id number] [place] [address]- 6251 July, [facility] [place] [facility] [address] [id number] [place] [address]- 3642 July, [facility] [place] [facility] [address] [id number] [place] [address]- 2725 July, [facility] [place] [facility] [address] [id number] [place] [address]- 4266 July, [facility] [place] [facility] [address] [id number] [place] [address]- 0028 July, [facility] [place] [facility] [address] [id number] [place] [address]- 3246 Jun, [facility] [place] [facility] [address] [id number] [place] [address]- 2785 Jun, [facility] [place] [facility] [address] [id number] [place] [address]- 6396 Jun, [facility] [place] [facility] [address] [id number] [place] [address]- 2725 Jun, [facility] [place] [facility] [address] [id number] [place] [address]- 7629 27 May, 2013 [facility] [place] [facility] [address] [id number] [place] [address]- 7827 27 May, 2013 [facility] [place] [facility] [address] [id number] [place] [address]- 2646 14 May, 2013 [facility] [place] [facility] [address] [id number] [place] [address]- 2751 14 May, 2013 [facility] [place] [facility] [address] [id number] [place] [address]- 0060 26 Feb, 2013 [facility] [place] [facility] [address] [id number] [place] [address]- 9071 26 Feb, 2013 [facility] [place] [facility] [address] [id number] [place] [address]- 7397 17 Feb, 2013 [facility] [place] [facility] [address] [id number] [place] [address]- 4721 17 Feb, 2013 [facility] [place] [facility] [address] [id number] [place] [address]- 0631 14 Jan, 2013 [facility] [place] [facility] [address] [id number] [place] [address]- 8903 14 Jan, 2013 [facility] [place] [facility] [address] [id number] [place] [address]- 3096 07 Dec, 2012 [facility] [place] [facility] [address] [id number] [place] [address]- 1741 06 Nov, 2012 [facility] [place] [facility] [address] [id number] [place] [address]- 2000 04 Nov, 2012 [facility] [place] [facility] [address] [id number] [place] [address]- 1645 Nov, [facility] [place] [facility] [address] [id number] [place] [address]- 2456 2012 [facility] [place] [facility] [address] [id number] [place] [address]- 6410 Oct, [facility] [address] [id number] [place] [address]- 5103 Oct, [facility] [place] [facility] [address] [id number] [place] [address]- 3788 Oct, [facility] [place] [facility] [address] [id number] [place] [address]- 7741 Oct, [facility] [place] [facility] [address] [id number] [place] [address]- 2607 Oct, [facility] [place] [facility] [address] [id number] [place] [address]- 1660 Aug, [facility] [place] [facility] [address] [id number] [place] [address]- 3845 July, [facility] [place] [facility] [address] [id number] [place] [address]- 8961 July, [facility] [place] [facility] [address] [id number] [place] [address]- 0660 May, [facility] [place] [facility] [address] [id number] [place] [address]- 6455 May, [facility] [place] [facility] [address] [id number] [place] [address]- 0467 May, [facility] [place] [facility] [address] [id number] [place] [address]- 6188 Apr, [facility] [place] [facility] [address] [id number] [place] [address]- 0538 Apr, [facility] [place] [facility] [address] [id number] [place] [address]- 8566 Mar, [facility] [place] [facility] [address] [id number] [place] [address]- 3216 Mar, [facility] [place] [facility] [address] [id number] [place] [address]- 0841 Jan, [facility] [place] [facility] [address] [id number] [place] [address]- 8426 Jan, [facility] [address] [id number] [place] [address]- 9843 Nov, [facility] [place] [facility] [address] [id number] [place] [address]- 9835 Nov, [facility] [address] [id number] [place] [address]- 0869 Sep, [facility] [place] [facility] [address] [id number] [place] [address]- 7114 Aug, [facility] [address] [id number] [place] [address]- 4731 July, [facility] [address] [id number] [place] [address]- 1386 July, [facility] [address] [id number] [place] [address]- 9406 July, [facility] [address] [id number] [place] [address]- 2022 Apr, [facility] [address] [id number] [place] [address]- 5539 Apr, [facility] [address] [id number] [place] [address]- 2174 Mar, [facility] [place] [facility] [address] [id number] [place] [address] Mar, [facility] [address] [id number] [place] [address] Mar, [facility] [place] [facility] [address] [id number] [place] [address] Mar, [facility] [place] [facility] [address] [id number] [place] [address] Mar, [facility] [place] [facility] [address] [id number] [place] [address] Feb, [facility] [id number] [address] Feb, [facility] [id number] [address] Feb, [facility] [id number], [place] [address] Jan, [facility] [id number], [place] [address] Jan, [facility] [id number], [place] [address] Dec, [facility] [id number] [place] [address] Jan, [facility] [id number], [place] [address] Aug, [facility] [id number], [place] [address] July, [facility] [id number], [place] [address] Feb, [facility] [id number], [place] [address] Jan, [facility] [id number], [place] [address] Jan, [facility] [id number], [place] [address] Dec, [facility] [id number], [place] [address] July, IMMUNIZATIONS No Known Immunizations SOCIAL HISTORY Never Assessed REASON FOR VISIT 3 month f/u. Consult Dr. Farmer;Rhys RT(R) PLAN OF CARE Activity Details Follow Up 3 Months Reason: VITAL SIGNS Height 70 in 2016-12-08 Blood pressure systolic 142 mmHg 2016-12-08 Blood pressure diastolic 78 mmHg 2016-12-08 MEDICATIONS Unknown Medications RESULTS No Results PROCEDURES Procedure Date Ordered Result Body Site DEBRIDE NAIL, 6 OR MORE Dec 08, 2016 [facility] VISIT ESTABLISHED PATIENT Dec 08, 2016 INSTRUCTIONS MEDICATIONS ADMINISTERED No Known Medications MEDICAL (GENERAL) HISTORY Type Description Date Medical History HTN Medical History hyperlipidemia Medical History chronic back pain and shoulder pain Medical History MRSA Surgical History x 3 Surgical History hysterectomy Surgical History right foot surgery Hospitalization History surgeries Hospitalization History MRSA on arm Hospitalization History infected cyst 2011
--- OUTSIDE RECORDS SUMMARY | 2017-12-09 18:32 | XMS REPORT ---
Author Author UGO PRETTY [facility] eClinicalWorks Address Unknown Phone Unavailable Care Team Providers Care Cellophane Bag Machine Operator Name Role Phone UGO PRETTY Unavailable Allergies [...] Instructions Start Date End Date Status Dosage Flonase [facility] [id number] MCG/ACT Nasally Once a day Jan 25, 2015 1 spray in each nostril Results No Known Results Summary Purpose eClinicalWorks Submission
--- OUTSIDE RECORDS SUMMARY | 2017-12-09 18:32 | XMS REPORT ---
Author Author UGO PRETTY [facility] eClinicalWorks Address Unknown Phone Unavailable Care Team Providers Care Senior Analytic Consultant Name Role Phone UGO PRETTY CP Unavailable [...]
--- OUTSIDE RECORDS SUMMARY | 2017-12-09 18:33 | XMS REPORT ---
Author Author UGO PRETTY Organization [facility] Address [address] [place] [address] Care Team Providers Care Senior Test Analyst Name Role Phone UGO PRETTY Unavailable PROBLEMS Type Condition ICD9-CM Code PWF31-QO Code Onset Dates Condition Status SNOMED Code Problem Dysthymia F34.1 Active 18600107 Problem Essential hypertension I10 Active 91165241 Problem Chronic pain G89.29 Active 52649245 Problem Methicillin resistant Staphylococcus aureus 041.12 Active 209506092 Problem Cataracts, bilateral H26.9 Active 77182788 Problem Ganglion cyst M67.40 Active 518221688 Problem Heel spur M77.30 Active 56361717 Problem Irritable bowel syndrome with diarrhea K58.0 Active 633343988 Problem Neuropathy G62.9 Active 123577467 Problem Acquired hallux valgus of left foot M20.12 Active 82728479 Problem Hyperlipidemia, unspecified E78.5 Active 52135435 Problem Hallux valgus (acquired), right foot M20.11 Active 762666847 Problem Hammer toe of right foot M20.41 Active [id number] ALLERGIES No Known Allergies ENCOUNTERS Encounter Location Date Diagnosis [place] [address], [place] [address] Nov, [place] [address] [place] [id number] [place] [address]20- 4678 Oct, [place] [address] [place] [id number] [place] [address] 18010- 3375 Aug, Other chronic pain G89.29 and Pain in right knee M25.561 [place] [address], [place] [address] Aug, Chronic pain G89.29 [place] [address] [place] [address] [address]- [address] Aug, Right medial knee pain M25.561 [facility] [address] [address] Aug, Allergic conjunctivitis of both eyes H10.13 [place] [address] [address]- 5094 15 Aug, 2017 Onychomycosis B35.1 [place] [address] [address]- 137[address] 08 Aug, 2017 Allergic state, initial encounter T78.40XA [facility] [place] [address] [address] 05 Aug, 2017 Acute bacterial conjunctivitis of left eye H10.32 [place] [address] 41742- 9845 July, Essential hypertension I10 and Skin tag L91.8 [facility] [place] [address] [address] Jun, [place] [address] [address]- 4[address] May, Dermatofibroma of left calf D23.72 [facility] [place] [address] [address] May, Bilateral hearing loss due to cerumen impaction H61.23 [place] [address] [address]- [address] May, Onychomycosis B35.1 ; Hammer toe of right foot M20.41 ; Acquired hallux valgus of left foot M20.12 and [place] or callus L84 [place] [address] [address]- 9355 Apr, Seborrheic keratosis L82.1 and Irritable bowel syndrome with diarrhea K58.0 [place] [address] [address]60- 6595 30 Mar, 2017 [place] [address] [place] [id number] [place] [address] 62385- 2551 15 Mar, 2017 Dental examination Z01.20 [place] [address] [place] [id number] [place] [address] 87858- 0184 15 Mar, 2017 Medicare welcome exam Z00.00 ; Encounter for screening for lung cancer Z12.2 ; Colon cancer screening Z12.11 ; Encounter for immunization Z23 ; Weakness R53.1 and Irritable bowel syndrome with diarrhea K58.0 [place] [id number] [place] [address] 62617- 0530 Feb, Onychomycosis B35.1 ; Hammer toe of right foot M20.41 ; Hallux valgus (acquired), right foot M20.11 and Acquired hallux valgus of left foot M20.12 [place] [id number] [place] [address] 66561- 0645 Jan, Essential hypertension I10 and Encounter for immunization Z23 [place] [id number] [place] [address] 88736- 9027 02 Dec, 2016 Encounter for screening mammogram for breast cancer Z12.31 and Hyperlipidemia, unspecified E78.5 [place] [id number] [place] [address] 05362- 9264 Nov, Hammer toe of right foot M20.41 ; Onychomycosis B35.1 and Neuropathy G62.9 [place] [id number] [place] [address] 78475- 2504 Sep, Essential hypertension I10 and 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 [place] [id number] [place] [address] 91656- 9950 Aug, [place] [id number] [place] [address] 67569- 3361 Aug, [place] [id number] [place] [address] 47756- 4282 Aug, Onychomycosis B35.1 ; Hammer toe of right foot M20.41 and Neuropathy G62.9 [place] [address] 02805- 4157 May, Callus of foot L84 ; Hammer toe of right foot M20.41 and Onychomycosis B35.1 [place] [address] 37621- 8156 Apr, Chronic pain G89.29 [place] [address] 41189- 9851 Feb, Onychomycosis B35.1 ; Hammer toe of right foot M20.41 ; Acquired hallux valgus of left foot M20.12 and Hallux valgus (acquired), right foot M20.11 [place] [address] 87001- 1190 Jan, Cellulitis of left lower extremity L03.116 [place] [address] 35817- 4187 Jan, Seborrheic keratosis L82.1 and Encounter for immunization Z23 [place] [address] 82372- 6123 Jan, Seborrheic keratoses L82.1 and Visit for suture removal Z48.02 [place] [address] 91222- 6716 Jan, Dermatofibroma D23.9 [place] [address] 72136- 7765 Dec, Lesion of lower extremity L98.9 [place] [address] 50248- 1498 Dec, [place] [address] 62479- 2999 Dec, Chronic pain G89.29 [place] [address] [place] [id number] [place] [address] 26446- 9864 Dec, Well woman exam Z01.419 ; Essential hypertension I10 ; Breast cancer screening Z12.39 ; Cervical cancer screening Z12.4 ; Vision changes H53.9 ; Heberden's node M15.1 ; Cutaneous horn L85.8 and Seborrheic keratosis L82.[address] 16[address]- 0133 Dec, Well woman exam Z01.419 ; Heberden's node M15.1 ; Breast cancer screening Z12.39 ; Cervical cancer screening Z12.4 ; Essential hypertension I10 ; Vision changes H53.9 ; Cutaneous horn L85.8 and Seborrheic keratosis L82.[address] 53704- 6879 Nov, Well woman exam Z01.419 ; Breast cancer screening Z12.39 ; Cervical cancer screening Z12.4 ; Essential hypertension I10 ; Vision changes H53.9 ; Heberden's node M15.1 ; Cutaneous horn L85.8 and Seborrheic keratosis L82.[address] 93351- 3323 Nov, Hammer toe of right foot M20.41 and Callus of foot L84 [address] 44410- 4678 Aug, Onychomycosis B35.1 and Callus of foot L84 [address] 02463- 6936 July, Dysthymia F34.1 and Chronic pain G89.[address] 99160- 7774 Jun, Dysthymia F34.1 ; Heel spur M77.30 and Ganglion cyst M67.[address] 67333- 7762 May, Onychomycosis B35.1 and Neuropathy G62.9 [facility] [address] [place] [id number] [place] [address] 42063- 7698 May, [facility] [address] [place] [id number] [place] [address] 39223- 6567 Apr, [facility] [address] [place] [id number] [place] [address] 15296- 7870 Apr, [facility] [address] [place] [id number] [place] [address] 40523- 5036 Apr, [facility] [address] [place] [id number] [place] [address] 33369- 1834 Mar, [facility] [address] [place] [id number] [place] [address] 55399- 8586 Mar, [facility] [address] [place] [id number] [place] [address] 86537- 8857 Feb, [facility] [address] [place] [id number] [place] [address] 55901- 9935 Feb, [facility] [address] [place] [id number] [place] [address] 84356- 8303 Feb, [facility] [address] [place] [id number] [place] [address] 07078- 0271 Feb, Onychomycosis B35.1 and [place] or callus L84 [facility] [address] [place] [address] 81635- 8655 Feb, Cough R05 [facility] [id number] [place] [address] 35133 -0629 Jan, Sinusitis J32.9 [facility] [address] [place] [id number] [place] [address] 33756- 9689 Jan, Hyperlipidemia 272.4 [facility] [address] [place] [id number] [place] [address] 57834- 2057 09 Nov, 2015 Acute upper respiratory infection, unspecified J06.9 ; Encounter for immunization Z23 ; Other viral agents as the cause of diseases classified elsewhere B97.89 and Acute frontal sinusitis, recurrence not specified J01.10 [place] [address] [place] [id number] [place] [address] 27381- 9403 Nov, Wart 078.10 ; Breast cancer screening V76.10 and Hyperlipidemia 272.4 [place] [address] 50311- 4170 Nov, Onychomycosis 110.1 ; [place] or callus 700 and Skin fissures 709.8 [place] [address] 60543- 3079 Aug, Hammertoe 735.4 ; Hyperkeratosis 701.1 ; Onychomycosis 110.1 ; Fissure in skin of foot 709.8 and Foot pain 729.5 [place] [address] [place] [id number] [place] [address] 46714- 7631 Aug, [place] [address] [place] [id number] [place] [address] 62400- 2459 Aug, [place] [address] [place] [id number] [place] [address] 78352- 0403 Aug, [place] [address] [place] [id number] [place] [address] 57174- 7321 July, [facility] [address] [place] [id number] [place] [address] 16981- 8741 July, [facility] [address] [place] [id number] [place] [address] 55978- 4298 Jun, [facility] [address] [place] [id number] [place] [address] 94894- 9993 Jun, [facility] [address] [place] [id number] [place] [address] 39962- 1448 May, [facility] [address] 06950- 4809 May, [facility] [place] [facility] [address] [id number] [place] [address]- 4325 May, [facility] [place] [facility] [address] [id number] [place] [address]261 May, [facility] [place] [facility] [address] [id number] [place] [address]- 0425 Apr, [facility] [place] [facility] [address] [id number] [place] [address]- 4882 Apr, [facility] [place] [facility] [address] [id number] [place] [address]- 0607 Feb, [facility] [place] [facility] [address] [id number] [place] [address]- 0754 Feb, [facility] [place] [facility] [address] [id number] [place] [address]- 0738 Feb, [facility] [place] [facility] [address] [id number] [place] [address]- 5847 Feb, [facility] [place] [facility] [address] [id number] [place] [address]- 5493 Feb, [facility] [place] [facility] [address] [id number] [place] [address]- 2549 Feb, [facility] [place] [facility] [address] [id number] [place] [address]- 2382 Jan, [facility] [place] [facility] [address] [id number] [place] [address]- 5315 Jan, [facility] [place] [facility] [address] [id number] [place] [address]- 9666 Jan, [facility] [place] [facility] [address] [id number] [place] [address]- 1330 Jan, [facility] [place] [facility] [address] [id number] [place] [address]- 1940 Jan, [facility] [place] [facility] [address] [id number] [place] [address]- 8462 13 Dec, 2013 [facility] [place] [facility] [address] [id number] [place] [address]- 6014 13 Dec, 2013 [facility] [place] [facility] [address] [id number] [place] [address]- 2446 29 Nov, 2013 [facility] [place] [facility] [address] [id number] [place] [address]- 0646 29 Nov, 2013 [facility] [place] [facility] [address] [id number] [place] [address]- 3870 Nov, 2013 [facility] [place] [facility] [address] [id number] [place] [address]- 3693 Nov, 2013 [facility] [place] [facility] [address] [id number] [place] [address]- 0447 Nov, [facility] [place] [facility] [address] [id number] [place] [address]- 6609 Nov, 2013 [facility] [place] [facility] [address] [id number] [place] [address]- 7488 Nov, [facility] [place] [facility] [address] [id number] [place] [address]- 4421 Nov, 2013 [facility] [place] [facility] [address] [id number] [place] [address]- 5342 Nov, [facility] [place] [facility] [address] [id number] [place] [address]- 8384 Nov, [facility] [place] [facility] [address] [id number] [place] [address]- 7368 Oct, [facility] [place] [facility] [address] [id number] [place] [address]- 3057 Oct, [facility] [place] [facility] [address] [id number] [place] [address]- 8389 Oct, [facility] [place] [facility] [address] [id number] [place] [address]- 1051 Oct, [facility] [place] [facility] [address] [id number] [place] [address]- 0226 Sep, [facility] [place] [facility] [address] [id number] [place] [address]- 9140 Sep, [facility] [place] [facility] [address] [id number] [place] [address]- 2376 Sep, [facility] [place] [facility] [address] [id number] [place] [address]- 5189 Sep, [facility] [place] [facility] [address] [id number] [place] [address]- 6306 Aug, [facility] [place] [facility] [address] [id number] [place] [address]- 8922 Aug, [facility] [place] [facility] [address] [id number] [place] [address]- 6035 Aug, [facility] [place] [facility] [address] [id number] [place] [address]- 1551 Aug, [facility] [place] [facility] [address] [id number] [place] [address]- 8712 Aug, [facility] [place] [facility] [address] [id number] [place] [address]- 1559 Aug, [facility] [place] [facility] [address] [id number] [place] [address]- 7320 Aug, [facility] [place] [facility] [address] [id number] [place] [address]- 4533 Aug, [facility] [place] [facility] [address] [id number] [place] [address]- 4380 Aug, [facility] [place] [facility] [address] [id number] [place] [address]- 1975 Aug, [facility] [place] [facility] [address] [id number] [place] [address]- 8769 Aug, [facility] [place] [facility] [address] [id number] [place] [address]- 2446 Aug, [facility] [place] [facility] [address] [id number] [place] [address]- 1575 July, [facility] [place] [facility] [address] [id number] [place] [address]- 5819 July, [facility] [place] [facility] [address] [id number] [place] [address]- 7392 July, [facility] [place] [facility] [address] [id number] [place] [address]- 1367 July, [facility] [place] [facility] [address] [id number] [place] [address]- 1172 July, [facility] [place] [facility] [address] [id number] [place] [address]- 4392 July, [facility] [place] [facility] [address] [id number] [place] [address]- 2785 Jun, [facility] [place] [facility] [address] [id number] [place] [address]- 9611 Jun, [facility] [place] [facility] [address] [id number] [place] [address]- 6877 Jun, [facility] [place] [facility] [address] [id number] [place] [address]- 4548 Jun, [facility] [place] [facility] [address] [id number] [place] [address]- 1502 May, [facility] [place] [facility] [address] [id number] [place] [address]- 0720 May, [facility] [place] [facility] [address] [id number] [place] [address]- 2710 May, [facility] [place] [facility] [address] [id number] [place] [address]- 2948 May, [facility] [place] [facility] [address] [id number] [place] [address]- 5469 Feb, [facility] [place] [facility] [address] [id number] [place] [address]- 5977 Feb, [facility] [place] [facility] [address] [id number] [place] [address]- 0624 Feb, [facility] [place] [facility] [address] [id number] [place] [address]- 1682 Feb, [facility] [place] [facility] [address] [id number] [place] [address]- 1268 Jan, [facility] [place] [facility] [address] [id number] [place] [address]- 6241 Jan, [facility] [place] [facility] [address] [id number] [place] [address]- 2375 Dec, [facility] [place] [facility] [address] [id number] [place] 6832 Nov, [facility] [place] [facility] [address] [id number] [place] [address]- 7571 Nov, [facility] [place] [facility] [address] [id number] [place] [address]- 5333 Nov, [facility] [place] [facility] [address] [id number] [place] [address]- 9934 Oct, [facility] [place] [facility] [address] [id number] [place] [address]- 0117 Oct, [facility] [place] [facility] [address] [id number] [place] [address]- 5893 Oct, [facility] [place] [facility] [address] [id number] [place] [address]- 8638 Oct, [facility] [place] [facility] [address] [id number] [place] [address]- 9521 Oct, [facility] [place] [facility] [address] [id number] [place] [address]- 0080 Oct, [facility] [place] [facility] [address] [id number] [place] [address]- 3100 Aug, [facility] [address] [id number] [place] [address]- 0143 July, [facility] [place] [facility] [address] [id number] [place] [address]- 5179 July, [facility] [place] [facility] [address] [id number] [place] [address]- 4164 May, [facility] [place] [facility] [address] [id number] [place] [address]- 9263 May, [facility] [place] [facility] [address] [id number] [place] [address]- 1482 May, [facility] [place] [facility] [address] [id number] [place] 2091 Apr, [facility] [place] [facility] [address] [id number] [place] [address]- 4307 Apr, [facility] [place] [facility] [address] [id number] [place] [address]- 3838 Mar, [facility] [place] [facility] [address] [id number] [place] 1386 Mar, [facility] [place] [facility] [address] [id number] [place] [address]- 9686 Jan, [facility] [address] [id number] [place] [address]- 1654 Jan, [facility] [place] [facility] [address] [id number] [place] [address] 2542 Nov, [facility] [place] [facility] [address] [id number] [place] [address]- 0330 Nov, [facility] [place] [facility] [address] [id number] [place] [address]- 1254 Sep, [facility] [place] [facility] [address] [id number] [place] [address]- 2792 Aug, [facility] [place] [facility] [address] [id number] [place] [address]- 7612 July, [facility] [address] [id number] [place] [address]- 2402 July, [facility] [place] [facility] [address] [id number] [place] [address]- 9096 July, [facility] [address] [id number] [place] [address]- 0721 Apr, [facility] [place] [facility] [address] [id number] [place] [address]- 2082 Apr, [facility] [address] [id number] [place] [address]- 6877 Mar, [facility] [address] [id number] [place] [address]- 0456 Mar, [facility] [address] [id number] [place] [address]- 4719 Mar, [facility] [address] [id number] [place] [address]- 9639 Mar, [facility] [address] [id number] [place] [address]- 3836 Mar, [facility] [address] [id number] [place] [address]- 8748 Feb, [facility] [address] [id number] [place] [address]- 7586 Feb, [facility] [address] [id number] [place] [address]- 7819 Feb, [facility] [place] [facility] [address] [id number] [place] [address]- 0116 Jan, [facility] [place] [facility] [address] [id number] [place] [address]- 2546 Jan, [facility] [place] [facility] [address] [id number] [place] [address]- 7857 Dec, [facility] [id number] [address]- 3762 Jan, [facility] [address] [place] [address]- 2733 Aug, [facility] [address] [place] [address]- 5171 July, [facility] [address] [place] [address]- 4404 Feb, [facility] [id number] [place] [address] Jan, [facility] [id number] [place] [id number] Jan, [facility] [id number], [place] [address] Dec, [facility] [id number], [place] [address] July, IMMUNIZATIONS Vaccine Route Administration Date Status ZOSTER (ZOSTAVAX) [place] Subcutaneous Apr 02, 2017 Administered SOCIAL HISTORY Never Assessed REASON FOR VISIT Medicare AWV---Dusty PLAN OF CARE Activity Details Follow Up annually for preventive care, sooner for chronic health maintenance , 4 Weeks Reason: VITAL SIGNS Height 70 in 2017-04-02 Weight 240 lbs 2017-04-02 Temperature 98.5 degrees Fahrenheit 2017-04-02 Heart Rate 60 bpm 2017-04-02 Respiratory Rate 20 2017-04-02 BMI 34.43 kg/m2 2017-04-02 Blood pressure systolic 140 mmHg 2017-04-02 Blood pressure diastolic 82 mmHg 2017-04-02 MEDICATIONS Medication Instructions Dosage Frequency Start Date End Date Duration Status Loratadine 10 MG TAKE ONE TABLET BY MOUTH DAILY 90 Active Losartan Potassium 50 mg Orally 2 times a day 1 tablet 12h 90 days Active Estradiol 0.5 MG Orally Once a day 1 tablet 24h 90 Active Bentyl 20 mg Orally 2 times a day before lunch and before supper 1 tablet Mar, May, 30 day(s) Active Tramadol HCl 50 MG Orally every 4 - 6 hrs 1 tablet as needed Apr, 28 days Active Prozac 40 MG Orally Once a day 1 capsule in the morning 24h 90 days Active Pravastatin Sodium 80 MG TAKE ONE TABLET BY MOUTH AT BEDTIME 24h 90 Active Metoprolol Tartrate 100 MG Orally Twice a day 1 tablet 12h 90 Active Amlodipine Besylate 10 mg Orally Once a day 1 tablet 24h 90 days Active RESULTS Name Result Date Reference Range CT Scan : Chest, low dose (Screening) 2017-04-09 COLOGUARD (OUTSIDE ORDER) 2017-04-09 PROCEDURES Procedure Date Ordered Result Body Site INIT PREV PE LTD DUR 1ST 12 MOS MCR Apr 02, 2017 FALL RISK ASSESSMENT DOCD Apr 02, 2017 ZOSTER (ZOSTAVAX) Apr 02, 2017 PT TOBACCO SCREEN RCVD TLK Apr 02, 2017 SINGLE IMMUNIZATION ADMIN Apr 02, 2017 INSTRUCTIONS MEDICATIONS ADMINISTERED No Known Medications MEDICAL (GENERAL) HISTORY Type Description Date Medical History HTN Medical History hyperlipidemia Medical History chronic back pain and shoulder pain Medical History MRSA Surgical History x 3 Surgical History hysterectomy Surgical History right foot surgery Hospitalization History surgeries Hospitalization History MRSA on arm Hospitalization History infected cyst 2010
--- OUTSIDE RECORDS SUMMARY | 2017-12-09 18:33 | XMS REPORT ---
Author SHAYNA Melo [facility] eClinicalWorks Address Unknown Phone Unavailable Care Team Providers Care Security Technician Name Role Phone SHAYNA DASILVA CP Unavailable Allergies, Adverse Reactions, Alerts Substance Reaction Event Type N.K.D.A. Info Not Available Non Drug Allergy Problems Problem Type Condition Code Onset Dates Condition Status Problem Cataracts, bilateral H26.9 Active Assessment Cellulitis of left lower extremity L03.116 Active Problem Essential hypertension I10 Active Problem Chronic pain G89.29 Active Problem Hyperlipidemia, unspecified E78.5 Active Problem Ganglion cyst M67.40 Active Problem Methicillin resistant Staphylococcus aureus 041.12 Active Problem Dysthymia F34.1 Active Problem Heel spur M77.30 Active Medications Medication Code System Code Instructions Start Date End Date Status Dosage [place] [facility] [address]-35 5-325 MG Orally every 6 hrs Jan 25, 2016 1 tablet as needed Estradiol [facility] 14554205220 0.5 MG Orally Once a day 1 tablet Amlodipine Besylate [facility] [address]-30 10 mg Orally Once a day 1 tablet Loratadine [facility] 07430524971 10 MG TAKE ONE TABLET BY MOUTH DAILY tramadol [place] 0 50 mg subcutaneously every 4-6 hours as needed Feb 24, 2014 1 tablet Bactrim DS [facility] [address]-27 800-160 MG Orally Twice a day Feb 14, 2016 Feb 24, 2016 1 tablet Prozac [facility] [address]-72 40 MG Orally Once a day June 21, 2015 1 capsule in the morning Metoprolol Tartrate [facility] 68158055966 100 MG TAKE ONE TABLET BY MOUTH TWICE DAILY Pravastatin Sodium [facility] 96140830755 80 MG Once a day TAKE ONE TABLET BY MOUTH AT BEDTIME Losartan Potassium [facility] [address]-12 50 mg Orally 2 times a day 1 tablet Procedures Procedure Coding System Code Date Office Visit, Est Pt., Level 3 CPT-4 97582 Feb 14, 2016 [facility] VISIT ESTABLISHED PATIENT CPT-4 G0467 Feb 14, 2016 Vital Signs Date/Time: Feb 14, 2016 Cardiac Monitoring Heart Rate 66 bpm Weight 236.4 lbs Height 70 in BMI 33.92 Index Blood Pressure Diastolic 76 mmHg Blood Pressure Systolic 133 mmHg Results No Known Results Summary Purpose eClinicalWorks Submission
--- OUTSIDE RECORDS SUMMARY | 2017-12-09 18:34 | XMS REPORT ---
Author SHAYNA Melo [facility] eClinicalWorks Address Unknown Phone Unavailable Care Team Providers Care Mold Cutting Machine Operator Name Role Phone SHAYNA DASLIVA CP Unavailable Allergies, Adverse Reactions, Alerts Substance Reaction Event Type N.K.D.A. Info Not Available Non Drug Allergy Problems Problem Type Condition Code Onset Dates Condition Status Assessment Visit for suture removal Z48.02 Active Problem Cataracts, bilateral H26.9 Active Assessment Seborrheic keratoses L82.1 Active Problem Essential hypertension I10 Active Problem [...] as needed Feb 24, 2014 1 tablet Losartan Potassium [facility] [address]-32 50 mg Orally 2 times a day 1 tablet Pravastatin Sodium [facility] 44791255293 80 MG Once a day TAKE ONE TABLET BY MOUTH AT BEDTIME Estradiol ND 25382493529 0.5 MG Orally Once a day 1 tablet Loratadine [facility] 27495907729 10 MG TAKE ONE TABLET BY MOUTH DAILY [place] [facility] [address]-97 5-325 MG Orally every 6 hrs Jan 25, 2016 1 tablet as needed Metoprolol Tartrate [facility] 16787848643 100 MG TAKE ONE TABLET BY MOUTH TWICE DAILY Prozac [facility] [address]-82 40 MG Orally Once a day June 21, 2015 1 capsule in the morning Amlodipine Besylate [facility] [address]-08 10 mg Orally Once a day 1 tablet Procedures Procedure Coding System Code Date Office Visit, Est Pt., Level 2 CPT-4 72693 Feb 04, 2016 [facility] VISIT ESTABLISHED PATIENT CPT-4 G0467 Feb 04, 2016 Vital Signs Date/Time: Feb 04, 2016 Cardiac Monitoring Heart Rate 62 bpm Weight 236.0 lbs Height 70 in BMI 33.86 Index Blood Pressure Diastolic 84 mmHg Blood Pressure Systolic 138 mmHg Results No Known Results Summary Purpose eClinicalWorks Submission
--- OUTSIDE RECORDS SUMMARY | 2017-12-09 18:34 | XMS REPORT ---
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 Name Role Phone TAYLORGREGORYPAULO Unavailable PROBLEMS Type Condition ICD9-CM Code UHD63-UC Code Onset Dates Condition Status SNOMED Code Problem Dysthymia F34.1 Active 31713970 Problem Essential hypertension I10 Active 24734994 Problem Chronic pain G89.29 Active 39643395 Problem Methicillin resistant Staphylococcus aureus 041.12 Active 885232985 Problem Cataracts, bilateral H26.9 Active 12539172 Problem Ganglion cyst M67.40 Active 370958800 Problem Heel spur M77.30 Active 66552065 Problem Irritable bowel syndrome with diarrhea K58.0 Active 588641242 Problem Neuropathy G62.9 Active 567600596 Problem Acquired hallux valgus of left foot M20.12 Active 07121789 Problem Hyperlipidemia, unspecified E78.5 Active 60241643 Problem Hallux valgus (acquired), right foot M20.11 Active 093614870 Problem Hammer toe of right foot M20.41 Active 248544100 ALLERGIES No Information ENCOUNTERS Encounter Location Date Diagnosis [facility] [id number] [place] [address] 79964- 6652 Nov, [facility] [id number] [place] [address] 03307 -7653 Aug, Allergic conjunctivitis of both eyes H10.13 [place] [id number] [place] [address] 01016- 8834 15 Aug, 2017 Onychomycosis B35.1 [facility] [id number] [place] [address] 67983- 7097 08 Aug, 2017 Allergic state, initial encounter T78.40XA [facility] [place] [address] [address] 05 Aug, 2017 Acute bacterial conjunctivitis of left eye H10.32 [place] [address] 24553- 0684 14 Jul, 2017 Essential hypertension I10 and Skin tag L91.8 [facility] [address] [address] Jun, [place] [address] 88[address]- 0206 May, Dermatofibroma of left calf D23.72 [facility] [address] [address] May, Bilateral hearing loss due to cerumen impaction H61.[address] [address]- 2106 May, Onychomycosis B35.1 ; Hammer toe of right foot M20.41 ; Acquired hallux valgus of left foot M20.12 and [place] or callus L[address] 09[address]- 4321 Apr, Seborrheic keratosis L82.1 and Irritable bowel syndrome with diarrhea K58.[address] 63613- 0563 Mar, [place] [address] 43488- 3646 Mar, Dental examination Z01.[address] [address]- 4804 Mar, Medicare welcome exam Z00.00 ; Encounter for screening for lung cancer Z12.2 ; Colon cancer screening Z12.11 ; Encounter for immunization Z23 ; Weakness R53.1 and Irritable bowel syndrome with diarrhea K58.0 [place] [address] 01398- 4128 Feb, Onychomycosis B35.1 ; Hammer toe of right foot M20.41 ; Hallux valgus (acquired), right foot M20.11 and Acquired hallux valgus of left foot M20.12 [place] [id number] [place] [address] 70447- 3565 Jan, Essential hypertension I10 and Encounter for immunization Z23 [place] [address] 11891- 1682 Dec, Encounter for screening mammogram for breast cancer Z12.31 and Hyperlipidemia, unspecified E78.5 [place] [address] 97715- 5194 Nov, Hammer toe of right foot M20.41 ; Onychomycosis B35.1 and Neuropathy G62.9 [place] [address] 31422- 9152 Sep, Essential hypertension I10 and 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 [place] [id number] [place] [address] 90525- 7925 Aug, [place] [id number] [place] [address] 72656- 2114 Aug, [place] [id number] [place] [address] 61236- 7077 Aug, Onychomycosis B35.1 ; Hammer toe of right foot M20.41 and Neuropathy G62.9 [place] [id number] [place] [address] 78721- 9125 May, Callus of foot L84 ; Hammer toe of right foot M20.41 and Onychomycosis B35.1 [place] [id number] [place] [address] 70067- 3220 Apr, Chronic pain G89.29 [place] [address] 92969- 5390 Feb, Onychomycosis B35.1 ; Hammer toe of right foot M20.41 ; Acquired hallux valgus of left foot M20.12 and Hallux valgus (acquired), right foot M20.11 [place] [id number] [place] [address] 54588- 9117 Jan, Cellulitis of left lower extremity L03.116 [place] [address] 05121- 3329 Jan, Seborrheic keratosis L82.1 and Encounter for immunization Z23 [address] 08484- 2604 18 Jan, 2016 Seborrheic keratoses L82.1 and Visit for suture removal Z48.02 [place] [address] 31610- 8320 08 Jan, 2016 Dermatofibroma D23.9 [place] [address] 63986- 0689 Dec, Lesion of lower extremity L98.9 [place] [address] 91307- 2408 Dec, [place] [id number] [place] [address] 35423- 2284 Dec, Chronic pain G89.[address] 89409- 3905 Dec, Well woman exam Z01.419 ; Essential hypertension I10 ; Breast cancer screening Z12.39 ; Cervical cancer screening Z12.4 ; Vision changes H53.9 ; Heberden's node M15.1 ; Cutaneous horn L85.8 and Seborrheic keratosis L82.1 [place] [id number] [place] [address] 75668- 7217 Dec, Well woman exam Z01.419 ; Heberden's node M15.1 ; Breast cancer screening Z12.39 ; Cervical cancer screening Z12.4 ; Essential hypertension I10 ; Vision changes H53.9 ; Cutaneous horn L85.8 and Seborrheic keratosis L82.1 [place] [address] 96781- 4468 Nov, Well woman exam Z01.419 ; Breast cancer screening Z12.39 ; Cervical cancer screening Z12.4 ; Essential hypertension I10 ; Vision changes H53.9 ; Heberden's node M15.1 ; Cutaneous horn L85.8 and Seborrheic keratosis L82.1 [place] [address] 98923- 1170 Nov, Hammer toe of right foot M20.41 and Callus of foot L84 [place] [address] 42367- 6157 Aug, Onychomycosis B35.1 and Callus of foot L84 [place] [address] 64787- 0225 July, Dysthymia F34.1 and Chronic pain G89.29 [place] [address] 57811- 2977 Jun, Dysthymia F34.1 ; Heel spur M77.30 and Ganglion cyst M67.40 [place] [address] 29579- 8450 May, Onychomycosis B35.1 and Neuropathy G62.9 [place] [address] 75289- 7522 May, [place] [address] 98794- 8348 Apr, [place] [address] 60791- 3033 Apr, [place] [address] 07145- 5022 Apr, [place] [address] [address]- 9956 Mar, [facility] [id number] [place] [address] 41673- 1675 Mar, [facility] [id number] [place] [address] 58179- 4295 Feb, [facility] [id number] [place] [address] 67852- 6945 Feb, [facility] [id number] [place] [address] 08601- 5964 Feb, [place] [id number] [place] [address] 54824- 0055 Feb, Onychomycosis B35.1 and Brooklet or callus L84 [place] [id number] [place] [address] 17039- 5968 Feb, Cough R05 [facility] [id number] [place] [address] 51079 -9443 Jan, Sinusitis J32.9 [place] [id number] [place] [address] 09854- 5306 Jan, Hyperlipidemia 272.4 [place] [id number] [place] [address] 93566- 1363 09 Jan, 2015 Acute upper respiratory infection, unspecified J06.9 ; Encounter for immunization Z23 ; Other viral agents as the cause of diseases classified elsewhere B97.89 and Acute frontal sinusitis, recurrence not specified J01.10 [place] [address] [place] [address] 01503- 1329 Nov, Wart 078.10 ; Breast cancer screening V76.10 and Hyperlipidemia 272.4 [place] [id number] [place] [address] 00662- 5650 11 Nov, 2014 Onychomycosis 110.1 ; Brooklet or callus 700 and Skin fissures 709.8 [place] [id number] [address]- 5181 Aug, Hammertoe 735.4 ; Hyperkeratosis 701.1 ; Onychomycosis 110.1 ; Fissure in skin of foot 709.8 and Foot pain 729.5 [facility] [address] [facility] [id number] 9893 Aug, [facility] [address] [facility] [id number] [address]- 6310 Aug, [facility] [address] [facility] [id number] 4256 Aug, [facility] [address], [place] [address]- 0740 July, [facility] [address], [place] [address]- 8123 July, [facility] [address] [address]- 1298 Jun, [facility] [address] [id number] [address]- 5089 Jun, [facility] [address], [place] [address]- 0140 May, [facility] [address] [id number] [address]- 2211 May, [facility] [address] [id number] [address]- 0215 May, [facility] [address] [id number] 4640 May, [facility] [address] 4806 Apr, [facility] [address] [id number], [place] [address]- 0326 Apr, [facility] [address], [place] [address]- 6173 Feb, [facility] [place] [facility] [address] [id number] [place] [address]- 0649 Feb, [facility] [place] [facility] [address] [id number] [place] 4634 Feb, [facility] [place] [facility] [address] [id number] [place] [address]- 7135 Feb, [facility] [place] [facility] [address] [id number] [place] [address]- 3862 Feb, [facility] [place] [facility] [address] [id number] [place] [address]- 1622 Feb, [facility] [place] [facility] [address] [id number] [place] [address]- 6219 Jan, [facility] [place] [facility] [address] [id number], [place] [address]- 4445 Jan, [facility] [place] [facility] [address] [id number] [place] [address]- 3468 Jan, [facility] [place] [facility] [address] [id number] [place] [address]- 3179 Jan, [facility] [place] [facility] [address] [id number] [place] [address]- 7549 Jan, [facility] [place] [facility] [address] [id number] [place] [address]- 9308 Dec, [facility] [place] [facility] [address] [id number], [place] [address]- 5333 Dec, [facility] [place] [facility] [address] [id number], [place] [address]- 0120 29 Nov, 2013 [facility] [place] [facility] [address] [id number] [place] [address]- 1852 29 Nov, 2013 [facility] [place] [facility] [address] [id number], [place] [address]- 2333 Nov, [facility] [place] [facility] [address] [id number] [place] [address]- 0096 19 Nov, 2013 [facility] [place] [facility] [address] [id number] [place] [address]- 9736 Nov, 2013 [facility] [place] [facility] [address] [id number] [place] [address] 2546 Nov, 2013 [facility] [place] [facility] [address] [id number] [place] [address] 2546 Nov, 2013 [facility] [place] [facility] [address] [id number] [place] [address] 2548 Nov, 2013 [facility] [place] [facility] [address] [id number] [place] [address]- 6052 Nov, 2013 [facility] [place] [facility] [address] [id number] [place] [address]- 8777 Nov, [facility] [place] [facility] [address] [id number] [place] [address]- 4495 Oct, [facility] [place] [facility] [address] [id number] [place] [address]- 3824 Oct, [facility] [place] [facility] [address] [id number] [place] [address]- 7103 Oct, [facility] [place] [facility] [address] [id number] [place] [address]- 6727 Oct, [facility] [place] [facility] [address] [id number] [place] [address]- 5619 Sep, [facility] [place] [facility] [address] [id number] [place] [address]- 4816 Sep, [facility] [place] [facility] [address] [id number] [place] [address]- 7158 Sep, [facility] [place] [facility] [address] [id number] [place]- 9246 Sep, [facility] [place] [facility] [address] [id number] [place] [address]- 7728 Aug, [facility] [place] [facility] [address] [id number] [place] [address]- 7387 Aug, [facility] [place] [facility] [address] [id number] [place] [address]- 9339 Aug, [facility] [place] [facility] [address] [id number] [place] [address]- 6375 Aug, [facility] [place] [facility] [address] [id number] [place] [address]- 8190 Aug, [facility] [place] [facility] [address] [id number] [place] [address]- 1132 Aug, [facility] [place] [facility] [address] [id number] [place] [address]- 4001 Aug, [facility] [place] [facility] [address] [id number] [place] [address]- 8648 Aug, [facility] [place] [facility] [address] [id number] [place] [address]- 7054 Aug, [facility] [place] [facility] [address] [id number] [place] [address]- 6639 Aug, [facility] [place] [facility] [address] [id number] [place] [address]- 5395 Aug, [facility] [place] [facility] [address] [id number], [place] [address]- 0219 Aug, [facility] [place] [facility] [address] [id number], [place] [address]- 3593 July, [facility] [place] [facility] [address] [id number] [place] [address]- 9384 July, [facility] [place] [facility] [address] [id number] [place] [address]- 0573 July, [facility] [place] [facility] [address] [id number] [place] [address]- 4696 July, [facility] [place] [facility] [address] [id number] [place] [address]- 2341 July, [facility] [address] [id number] [place] [address]- 3481 July, [facility] [place] [facility] [address] [id number] [place] [address]- 0494 Jun, [facility] [address] [id number] [place] [address]- 7264 Jun, [facility] [place] [facility] [address] [id number] [place] [address]- 7031 Jun, [facility] [place] [facility] [address] [id number] [place] [address]- 0120 Jun, [facility] [place] [facility] [address] [id number] [place] [address]- 2594 May, [facility] [address] [id number] [place] [address]- 4555 May, [facility] [address] [id number] [place] [address]- 8705 May, [facility] [place] [facility] [address] [id number] [place] [address]- 9450 May, [facility] [address] [id number] [place] [address]- 3044 Feb, [facility] [place] [facility] [address] [id number] [place] [address]- 8301 Feb, [facility] [place] [facility] [address] [id number] [place] [address]- 7564 17 Feb, 2013 [facility] [place] [facility] [address] [id number] [place] [address]- 6100 17 Feb, 2013 [facility] [place] [facility] [address] [id number] [place] [address]- 1759 14 Jan, 2013 [facility] [place] [facility] [address] [id number] [place] [address]- 9484 Jan, [facility] [place] [facility] [address] [id number] [place] [address]- 3650 07 Dec, 2012 [facility] [address] [id number] [place] [address]- 8913 06 Nov, 2012 [facility] [place] [facility] [address] [id number] [place] [address]- 8189 Nov, [facility] [place] [facility] [address] [id number] [place] [address]- 8330 Nov, [facility] [address] [id number] [place] [address]- 5234 Oct, [facility] [place] [facility] [address] [id number] [place] [address]- 8920 Oct, [facility] [address] [id number] [place] [address]- 4815 Oct, [facility] [address] [id number] [place] [address]- 1350 Oct, [facility] [address] [id number] [place] [address]- 0029 Oct, [facility] [place] [facility] [address] [id number] [place] [address]- 2790 Oct, [facility] [place] [facility] [address] [id number] [place] [address]- 8911 Aug, [facility] [place] [facility] [address] [id number] [place] [address]- 4763 July, [facility] [place] [facility] [address] [id number] [place] [address]- 7366 July, [facility] [place] [facility] [address] [id number] [place] [address]- 0693 May, [facility] [place] [facility] [address] [id number] [place] [address]- 8707 May, [facility] [place] [facility] [address] [id number], [place] [address]- 0009 May, [facility] [address] [id number] [place] [address]- 2658 Apr, [facility] [place] [facility] [address] [id number] [place] [address]- 3195 Apr, [facility] [address] [facility] [id number] [place] [address]- 2078 Mar, [facility] [place] [facility] [address] [id number] [place] [address]- 4541 Mar, [facility] [address] [id number] [place] [address]- 7617 Jan, [facility] [address] [id number] [place] [address]- 5518 Jan, [facility] [address] [facility] [id number] [place] [address]- 6537 Nov, [facility] [address] [facility] [id number] [place] [address]- 9325 Nov, [facility] [address] [facility] [id number] [place] [address]- 3699 Sep, [facility] [address] [facility] [id number] [place] [address]- 6416 Aug, [facility] [address] [id number], [place] [address]- 5498 July, [facility] [place] [facility] [address] [id number] [place] [address]- 4037 July, [facility] [place] [facility] [address] [id number] [place] [address]- 9718 July, [facility] [place] [facility] [address] [facility] [id number] [place] [address]- 3440 Apr, [facility] [place] [facility] [address] [facility] [id number] [place] [address]- 1077 Apr, [facility] [place] [facility] [address] [id number] [place] [address]- 1636 Mar, [facility] [place] [facility] [address] [id number] [place] [address]- 1053 Mar, [facility] [place] [facility] [address] [id number] [place] [address]- 6806 Mar, [facility] [place] [facility] [address] [id number] [place] [address]- 2826 Mar, [facility] [place] [facility] [address] [id number] [place] [address]- 7559 Mar, [facility] [place] [facility] [address] [id number] [place] [address]- 7573 Feb, [facility] [place] [facility] [address] [id number] [place] [address]- 5589 Feb, [facility] [place] [facility] [address] [id number] [place] [address] Feb, [facility] [place] [facility] [address] [id number] [place] [address] Jan, [facility] [place] [facility] [address] [id number] [place] [address] Jan, [facility] [place] [facility] [address] [id number] [place] [address] Dec, [facility] [place] [facility] [address] [id number] [place] [address] Jan, [facility] [place] [facility] [address] [id number] [place] [address] Aug, [facility] [place] [facility] [address] [id number] [place] [address] July, [facility] [place] [facility] [address] [id number] [place] [address] Feb, [facility] [place] [facility] [address] [id number] [place] [address] Jan, [facility] [address] [facility] [id number] [place] [address] Jan, [facility] [address] [facility] [id number] [place] [address] Dec, [facility] [address] [facility] [id number] [place] [address] July, IMMUNIZATIONS No Known Immunizations SOCIAL HISTORY Never Assessed REASON FOR VISIT refer. from Internal med. PLAN OF CARE Activity Details Follow Up 1 Week Reason:appoint with DDS/DMD VITAL SIGNS MEDICATIONS Unknown Medications RESULTS No Results PROCEDURES Procedure Date Ordered Result Body Site SCREENING OF A PATIENT Apr 02, 2017 Billing Notes on claim Apr 02, 2017 INSTRUCTIONS MEDICATIONS ADMINISTERED No [...]
--- OUTSIDE RECORDS SUMMARY | 2017-12-09 18:34 | XMS REPORT ---
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 Organization [facility] Address [address] [place] [address] Care Team Providers Care Crane Man Name Role Phone NOREEN FARMERIN Unavailable PROBLEMS Type Condition ICD9-CM Code [id number] Code Onset Dates Condition Status SNOMED Code Problem Dysthymia F34.1 Active 62445238 Problem Essential hypertension I10 Active 77686951 Problem Chronic pain G89.29 Active 45732357 Problem Methicillin resistant Staphylococcus aureus 041.12 Active 769657122 Problem Cataracts, bilateral H26.9 Active 78621598 Problem Ganglion cyst M67.40 Active 117865901 Problem Heel spur M77.30 Active 28822909 Problem Irritable bowel syndrome with diarrhea K58.0 Active 130226882 Problem Neuropathy G62.9 Active 921913972 Problem Acquired hallux valgus of left foot M20.12 Active 88454009 Problem Hyperlipidemia, unspecified E78.5 Active 64406595 Problem Hallux valgus (acquired), right foot M20.11 Active 684075837 Problem Hammer toe of right foot M20.41 Active [id number] ALLERGIES No Information ENCOUNTERS Encounter Location Date Diagnosis [facility] [address] [address] Nov, [facility] [id number] [place] [address]04 -9997 15 Aug, 2017 Allergic conjunctivitis of both eyes H10.13 [facility] [id number] [place] [address] 77778- 5190 15 Aug, 2017 Onychomycosis B35.1 [facility] [address], [place] [address] 08 Aug, 2017 Allergic state, initial encounter T78.40XA [facility] [id number] [place] [address] 24393 -6304 05 Aug, 2017 Acute bacterial conjunctivitis of left eye H10.32 [place] [address] [address]- 0533 14 Jul, 2017 Essential hypertension I10 and Skin tag L91.8 [facility] [place] [address] [address] Jun, [place] [address] [address]- [address]16 May, Dermatofibroma of left calf D23.72 [facility] [place] [address] [address] May, Bilateral hearing loss due to cerumen impaction H61.23 [place] [address] [address]31- 4785 May, Onychomycosis B35.1 ; Hammer toe of right foot M20.41 ; Acquired hallux valgus of left foot M20.12 and [place] or callus L84 [place] [address] 31367- 7901 Apr, Seborrheic keratosis L82.1 and Irritable bowel syndrome with diarrhea K58.0 [place] [address] 63416- 1106 Mar, [place] [address] 75426- 6444 Mar, Dental examination Z01.20 [place] [address] 11088- 6864 15 Mar, 2017 Medicare welcome exam Z00.00 ; Encounter for screening for lung cancer Z12.2 ; Colon cancer screening Z12.11 ; Encounter for immunization Z23 ; Weakness R53.1 and Irritable bowel syndrome with diarrhea K58.0 [place] [address] 93066- 4567 Feb, Onychomycosis B35.1 ; Hammer toe of right foot M20.41 ; Hallux valgus (acquired), right foot M20.11 and Acquired hallux valgus of left foot M20.12 [place] [id number] [place] [address] 83707- 4900 Jan, Essential hypertension I10 and Encounter for immunization Z23 [place] [address] 45565- 3307 Dec, Encounter for screening mammogram for breast cancer Z12.31 and Hyperlipidemia, unspecified E78.5 [place] [address] 15745- 6726 Nov, Hammer toe of right foot M20.41 ; Onychomycosis B35.1 and Neuropathy G62.9 [place] [address] 68776- 0581 Sep, Essential hypertension I10 and 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 [place] [id number] [place] [address] 66774- 8750 Aug, [place] [address] 14385- 1564 Aug, [place] [id number] [place] [address] 95379- 2915 Aug, Onychomycosis B35.1 ; Hammer toe of right foot M20.41 and Neuropathy G62.9 [place] [id number] [place] [address] 31694- 4290 May, Callus of foot L84 ; Hammer toe of right foot M20.41 and Onychomycosis B35.1 [place] [address] 51759- 3052 Apr, Chronic pain G89.29 [place] [id number] [place] [address] 96787- 7239 Feb, Onychomycosis B35.1 ; Hammer toe of right foot M20.41 ; Acquired hallux valgus of left foot M20.12 and Hallux valgus (acquired), right foot M20.11 [place] [id number] [place] [address] 07115- 6702 28 Jan, 2016 Cellulitis of left lower extremity L03.116 [place] [id number] [place] [address] 07394- 6396 Jan, Seborrheic keratosis L82.1 and Encounter for immunization Z23 [place] [address] 76946- 9118 18 Jan, 2016 Seborrheic keratoses L82.1 and Visit for suture removal Z48.02 [place] [id number] [place] [address] 62355- 4912 08 Jan, 2016 Dermatofibroma D23.9 [place] [address] 66992- 0236 Dec, Lesion of lower extremity L98.9 [place] [id number] [place] [address] 35509- 5775 Dec, [place] [id number] [place] [address] 78072- 0341 Dec, Chronic pain G89.29 [place] [id number] [place] [address] 49922- 1343 Dec, Well woman exam Z01.419 ; Essential hypertension I10 ; Breast cancer screening Z12.39 ; Cervical cancer screening Z12.4 ; Vision changes H53.9 ; [place]ber[place]'s node M15.1 ; Cutaneous horn L85.8 and Seborrheic keratosis L82.1 [place] [id number] [place] [address] 27793- 4192 Dec, Well woman exam Z01.419 ; Heberden's node M15.1 ; Breast cancer screening Z12.39 ; Cervical cancer screening Z12.4 ; Essential hypertension I10 ; Vision changes H53.9 ; Cutaneous horn L85.8 and Seborrheic keratosis L82.1 [place] [address] 86156- 8636 27 Nov, 2015 Well woman exam Z01.419 ; Breast cancer screening Z12.39 ; Cervical cancer screening Z12.4 ; Essential hypertension I10 ; Vision changes H53.9 ; Heberden's node M15.1 ; Cutaneous horn L85.8 and Seborrheic keratosis L82.1 [place] [address] 79634- 3257 Nov, Hammer toe of right foot M20.41 and Callus of foot L84 [place] [address] 34527- 0961 Aug, Onychomycosis B35.1 and Callus of foot L84 [place] [address] 38659- 2532 July, Dysthymia F34.1 and Chronic pain G89.29 [place] [address] 71458- 6147 Jun, Dysthymia F34.1 ; Heel spur M77.30 and Ganglion cyst M67.40 [place] [id number] [place] [address] 20562- 0140 May, Onychomycosis B35.1 and Neuropathy G62.9 [place] [id number] [place] [address] 98222- 4586 May, [place] [id number] [place] [address] 81759- 0316 Apr, [place] [address] 18646- 3291 Apr, [place] [address] [address] [id number] [place] [address] 95532- 0605 Apr, [place] [address] [place] [id number] [place] [address] 02669- 8552 Mar, [facility] [id number] [place] [address] 94059- 9610 Mar, [facility] [id number] [place] [address] 81565- 2009 Feb, [facility] [address] 90866- 3351 Feb, [facility] [address] 24774- 4260 Feb, [place] [address] 61868- 3636 Feb, Onychomycosis B35.1 and [place] or callus L84 [place] [id number] [place] [address] 77940- 2712 Feb, Cough R05 [facility] [id number] [place] [address] 18430 -8955 Jan, Sinusitis J32.[address] 90667- 3759 Jan, Hyperlipidemia 272.4 [place] [id number] [place] [address] 92822- 1828 Jan, Acute upper respiratory infection, unspecified J06.9 ; Encounter for immunization Z23 ; Other viral agents as the cause of diseases classified elsewhere B97.89 and Acute frontal sinusitis, recurrence not specified J01.10 [place] [id number] [place] [address] 13947- 6775 Nov, Wart 078.10 ; Breast cancer screening V76.10 and Hyperlipidemia 272.4 [place] [id number] [place] [address] 03642- 2086 Nov, Onychomycosis 110.1 ; [place] or callus 700 and Skin fissures 709.8 [address] [place] [address]- 9724 Aug, Hammertoe 735.4 ; Hyperkeratosis 701.1 ; Onychomycosis 110.1 ; Fissure in skin of foot 709.8 and Foot pain 729.5 [facility] [address], [place] [address]- 2156 Aug, [facility] [address] [place] [address] 11590- 5399 Aug, [facility] [id number] [address]- 3981 Aug, [facility] [address] [place] [address] 04223- 3776 July, [facility] [address] 8181 July, [facility] [address], [place] [address]- 6886 Jun, [facility] [address], [place] [address]- 0201 Jun, [facility] [address], [place] [address]- 8234 May, [facility] [address], [place] [address]- 4371 May, [facility] [address], [place] [address]- 2141 May, [facility] [id number], [place] [address]- 9343 May, [facility] [address], [place] [address]- 0809 Apr, [facility] [id number], [place] [address]- 3136 Apr, [facility] [address], [place] [address]- 3786 Feb, [facility] [place] [facility] [address] [id number] [place] [address]- 1098 Feb, [facility] [place] [facility] [address] [id number] [place] [address]- 2315 Feb, [facility] [place] [facility] [address] [facility] [id number] [place] [address]- 7946 Feb, [facility] [place] [facility] [address] [id number] [place] [address]- 4876 Feb, [facility] [place] [facility] [address] [id number] [place] [address]- 9418 Feb, [facility] [place] [facility] [address] [id number] [place] 3408 Jan, [facility] [place] [facility] [address] [id number] [place] [address]- 6015 Jan, [facility] [place] [facility] [address] [id number] [place] [address]- 5361 Jan, [facility] [place] [facility] [address] [id number] [address]- 1845 Jan, [facility] [place] [facility] [address] [id number] [place] [address]- 7517 Jan, [facility] [place] [facility] [address] [id number] [address]- 1879 Dec, [facility] [place] [facility] [address] [id number] [address]- 4701 Dec, [facility] [place] [facility] [address] [id number] [place] [address]- 4082 29 Nov, 2013 [facility] [place] [facility] [address] [id number] [place] [address]- 5538 29 Nov, 2013 [facility] [place] [facility] [address] [id number], [place] [address]- 0942 Nov, [facility] [place] [facility] [address] [id number] [place] [address]- 4800 Nov, 2013 [facility] [place] [facility] [address] [id number] [place] [address]- 0526 Nov, 2013 [facility] [place] [facility] [address] [id number] [place] [address]- 7326 Nov, 2013 [facility] [place] [facility] [address] [id number] [place] [address]- 7336 Nov, 2013 [facility] [place] [facility] [address] [id number] [place] [address]- 7620 Nov, 2013 [facility] [place] [facility] [address] [id number] [place] [address]- 2220 Nov, [facility] [place] [facility] [address] [id number] [place] [address]- 2828 Nov, [facility] [place] [facility] [address] [id number] [place] [address]- 2282 Oct, [facility] [place] [facility] [address] [id number] [place] [address]- 7701 Oct, [facility] [place] [facility] [address] [id number] [place] [address]- 4609 Oct, [facility] [place] [facility] [address] [id number] [place] [address]- 8253 Oct, [facility] [place] [facility] [address] [id number] [place] [address]- 4110 Sep, [facility] [place] [facility] [address] [id number] [place] [address]- 7196 Sep, [facility] [place] [facility] [address] [id number] [place] [address]- 3536 Sep, [facility] [place] [facility] [address] [id number] [place] [address]- 6130 Sep, [facility] [place] [facility] [address] [id number] [place] [address]- 8876 Aug, [facility] [place] [facility] [address] [id number] [place] [address]- 2184 Aug, [facility] [place] [facility] [address] [id number] [place] [address]- 4897 Aug, [facility] [place] [facility] [address] [id number] [place] [address]- 8046 Aug, [facility] [place] [facility] [address] [id number] [place] [address]- 9510 Aug, [facility] [place] [facility] [address] [id number] [place] [address]- 0233 Aug, [facility] [place] [facility] [address] [id number] [place] [address]- 5400 Aug, [facility] [place] [facility] [address] [id number] [place] [address]- 9493 Aug, [facility] [place] [facility] [address] [id number] [place] [address]- 4183 Aug, [facility] [place] [facility] [address] [id number] [place] [address]- 0062 Aug, [facility] [place] [facility] [address] [id number] [place] [address]- 0823 Aug, [facility] [place] [facility] [address] [id number] [place] [address]- 9788 Aug, [facility] [place] [facility] [address] [id number], [place] [address]- 4434 July, [facility] [place] [facility] [address] [id number] [place] [address]- 7917 July, [facility] [place] [facility] [address] [id number] [place] [address]- 2097 July, [facility] [place] [facility] [address] [id number] [place] [address]- 7264 July, [facility] [place] [facility] [address] [id number] [place] [address]- 6529 July, [facility] [address] [id number] [place] [address]- 3999 July, [facility] [place] [facility] [address] [id number] [place] [address]- 4977 Jun, [facility] [place] [facility] [address] [id number] [place] [address]- 4953 Jun, [facility] [place] [facility] [address] [id number] [place] [address]- 0400 Jun, [facility] [place] [facility] [address] [id number] [place] [address]- 4877 Jun, [facility] [place] [facility] [address] [id number] [place] [address]- 4994 May, [facility] [place] [facility] [address] [id number] [place] [address]- 6037 May, [facility] [place] [facility] [address] [id number] [place] [address]- 7612 May, [facility] [place] [facility] [address] [id number] [place] [address]- 1534 May, [facility] [place] [facility] [address] [facility] [id number] [place] [address]- 3447 Feb, [facility] [place] [facility] [address] [id number] [place] [address]- 3458 26 Feb, 2013 [facility] [place] [facility] [address] [id number] [place] [address]- 0429 17 Feb, 2013 [facility] [place] [facility] [address] [id number] [place] [address]- 4052 17 Feb, 2013 [facility] [place] [facility] [address] [id number] [place] [address]- 0367 14 Jan, 2013 [facility] [place] [facility] [address] [facility] [id number] [place] [address]- 0061 14 Jan, 2013 [facility] [place] [facility] [address] [id number] [place] [address]- 2526 07 Dec, 2012 [facility] [place] [facility] [address] [id number] [place] [address]- 7333 06 Nov, 2012 [facility] [place] [facility] [address] [id number] [place] [address]- 3596 04 Nov, 2012 [facility] [place] [facility] [address] [id number] [place] [address]- 6179 Nov, [facility] [place] [facility] [address] [id number] [place] [address]- 2337 Oct, [facility] [place] [facility] [address] [id number] [place] [address]- 4227 Oct, [facility] [place] [facility] [address] [id number] [place] [address]- 8137 Oct, [facility] [place] [facility] [address] [id number] [place] [address]- 5634 Oct, [facility] [place] [facility] [address] [id number] [place] [address]- 2627 Oct, [facility] [place] [facility] [address] [id number] [place] [address]- 7312 Oct, [facility] [place] [facility] [address] [id number] [place] [address]- 2375 Aug, [facility] [place] [facility] [address] [id number] [place] [address]- 9499 July, [facility] [place] [facility] [address] [id number] [place] [address]- 6449 July, [facility] [place] [facility] [address] [id number] [place] [address]- 8372 May, [facility] [place] [facility] [address] [id number] [place] [address]- 2546 May, [facility] [place] [facility] [address] [id number] [place] [address]- 7305 May, [facility] [place] [facility] [address] [id number] [place] [address]- 7114 Apr, [facility] [place] [facility] [address] [id number] [place] [address]- 3306 Apr, [facility] [place] [facility] [address] [id number] [place] [address]- 0158 Mar, [facility] [place] [facility] [address] [id number] [place] [address]- 8246 Mar, [facility] [place] [facility] [address] [id number] [place] [address]- 6014 Jan, [facility] [place] [facility] [address] [id number] [place] [address]- 7426 Jan, [facility] [place] [facility] [address] [id number] [place] [address]- 2546 Nov, [facility] [place] [facility] [address] [id number] [place] [address]- 9059 Nov, [facility] [place] [facility] [address] [id number] [place] [address]- 5113 Sep, [facility] [place] [facility] [address] [id number] [place] [address]- 2664 Aug, [facility] [place] [facility] [address] [id number] [place] [address]- 6696 July, [facility] [place] [facility] [address] [id number] [place] [address] 2546 July, [facility] [place] [facility] [address] [id number] [place] [address]- 2546 July, [facility] [place] [facility] [address] [id number] [place] [address]- 3806 Apr, [facility] [place] [facility] [address] [id number] [place] [address]- 2546 Apr, [facility] [place] [facility] [address] [id number] [place] [address]- 5097 Mar, [facility] [address] [id number] [place] [address]- 7570 Mar, [facility] [address] [id number] [place] [address]- 5130 Mar, [facility] [address] [id number] [place] [address]- 8025 Mar, [facility] [address] [id number] [place] [address]- 5466 Mar, [facility] [id number] [place] [address], [place] 9112 Feb, [facility] [address] [id number] [place] [address]- 9487 Feb, [facility] [address] [id number] [place] [address]- 0688 Feb, [facility] [address] [id number] [place] [address]- 9737 Jan, [facility] [address] [id number] [place] [address]- 0650 Jan, [facility] [address] [facility] [id number] [place] [address] Dec, [facility] [address] [id number] [place] [address] Jan, [facility] [address] [id number] [place] [address] Aug, [facility] [address] [id number] [place] [address] July, [facility] [address] [id number] [place] [address] Feb, [facility] [address] [id number] [place] [address] Jan, [facility] [address] [facility] [id number] [place] [address] Jan, [facility] [address] [facility] [id number] [place] [address] Dec, [facility] [address] [facility] [id number] [place] [address] July, IMMUNIZATIONS No Known Immunizations SOCIAL HISTORY Never Assessed REASON FOR VISIT 3 mo f/u. Consult Dr. Farmer; nery RT(R) PLAN OF CARE Activity Details Follow Up 3 Months Reason: VITAL SIGNS Height 70 in 2017-03-02 Blood pressure systolic 126 mmHg 2017-03-02 Blood pressure diastolic 86 mmHg 2017-03-02 MEDICATIONS Unknown Medications RESULTS No Results PROCEDURES Procedure Date Ordered Result Body Site DEBRIDE NAIL, 1-5 Mar 02, 2017 [facility] VISIT ESTABLISHED PATIENT Mar 02, 2017 INSTRUCTIONS MEDICATIONS ADMINISTERED No Known Medications MEDICAL (GENERAL) HISTORY Type Description Date Medical History HTN Medical History hyperlipidemia Medical History chronic back pain and shoulder pain Medical History MRSA Surgical History x 3 Surgical History hysterectomy Surgical History right foot surgery Hospitalization History surgeries Hospitalization History MRSA on arm Hospitalization History infected cyst 2010
--- OUTSIDE RECORDS SUMMARY | 2017-12-09 18:34 | XMS REPORT ---
Author Author WILLIAM FRIED [facility] eClinicalWorks Address Unknown Phone Unavailable Care Team Providers Care Telemetry Rn Name Role Phone WILLIAM FRIED CP Unavailable Allergies, Adverse Reactions, Alerts Substance Reaction Event Type N.K.D.A. Info Not Available Non Drug Allergy Problems Problem Type Condition Code Onset Dates Condition Status Problem Methicillin resistant Staphylococcus aureus 041.12 Active Assessment Sinusitis J32.9 Active Problem Depressive disorder, not elsewhere classified 311 Active Problem Unspecified hereditary and idiopathic peripheral neuropathy 356.9 Active Problem Hyperlipidemia 272.4 Active Problem Hallux valgus (acquired) 735.0 Active Problem Plantar fascial fibromatosis 728.71 Active Problem Dermatophytosis of nail 110.1 Active Problem Other hammer toe (acquired) 735.4 Active Medications Medication Code System Code Instructions Start Date End Date Status Dosage Augmentin [facility] [address]-39 875-125 MG Orally every 12 hrs Feb 06, 2015 Feb 16, 2015 1 tablet Procedures Procedure Coding System Code Date Office Visit, Est Pt., Level 3 CPT-4 [id number] Feb 06, 2015 Vital Signs Date/Time: Feb 06, 2015 Temperature 98.6 F Weight 239 lbs Height 70 in BMI 34.29 Index Blood Pressure Diastolic 80 mmHg Blood Pressure Systolic 130 mmHg Cardiac Monitoring Heart Rate 64 bpm Results No Known Results Summary Purpose eClinicalWorks Submission
--- OUTSIDE RECORDS SUMMARY | 2017-12-09 18:35 | XMS REPORT ---
Author Author UGO PRETTY [facility] eClinicalWorks Address Unknown Phone Unavailable Care Team Providers Care Roller Skater Name Role Phone UGO PRETTY Unavailable Allergies, Adverse Reactions, Alerts Substance Reaction Event Type N.K.D.A. Info Not Available Non Drug Allergy Problems Problem Type Condition ICD-9 Code Onset Dates Condition Status Problem Other hammer toe (acquired) 735.4 Active Problem Sebaceous cyst 706.2 Active Problem Dermatophytosis of nail 110.1 Active Problem Unspecified breast screening V76.10 Active Problem Routine gynecological examination V72.31 Active Problem Hyperlipidemia 272.4 Active Problem Unspecified hereditary and idiopathic peripheral neuropathy 356.9 Active Problem Rash and other nonspecific skin eruption 782.1 Active Problem Dizziness and giddiness 780.4 Active Problem Depressive disorder, not elsewhere classified 311 Active Assessment Breast cancer screening V76.10 Active Assessment Wart 078.10 Active Assessment Hyperlipidemia 272.4 Active Problem Cellulitis and abscess of face 682.0 Active Problem Plantar fascial fibromatosis 728.71 Active Problem Headache 784.0 Active Problem Other specified disorder of skin 709.8 Active Problem Methicillin resistant Staphylococcus aureus 041.12 Active Problem Hallux valgus (acquired) 735.0 Active Medications Medication Code System Code Instructions Start Date End Date Status Dosage Metoprolol Tartrate [facility] 12722291618 100 MG TAKE ONE TABLET BY MOUTH TWICE DAILY tramadol ND 0 50 mg Feb 24, 2014 1 tablet by Oral route every 4- 6 hours PRN Losartan Potassium [facility] [address]-88 50 MG Orally 2 times a day August 18, 2014 1 tab Amlodipine Besylate [facility] 68223430265 10 MG TAKE ONE TABLET BY MOUTH DAILY Citalopram Hydrobromide [facility] 38470736604 20 MG Orally Once a day 1 tablet Norvasc [facility] [address]-04 10 mg Mar 16, 2014 1 tablet by Oral route 1 time per day Estradiol [facility] [address]-77 0.5 MG Orally Once a day August 04, 2014 1 tablet Pravastatin Sodium [facility] [address]-18 80 MG Once a day TAKE ONE TABLET BY MOUTH AT BEDTIME Procedures Procedure Coding System Code Date Office Visit, Est Pt., Level 3 CPT-4 63775 Dec 08, 2014 CRYOTHERAPY OF SKIN CPT-4 33146 Dec 08, 2014 Vital Signs Date/Time: Dec 08, 2014 Temperature 97.6 F Weight 237.2 lbs Height 70 in BMI 34.03 Index Blood Pressure Diastolic 74 mmHg Blood Pressure Systolic 132 mmHg Cardiac Monitoring Heart Rate 80 bpm Results Name Result Date Reference Range Unit Abnormality Flag CRYOTHERAPY OF SKIN Summary Purpose eClinicalWorks Submission
--- OUTSIDE RECORDS SUMMARY | 2017-12-09 18:35 | XMS REPORT ---
Author Author UGO PRETTY [facility] eClinicalWorks Address Unknown Phone Unavailable Care Team Providers Care Galley Worker Name Role Phone UGO PRETTY Unavailable Allergies, Adverse Reactions, Alerts Substance Reaction Event Type N.K.D.A. Info Not Available Non Drug Allergy Problems Problem Type Condition Code Onset Dates Condition Status Problem Methicillin resistant Staphylococcus aureus 041.12 Active Assessment Cough R05 Active Problem Depressive disorder, not elsewhere classified 311 Active Problem Unspecified hereditary and idiopathic peripheral neuropathy 356.9 Active Problem Hyperlipidemia 272.4 Active Problem Hallux valgus (acquired) 735.0 Active Problem Plantar fascial fibromatosis 728.71 Active Problem Dermatophytosis of nail 110.1 Active Problem Other hammer toe (acquired) 735.4 Active Medications Medication Code System Code Instructions Start Date End Date Status Dosage Citalopram Hydrobromide [facility] 49008250105 20 MG Orally Once a day 1 tablet Promethazine-Codeine [facility] [address]-71 6.25-10 MG/5ML Orally every 6 hrs Feb 16, 2015 5-10 ml as needed Amlodipine Besylate [facility] 06324323239 10 MG TAKE ONE TABLET BY MOUTH DAILY Loratadine [facility] 34670786815 10 MG TAKE ONE TABLET BY MOUTH DAILY Pravastatin Sodium [facility] [address]-21 80 MG Once a day TAKE ONE TABLET BY MOUTH AT BEDTIME Flonase [facility] [address]-28 50 MCG/ACT Nasally Once a day Jan 25, 2015 1 spray in each nostril Metoprolol Tartrate [facility] 83125649401 100 MG TAKE ONE TABLET BY MOUTH TWICE DAILY Losartan Potassium [facility] [address]-89 50 MG Orally 2 times a day August 18, 2014 1 tab Estradiol [facility] 69600085684 0.5 MG Orally Once a day 1 tablet Procedures Procedure Coding System Code Date Office Visit, Est Pt., Level 3 CPT-4 38263 Feb 16, 2015 Vital Signs Date/Time: Feb 16, 2015 Temperature 97.8 F Weight 239.3 lbs Height 70 in BMI 34.33 Index Blood Pressure Diastolic 86 mmHg Blood Pressure Systolic 126 mmHg Cardiac Monitoring Heart Rate 60 bpm Results No Known Results Summary Purpose eClinicalWorks Submission
--- OUTSIDE RECORDS SUMMARY | 2017-12-09 18:35 | XMS REPORT ---
Author AUBREY Hendrix Organization eClinicalWorks Address Unknown Phone Unavailable Care Team Providers Care Mop Handle Assembler Name Role Phone AUBREY FARMER CP Unavailable Allergies No Known Allergies Problems Problem Type Condition Code Onset Dates Condition Status Assessment Callus of foot L84 Active Problem Dysthymia F34.1 Active Problem Heel spur M77.30 Active Problem Chronic pain G89.29 Active Problem Methicillin resistant Staphylococcus aureus 041.12 Active Assessment Onychomycosis B35.1 Active Problem Ganglion cyst M67.40 Active Problem Hyperlipidemia 272.4 Active Medications No Known Medications Procedures Procedure Coding System Code Date Office Visit, Est Pt., Level 3 CPT-4 14243 September 10, 2015 DEBRIDE NAIL, 1-5 CPT-4 49139 September 10, 2015 Vital Signs Date/Time: September 10, 2015 Blood Pressure Diastolic 78 mmHg Blood Pressure Systolic 132 mmHg Height 70 in Results No Known Results Summary Purpose eClinicalWorks Submission
--- OUTSIDE RECORDS SUMMARY | 2017-12-09 18:35 | XMS REPORT ---
Author HEMANTH Sinha eClinicalWorks Address Unknown Phone Unavailable Care Team Providers Care Senior Art Director Name Role Phone HEMANTH KEY CP Unavailable Allergies, Adverse Reactions, Alerts Substance Reaction Event Type N.K.D.A. Info Not Available Non Drug Allergy Problems Problem Type Condition Code Onset Dates Condition Status Assessment Encounter for immunization Z23 Active Problem Methicillin resistant Staphylococcus aureus 041.12 Active Assessment Acute upper respiratory infection, unspecified J06.9 Active Assessment Acute frontal sinusitis, recurrence not specified J01.10 Active Assessment Other viral agents as the cause of diseases classified elsewhere B97.89 Active Problem Depressive disorder, not elsewhere classified 311 Active Problem Unspecified hereditary and idiopathic peripheral neuropathy 356.9 Active Problem Hyperlipidemia 272.4 Active Problem Hallux valgus (acquired) 735.0 Active Problem Plantar fascial fibromatosis 728.71 Active Problem Dermatophytosis of nail 110.1 Active Problem Other hammer toe (acquired) 735.4 Active Medications Medication Code System Code Instructions Start Date End Date Status Dosage Estradiol [facility] [address]-84 0.5 MG Orally Once a day August 04, 2014 1 tablet Flonase [facility] [address]-74 50 MCG/ACT Nasally Once a day Jan 25, 2015 1 spray in each nostril Citalopram Hydrobromide [facility] 67969966297 20 MG Orally Once a day 1 tablet Amlodipine Besylate [facility] 98057907190 10 MG TAKE ONE TABLET BY MOUTH DAILY Losartan Potassium [facility] [address]-96 50 MG Orally 2 times a day August 18, 2014 1 tab Metoprolol Tartrate [facility] 07761571461 100 MG TAKE ONE TABLET BY MOUTH TWICE DAILY tramadol ND 0 50 mg Feb 24, 2014 1 tablet by Oral route every 4- 6 hours PRN Norvasc [facility] [address]-27 10 mg Mar 16, 2014 1 tablet by Oral route 1 time per day Pravastatin Sodium [facility] [address]-57 80 MG Once a day TAKE ONE TABLET BY MOUTH AT BEDTIME Procedures Procedure Coding System Code Date MEASURE BLOOD OXYGEN LEVEL CPT-4 61658 Jan 25, 2015 FLUZONE QUAD (3 & UP)-SINGLE DOSE VIAL-SANOFI PASTEUR-2014 CPT-4 07113 Jan 25, 2015 Office Visit, Est Pt., Level 3 CPT-4 30281 Jan 25, 2015 SINGLE IMMUNIZATION ADMIN CPT-4 72117 Jan 25, 2015 Vital Signs Date/Time: Jan 25, 2015 Temperature 97.3 F Weight 235.8 lbs Height 70 in Oximetry 97 % Blood Pressure Diastolic 80 mmHg Blood Pressure Systolic 134 mmHg Cardiac Monitoring Heart Rate 60 bpm BMI 33.83 Index Results No Known Results Immunizations Vaccine Administration Date FLUZONE QUAD (3 & UP)-SINGLE DOSE VIAL-SANOFI PASTEUR-2014Jan 25, 2015 Summary Purpose eClinicalWorks Submission
--- OUTSIDE RECORDS SUMMARY | 2017-12-09 18:36 | XMS REPORT ---
Author Author UGO PRETTY [facility] Address [address] [place] [address] Care Team Providers Care Revenue Tax Specialist Name Role Phone UGO PRETTY Unavailable PROBLEMS Type Condition ICD9-CM Code [id number] Code Onset Dates Condition Status SNOMED Code Assessment Seborrheic keratosis L82.1 Jan, Active 615058974 Problem Methicillin resistant Staphylococcus aureus 041.12 Active 492678641 Problem Cataracts, bilateral H26.9 Active 30391228 Assessment Encounter for immunization Z23 Jan, Active 019772375 Problem Hyperlipidemia, unspecified E78.5 Active 20835727 Problem Essential hypertension I10 Active 45599868 Problem Heel spur M77.30 Active 94851223 Problem Ganglion cyst M67.40 Active 394197755 Problem Chronic pain G89.29 Active 45022942 Problem Dysthymia F34.1 Active 73273831 ALLERGIES Substance Reaction Event Type Date Status N.K.D.A. Unknown Non Drug Allergy Jan, Unknown SOCIAL HISTORY No smoking Hx information available PLAN OF CARE VITAL SIGNS Height 70 in 2016-02-07 Weight 236.5 lbs 2016-02-07 Heart Rate 58 bpm 2016-02-07 Respiratory Rate 18 2016-02-07 BMI 33.93 kg/m2 2016-02-07 Blood pressure systolic 140 mmHg 2016-02-07 Blood pressure diastolic 82 mmHg 2016-02-07 MEDICATIONS Medication Instructions Dosage Frequency Start Date End Date Duration Status Loratadine 10 MG TAKE ONE TABLET BY MOUTH DAILY 90 Active tramadol 50 mg subcutaneously every 4-6 hours as needed 1 tablet Feb, Active Metoprolol Tartrate 100 MG TAKE ONE TABLET BY MOUTH TWICE DAILY 90 Active Rolla 5-325 MG Orally every 6 hrs 1 tablet as needed 6h Jan, Active Prozac 40 MG Orally Once a day 1 capsule in the morning 24h Jun, 90 Active Losartan Potassium 50 mg Orally 2 times a day 1 tablet 12h 90 days Active Amlodipine Besylate 10 mg Orally Once a day 1 tablet 24h 90 days Active Pravastatin Sodium 80 MG TAKE ONE TABLET BY MOUTH AT BEDTIME 24h 90 Active Estradiol 0.5 MG Orally Once a day 1 tablet 24h 90 Active RESULTS No Results PROCEDURES Procedure Date Ordered Related Diagnosis Body Site CRYOTHERAPY OF SKIN 2016-02-07 N/A CRYOTHERAPY OF SKIN Feb 07, 2016 Office Visit, Est Pt., Level 3 Feb 07, 2016 [facility] VISIT ESTABLISHED PATIENT Feb 07, 2016 SINGLE IMMUNIZATION ADMIN Feb 07, 2016 FLUZONE HIGH DOSE 65 AND UP 2015Feb 07, 2016 IMMUNIZATIONS Vaccine Route Administration Date Status FLUZONE HIGH DOSE 65 AND UP 2015 IM Intramuscular Feb 07, 2016 Administered
--- OUTSIDE RECORDS SUMMARY | 2017-12-09 18:36 | XMS REPORT ---
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 Role Phone UGO PRETTY Unavailable PROBLEMS Type Condition ICD9-CM Code [id number] Code Onset Dates Condition Status SNOMED Code Problem Dysthymia F34.1 Active 32529029 Problem Essential hypertension I10 Active 47454613 Problem Chronic pain G89.29 Active 38939602 Problem Methicillin resistant Staphylococcus aureus 041.12 Active 754265055 Problem Cataracts, bilateral H26.9 Active 60231875 Problem Ganglion cyst M67.40 Active 418024149 Problem Heel spur M77.30 Active 10239920 Problem Irritable bowel syndrome with diarrhea K58.0 Active 901487924 Problem Neuropathy G62.9 Active 220780085 Problem Acquired hallux valgus of left foot M20.12 Active 71402672 Problem Hyperlipidemia, unspecified E78.5 Active 29650369 Problem Hallux valgus (acquired), right foot M20.11 Active 814808773 Problem Hammer toe of right foot M20.41 Active 946587297 ALLERGIES No Known Allergies ENCOUNTERS Encounter Location Date Diagnosis [place] [id number] [place] [address] 08663- 6717 Aug, [place] [address] [place] [id number] [place] [address] 00387- 4686 July, Essential hypertension I10 and Skin tag L91.8 [facility] [id number] [place] [address] 83310 -8346 Jun, [facility] [id number] [place] [address] 21883- 9746 May, Dermatofibroma of left calf D23.72 [facility] [address] [address] May, Bilateral hearing loss due to cerumen impaction H61.23 [place] [address] 12471- 3751 May, Onychomycosis B35.1 ; Hammer toe of right foot M20.41 ; Acquired hallux valgus of left foot M20.12 and Gully or callus L84 [address] [address]27- 6312 Apr, Seborrheic keratosis L82.1 and Irritable bowel syndrome with diarrhea K58.[address] 21524- 0422 Mar, [address] 80961- 3954 Mar, Dental examination Z01.[address] 22692- 0037 Mar, Medicare welcome exam Z00.00 ; Encounter for screening for lung cancer Z12.2 ; Colon cancer screening Z12.11 ; Encounter for immunization Z23 ; Weakness R53.1 and Irritable bowel syndrome with diarrhea K58.[address] 91317- 9474 Feb, Onychomycosis B35.1 ; Hammer toe of right foot M20.41 ; Hallux valgus (acquired), right foot M20.11 and Acquired hallux valgus of left foot M20.12 [place] [address] 36962- 1066 Jan, Essential hypertension I10 and Encounter for immunization Z23 [address] [address]327- 0824 02 Dec, 2016 Encounter for screening mammogram for breast cancer Z12.31 and Hyperlipidemia, unspecified E78.[address] 07237- 7338 Nov, Hammer toe of right foot M20.41 ; Onychomycosis B35.1 and Neuropathy G62.9 [place] [address] [place] [id number] [place] [address] 14145- 1969 Sep, Essential hypertension I10 and 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 [place] [address] [place] [id number] [place] [address] 71527- 5631 Aug, [place] [address] 30323- 9363 Aug, [place] [address] [place] [id number] [place] [address] 52165- 2985 Aug, Onychomycosis B35.1 ; Hammer toe of right foot M20.41 and Neuropathy G62.9 [place] [address] [place] [id number] [place] [address] 61178- 6483 May, Callus of foot L84 ; Hammer toe of right foot M20.41 and Onychomycosis B35.1 [place] [address] [place] [id number] [place] [address] 97031- 2411 Apr, Chronic pain G89.29 [place] [address] [place] [id number] [place] [address] 19868- 9926 Feb, Onychomycosis B35.1 ; Hammer toe of right foot M20.41 ; Acquired hallux valgus of left foot M20.12 and Hallux valgus (acquired), right foot M20.11 [place] [address] [place] [id number] [place] [address] 79680- 9209 Jan, Cellulitis of left lower extremity L03.116 [place] [address] [place] [id number] [place] [address] 63126- 1074 Jan, Seborrheic keratosis L82.1 and Encounter for immunization Z23 [place] [address] [place] [id number] [place] [address] 31482- 6394 Jan, Seborrheic keratoses L82.1 and Visit for suture removal Z48.02 [place] [address] [address]- 8328 Jan, Dermatofibroma D23.9 [place] [address] [place] [address] 44280- 0629 Dec, Lesion of lower extremity L98.9 [place] [address] [place] [id number] [place] [address] 37998- 2551 Dec, [place] [address] [place] [address] [id number] [place] [address] 51477- 8443 Dec, Chronic pain G89.29 [place] [address] [place] [address] [id number] [place] [address] 13606- 3636 Dec, Well woman exam Z01.419 ; Essential hypertension I10 ; Breast cancer screening Z12.39 ; Cervical cancer screening Z12.4 ; Vision changes H53.9 ; Heberden's node M15.1 ; Cutaneous horn L85.8 and Seborrheic keratosis L82.1 [place] [address] [place] [address] 83579- 4261 Dec, Well woman exam Z01.419 ; Heberden's node M15.1 ; Breast cancer screening Z12.39 ; Cervical cancer screening Z12.4 ; Essential hypertension I10 ; Vision changes H53.9 ; Cutaneous horn L85.8 and Seborrheic keratosis L82.1 [place] [address] [place] [id number] [place] [address] 93837- 5135 Nov, Well woman exam Z01.419 ; Breast cancer screening Z12.39 ; Cervical cancer screening Z12.4 ; Essential hypertension I10 ; Vision changes H53.9 ; Heberden's node M15.1 ; Cutaneous horn L85.8 and Seborrheic keratosis L82.1 [place] [address] [place] [address] 42472- 2824 Nov, Hammer toe of right foot M20.41 and Callus of foot L84 [facility] [address] [id number] [place] [address] 06521- 8553 Aug, Onychomycosis B35.1 and Callus of foot L84 [facility] [address] 56933- 4856 July, Dysthymia F34.1 and Chronic pain G89.29 [facility] [address] 06062- 1696 Jun, Dysthymia F34.1 ; Heel spur M77.30 and Ganglion cyst M67.40 [facility] [address] 31715- 1998 May, Onychomycosis B35.1 and Neuropathy G62.9 [facility] [address] 55742- 9616 May, [facility] [address] 07117- 3452 Apr, [facility] [address] [place] [id number] [place] [address] 13776- 2742 Apr, [facility] [address] [place] [id number] [place] [address] 76918- 2327 Apr, [facility] [id number] [place] [address] 99278- 9528 Mar, [facility] [id number] [place] [address] 23432 2549 Mar, [facility] [id number] [place] [address] 58563- 7656 Feb, [facility] [address] [place] [id number] [place] [address] 312931- 8786 Feb, [facility] [address] [id number] [place] [address] 63698- 8376 Feb, [facility] [address] [place] [address]- 5141 Feb, Onychomycosis B35.1 and Gully or callus L84 [place] [address] 18418- 5387 Feb, Cough R05 [facility] [id number] [place] [address] 36120 -9126 Jan, Sinusitis J32.9 [place] [address] 10569- 2204 Jan, Hyperlipidemia 272.4 [place] [address] 48459- 2699 Jan, Acute upper respiratory infection, unspecified J06.9 ; Encounter for immunization Z23 ; Other viral agents as the cause of diseases classified elsewhere B97.89 and Acute frontal sinusitis, recurrence not specified J01.10 [place] [address] 59496- 7398 Nov, Wart 078.10 ; Breast cancer screening V76.10 and Hyperlipidemia 272.4 [place] [address] 30538- 0332 Nov, Onychomycosis 110.1 ; Gully or callus 700 and Skin fissures 709.8 [place] [address] [place] [id number] [place] [address] 44470- 1300 Aug, Hammertoe 735.4 ; Hyperkeratosis 701.1 ; Onychomycosis 110.1 ; Fissure in skin of foot 709.8 and Foot pain 729.5 [place] [address] 71780- 1705 Aug, [place] [address] 52179- 6239 Aug, [place] [address] [place] [id number] [place] [address] 66462- 8492 Aug, [place] [address] [place] [id number] [address]- 2716 July, [facility] [address] [id number] [place] [address]- 0218 July, [facility] [place] [facility] [address] [id number] [place] [address]- 5556 Jun, [facility] [address] [id number] [place] [address]- 2016 Jun, [facility] [place] [facility] [address] [id number] [place] [address]- 8082 May, [facility] [address] [id number] [place] [address]- 2796 May, [facility] [place] [facility] [address] [id number] [place] [address]- 6436 May, [facility] [place] [facility] [address] [id number] [place] [address]- [address] May, [facility] [address] [id number] [place] [address]- [address] Apr, [facility] [address] [id number] [place] [address]- [address] Apr, [facility] [address] [id number] [place] 3703 Feb, [facility] [place] [facility] [address] [id number] [place] [address]- 7732 Feb, [facility] [place] [facility] [address] [id number] [place] [address]- 4786 Feb, [facility] [place] [facility] [address] [id number] [place] [address]- 3226 Feb, [facility] [place] [facility] [address] [id number] [place] [address]- 2546 Feb, [facility] [place] [facility] [address] [id number] [place] [address]- 6423 Feb, [facility] [place] [facility] [address] [id number] [place] [address]- 2957 Jan, [facility] [place] [facility] [address] [id number] [place] [address]- 4972 Jan, [facility] [place] [facility] [address] [id number] [place] [address]- 6752 Jan, [facility] [place] [facility] [address] [id number] [place] [address]- 9063 Jan, [facility] [place] [facility] [address] [id number] [place] [address]- 6732 Jan, [facility] [place] [facility] [address] [id number] [place] [address]- 2361 Dec, [facility] [place] [facility] [address] [id number] [place] [address]- 3486 Dec, [facility] [place] [facility] [address] [id number] [place] [address]- 9497 29 Nov, 2013 [facility] [place] [facility] [address] [id number] [place] [address]- 7041 29 Nov, 2013 [facility] [place] [facility] [address] [id number] [place] [address]- 7842 Nov, [facility] [place] [facility] [address] [id number] [place] [address]- 8845 19 Nov, 2013 [facility] [place] [facility] [address] [id number] [place] [address]- 1868 11 Nov, 2013 [facility] [place] [facility] [address] [id number] [place] [address]- 4999 11 Nov, 2013 [facility] [place] [facility] [address] [id number] [place] [address]- 5626 04 Nov, 2013 [facility] [place] [facility] [address] [id number] [place] [address]- 7525 04 Nov, 2013 [facility] [place] [facility] [address] [id number] [place] [address]- 2511 Nov, [facility] [place] [facility] [address] [id number] [place] [address]- 6549 Nov, [facility] [place] [facility] [address] [id number] [place] [address]- 2778 Oct, [facility] [place] [facility] [address] [id number] [place] [address]- 0764 Oct, [facility] [place] [facility] [address] [id number] [place] [address]- 6832 Oct, [facility] [place] [facility] [address] [id number] [place] [address]- 3947 Oct, [facility] [place] [facility] [address] [id number] [place] [address]- 5657 Sep, [facility] [place] [facility] [address] [id number] [place] [address]- 1067 Sep, [facility] [place] [facility] [address] [id number] [place] [address]- 7946 Sep, [facility] [place] [facility] [address] [id number] [place] [address]- 3740 Sep, [facility] [place] [facility] [address] [id number] [place] [address]- 4852 Aug, [facility] [place] [facility] [address] [id number] [place] [address]- 2752 Aug, [facility] [place] [facility] [address] [id number] [place] [address]- 7797 Aug, [facility] [place] [facility] [address] [id number] [place] [address]- 6964 Aug, [facility] [place] [facility] [address] [id number] [place] [address]- 1371 Aug, [facility] [place] [facility] [address] [id number] [place] [address]- 1044 Aug, [facility] [place] [facility] [address] [id number] [place] [address]- 9996 Aug, [facility] [place] [facility] [address] [id number] [place] [address]- 6188 Aug, [facility] [place] [facility] [address] [id number] [place] [address]- 9650 Aug, [facility] [place] [facility] [address] [id number] [place] [address]- 7558 Aug, [facility] [place] [facility] [address] [id number] [place] [address]- 3394 Aug, [facility] [place] [facility] [address] [id number] [place] [address]- 2420 Aug, [facility] [place] [facility] [address] [id number] [place] [address]- 9445 July, [facility] [place] [facility] [address] [id number] [place] [address]- 5347 July, [facility] [place] [facility] [address] [id number] [place] [address]- 0808 July, [facility] [place] [facility] [address] [id number] [place] [address]- 0488 July, [facility] [place] [facility] [address] [id number] [place] [address]- 7706 July, [facility] [place] [facility] [address] [id number] [place] [address]- 8347 July, [facility] [place] [facility] [address] [id number] [place] [address]- 1577 Jun, [facility] [place] [facility] [address] [id number] [place] [address]- 9379 Jun, [facility] [place] [facility] [address] [id number] [place] [address]- 6078 Jun, [facility] [place] [facility] [address] [id number] [place] [address]- 3966 18 Jun, 2013 [facility] [place] [facility] [address] [id number] [place] [address]- 1344 27 May, 2013 [facility] [place] [facility] [address] [id number] [place] [address]- 5735 27 May, 2013 [facility] [place] [facility] [address] [id number] [place] [address]- 6715 14 May, 2013 [facility] [place] [facility] [address] [id number] [place] [address]- 8761 14 May, 2013 [facility] [place] [facility] [address] [id number] [place] [address]- 5064 26 Feb, 2013 [facility] [place] [facility] [address] [id number] [place] [address]- 9412 26 Feb, 2013 [facility] [place] [facility] [address] [id number] [place] [address]- 8343 17 Feb, 2013 [facility] [place] [facility] [address] [id number] [place] [address]- 3868 17 Feb, 2013 [facility] [place] [facility] [address] [id number] [place] [address]- 7489 14 Jan, 2013 [facility] [place] [facility] [address] [id number] [place] [address]- 5448 14 Jan, 2013 [facility] [place] [facility] [address] [id number] [place] [address]- 0236 07 Dec, 2012 [facility] [place] [facility] [address] [id number] [place] [address]- 9227 06 Nov, 2012 [facility] [place] [facility] [address] [id number] [place] [address]- 6200 04 Nov, 2012 [facility] [place] [facility] [address] [id number] [place] [address]- 7490 03 Nov, 2012 [facility] [place] [facility] [address] [id number] [place] [address]- 6823 2012 [facility] [place] [facility] [address] [id number] [place] [address]- 7944 Oct, [facility] [address] [id number] [place] [address]- 9957 Oct, [facility] [address] [id number] [place] [address]- 7688 Oct, [facility] [address] [id number] [place] [address]- 0288 Oct, [facility] [address] [id number] [place] [address]- 2198 Oct, [facility] [address] [id number] [place] [address]- 9016 Aug, [facility] [address] [id number] [place] [address]- 9802 July, [facility] [address] [id number] [place] [address]- 8366 July, [facility] [address] [id number] [place] [address]- 4627 May, [facility] [address] [id number] [place] [address]- 4823 May, [facility] [address] [id number] [place] [address]- 1685 May, [facility] [address] [id number] [place] [address]- [address] Apr, [facility] [address] [id number] [place] [address]- 3268 Apr, [facility] [address] [id number] [place] [address]- [address] Mar, [facility] [address] [id number] [place] [address]- 4136 Mar, [facility] [address] [id number] [place] [address]- 2349 Jan, [facility] [address] [id number] [place] [address]- 4999 Jan, [facility] [place] [facility] [address] [id number] [place] [address]- 6050 Nov, [facility] [place] [facility] [address] [id number] [place] [address]- 9844 Nov, [facility] [place] [facility] [address] [id number] [place] [address]- 0734 Sep, [facility] [place] [facility] [address] [id number] [place] [address]- 5767 Aug, [facility] [place] [facility] [address] [id number] [place] [address]- 1239 July, [facility] [place] [facility] [address] [id number] [place] [address]- 8626 July, [facility] [place] [facility] [address] [id number] [place] [address]- 5450 July, [facility] [place] [facility] [address] [id number] [place] [address]- 5058 Apr, [facility] [place] [facility] [address] [id number] [place] [address]- 1573 Apr, [facility] [place] [facility] [address] [id number] [place] [address]- 6410 Mar, [facility] [place] [facility] [address] [id number] [place] [address]- 2051 Mar, [facility] [place] [facility] [address] [id number] [place] [address]- 0530 Mar, [facility] [place] [facility] [address] [id number] [place] [address]- 4814 Mar, [facility] [place] [facility] [address] [id number] [place] [address] Mar, [facility] [place] [facility] [id number] [place] [address] Feb, [facility] [id number] [place] [address] Feb, [facility] [id number] [place] [address] Feb, [facility] [id number] [place] [address] Jan, [facility] [id number] [place] [address] Jan, [facility] [id number] [place] [address] Dec, [facility] [id number] [place] [address] Jan, [facility] [id number] [place] [address] Aug, [facility] [id number] [place] [address] July, [facility] [id number] [place] [address] Feb, [facility] [id number] [place] [address] Jan, [facility] [id number] [place] [address] Jan, [facility] [id number] [place] [address] Dec, [facility] [id number] [place] [address] July, IMMUNIZATIONS Vaccine Route Administration Date Status FLUARIX QUAD (3 AND UP) 2017 IM Intramuscular Feb 07, 2017 Administered PCV 13 IM Intramuscular Feb 07, 2017 Administered SOCIAL HISTORY Never Assessed REASON FOR VISIT Blood Pressure, Fasting for lab CBrumbackRN PLAN OF CARE Activity Details Follow Up 4 Months Reason:Htn VITAL SIGNS Height 70 in 2017-02-07 Weight 240.9 lbs 2017-02-07 Temperature 98.3 degrees Fahrenheit 2017-02-07 Heart Rate 60 bpm 2017-02-07 Respiratory Rate 18 2017-02-07 BMI 34.56 kg/m2 2017-02-07 Blood pressure systolic 120 mmHg 2017-02-07 Blood pressure diastolic 66 mmHg 2017-02-07 MEDICATIONS Medication Instructions Dosage Frequency Start Date End Date Duration Status Loratadine 10 MG TAKE ONE TABLET BY MOUTH DAILY 90 Active Tramadol HCl 50 MG Orally every 4 - 6 hrs 1 tablet as needed Apr, 28 days Active Estradiol 0.5 MG Orally Once [...] day 1 tablet 24h 90 days Active Prozac 40 MG Orally Once a day 1 capsule in the morning 24h 90 days Active RESULTS No Results PROCEDURES Procedure Date Ordered Result Body Site FLUARIX QUAD (3 AND UP) 2016Feb 07, 2017 LAB NOT BILLED BY [employer] Feb 07, 2017 VENIPUNCT, ROUTINE* Feb 07, 2017 IMMUNIZATION ADMIN, EACH ADD (please include units) Feb 07, 2017 FQ VISIT ESTABLISHED PATIENT Feb 07, 2017 SINGLE IMMUNIZATION ADMIN Feb 07, 2017 PCV 13 Feb 07, 2017 INSTRUCTIONS MEDICATIONS ADMINISTERED No Known Medications MEDICAL (GENERAL) HISTORY Type Description Date Medical History HTN Medical History hyperlipidemia Medical History chronic back pain and shoulder pain Medical History MRSA Surgical History x 3 Surgical History hysterectomy Surgical History right foot surgery Hospitalization History surgeries Hospitalization History MRSA on arm Hospitalization History infected cyst 2010
--- OUTSIDE RECORDS SUMMARY | 2017-12-09 18:36 | XMS REPORT ---
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 Organization [facility] Address [address] [place] [address] Care Team Providers Care Radiologist Name Role Phone MARLENYNOREEN DangIN Unavailable PROBLEMS Type Condition ICD9-CM Code [id number] Code Onset Dates Condition Status SNOMED Code Problem Heel spur M77.30 Active 43108843 Problem Chronic pain G89.29 Active 96252862 Problem Dysthymia F34.1 Active 97439066 Problem Cataracts, bilateral H26.9 Active 89102611 Problem Methicillin resistant Staphylococcus aureus 041.12 Active 133089321 Problem Ganglion cyst M67.40 Active 093001099 Problem Neuropathy G62.9 Active 425339779 Problem Hammer toe of right foot M20.41 Active 952980467 Problem Essential hypertension I10 Active 67855252 Problem Hyperlipidemia, unspecified E78.5 Active 42627665 Problem Acquired hallux valgus of left foot M20.12 Active 22072039 Problem Hallux valgus (acquired), right foot M20.11 Active 886232609 ALLERGIES Unknown Allergies SOCIAL HISTORY No smoking Hx information available PLAN OF CARE Activity Details Follow Up 3 Months Reason: VITAL SIGNS Height 70 in 2016-03-03 Blood pressure systolic 128 mmHg 2016-03-03 Blood pressure diastolic 86 mmHg 2016-03-03 MEDICATIONS Unknown Medications RESULTS No Results PROCEDURES Procedure Date Ordered Related Diagnosis Body Site DEBRIDE NAIL, 1-5 Mar 03, 2016 [facility] V[facility]IT ESTABLISHED PATIENT Mar 03, 2016 Office Visit, Est Pt., Level 3 Mar 03, 2016 IMMUNIZATIONS No Known Immunizations
--- OUTSIDE RECORDS SUMMARY | 2017-12-09 18:36 | XMS REPORT ---
Author SHAYNA Melo [facility] eClinicalWorks Address Unknown Phone Unavailable Care Team Providers Care Coordinator Of Rehabilitation Services Name Role Phone SHAYNA DASILVA CP Unavailable Allergies, Adverse Reactions, Alerts Substance Reaction Event Type N.K.D.A. Info Not Available Non Drug Allergy Problems Problem Type Condition Code Onset Dates Condition Status Problem Cataracts, bilateral H26.9 Active Assessment Dermatofibroma D23.9 Active Problem Essential hypertension I10 Active Problem Chronic pain G89.29 Active Problem Hyperlipidemia, unspecified E78.5 Active Problem Ganglion cyst M67.40 Active Problem Methicillin resistant Staphylococcus aureus 041.12 Active Problem Dysthymia F34.1 Active Problem Heel spur M77.30 Active Medications Medication Code System Code Instructions Start Date End Date Status Dosage Pravastatin Sodium [facility] 42356804079 80 MG Once a day TAKE ONE TABLET BY MOUTH AT BEDTIME Losartan Potassium [facility] [address]-68 50 mg Orally 2 times a day 1 tablet Prozac [facility] [address]-06 40 MG Orally Once a day June 21, 2015 1 capsule in the morning Amlodipine Besylate [facility] [address]-89 10 mg Orally Once a day 1 tablet tramadol ND 0 50 mg subcutaneously every 4-6 hours as needed Feb 24, 2014 1 tablet Estradiol [facility] 87987318389 0.5 MG Orally Once a day 1 tablet Metoprolol Tartrate [facility] 35980088520 100 MG TAKE ONE TABLET BY MOUTH TWICE DAILY [place] [facility] [address]-38 5-325 MG Orally every 6 hrs Jan 25, 2016 1 tablet as needed Loratadine [facility] 87254397956 10 MG TAKE ONE TABLET BY MOUTH DAILY Procedures Procedure Coding System Code Date [facility] VISIT ESTABLISHED PATIENT CPT-4 G0467 Jan 25, 2016 Office Visit, Est Pt., Level 2 CPT-4 76892 Jan 25, 2016 EXC TR-EXT B9 FAITH 1.1-2 CM CPT-4 00510 Jan 25, 2016 Vital Signs Date/Time: Jan 25, 2016 Cardiac Monitoring Heart Rate 60 bpm Weight 235 lbs Height 70 in BMI 33.72 Index Blood Pressure Diastolic 70 mmHg Blood Pressure Systolic 102 mmHg Results Name Result Date Reference Range Unit Abnormality Flag PATHOLOGY REPORT PDF Report ----PDF Report1 [facility] [id number] Summary Purpose eClinicalWorks Submission
--- OUTSIDE RECORDS SUMMARY | 2017-12-09 18:37 | XMS REPORT ---
Author Author UGO PRETTY Organization [facility] Address [address] [place] [address] Care Team Providers Care Aluminum Welder Name Role Phone UGO PRETTY Unavailable PROBLEMS Type Condition ICD9-CM Code POE96-XQ Code Onset Dates Condition Status SNOMED Code Problem Dysthymia F34.1 Active 28410918 Problem Essential hypertension I10 Active 78258078 Problem Chronic pain G89.29 Active 74757877 Problem Methicillin resistant Staphylococcus aureus 041.12 Active 204279857 Problem Cataracts, bilateral H26.9 Active 54759937 Problem Ganglion cyst M67.40 Active 342011364 Problem Heel spur M77.30 Active 94320220 Problem Irritable bowel syndrome with diarrhea K58.0 Active 894505878 Problem Neuropathy G62.9 Active 888487246 Problem Acquired hallux valgus of left foot M20.12 Active 49750657 Problem Hyperlipidemia, unspecified E78.5 Active 22779063 Problem Hallux valgus (acquired), right foot M20.11 Active 358672755 Problem Hammer toe of right foot M20.41 Active 950478773 ALLERGIES No Information ENCOUNTERS Encounter Location Date Diagnosis [facility] [id number] [place] [address] Aug, [facility] [id number] [place] [address] 77895- 0765 July, [facility] [id number] [place] [address] 75336- 6290 May, [facility] [id number] [place] [address] 99189 -9855 May, Bilateral hearing loss due to cerumen impaction H61.23 [facility] [id number] [place] [address] 38990- 1738 May, Onychomycosis B35.1 ; Hammer toe of right foot M20.41 ; Acquired hallux valgus of left foot M20.12 and [place] or callus L84 [place] [id number] [place] [address] 72160- 4772 Apr, Seborrheic keratosis L82.1 and Irritable bowel syndrome with diarrhea K58.0 [place] [address] 90899- 0618 Mar, [place] [address] 34212- 1726 Mar, Dental examination Z01.20 [place] [address] 21251- 1495 15 Mar, 2017 Medicare welcome exam Z00.00 ; Encounter for screening for lung cancer Z12.2 ; Colon cancer screening Z12.11 ; Encounter for immunization Z23 ; Weakness R53.1 and Irritable bowel syndrome with diarrhea K58.0 [place] [address] 11137- 0559 Feb, Onychomycosis B35.1 ; Hammer toe of right foot M20.41 ; Hallux valgus (acquired), right foot M20.11 and Acquired hallux valgus of left foot M20.12 [place] [id number] [place] [address] 38929- 7304 Jan, Essential hypertension I10 and Encounter for immunization Z23 [place] [id number] [place] [address] 01052- 6387 Dec, Encounter for screening mammogram for breast cancer Z12.31 and Hyperlipidemia, unspecified E78.5 [place] [address] 14705- 5225 Nov, Hammer toe of right foot M20.41 ; Onychomycosis B35.1 and Neuropathy G62.9 [place] [address] 51123- 2616 Sep, Essential hypertension I10 and 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 [place] [address] 83065- 9564 Aug, [place] [id number] [place] [address] 81464- 0959 Aug, [place] [address] 72550- 8192 Aug, Onychomycosis B35.1 ; Hammer toe of right foot M20.41 and Neuropathy G62.9 [place] [address] 78606- 9673 May, Callus of foot L84 ; Hammer toe of right foot M20.41 and Onychomycosis B35.1 [place] [address] 82202- 3865 Apr, Chronic pain G89.29 [place] [address] 85900- 9000 Feb, Onychomycosis B35.1 ; Hammer toe of right foot M20.41 ; Acquired hallux valgus of left foot M20.12 and Hallux valgus (acquired), right foot M20.11 [place] [id number] [place] [address] 41888- 6396 Jan, Cellulitis of left lower extremity L03.116 [place] [address] 43743- 5142 21 Jan, 2016 Seborrheic keratosis L82.1 and Encounter for immunization Z23 [place] [address] 77414- 6124 18 Jan, 2016 Seborrheic keratoses L82.1 and Visit for suture removal Z48.02 [place] [id number] [place] [address] 84304- 3236 08 Jan, 2016 Dermatofibroma D23.9 [place] [id number] [place] [address] 17195- 1049 Dec, Lesion of lower extremity L98.9 [place] [id number] [place] [address] 29094- 3049 Dec, [place] [id number] [place] [address] 29935- 9135 Dec, Chronic pain G89.29 [place] [id number] [place] [address] 94853- 1448 Dec, Well woman exam Z01.419 ; Essential hypertension I10 ; Breast cancer screening Z12.39 ; Cervical cancer screening Z12.4 ; Vision changes H53.9 ; Heberden's node M15.1 ; Cutaneous horn L85.8 and Seborrheic keratosis L82.1 [place] [id number] [place] [address] 38068- 3072 Dec, Well woman exam Z01.419 ; Heberden's node M15.1 ; Breast cancer screening Z12.39 ; Cervical cancer screening Z12.4 ; Essential hypertension I10 ; Vision changes H53.9 ; Cutaneous horn L85.8 and Seborrheic keratosis L82.1 [place] [address] [place] [address] 10986- 4538 Nov, Well woman exam Z01.419 ; Breast cancer screening Z12.39 ; Cervical cancer screening Z12.4 ; Essential hypertension I10 ; Vision changes H53.9 ; Heberden's node M15.1 ; Cutaneous horn L85.8 and Seborrheic keratosis L82.1 [place] [id number] [place] [address] 58449- 9154 Nov, Hammer toe of right foot M20.41 and Callus of foot L84 [place] [id number] [place] [address] 31049- 1653 Aug, Onychomycosis B35.1 and Callus of foot L84 [place] [address] 16869- 1477 July, Dysthymia F34.1 and Chronic pain G89.29 [facility] [address] 84782- 3175 Jun, Dysthymia F34.1 ; Heel spur M77.30 and Ganglion cyst M67.40 [facility] [address] 58577- 4381 May, Onychomycosis B35.1 and Neuropathy G62.9 [facility] [address] 20552- 7982 May, [facility] [address] 62881- 3108 Apr, [facility] [address] 38603- 1647 Apr, [facility] [address] 94855- 8176 Apr, [facility] [address] 06906- 3445 Mar, [facility] [address] 04332- 9099 Mar, [facility] [address] 94164- 8456 Feb, [facility] [address] 98963 2541 Feb, [facility] [address] 74720- 1177 Feb, [facility] [address] 78982- 7861 Feb, Onychomycosis B35.1 and [place] or callus L84 [facility] [address] 49637- 4229 Feb, Cough R05 [facility] [id number] [place] [address] 97056 -3482 Jan, Sinusitis J32.9 [facility] [id number] [place] [address] 39418- 7940 Jan, Hyperlipidemia 272.4 [place] [address] 20697- 3642 Jan, Acute upper respiratory infection, unspecified J06.9 ; Encounter for immunization Z23 ; Other viral agents as the cause of diseases classified elsewhere B97.89 and Acute frontal sinusitis, recurrence not specified J01.10 [facility] [id number] [place] [address] 58247- 4538 Nov, Wart 078.10 ; Breast cancer screening V76.10 and Hyperlipidemia 272.4 [facility] [id number] [place] [address] 66048- 7001 Nov, Onychomycosis 110.1 ; [place] or callus 700 and Skin fissures 709.8 [place] [id number] [place] [address] 83671- 6580 Aug, Hammertoe 735.4 ; Hyperkeratosis 701.1 ; Onychomycosis 110.1 ; Fissure in skin of foot 709.8 and Foot pain 729.5 [place] [id number] [place] [address] 45859- 2095 Aug, [place] [id number] [place] [address] 41843- 6480 Aug, [place] [id number] [place] [address] 18683- 4096 Aug, [facility] [id number] [place] [address] 04278- 1695 July, [place] [id number] [place] [address] 63266- 9090 July, [facility] [place] [facility] [address] [id number] [place] [address]- 1083 14 Jun, 2014 [facility] [place] [facility] [address] [id number] [place] [address]- 7549 Jun, [facility] [place] [facility] [address] [id number] [place] [address]- 1042 May, [facility] [place] [facility] [address] [id number] [place] [address]- 2825 May, [facility] [place] [facility] [address] [id number] [place] [address]- 8476 May, [facility] [place] [facility] [address] [id number] [place] [address]- 7050 May, [facility] [place] [facility] [address] [facility] [id number] [place] [address]- 0327 Apr, [facility] [place] [facility] [address] [id number] [place] [address]- 8125 Apr, [facility] [place] [facility] [address] [id number] [place] [address]- 4364 Feb, [facility] [place] [facility] [address] [id number] [place] [address]- 7810 Feb, [facility] [place] [facility] [address] [facility] [id number] [place] [address]- 8665 Feb, [facility] [place] [facility] [address] [id number] [place] [address]- 6855 Feb, [facility] [place] [facility] [address] [id number] [place] [address]- 0678 Feb, [facility] [place] [facility] [address] [id number] [place] [address]- 6606 Feb, [facility] [place] [facility] [address] [facility] [id number] [place] [address]- 7409 Jan, [facility] [place] [facility] [address] [id number] [place] [address]- 1358 14 Jan, 2014 [facility] [place] [facility] [address] [id number] [place] [address]- 4217 14 Jan, 2014 [facility] [place] [facility] [address] [id number] [place] [address]- 1288 Jan, [facility] [place] [facility] [address] [facility] [id number] [place] [address]- 5707 Jan, [facility] [place] [facility] [address] [id number] [place] [address]- 6094 Dec, [facility] [place] [facility] [address] [id number] [place] [address]- 6732 Dec, [facility] [place] [facility] [address] [id number] [place] [address]- 1704 29 Nov, 2013 [facility] [place] [facility] [address] [id number] [place] [address]- 5354 29 Nov, 2013 [facility] [place] [facility] [address] [id number] [place] [address]- 9182 19 Nov, 2013 [facility] [place] [facility] [address] [id number] [place] [address]- 5810 19 Nov, 2013 [facility] [place] [facility] [address] [facility] [id number] [place] [address]- 4675 11 Nov, 2013 [facility] [place] [facility] [address] [id number] [place] [address]- 1355 11 Nov, 2013 [facility] [place] [facility] [address] [id number] [place] [address]- 2139 04 Nov, 2013 [facility] [place] [facility] [address] [id number] [place] [address]- 6886 04 Nov, 2013 [facility] [place] [facility] [address] [facility] [id number] [place] [address]- 7471 02 Nov, 2013 [facility] [place] [facility] [address] [id number] [place] [address]- 2800 02 Nov, 2013 [facility] [place] [facility] [address] [id number] [place] [address]- 1318 Oct, [facility] [place] [facility] [address] [id number] [place] [address]- 7204 Oct, [facility] [place] [facility] [address] [id number] [place] [address]- 3300 Oct, [facility] [place] [facility] [address] [id number] [place] [address]- 5202 Oct, [facility] [place] [facility] [address] [id number] [place] [address]- 3062 Sep, [facility] [place] [facility] [address] [id number] [place] [address]- 9537 Sep, [facility] [place] [facility] [address] [id number] [place] [address]- 7599 Sep, [facility] [place] [facility] [address] [id number] [place] [address]- 0720 Sep, [facility] [place] [facility] [address] [id number] [place] [address]- 4219 Aug, [facility] [place] [facility] [address] [id number] [place] [address]- 3674 Aug, [facility] [place] [facility] [address] [id number] [place] [address]- 6144 Aug, [facility] [place] [facility] [address] [id number] [place] [address]- 8026 Aug, [facility] [place] [facility] [address] [id number] [place] [address]- 4245 Aug, [facility] [place] [facility] [address] [id number] [place] [address]- 7340 Aug, [facility] [place] [facility] [address] [id number] [place] [address]- 2625 Aug, [facility] [place] [facility] [address] [id number] [place] [address]- 5263 Aug, [facility] [place] [facility] [address] [id number] [place] [address]- 3561 Aug, [facility] [place] [facility] [address] [id number] [place] [address]- 9798 Aug, [facility] [place] [facility] [address] [id number] [place] [address]- 9372 Aug, [facility] [place] [facility] [address] [id number] [place] [address]- 6639 Aug, [facility] [place] [facility] [address] [id number] [place] [address]- 4620 July, [facility] [place] [facility] [address] [id number] [place] [address]- 1602 July, [facility] [place] [facility] [address] [id number] [place] [address]- 5107 July, [facility] [place] [facility] [address] [id number] [place] [address]- 4896 July, [facility] [place] [facility] [address] [id number] [place] [address]- 1391 July, [facility] [place] [facility] [address] [id number] [place] [address]- 7988 July, [facility] [place] [facility] [address] [id number] [place] [address]- 5063 Jun, [facility] [place] [facility] [address] [id number] [place] [address]- 2919 Jun, [facility] [place] [facility] [address] [id number] [place] [address]- 5827 Jun, [facility] [place] [facility] [address] [id number] [place] [address]- 3689 Jun, [facility] [place] [facility] [address] [id number] [place] [address]- 1665 May, [facility] [place] [facility] [address] [id number] [place] [address]- 9814 27 May, 2013 [facility] [address] [id number] [place] [address]- 5319 14 May, 2013 [facility] [place] [facility] [address] [id number] [place] [address]- 6981 14 May, 2013 [facility] [address] [id number] [place] [address]- 3867 26 Feb, 2013 [facility] [place] [facility] [address] [id number] [place] [address]- 2115 26 Feb, 2013 [facility] [place] [facility] [address] [id number] [place] [address]- 9196 17 Feb, 2013 [facility] [place] [facility] [address] [id number] [place] [address]- 8512 17 Feb, 2013 [facility] [place] [facility] [address] [id number] [place] [address]- 6560 14 Jan, 2013 [facility] [place] [facility] [address] [id number] [place] [address]- 2865 14 Jan, 2013 [facility] [place] [facility] [address] [id number] [place] [address]- 3071 07 Dec, 2012 [facility] [place] [facility] [address] [id number] [place] [address]- 9515 06 Nov, 2012 [facility] [place] [facility] [address] [id number] [place] [address]- 8624 04 Nov, 2012 [facility] [place] [facility] [address] [id number] [place] [address]- 4072 Nov, [facility] [place] [facility] [address] [id number] [place] [address]- 7720 2012 [facility] [place] [facility] [address] [id number] [place] [address]- 4286 Oct, [facility] [place] [facility] [address] [id number] [place] [address]- 8105 Oct, [facility] [place] [facility] [address] [id number] [place] [address]- 7342 Oct, [facility] [address] [id number] [place] [address]- 9873 Oct, [facility] [address] [id number] [place] [address]- 8857 Oct, [facility] [address] [id number] [place] [address]- 8868 Aug, [facility] [address] [id number] [place] [address]- 1449 July, [facility] [address] [id number] [place] [address]- 2650 July, [facility] [address] [id number] [place] [address]- 0064 May, [facility] [address] [id number] [place] [address]- 1242 May, [facility] [address] [id number] [place] [address]- 7831 May, [facility] [address] [id number] [place] [address]- 2387 Apr, [facility] [address] [id number] [place] [address]- 7056 Apr, [facility] [address] [id number] [place] [address]- 1134 Mar, [facility] [place] [facility] [address] [id number] [place] [address]- 6578 Mar, [facility] [place] [facility] [address] [id number] [place] [address]- 8080 Jan, [facility] [address] [id number] [place] [address]- 0581 Jan, [facility] [address] [id number] [place] [address]- 9526 Nov, [facility] [address] [id number] [place] [address]- 9237 Nov, [facility] [place] [facility] [address] [id number] [place] [address]- 6516 Sep, [facility] [address] [id number] [place] [address]- 4442 Aug, [facility] [place] [facility] [address] [id number] [place] [address]- 7212 July, [facility] [address] [id number] [place] [address]- 8604 July, [facility] [address] [id number] [place] [address]- 9986 July, [facility] [id number] [address]- 3880 Apr, [facility] [place] [facility] [address] [id number] [place] [address]- 7407 Apr, [facility] [address] [id number] [place] [address]- 1859 Mar, [facility] [address] [id number] [place] [address]- 0915 Mar, [facility] [address] [id number] [place] [address]- 8461 Mar, [facility] [place] [facility] [address] [id number] [place] [address]- 4740 Mar, [facility] [place] [facility] [address] [id number] [place] [address]- 1331 Mar, [facility] [place] [facility] [address] [id number] [place] [address]- 6564 Feb, [facility] [place] [facility] [address] [facility] [id number] [place] [address]- 8246 Feb, [facility] [place] [facility] [address] [facility] [id number] [place] [address]- 0896 Feb, [facility] [address] [facility] [id number] [place] [address]- 2619 Jan, [facility] [address] [facility] [id number] [place] [address]- 3236 Jan, [facility] [address] [facility] [id number] [place] [address]- 2130 Dec, [facility] [address] [facility] [id number] [place] [address]- 5554 Jan, [facility] [id number] [place] [address]- 2919 Aug, [facility] [id number] [place] [address]- 9947 July, [facility] [id number] [place] [address]- 4012 Feb, [facility] [id number] [place] [address] Jan, [facility] [id number] [place] [address] Jan, [facility] [id number] [place] [address] Dec, [facility] [id number] [place] [address] July, IMMUNIZATIONS No Known Immunizations SOCIAL HISTORY Never Assessed REASON FOR VISIT refill requests PLAN OF CARE VITAL SIGNS MEDICATIONS Medication Instructions Dosage Frequency Start Date End Date Duration Status Metoprolol Tartrate 100 MG Orally Twice a day 1 tablet 12h 90 days Active Prozac 40 MG Orally Once a day 1 capsule in the morning 24h 90 days Active RESULTS No Results PROCEDURES No [...]
--- NOTE | 2017-12-09 18:38 | ED General ---
General Chief Complaint: Dizziness/Syncope Stated Complaint: HIGH BP/DIZZINESS/NAUSEA Source of Information: Patient, Family Exam Limitations: No Limitations History of Present Illness Date Seen by Provider: Dec 09, 2017 Time Seen by Provider: 18:23 Initial Comments The patient is presenting to the ER by private conveyance with chief complaint of high blood pressure, feeling dizzy after standing up from sitting and being pulled to the left. She is notable poor historian and knows that she is on 3 blood pressure medicines but does not know their names and she thinks she took them this morning. She has not taken anything for the nausea. She says she did take some laxatives earlier today and had a bowel movement this afternoon. She thinks she is on some medicine for cholesterol but she does not know what any of the other 4 medicines she takes are used for. She denies any allergies, tobacco, alcohol, recreational drug use. She does not have any fevers or chills , shortness of breath cough but she does feel flushed and nauseated by the dizziness anytime she changes positions. Her notes that for the past several years her blood pressure at resting is around elevated around 140 systolic. She denies any wheezing, history of asthma COPD or tobacco use. Allergies and Home Medications Allergies Coded Allergies: No Known Drug Allergies (Unverified , 04/09/12) Home Medications Calcium/Vitamin D 600 Mg Tab, 600 MG PO every other day, (Reported) Citalopram Hydrobromide 20 Mg Tablet, 20 MG PO DAILY, (Reported) Estradiol 1 Mg Tablet, 1 MG PO DAILY, (Reported) Lloqrwqs-Cjutkzw-Uxiu 149-Hyal 1 Each Tablet, 1 EACH PO every other day, ( Reported) Loratadine 10 Mg Capsule, 10 MG PO DAILY, (Reported) Losartan Potassium 50 Mg Tablet, 50 MG PO BID, (Reported) Meclizine Hcl 25 Mg Tab.chew, 25 MG PO BID PRN, (Reported) for travel sickness Metoprolol Tartrate 50 Mg Tablet, 50 MG PO BID, (Reported) Pravastatin Sodium 40 Mg Tablet, 80 MG PO HS TAKE 2 TABLETS BY MOUTH AT BED TIME Prescribed by: BRIAN ALMANZA on 11/12/12 1124 Tramadol Hcl 50 Mg Tablet, 50-100 MG PO Q6H PRN, (Reported) for pain Triamcinolone Acetonide 15 Gm Cream.gm., 1 APPFUL TP BID, (Reported) strenght 0.1% Trimethoprim/Sulfamethoxazole 1 Ea Tablet, 1 EA PO BID Prescribed by: HEMANTH KEY on 11/14/12 1226 [vitamin b6] , 1 TAB PO DAILY, (Reported) Patient Home Medication List Home Medication List Reviewed: Yes Review of Systems Review of Systems Constitutional: No chills, No diaphoresis EENTM: No ear discharge, No hearing loss Respiratory: No cough, No dyspnea on exertion, No hemoptysis Cardiovascular: No chest pain, No edema, No Hx of Intervention, No palpitations , No syncope, No vascular heart diseas Gastrointestinal: No abdominal pain, No constipation, No diarrhea; nausea; No vomiting Genitourinary: No discharge, No dysuria Musculoskeletal: No back pain, No joint pain Past Oeghtuw-Rzsgqp-Lytzpz Hx Patient Social History Alcohol Use: Denies Use Recreational Drug Use: No Smoking Status: Never a Smoker Recent Foreign Travel: No Contact w/Someone Who Travel: No Immunizations Up To Date Tetanus Booster (TDap): Less than 5yrs Date of Influenza Vaccine: Jan 18, 2012 Past Medical History Surgeries: Yes (FOOT SURGERY, C-SECTIONS X 3) Respiratory: No Cardiac: Yes 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 9.6oz. 95.504303bg; BMI Method:Stated General Appearance: WD/WN, Anxious, Mild Distress Eyes: Bilateral Eye Normal Inspection, Bilateral Eye PERRL, Bilateral Eye EOMI HEENT: PERRL/EOMI, TMs Normal, Normal ENT Inspection, Pharynx Normal; No Moist Mucous Membranes (dry) Neck: Full Range of Motion, Normal Inspection, Non Tender, Supple Respiratory: Chest Non Tender, No Accessory Muscle Use, No Respiratory Distress , Expiration, Wheezing (mild) Cardiovascular: Regular Rate, Rhythm, Normal Peripheral Pulses Gastrointestinal: Normal Bowel Sounds, No Organomegaly, Non Tender, Soft Neurologic/Psychiatric: Alert, Oriented x3, No Motor/Sensory Deficits Progress/Results/Core Measures Suspected Sepsis SIRS Temperature: Pulse: Respiratory Rate: Laboratory Tests 12/09/17 18:58: White Blood Count 8.3 Blood Pressure / Mean: Laboratory Tests 12/09/17 18:58: Creatinine 0.77, Platelet Count 272, Total Bilirubin 0.3 Results/Orders Lab Results Laboratory Tests Test 12/09/17 18:58 Range/Units White Blood Count 8.3 4.3-11.0 10^3/uL Red Blood Count 4.20 L 4.35-5.85 10^6/uL Hemoglobin 13.1 11.5-16.0 G/DL Hematocrit 39 35-52 % Mean Corpuscular Volume 92 80-99 FL Mean Corpuscular Hemoglobin 31 25-34 PG Mean Corpuscular Hemoglobin Concent 34 32-36 G/DL Red Cell Distribution Width 12.9 10.0-14.5 % Platelet Count 272 130-400 10^3/uL Mean Platelet Volume 10.2 7.4-10.4 FL Neutrophils (%) (Auto) 64 42-75 % Lymphocytes (%) (Auto) 22 12-44 % Monocytes (%) (Auto) 10 0-12 % Eosinophils (%) (Auto) 3 0-10 % Basophils (%) (Auto) 1 0-10 % Neutrophils # (Auto) 5.3 1.8-7.8 X 10^3 Lymphocytes # (Auto) 1.8 1.0-4.0 X 10^3 Monocytes # (Auto) 0.9 0.0-1.0 X 10^3 Eosinophils # (Auto) 0.3 0.0-0.3 10^3/uL Basophils # (Auto) 0.0 0.0-0.1 10^3/uL Sodium Level 138 135-145 MMOL/L Potassium Level 3.5 L 3.6-5.0 MMOL/L Chloride Level 103 98-107 MMOL/L Carbon Dioxide Level 23 21-32 MMOL/L Anion Gap 12 5-14 MMOL/L Blood Urea Nitrogen 14 7-18 MG/DL Creatinine 0.77 0.60-1.30 MG/DL Estimat Glomerular Filtration Rate > 60 BUN/Creatinine Ratio 18 Glucose Level 126 H 70-105 MG/DL Calcium Level 9.0 8.5-10.1 MG/DL Corrected Calcium 8.9 8.5-10.1 MG/DL Total Bilirubin 0.3 0.1-1.0 MG/DL Aspartate Amino Transf (AST/SGOT) 21 5-34 U/L Alanine Aminotransferase (ALT/SGPT) 24 0-55 U/L Alkaline Phosphatase 80 40-136 U/L Troponin I < 0.30 <0.30 NG/ML C-Reactive Protein High Sensitivity 0.64 H 0.00-0.50 MG/DL Total Protein 7.1 6.4-8.2 GM/DL Albumin 4.1 3.2-4.5 GM/DL My Orders Orders - MEGHA SWANSON Cbc With Automated Diff (12/09/17 18:31) Comprehensive Metabolic Panel (12/09/17 18:31) Hs C Reactive Protein (12/09/17 18:31) Troponin I (12/09/17 18:31) Chest 1 View, Ap/Pa Only (12/09/17 18:31) Albuterol/Ipra Inhalation Soln (Duoneb I (12/09/17 18:45) Svn Small Volume Nebulizer (12/09/17 18:31) Ondansetron Injection (Zofran Injectio (12/09/17 18:45) Continuous Ekg Monitoring (12/09/17 18:38) Ekg Tracing (12/09/17 18:38) Iv Heplock-Insert (Order) (12/09/17 18:38) Apixaban Tablet (Eliquis Tablet) (12/09/17 21:00) Orthostatic Vital Signs (Adult (12/09/17 20:50) Saline Lock/Iv-Start (12/09/17 20:59) Ns Iv 500 Ml (Sodium Chloride 0.9%) (12/09/17 20:59) Ns Iv 1000 Ml (Sodium Chloride 0.9%) (12/09/17 20:59) Medications Given in ED Current Medications Medications Dose Ordered Sig/King Route Start Time Stop Time Status Last Admin Dose Admin Albuterol/ Ipratropium 3 ml ONCE ONCE INH 12/09/17 18:45 12/09/17 18:46 DC 12/09/17 19:11 3 ML Apixaban 5 mg ONCE ONCE PO 12/09/17 21:00 12/09/17 21:01 DC 12/09/17 21:14 5 MG Ondansetron HCl 4 mg ONCE ONCE IVP 12/09/17 18:45 12/09/17 18:46 DC 12/09/17 19:15 4 MG Sodium Chloride 500 ml @ 0 mls/hr Q0M ONCE IV 12/09/17 20:59 12/09/17 21:01 DC 12/09/17 21:14 999 MLS/HR Vital Signs/I&O 12/09/17 12/09/17 12/09/17 12/09/17 18:20 18:58 19:11 21:21 Temp 98.0 Pulse 71 72 75 62 Resp 18 18 B/P (MAP) 146/111 (123) 127/95 (106) 130/79 (96) 110/79 (89) Pulse Ox 94 93 92 O2 Delivery Room Air Room Air Room Air Capillary Refill : Progress Note #1: Time: 18:37 Progress Note Sounds like vertigo. Her blood pressure is 140 systolic. Her regular nausea under control get some basic labs, EKG, troponin and a chest x-ray since some wheezes are heard bilaterally on expiration. We'll see any other evidence of worrisome things we can do some workup looking for vertigo. DuoNeb breathing treatment. 1839: The patient appears to be in an irregularly irregular pulse and rate on the monitor so we will go ahead and get an EKG. This demonstrated atrial fibrillation. The patient still denies she's ever had a history of dysrhythmias or atrial fibrillation however she is not really aware of her health conditions or her medicines she takes so we are trying get a copy of her medicines before we assume that this is a normal onset atrial fibrillation or at least a new catch of atrial fibrillation. She denies she's ever had any episodes like this although it could definitely explain her symptoms. Medical history as of 2012 reveals hyperlipidemia, hypertension and anxiety. Progress Note #2: Time: 20:48 Progress Note Patient's nausea was already gone by the time she got Zofran. She acts like her symptoms are more from BPPV. The atrial fibrillation has never been in RVR since she's been here and would most likely be incidental. We'll start her on Eliquis, do some orthostatic vital signs and go from there. Progress Note #3: Time: 22:38 Progress Note After receiving the fluid bolus the patient is asymptomatic and her orthostatic vital signs are now normal from lying to standing 122-120 systolic. Heart rate does not change more than 4 bpm. See nursing notes. 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 ECG Initial ECG Impression Date: Dec 09, 2017 Initial ECG Impression Time: 18:39 Initial ECG Rate: 66 Initial ECG Rhythm: A Fib/Flutter Initial ECG Intervals: QT (482) Initial ECG Impression: Atrial Fibrillation Initial ECG Comparisson: Changed Comment Atrial fibrillation without ST elevation or depression. Diagnostic Imaging Diagonstic Imaging: Xray Plain Films/CT/US/NM/MRI: chest (1v) [facility] [place], [place] NAME: [facility] REC#: [id number] PT STATUS: REG ER : 1950 PHYSICIAN: MEGHA SWANSON MD ADMIT DATE: 12/09/17/ER Draft Date of Exam:12/09/17 CHEST 1 VIEW, AP/PA ONLY INDICATION: Elevated blood pressure and dizziness. TIME OF EXAM: 6:57 p.m. COMPARISON: No prior studies are available for comparison. FINDINGS: The heart size is normal. The pulmonary vascularity is unremarkable. The lungs are clear. No infiltrate, effusion or pneumothorax is detected. IMPRESSION: No acute cardiopulmonary process is detected. Dictated on workstation # [id number] Dict: 12/09/171905 Trans: 12/09/171908 [facility] [id number] Interpreted by: SHIRA MILTON MD Electronically signed by: Reviewed: Reviewed by Me Consults Consults : Consulting Physician: LINK RUTHERFORD MD FACP [facility] Consults Notes Discussed case lab imaging findings and he says that he the vertigo is the cause of her dizziness and we incidentally found A. fib as long as she is not having any orthostasis he be okay with her following up first thing in the morning in his clinic. He put her on L acquits. If not he be recommending that we rehydrate her and if that doesn't work we could observe her overnight. Departure Impression Primary Impression: Vertigo Additional Impressions: Atrial fibrillation by electrocardiogram Orthostatic hypotension Disposition: 01 HOME, SELF-CARE Condition: Improved Departure-Patient Inst. Decision time for Depature: 22:38 Referrals: UGO PRETTY (PCP) Primary Care Physician LINK RUTHERFORD MD [facility] Patient Instructions: Atrial Fibrillation (DC), Orthostatic Hypotension (DC) Add. Discharge Instructions: Please present to Dr. Rutherford's office in the morning to consult on your atrial fibrillation. Please continue taking the Eliquis/Blood Thinner one tablet twice a day. Follow-up with your primary care doctor to discuss your orthostatic hypotension. All discharge instructions reviewed with patient and/or family. Voiced understanding. Scripts Apixaban (Eliquis) 5 Mg Tablet 5 MG PO BID for 30 Days, #60 TAB 0 Refills Prov: MEGHA SWANSON 12/09/17 Copy Copies To 1: HEMANTH KEY DO; LINK RUTHERFORD MD [facility] MEGHA SWANSON Dec 09, 2017 18:38
--- OUTSIDE RECORDS SUMMARY | 2017-12-09 18:38 | XMS REPORT | Continuity of Care Document ---
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 METHICILLIN RESISTANT 04/16/2012 MARLENY DPM, AUBREY 041.12 MRSA, METHICILLIN RESISTANT 04/16/2012 KEY DO, HEMANTH K 041.12 MRSA, METHICILLIN RESISTANT 04/16/2012 MARIA DE JESUS SEX CRIMES DETECTIVE, UGO S 041.12 MRSA, METHICILLIN RESISTANT 2012 782.1 RASH 2012 782.1 RASH 2012 782.1 RASH 2012 KEY DO, HEMANTH K 782.1 RASH 2012 ALONZO JO, PEDRO LUIS Mix 782.1 RASH 2012 MARIA DE JESUS PERALES, UGO S 782.1 RASH 2012 MARIA DE JESUSLAURIE DALEN, UGO S 782.1 RASH 2012 KEY DO, HEMANTH K 782.1 RASH 2012 KEY DO, HEMANTH K 782.1 RASH 2012 SHAYNA DASILVA APRN 782.1 RASH 2012 MARIA DE JESUS SEX CRIMES DETECTIVE, UGO S 782.1 RASH 2012 782.1 RASH 2012 MARLENY DPM, AUBREY 782.1 RASH 2012 KEY DO, HEMANTH K 782.1 RASH 2012 MARIA DE JESUS SEX CRIMES DETECTIVE, UGO S 782.1 RASH 11/04/2012 706.2 SEBACEOUS CYST 11/04/2012 706.2 SEBACEOUS CYST 11/04/2012 706.2 SEBACEOUS CYST 11/04/2012 KEY DO, HEMANTH K 706.2 SEBACEOUS CYST 11/04/2012 ALONZO JO, PEDRO LUIS Mix 706.2 SEBACEOUS CYST 11/04/2012 MARIA DE JESUS PERALES, UGO S 706.2 SEBACEOUS CYST 11/04/2012 MARIA DE JESUS PERALES, UGO S 706.2 SEBACEOUS CYST 11/04/2012 KEY DO, HEMANTH K 706.2 SEBACEOUS CYST 11/04/2012 KEY DO, HEMANTH K 706.2 SEBACEOUS CYST 11/04/2012 SHAYNA DASILVA APRN 706.2 SEBACEOUS CYST 11/04/2012 MARIA DE JESUS PERALES UGO S 706.2 SEBACEOUS CYST 11/04/2012 706.2 SEBACEOUS CYST 11/04/2012 MARLENY DPM, AUBREY 706.2 SEBACEOUS CYST 11/04/2012 KEY DO, HEMANTH K 706.2 SEBACEOUS CYST 11/04/2012 MARIA DE JESUS SEX CRIMES DETECTIVE, UGO S 706.2 SEBACEOUS CYST 11/09/2012 682.0 CELLULITIS AND ABSCESS OF FACE 11/09/2012 682.0 CELLULITIS AND ABSCESS OF FACE 11/09/2012 YESI HEART, HEMANTH K 682.0 CELLULITIS AND ABSCESS OF FACE 11/09/2012 ALONZO JO, PEDRO LUIS Mix 682.0 CELLULITIS AND ABSCESS OF FACE 11/09/2012 SAY PRETTY APRNA S 682.0 CELLULITIS AND ABSCESS OF FACE 11/09/2012 MARIA DE JESUS PERALES, UGO S 682.0 CELLULITIS AND ABSCESS OF FACE 11/09/2012 KEY DO, HEMANTH K 682.0 CELLULITIS AND ABSCESS OF FACE 11/09/2012 KEY DO, HEMANTH K 682.0 CELLULITIS AND ABSCESS OF FACE 11/09/2012 SHAYNA DASILVA APRN 682.0 CELLULITIS AND ABSCESS OF FACE 11/09/2012 SAY PRETTY APRNA S 682.0 CELLULITIS AND ABSCESS OF FACE 11/09/2012 682.0 CELLULITIS AND ABSCESS OF FACE 11/09/2012 MARLENY CARDOZO, AUBREY 682.0 CELLULITIS AND ABSCESS OF FACE 11/09/2012 KEY , HEMANTH K 682.0 CELLULITIS AND ABSCESS OF FACE 11/09/2012 JESSE PRETTY APRNNDA S 682.0 CELLULITIS AND ABSCESS OF FACE 11/14/2012 JARET PEGUERO MD Ot 272.4 HYPERLIPIDEMIA NEC/NOS 11/14/2012 JARET PEGUERO MD Ot 300.00 ANXIETY STATE NOS 11/14/2012 JARET PEGUERO MD Ot 373.13 ABSCESS OF EYELID 11/14/2012 JARET PEGUERO MD Ot 401.9 HYPERTENSION NOS 11/14/2012 JARET PEGUERO MD Ot 706.2 SEBACEOUS CYST 11/14/2012 JARET PEGUERO MD Ot V03.82 PROPHYLACTIC VACC AGAINST STREPTOCOCCUS 11/14/2012 MARIELENA JO, JARET N Ot V12.04 PERSONAL HIST OF METHICILLIN RESISTANT S 07/07/2013 SAY PRETTY APRNA S 728.71 PLANTAR FASCIAL FIBROMATOSIS 07/07/2013 JESSE PRETTY APRNNDA S 728.71 PLANTAR FASCIAL FIBROMATOSIS 07/07/2013 KEY DO, HEMANTH K 728.71 PLANTAR FASCIAL FIBROMATOSIS 07/07/2013 KEY DO, HEMANTH K 728.71 PLANTAR FASCIAL FIBROMATOSIS 07/07/2013 SHAYNA DASILVA APRN 728.71 PLANTAR FASCIAL FIBROMATOSIS 07/07/2013 SAY PRETTY APRNA S 728.71 PLANTAR FASCIAL FIBROMATOSIS 07/07/2013 728.71 PLANTAR FASCIAL FIBROMATOSIS 07/07/2013 MARLENY CARDOZO, AUBREY 728.71 PLANTAR FASCIAL FIBROMATOSIS 07/07/2013 KEY DO HEMANTH K 728.71 PLANTAR FASCIAL FIBROMATOSIS 07/07/2013 JESSE PRETTY APRNNDA S 728.71 PLANTAR FASCIAL FIBROMATOSIS 08/14/2013 SAY PRETTY APRNA S 784.0 HEADACHE 08/14/2013 KEY DO, HEMANTH K 784.0 HEADACHE 08/14/2013 KEY DO, HEMANTH K 784.0 HEADACHE 08/14/2013 SHAYNA DASILVA APRN 784.0 HEADACHE 08/14/2013 JESSE PRETTY APRNNDA S 784.0 HEADACHE 08/14/2013 784.0 HEADACHE 08/14/2013 MARLENY CARDOZO, AUBREY 784.0 HEADACHE 08/14/2013 KEY DO, HEMANTH K 784.0 HEADACHE 08/14/2013 JESSE PRETTY APRNNDA S 784.0 HEADACHE 09/05/2013 KEY DO, HEMANTH K 709.8 FISSURES SKIN 09/05/2013 KEY DO, HEMANTH K 735.0 HALLUX VALGUS (ACQUIRED) 09/05/2013 KEY DO, HEMANTH K 735.4 HAMMER TOE (ACQUIRED) 09/05/2013 KEY DO, HEMANTH K 709.8 FISSURES SKIN 09/05/2013 KEY DO, HEMANTH K 735.0 HALLUX VALGUS (ACQUIRED) 09/05/2013 KEY DO, HEMANTH K 735.4 HAMMER TOE (ACQUIRED) 09/05/2013 SHAYNA DASILVA APRN T 709.8 FISSURES SKIN 09/05/2013 SHAYNA DASILVA APRN T 735.0 HALLUX VALGUS (ACQUIRED) 09/05/2013 VIDYA DALESHAYNA Shannon T 735.4 HAMMER TOE (ACQUIRED) 09/05/2013 MARIA DE JESUS SEX CRIMES DETECTIVE, UGO S 709.8 FISSURES SKIN 09/05/2013 MARIA DE JESUS SEX CRIMES DETECTIVE, UGO S 735.0 HALLUX VALGUS (ACQUIRED) 09/05/2013 MARIA DE JESUS SEX CRIMES DETECTIVE, UGO S 735.4 HAMMER TOE (ACQUIRED) 09/05/2013 709.8 FISSURES SKIN 09/05/2013 735.0 HALLUX VALGUS (ACQUIRED) 09/05/2013 735.4 HAMMER TOE ( ACQUIRED) 09/05/2013 MARLENY DPM, AUBREY 709.8 FISSURES SKIN 09/05/2013 MARLENY DPM, AUBREY 735.0 HALLUX VALGUS (ACQUIRED) 09/05/2013 MARLENY DPM, AUBREY 735.4 HAMMER TOE (ACQUIRED) 09/05/2013 KEY DO, HEMANTH K 709.8 FISSURES SKIN 09/05/2013 KEY DO, HEMANTH K 735.0 HALLUX VALGUS (ACQUIRED) 09/05/2013 KEY DO, HEMANTH K 735.4 HAMMER TOE (ACQUIRED) 09/05/2013 MARIA DE JESUS SEX CRIMES DETECTIVE, UGO S 709.8 FISSURES SKIN 09/05/2013 MARIA DE JESUS DALEN, UGO S 735.0 HALLUX VALGUS (ACQUIRED) 09/05/2013 MARIA DE JESUS SEX CRIMES DETECTIVE, UGO S 735.4 HAMMER TOE (ACQUIRED) 11/18/2013 MARIA DE JESUS DALEN, UGO S V76.10 BREAST CANCER SCREENING 11/18/2013 V76.10 BREAST CANCER SCREENING 11/18/2013 MARLENY DPM, AUBREY V76.10 BREAST CANCER SCREENING 11/18/2013 KEY DO HEMANTH K V76.10 BREAST CANCER SCREENING 11/18/2013 MARIA DE JESUS DALEN, UGO S V76.10 BREAST CANCER SCREENING 12/05/2013 MARLENY DPM, AUBREY 110.1 ONYCHOMYCOSIS 12/05/2013 HEMANTH KEY DO K 110.1 ONYCHOMYCOSIS 12/05/2013 MARIA DE JESUS SEX CRIMES DETECTIVE, UGO S 110.1 ONYCHOMYCOSIS 02/20/2014 HEMANTH KEY DO K 356.9 NEUROPATHY 02/20/2014 MARIA DE JESUS SEX CRIMES DETECTIVE, UGO S 356.9 NEUROPATHY 06/18/2014 MARIA DE JESUS SEX CRIMES DETECTIVE, UGO S 702.19 SEBORRHEIC KERATOSIS 12/22/2014 Ot 611.72 12/22/2014 Ot V76.12 12/22/2014 Ot 611.72 12/22/2014 Ot 793.80 12/22/2014 Ot 793.80 12/22/2014 Ot 610.8 12/22/2014 Ot V15.89 12/22/2014 Ot V67.09 12/22/2014 Ot V76.12 12/22/2014 Ot V76.12 12/22/2014 [facility] Ot V76.12 12/22/2014 Ot V76.12 12/22/2014 U[facility] PRETTY [facility] DIRECTOR Ot V76.12 12/20/2015 Ot V76.12 OTH SCREEN MAMMO-MALIGN NEOPLASM OF BRY 12/20/2015 Ot V76.12 OTH SCREEN MAMMO-MALIGN NEOPLASM OF BRY 12/20/2015 [facility] Ot V76.12 OTH SCREEN MAMMO-MALIGN NEOPLASM OF BRY 12/20/2015 Ot V76.12 OTH SCREEN MAMMO-MALIGN NEOPLASM OF BRY 12/20/2015 [facility] DIRECT[facility] Ot V76.12 OTH SCREEN MAMMO-MALIGN NEOPLASM OF BRY 01/06/2016 [facility] DIRECTOR Ot Z12.31 ENCNTR SCREEN MAMMOGRAM FOR MALIGNANT NE 12/19/2016 [facility] DIRECT[facility] Ot Z12.31 ENCNTR SCREEN MAMMOGRAM FOR MALIGNANT NE 12/26/2016 Ot V76.12 OTH SCREEN MAMMO-MALIGN NEOPLASM OF BRY 12/26/2016 [facility] Ot V76.12 OTH SCREEN MAMMO-MALIGN NEOPLASM OF BRY 12/26/2016 Ot V76.12 OTH SCREEN MAMMO-MALIGN NEOPLASM OF BRY 12/26/2016 MARIA DE [facility] DIRECT[facility] Ot V76.12 OTH SCREEN MAMMO-MALIGN NEOPLASM OF BRY 12/26/2016 [facility] DIRECTOR Ot Z12.31 ENCNTR SCREEN MAMMOGRAM FOR MALIGNANT NE 12/26/2016 [facility] Ot Z12.31 ENCNTR SCREEN MAMMOGRAM FOR MALIGNANT NE 01/16/2017 [facility] DIRECTOR Ot Z12.31 ENCNTR SCREEN MAMMOGRAM FOR MALIGNANT NE 04/06/2017 [facility] DIRECTOR Ot Z87.891 PERSONAL HISTORY OF NICOTINE DEPENDENCE 04/06/2017 [facility] DIRECT[facility] Ot Z87.891 PERSONAL HISTORY OF NICOTINE DEPENDENCE 04/06/2017 [facility] DIRECT[facility] Ot Z87.891 PERSONAL HISTORY OF NICOTINE DEPENDENCE 04/10/2017 [facility] DIRECTOR Ot I25.10 ATHSCL HEART DISEASE OF [place] CORONARY 04/10/2017 [facility] DIRECTOR Ot I70.0 ATHEROSCLEROSIS OF [place] 04/10/2017 [facility] DIRECTOR Ot I71.2 THORACIC AORTIC ANEURYSM, WITHOUT RUPTUR 04/10/2017 [facility] DIRECT[facility] Ot R91.1 SOLITARY PULMONARY NODULE 04/10/2017 [facility] DIRECTOR Ot Z12.2 ENCNTR SCREEN FOR MALIGNANT NEOPLASM OF 04/10/2017 [facility] DIRECT[facility] Ot Z87.891 PERSONAL HISTORY OF NICOTINE DEPENDENCE 04/10/2017 [facility] DIRECTOR Ot I25.10 ATHSCL HEART DISEASE OF [place] CORONARY 04/10/2017 [facility] DIRECTOR Ot I70.0 ATHEROSCLEROSIS OF [place] 04/10/2017 [facility] DIRECTOR Ot I71.2 THORACIC AORTIC ANEURYSM, WITHOUT RUPTUR 04/10/2017 [facility] DIRECTOR Ot R91.1 SOLITARY PULMONARY NODULE 04/10/2017 [facility] DIRECT[facility] Ot Z12.2 ENCNTR SCREEN FOR MALIGNANT NEOPLASM OF 04/10/2017 [facility] DIRECT[facility] Ot Z87.891 PERSONAL HISTORY OF NICOTINE DEPENDENCE 05/01/2017 UGO PRETTY Ot I25.10 ATHSCL HEART DISEASE OF [place] CORONARY 05/01/2017 UGO PRETTY Ot I70.0 ATHEROSCLEROSIS OF [place] 05/01/2017 UGO PRETTY Ot I71.2 THORACIC AORTIC ANEURYSM, WITHOUT RUPTUR 05/01/2017 UGO PRETTY Ot R91.1 SOLITARY PULMONARY NODULE 05/01/2017 UGO PRETTY Ot Z12.2 ENCNTR SCREEN FOR MALIGNANT NEOPLASM OF 05/01/2017 UGO PRETTY Ot Z87.891 PERSONAL HISTORY OF NICOTINE DEPENDENCE Procedures Code Description Performed By Performed On 86.04 OTHER SKIN SUBQ I D 04/09/2012 J2930 SOLUMEDROL INJ 2012 94072 THERAPUTIC INJ SQ/IM 2012 61858 ROUTINE VENIPUNCTURE 11/05/2012 68477 CMP 11/05/2012 36536 LIPID PANEL 11/05/2012 0675628 GFR CALC (RESULT ONLY) 11/05/2012 84745 CBC 11/05/2012 86.04 OTHER SKIN SUBQ I D 11/12/2012 74275 XRAY FOOT LEFT 2 VIEWS 07/07/2013 17149 ROUTINE VENIPUNCTURE 08/14/2013 17086 SED/ESR RATE (IN HOUSE) 08/14/2013 31623 DEBRIDE NAIL 1-5 09/05/2013 07535 ROUTINE VENIPUNCTURE 09/05/2013 9316372 GFR CALC (RESULT ONLY) 09/05/2013 03586 CMP 09/05/2013 00246 LIPID PANEL 09/05/2013 22254 EXCISION BENIGN LESION 0.6- 1 cm (spcify location in [facility] description) 09/23/2013 59225 MAMMOGRAM, SCREENING 12/02/2013 61096 DEBRIDE NAIL >6 12/05/2013 12772 DEBRIDE NAIL >6 02/20/2014 90915 WART DESTRUCT 1-14 (CRYO) 06/18/2014 Results Test Result Range Pap Lb, HPV-hr - 12/14/15 11:26 HPV, high-risk Negative Negative DIAGNOSIS: Comment Specimen adequacy: Comment Clinician provided ICD10: Comment Performed by: Comment . . Note: Comment Comp. Metabolic Panel (14) - 12/20/15 09:08 Glucose, Serum 97 mg/dL 65-99 BUN 13 mg/dL 8-27 Creatinine, Serum 0.71 mg/dL 0.57-1.00 eGFR If NonAfricn Am 90 mL/min/1.73 >59 eGFR If Africn Am 103 mL/min/1.73 >59 BUN/Creatinine Ratio 18 11-26 Sodium, Serum 139 mmol/L 134-144 Potassium, Serum 4.2 mmol/L 3.5-5.2 Chloride, Serum 95 mmol/L 97-108 Carbon Dioxide, Total 25 mmol/L 18-29 Calcium, Serum 9.5 mg/dL 8.7-10.3 Protein, Total, Serum 6.6 g/dL 6.0-8.5 Albumin, Serum 4.4 g/dL 3.6-4.8 Globulin, Total 2.2 g/dL 1.5-4.5 A/G Ratio 2.0 1.1-2.5 Bilirubin, Total 0.4 mg/dL 0.0-1.2 Alkaline Phosphatase, S 77 IU/L 39-117 AST (SGOT) 22 IU/L 0-40 ALT (SGPT) 21 IU/L 0-32 Lipid Panel - 12/20/15 09:08 Cholesterol, Total 191 mg/dL 100-199 Triglycerides 178 mg/dL 0-149 HDL Cholesterol 56 mg/dL >39 VLDL Cholesterol Boom 36 mg/dL 5-40 LDL Cholesterol Calc 99 mg/dL 0-99 Pathology Report - 01/25/17 12:33 . Comment . Comment . Comment . Comment . Comment . Comment CBC - 02/07/17 09:43 WHITE BLOOD CELL COUNT 6.5 Thousand/uL 3.8-10.8 RED BLOOD CELL COUNT 4.52 Million/uL 3.80-5.10 HEMOGLOBIN 14.0 g/dL 11.7-15.5 HEMATOCRIT 41.5 % 35.0-45.0 MCV 91.8 fL 80.0-100.0 MCH 31.0 pg 27.0-33.0 MCHC 33.7 g/dL 32.0-36.0 RDW 12.7 % 11.0-15.0 PLATELET COUNT 278 Thousand/uL 140-400 MPV 9.7 fL 7.5-12.5 ABSOLUTE NEUTROPHILS 4037 cells/uL 5518-3689 ABSOLUTE LYMPHOCYTES 1560 cells/uL 850-3900 ABSOLUTE MONOCYTES 592 cells/uL 200-950 ABSOLUTE EOSINOPHILS 234 cells/uL 15-500 ABSOLUTE BASOPHILS 78 cells/uL 0-200 NEUTROPHILS 62.1 % NRG LYMPHOCYTES 24.0 % NRG MONOCYTES 9.1 % NRG EOSINOPHILS 3.6 % NRG BASOPHILS 1.2 % NRG Encounters ACCT No. Visit Date/Time Discharge Status Pt. Type Provider Facility Loc./Unit Complaint [id number] 06/18/2014 13:56:00 06/18/2014 23:59:59 CLS Outpatient UGO PRETTY APRN [id number] 02/20/2014 08:08:00 02/20/2014 23:59:59 CLS Outpatient HEMANTH KEY DO [id number] 12/05/2013 08:03:00 12/05/2013 23:59:59 CLS Outpatient AUBREY FARMER DPM [id number] 11/20/2013 00:00:00 11/20/2013 23:59:59 CLS Outpatient [id number] 11/18/2013 09:20:00 11/18/2013 23:59:59 CLS Outpatient UGO PRETTY APRN [id number] 09/23/2013 14:36:00 09/23/2013 23:59:59 CLS Outpatient SHAYNA DASILVA APRN [id number] 09/05/2013 09:03:00 09/05/2013 23:59:59 CLS Outpatient HEMANTH KEY DO [id number] 09/05/2013 08:22:00 09/05/2013 23:59:59 CLS Outpatient HEMANTH KEY DO [id number] 08/14/2013 15:50:00 08/14/2013 23:59:59 CLS Outpatient UGO PRETTY APRN [id number] 07/07/2013 10:21:00 07/07/2013 23:59:59 CLS Outpatient UGO PRETTY APRN [id number] 01/28/2013 05:46:00 01/28/2013 23:59:59 CLS Outpatient PEDRO LUIS ROSADO MD [id number] 12/02/2012 12:39:00 12/02/2012 23:59:59 CLS Outpatient HEMANTH KEY DO [id number] 04/23/2012 13:11:00 04/23/2012 23:59:59 CLS Outpatient ROWENA RAMOS MD 08/28/2011 09:37:00 08/28/2011 23:59:59 CLS Outpatient [id number] 08/28/2011 09:37:00 08/28/2011 23:59:59 CLS Outpatient [id number] 11/22/2012 12:33:00 Document Registration [id number] 11/09/2012 09:07:00 Document Registration [id number] 11/05/2012 08:56:00 Document Registration [id number] 09/11/2017 16:20:00 09/11/2017 23:59:59 CLS Outpatient UGO PRETTY APRN [facility] [id number] 02/07/2017 08:40:00 Document Registration [id number] 12/17/2015 13:06:00 Document Registration [id number] 04/09/2017 09:39:00 04/09/2017 23:59:59 CLS Outpatient [facility] RAD Z12.3 SCREENING FOR LUNG CANCER [id number] 12/26/2016 09:15:00 12/26/2016 23:59:59 CLS Outpatient [facility] RAD Z12.31 SCREENING [id number] 12/20/2015 10:38:00 12/20/2015 23:59:59 CLS Outpatient [facility] RAD BREAST CANCER SCREENING [id number] 12/15/2014 08:59:00 12/15/2014 23:59:59 CLS Outpatient [facility] RAD SCREENING [id number] 11/28/2012 09:32:00 11/28/2012 23:59:59 CLS Outpatient [facility] RAD SCREENING [id number] 11/09/2012 10:44:00 11/14/2012 14:20:00 DIS Inpatient MARIELENA JO, JARET Shannon [facility] 4TH L PERIORBITAL CELLULITIS [id number] 12/22/2014 15:36:00 Document Registration [id number] 12/22/2014 15:36:00 Document Registration [id number] 12/22/2014 15:36:00 Document Registration [id number] 12/22/2014 15:36:00 Document Registration [id number] 04/08/2012 23:50:00 Document Registration [id number] 11/24/2011 08:54:00 Document Registration [id number] 11/03/2010 10:07:00 Document Registration [id number] 12/08/2009 13:51:00 Document Registration [id number] 10/27/2009 12:27:00 Document Registration [id number] 09/09/2009 10:50:00 Document Registration [id number] 12/21/2015 08:07:00 Document Registration [id number] 01/31/2017 11:15:00 Document Registration [id number] 01/28/2016 10:06:00 Document Registration
[2017-12-09] MEDS ORDERED: ONDANSETRON 4 MG/2 ML (SDV) Z0FRAN IVP ONE (18:45)
[2017-12-09] MEDS ORDERED: RT-ALBUTEROL/IPRATROPIUM 3 ML (DUONEB) VIAL INH ONE (18:45)
[2017-12-09 18:58] VITALS: BP 127/95
--- NOTE | 2017-12-09 19:09 | Diagnostic Imaging Report ---
INDICATION: Elevated blood pressure and dizziness. TIME OF EXAM: 6:57 p.m. COMPARISON: No prior studies are available for comparison. FINDINGS: The heart size is normal. The pulmonary vascularity is unremarkable. The lungs are clear. No infiltrate, effusion or pneumothorax is detected. IMPRESSION: No acute cardiopulmonary process is detected. Dictated by: Dictated on workstation # [id number]
[2017-12-09 19:24] LABS: BASOPHILS % (AUTO) 1 % (0-10); EOSINOPHILS # (AUTO) 0.3 10^3/uL (0.0-0.3); EOSINOPHILS % (AUTO) 3 % (0-10); HEMATOCRIT 39 % (35-52); HEMOGLOBIN 13.1 G/DL (11.5-16.0); LYMPHOCYTES # (AUTO) 1.8 X 10^3 (1.0-4.0); LYMPHOCYTES % (AUTO) 22 % (12-44); MEAN CORPUSCULAR HEMOGLOBIN 31 PG (25-34); MEAN CORPUSCULAR HGB CONC 34 G/DL (32-36); MEAN CORPUSCULAR VOLUME 92 FL (80-99); MEAN PLATELET VOLUME 10.2 FL (7.4-10.4); MONOCYTES # (AUTO) 0.9 X 10^3 (0.0-1.0); MONOCYTES % (AUTO) 10 % (0-12); NEUTROPHILS # (AUTO) 5.3 X 10^3 (1.8-7.8); NEUTROPHILS % (AUTO) 64 % (42-75); PLATELET COUNT 272 10^3/uL (130-400); RED CELL DISTRIBUTION WIDTH 12.9 % (10.0-14.5); WHITE BLOOD COUNT 8.3 10^3/uL (4.3-11.0)
[2017-12-09 19:44] LABS: ALANINE AMINOTRANSFERASE 24 U/L (0-55); ALBUMIN 4.1 GM/DL (3.2-4.5); ALKALINE PHOSPHATASE 80 U/L (40-136); BILIRUBIN,TOTAL 0.3 MG/DL (0.1-1.0); BUN/CREATININE RATIO 18; CARBON DIOXIDE 23 MMOL/L (21-32); CHLORIDE 103 MMOL/L (98-107); CREATININE SERUM 0.77 MG/DL (0.60-1.30); GFR ESTIMATED > 60; GLUCOSE 126 MG/DL (70-105); POTASSIUM 3.5 MMOL/L (3.6-5.0); SODIUM 138 MMOL/L (135-145); TOTAL PROTEIN 7.1 GM/DL (6.4-8.2)
[2017-12-09] MEDS ORDERED: NS IV 500 ML 500 ML IV ONE (20:59)
[2017-12-09] MEDS ORDERED: NS IV 1000 ML 1,000 ML IV SCH (20:59)
[2017-12-09] MEDS ORDERED: APIXABAN 5 MG (ELIQUIS) TABLET PO ONE (21:00)
[2017-12-09 21:21] VITALS: BP_SYST 110; BP_SYST 130; BP_DIAS 79
[2017-12-09 22:07] VITALS: BP_SYST 120; BP_SYST 122; BP_DIAS 68; BP_DIAS 73
[2017-12-09] MEDS ORDERED: APIX5TAB PO (22:44)
[2017-12-09 22:54] VITALS: BP 121/68
== END 2017-12-09 22:54 | disposition home or self-care (01) ==
LOC: EDUNIT# 18:18 → ER 18:19
DX: I48.91 Unspecified atrial fibrillation (principal); I95.1 Orthostatic hypotension; R42 Dizziness and giddiness; F41.9 Anxiety disorder, unspecified; Z98.890 Other specified postprocedural states; Z90.710 Acquired absence of both cervix and uterus; Z87.448 Personal history of other diseases of urinary system
CPT/HCPCS: 36415; 71045; 80053; 84484; 85025; 86141; 93005; 94640; 96374; 96375

== ENCOUNTER → 2017-12-11 | Outpatient (CLI) | payer MEDICARE, OTHER ==
[~2017-12-11] MED LIST changes: +APIX5TAB PO
== END ==
LOC: CARD 13:57
PROVIDERS: ATTEND Internal Medicine Cardiovascular Disease
DX: I49.5 Sick sinus syndrome (principal); R06.02 Shortness of breath; I48.0 Paroxysmal atrial fibrillation; R42 Dizziness and giddiness; E78.5 Hyperlipidemia, unspecified; M54.9 Dorsalgia, unspecified; I10 Essential (primary) hypertension
CPT/HCPCS: 93225; 93226

== ENCOUNTER → 2017-12-14 | Outpatient (CLI) | payer MEDICARE, OTHER ==
[~2017-12-14] MED LIST changes: +CATHETER FLUSH 10 ML SYR IV PRN; +REGADENOSON 0.4 MG/5 ML SYR (LEXISCAN) IV ONE
[2017-12-14 08:13] LABS: BASOPHILS # (AUTO) 0.1 10^3/uL (0.0-0.1); BASOPHILS % (AUTO) 1 % (0-10); EOSINOPHILS # (AUTO) 0.2 10^3/uL (0.0-0.3); EOSINOPHILS % (AUTO) 3 % (0-10); HEMATOCRIT 39 % (35-52); HEMOGLOBIN 13.2 G/DL (11.5-16.0); LYMPHOCYTES # (AUTO) 1.6 X 10^3 (1.0-4.0); LYMPHOCYTES % (AUTO) 23 % (12-44); MEAN CORPUSCULAR HEMOGLOBIN 32 PG (25-34); MEAN CORPUSCULAR HGB CONC 34 G/DL (32-36); MEAN CORPUSCULAR VOLUME 92 FL (80-99); MEAN PLATELET VOLUME 9.8 FL (7.4-10.4); MONOCYTES # (AUTO) 0.8 X 10^3 (0.0-1.0); MONOCYTES % (AUTO) 11 % (0-12); NEUTROPHILS # (AUTO) 4.5 X 10^3 (1.8-7.8); NEUTROPHILS % (AUTO) 62 % (42-75); PLATELET COUNT 266 10^3/uL (130-400); RED BLOOD COUNT 4.19 10^6/uL (4.35-5.85); RED CELL DISTRIBUTION WIDTH 12.7 % (10.0-14.5); WHITE BLOOD COUNT 7.2 10^3/uL (4.3-11.0)
[2017-12-14 08:28] LABS: ALANINE AMINOTRANSFERASE 21 U/L (0-55); ALKALINE PHOSPHATASE 76 U/L (40-136); BILIRUBIN,TOTAL 0.4 MG/DL (0.1-1.0); BUN/CREATININE RATIO 22; CALCIUM 9.3 MG/DL (8.5-10.1); CARBON DIOXIDE 26 MMOL/L (21-32); CHLORIDE 103 MMOL/L (98-107); CHOLESTEROL 174 MG/DL (< 200); CREATININE SERUM 0.78 MG/DL (0.60-1.30); GFR ESTIMATED > 60; GLUCOSE 105 MG/DL (70-105); HDL CHOLESTEROL 52 MG/DL (40-60); MAGNESIUM 2.2 MG/DL (1.8-2.4); POTASSIUM 4.3 MMOL/L (3.6-5.0); SODIUM 139 MMOL/L (135-145); TRIGLYCERIDES 142 MG/DL (<150); VLDL CHOLESTEROL 28 MG/DL (5-40)
[2017-12-14 08:53] VITALS: BP 149/80
[2017-12-14 09:00] VITALS: BP 140/78
[2017-12-14 09:17] LABS: ERYTHROCYTE SEDIMENTATION RATE 25 MM/HR (0-30)
== END ==
LOC: CARD 07:41
PROVIDERS: ATTEND Internal Medicine Cardiovascular Disease
DX: I10 Essential (primary) hypertension (principal); E78.5 Hyperlipidemia, unspecified; I49.5 Sick sinus syndrome; R06.02 Shortness of breath; I48.0 Paroxysmal atrial fibrillation; R42 Dizziness and giddiness; M54.5 Low back pain
CPT/HCPCS: 36415; 78452; 80053; 80061; 83735; 84443; 85025; 85652; 93017

== ENCOUNTER → 2017-12-31 | Outpatient (CLI) | payer MEDICARE, OTHER ==
[~2017-12-31] MED LIST changes: -CATHETER FLUSH 10 ML SYR IV PRN; -REGADENOSON 0.4 MG/5 ML SYR (LEXISCAN) IV ONE
== END ==
LOC: CARD 11:45
PROVIDERS: ATTEND Internal Medicine Cardiovascular Disease
DX: I49.5 Sick sinus syndrome (principal); R06.02 Shortness of breath; I48.0 Paroxysmal atrial fibrillation; R42 Dizziness and giddiness; E78.5 Hyperlipidemia, unspecified; I10 Essential (primary) hypertension; M54.9 Dorsalgia, unspecified; I07.1 Rheumatic tricuspid insufficiency
CPT/HCPCS: 93306

== ENCOUNTER → 2018-01-14 | Outpatient (CLI) | payer MEDICARE, OTHER ==
--- NOTE | 2018-01-14 12:06 | Diagnostic Imaging Report ---
INDICATION: Routine screening. COMPARISON: Comparison is made with prior mammograms from 12/26/2016 and 12/20/2015. TECHNIQUE: 2D and 3D bilateral screening mammography was performed with computer-aided detection (CAD) system. FINDINGS: Scattered fibroglandular densities are identified bilaterally. Tiny circumscribed nodule in the lateral right breast appears stable and consistent with a benign etiology. Biopsy clip in the lateral portion of the left breast is again noted. The parenchymal pattern is stable. No dominant mass or malignant appearing microcalcifications are seen. The axillae are unremarkable. IMPRESSION: No mammographic features suspicious for malignancy are identified. ACR BI-RADS Category 2: Benign findings. Result letter will be mailed to the patient. Note: At least 10% of breast cancer is not imaged by mammography. Dictated by: Dictated on workstation # [id number]
== END ==
LOC: RAD 10:37
PROVIDERS: ATTEND Nurse Practitioner Community Health
DX: Z12.31 Encounter for screening mammogram for malignant neoplasm of breast (principal)
CPT/HCPCS: 77067

== ENCOUNTER 2018-10-31 05:48 | Outpatient (CLI) | payer MEDICARE, OTHER ==
[~2018-10-31] VITALS: Ht 175.3 cm; Wt 109.1 kg
[2018-10-31] MEDS ORDERED: LOSA50TA63 PO (13:46)
[2018-10-31] MEDS ORDERED: LORA10TA7 PO (13:46)
[2018-10-31] MEDS ORDERED: PRAV40TA2 PO (13:46)
[2018-10-31] MEDS ORDERED: CITA20TA12 PO (13:46)
[2018-10-31] MEDS ORDERED: GLUC-153 PO (13:46)
[2018-10-31] MEDS ORDERED: CALC-140 PO (13:46)
[2018-10-31] MEDS ORDERED: METO50TA15 PO (13:46)
[2018-10-31] MEDS ORDERED: ESTR0.5T PO (13:46)
== END 2018-10-31 13:50 | disposition home or self-care (01) ==
LOC: PREOP 05:48
PROVIDERS: ATTEND Specialist
DX: Z01.818 Encounter for other preprocedural examination (principal)

== ENCOUNTER 2018-11-01 09:28 | Day surgery (SDC) | payer MEDICARE, OTHER ==
[~2018-11-01] VITALS: Ht 175.3 cm; Wt 109.1 kg
[~2018-11-01 09:28] MED LIST changes: +CALC-140 PO; +CITA20TA12 PO; +ESTR0.5T PO; +LORA10TA7 PO; +LOSA50TA63 PO; +METO50TA15 PO; +PRAV40TA2 PO
[2018-11-01] MEDS ORDERED: MOXIFLOXACIN OPHTH SOLN 5 MG/ML 0.3 ML SYRINGE OP ONE (09:45)
[2018-11-01] MEDS ORDERED: TIMOLOL MALEATE 0.5% 5 ML (TIMOPTIC) BTL OU PRN (09:45)
[2018-11-01] MEDS ORDERED: POVIDONE (BETADINE) OPHTH SOLN 5% 30 ML OP ONE (09:45)
[2018-11-01] MEDS ORDERED: LIDOCAINE PF 1% 2 ML AMP IR PRN (09:45)
[2018-11-01 09:54] VITALS: BP 126/85
[2018-11-01] MEDS: TETRACAINE 0.5% OPHTH SOLN 4 ML BTL (SINGLE DOSE ONLY) OU PRN ×4 (09:55→10:15)
[2018-11-01] MEDS: PHENYLEPHRINE 10% OPHTH (NEO-SYN) 5 ML BTL OU SCH ×3 (10:05→10:16)
[2018-11-01] MEDS: CYCLOPENTOLATE 1% (CYCLOGYL) 2 ML DROPS OP SCH ×3 (10:05→10:15)
[2018-11-01] MEDS ORDERED: MIDAZOLAM 2 MG/2 ML (VERSED) VIAL ONE (10:24)
--- NOTE | 2018-11-01 10:26 | Ophthalmologist Pre-Op Note ---
Pre-Operative Progress Note H&P Reviewed The H&P was reviewed, patient examined and no changes noted. Date H&P Reviewed: Nov 01, 2018 Time H&P Reviewed: 10:25 Pre-Op Dx Cataract, Right Eye ELGIN LANG MD Nov 01, 2018 10:26
--- NOTE | 2018-11-01 10:48 | Ophthalmology Operative Report ---
Cataract removal/placement IOL PREOPERATIVE DIAGNOSIS: Cataract Right Eye POSTOPERATIVE DIAGNOSIS: Cataract Right Eye PROCEDURE: Cataract removal and placement of posterior chamber implant, right eye SURGEON: Jay Lang ANESTHESIA: Topical with sedation COMPLICATIONS: None ESTIMATED BLOOD LOSS: Minimal DESCRIPTION OF PROCEDURE: After proper informed consent was obtained, the patient, a 68 female, was taken to the Operating Room and the right eye was anesthetized with tetracaine. The right eye was then prepped and draped in the usual manner. A wire lid speculum was placed. A paracentesis was made at the left hand position. Preservative free lidocaine was injected into the anterior chamber followed by viscoelastic. A clear corneal incision was made in the temporal position. A capsulorrhexis was preformed and the central nuclear and cortical material were removed. The posterior capsule was polished and Aubrey [id number] 20.0 IOL was placed into the capsular bag. The residual viscoelastic was aspirated and balanced saline solution was injected into the anterior chamber. Moxifloxacin was injected into the anterior chamber. The wound was checked and found to be water tight. The patient tolerated the procedure well without complications. JAY LANG MD Nov 01, 2018 10:48
[2018-11-01 11:00] VITALS: BP 149/87
[2018-11-01] MEDS ORDERED: acetaZOLAMIDE ER 500 MG CAP (DIAMOX SEQUELS) PO ONE (11:00)
--- NOTE | 2018-11-01 14:44 | Anesthesia-General Post-Op ---
MAC Patient Condition Mental Status/LOC: Same as Preop Cardiovascular: Satisfactory Nausea/Vomiting: Absent Respiratory: Satisfactory Pain: Controlled Complications: Absent Post Op Complications Complications None Follow Up Care/Instructions Patient Instructions None needed. Anesthesiology Discharge Order Discharge Order Patient is doing well, no complaints, stable vital signs, no apparent adverse anesthesia problems. No complications reported per nursing. VIVEK LYLE CRNA Nov 01, 2018 14:44
== END 2018-11-01 11:00 | disposition home or self-care (01) ==
LOC: SDC 09:28
PROVIDERS: ATTEND Specialist
DX: H25.11 Age-related nuclear cataract, right eye (principal); M19.90 Unspecified osteoarthritis, unspecified site; E78.00 Pure hypercholesterolemia, unspecified; I10 Essential (primary) hypertension; I48.91 Unspecified atrial fibrillation; G62.9 Polyneuropathy, unspecified; Z79.01 Long term (current) use of anticoagulants; Z79.52 Long term (current) use of systemic steroids; Z90.710 Acquired absence of both cervix and uterus

== ENCOUNTER 2018-11-19 05:46 | Outpatient (CLI) | payer MEDICARE, OTHER ==
[~2018-11-19] VITALS: Ht 175.3 cm; Wt 108.9 kg
[2018-11-19] MEDS ORDERED: AMLO10TA7 PO (14:13)
[2018-11-19] MEDS ORDERED: DICY20TA10 PO (14:13)
[2018-11-19] MEDS ORDERED: FLUO40CA PO (14:13)
== END 2018-11-19 14:17 ==
LOC: PREOP 05:46
PROVIDERS: ATTEND Specialist
DX: Z01.818 Encounter for other preprocedural examination (principal); H26.9 Unspecified cataract; Z90.710 Acquired absence of both cervix and uterus

== ENCOUNTER → 2019-01-15 | Outpatient (CLI) | payer MEDICARE, OTHER ==
[~2019-01-15] MED LIST changes: +AMLO10TA7 PO; +DICY20TA10 PO; +FLUO40CA PO
--- NOTE | 2019-01-15 11:43 | Diagnostic Imaging Report ---
INDICATION: Routine screening. COMPARISON: 01/14/2018 and 12/26/2016. TECHNIQUE: 2D and 3D bilateral screening mammography was performed with CAD. FINDINGS: Scattered fibroglandular densities are identified bilaterally. The tiny benign nodule in the lateral right breast is stable. A biopsy clip in the left breast is again noted. No new mass or malignant appearing microcalcifications are seen. The axillae are unremarkable. IMPRESSION: No mammographic features suspicious for malignancy are identified. ACR BI-RADS Category 2: Benign findings. Result letter will be mailed to the patient. Note: At least 10% of breast cancer is not imaged by mammography. Dictated by: Dictated on workstation # [id number]
== END ==
LOC: RAD 10:38
PROVIDERS: ATTEND Nurse Practitioner Community Health
DX: Z12.31 Encounter for screening mammogram for malignant neoplasm of breast (principal)
CPT/HCPCS: 77067

== ENCOUNTER → 2019-04-22 | Outpatient (CLI) | payer MEDICARE, OTHER ==
--- NOTE | 2019-04-22 16:50 | Diagnostic Imaging Report ---
EXAMINATION: CT Chest without contrast (lung screening). TECHNIQUE: Multiple contiguous axial images were obtained through the chest without the use of intravenous contrast according to lung cancer screening protocol. All CT scans use one or more of the following dose optimizing techniques: automated exposure control, MA and/or KvP adjustment based on a patient size and exam type, or iterative reconstruction. HISTORY: 60 pack year history of smoking. COMPARISON: 04/09/2017 FINDINGS: There is no edema or pneumonia. No pleural effusion. No pneumothorax. No suspicious nodules. Left ventricle is dilated. No pericardial effusion. Aorta is normal in caliber. There is no axillary or supraclavicular lymphadenopathy. There is no mediastinal lymphadenopathy. Limited views of the upper abdomen are normal. There are no suspicious osseus lesions. IMPRESSION: 1. No suspicious pulmonary nodules. LUNG-RADS CATEGORY: 1 MODIFIER: None. OTHER SIGNIFICANT FINDINGS: None. Dictated by: Dictated on workstation # [id number]
== END ==
LOC: RAD 12:29
PROVIDERS: ATTEND Nurse Practitioner Community Health
DX: Z12.2 Encounter for screening for malignant neoplasm of respiratory organs (principal); Z87.891 Personal history of nicotine dependence

== ENCOUNTER → 2020-01-19 | Outpatient (CLI) | payer MEDICARE, OTHER ==
[~2020-01-19] MED LIST changes: +AMLO-251 PO; -AMLO10TA7 PO
--- NOTE | 2020-01-19 12:59 | Diagnostic Imaging Report ---
INDICATION: Routine screening. Comparison is made with prior mammogram from 01/15/2019 and 01/14/2018. 2-D and 3-D bilateral screening mammography was performed with CAD. Scattered fibroglandular densities are identified bilaterally. The circumscribed nodule in the outer aspect of the right breast has increased in size. This may represent an enlarging lymph node. Additional views are recommended. A biopsy clip in the lateral left breast is again noted. No new mass or malignant appearing microcalcifications are seen. Axillae are unremarkable. IMPRESSION: BI-RADS 0 Enlarging nodule upper outer right breast at mid depth. Additional views and ultrasound recommended for further evaluation. ACR BI-RADS Category 0: Incomplete. (Needs additional imaging evaluation). Result letter will be mailed to the patient. Note: At least 10% of breast cancer is not imaged by mammography. Dictated by: Dictated on workstation # [id number]
== END ==
LOC: RAD 10:30
PROVIDERS: ATTEND Nurse Practitioner Community Health
DX: Z12.31 Encounter for screening mammogram for malignant neoplasm of breast (principal); N63.11 Unspecified lump in the right breast, upper outer quadrant
CPT/HCPCS: 77063; 77067

== ENCOUNTER → 2020-02-02 | Outpatient (CLI) | payer MEDICARE, OTHER ==
--- NOTE | 2020-02-02 12:51 | Diagnostic Imaging Report ---
INDICATION: Right breast density. Patient presents for additional views. COMPARISON: Correlation is made with the screening study from 01/19/2020. TECHNIQUE: Unilateral right 2D and 3D diagnostic mammography was performed. This includes spot compression CC and ML views as well as conventional 90 degree lateral views. The current study was evaluated with a Computer Aided Detection (CAD) system. FINDINGS: The circumscribed density is again noted in the upper outer right breast at mid depth. This has fairly benign features and may represent a cyst or lymph node. Further evaluation with ultrasound is recommended. IMPRESSION: Persistent circumscribed density in the upper outer right breast at mid depth. Further evaluation with ultrasound is recommended and will be performed today. ACR BI-RADS Category 0: Incomplete. (Needs additional imaging evaluation). Result letter will be mailed to the patient. Note: At least 10% of breast cancer is not imaged by mammography. Dictated by: Dictated on workstation # [id number]
--- NOTE | 2020-02-02 14:43 | Diagnostic Imaging Report ---
INDICATION: Right breast nodule. COMPARISON: Correlation is made with the diagnostic mammogram from earlier this same day and a screening mammogram from 01/19/2020. FINDINGS: Sonographic interrogation of the upper outer right breast was performed. There is a lymph node at the 9:30 o'clock location 8 cm from the nipple measuring 6 mm x 5 mm x 6 mm. This corresponds in size and location to the mammographic density. No other abnormalities are detected. IMPRESSION: Intramammary lymph node at the 9:30 o'clock location of the right breast corresponding to the mammographic density. The patient may return to routine annual screening mammography. ACR BI-RADS Category 2: Benign findings. Dictated by: Dictated on workstation # [id number]
== END ==
LOC: RAD 12:45
PROVIDERS: ATTEND Nurse Practitioner Community Health
DX: R92.2 Inconclusive mammogram (principal)
CPT/HCPCS: 76642; 77065; G0279

== ENCOUNTER → 2020-05-11 | Outpatient (CLI) | payer MEDICARE, OTHER ==
--- NOTE | 2020-05-11 12:05 | Diagnostic Imaging Report ---
INDICATION: Postmenopausal. COMPARISON: None There are no prior studies available for comparison. The bone mineral density of hips and spine was measured. The T score for the spine is -0.3. This finding is within normal limits. The total T score for the left hip is 1.3 and for the right hip 0.5. The T score for the left femoral neck is 0.4 and for the right femoral neck -0.3. All these values are within normal limits as well. FINDINGS: AP Spine L1-L4: [BMD (g/cm2): 1.160] [T-Score: -0.3] [Z-Score: 0.5] [BMD Previous: NA] [BMD % Change: NA] LT Hip Neck: [BMD (g/cm2): 1.096] [T-Score: 0.4] [Z-Score: 1.5] LT Hip Total: [BMD (g/cm2):1.167] [T-Score:1.3] [Z-Score: 2.1] [BMD Previous: NA] [BMD % Change: NA] RT Hip Neck: [BMD (g/cm2):0.999] [T-Score:-0.3] [Z-Score:0.8] RT Hip Total: [BMD (g/cm2):1.069] [T-score:0.5] [Z-Score:1.3] [BMD Previous:NA] [BMD % Change:NA] *Indicates significant change from prior examination based on 95% confidence level. World Health Organization criteria for BMD interpretation classify patients as Normal (T-score at or above -1.0), Osteopenic (T-score between -1.0 and -2.5) or Osteoporotic (T-score at or below -2.5). LIMITATIONS AND MODIFICATION: None. FRACTURE RISK (FRAX SCORE): The ten year probability of (%): Major Osteoporotic Fracture: [NA] Hip Fracture: [NA] IMPRESSION: 1. The bone mineral density of the hips and spine is within normal limits. 1. 2. 3. See below National Osteoporosis Foundation guidelines on when to potentially initiate pharmacologic therapy. Based on the National Osteoporosis Foundation Guidelines, pharmacologic treatment should be initiated in any of the following, unless clinical conditions suggest otherwise: * Any patient with prior fragility fracture of the hip or vertebrae. A spine fracture indicates 5X risk for subsequent spine fracture and 2X risk for subsequent hip fracture. * Osteoporosis (T-score <-2.5). * Postmenopausal women and men age 50 and older with low bone mass/osteopenia (T-score between -1.0 and -2.5) by DXA and 10-year major osteoporotic fracture greater than 20% or a 10-year probability of hip fracture greater than 3%. These fracture risks are supplied above in the FRAX score, if applicable. * Clinician judgement and/or patient preferences may indicate treatment for people with 10-year fracture probabilities above or below these levels. Dictated by: Dictated on workstation # [id number]
== END ==
LOC: RAD 09:57
PROVIDERS: ATTEND Nurse Practitioner Community Health
DX: Z78.0 Asymptomatic menopausal state (principal)
CPT/HCPCS: 77080

== ENCOUNTER → 2020-06-01 | Outpatient (CLI) | payer MEDICARE, OTHER ==
--- NOTE | 2020-06-01 16:09 | Diagnostic Imaging Report ---
PROCEDURE: MR imaging cervical spine without contrast. TECHNIQUE: Multiplanar, multisequence MR imaging of the cervical spine was performed without contrast. INDICATION: Neck pain, chronic. COMPARISON: None. FINDINGS: There is straightening of the cervical lordosis without spondylolisthesis. There is disc height loss at C5-C6 and C6-C7. Vertebral body heights are preserved. No acute fracture is seen. The cervical cord demonstrates no focal lesions. Soft tissues about the cervical spine demonstrate no acute abnormality. C2-C3: No disc bulge. No spinal canal or foraminal stenosis. C3-C4: No disc bulge. No spinal canal or foraminal stenosis. C4-C5: No significant disc bulge. No spinal canal or foraminal stenosis. C5-C6: Posterior disc osteophyte complex. No spinal canal stenosis. Mild bilateral foraminal narrowing. C6-C7: Posterior disc osteophyte complex. Mild spinal canal narrowing. No foraminal stenosis. C7-T1: No significant disc bulge. No spinal canal or foraminal stenosis. IMPRESSION: 1. Mild degenerative changes in the lower cervical spine. No high-grade spinal canal or foraminal stenosis. Dictated by: Dictated on workstation # [id number]
== END ==
LOC: RAD 13:28
PROVIDERS: ATTEND Physician Assistant
DX: M47.812 Spondylosis without myelopathy or radiculopathy, cervical region (principal)
CPT/HCPCS: 72141

== ENCOUNTER → 2021-02-22 | Outpatient (CLI) | payer MEDICARE, OTHER ==
[~2021-02-22] MED LIST changes: +DICY20TA PO; -DICY20TA10 PO
--- NOTE | 2021-02-22 12:54 | Diagnostic Imaging Report ---
INDICATION: Routine screening. COMPARISON: 01/19/2020 and 01/15/2019. TECHNIQUE: 2D and 3D bilateral screening mammography was performed with CAD. FINDINGS: Scattered fibroglandular densities are identified bilaterally. A biopsy clip in the left breast is again noted. A circumscribed nodule in the upper outer right breast is stable. No new mass or malignant-appearing microcalcifications are seen. The axillae are unremarkable. IMPRESSION: No mammographic features suspicious for malignancy are identified. ACR BI-RADS Category 2: Benign findings. Result letter will be mailed to the patient. Note: At least 10% of breast cancer is not imaged by mammography. Dictated by: Dictated on workstation # [id number]
== END ==
LOC: RAD 10:15
PROVIDERS: ATTEND Physician Assistant
DX: Z12.31 Encounter for screening mammogram for malignant neoplasm of breast (principal)
CPT/HCPCS: 77063; 77067